=== PATIENT | female | born 1945 | race Caucasian/White ===

== ENCOUNTER 2020-07-10 18:56 | Inpatient (IN) | payer MEDICARE, SELFPAY ==
[2020-07-10 18:57] VITALS: BP 123/55; PULSE 81; RESP 16; TEMP 36.2; O2SAT 99; BMI 46.2
--- NOTE | 2020-07-10 19:38 | CT_ITS ---
STUDY: CT LUMBAR SPINE WITH CONTRAST REASON FOR EXAM: Female, 75 years old. back pain -- bladder problems, ? metastatic LN found 07/08 RADIATION DOSAGE (If Supplied By Facility): CTDIvol = ( 59.20 ) mGy, DLP = ( 2060.22 ) mGycm TECHNIQUE: The patient was scanned in a multi detector CT scanner. High resolution transaxial imaging was performed following the intravenous administration of IV 100mL Isovue-370. Images were obtained from thoracic to sacrum. Sagittal and coronal images were reconstructed. Individualized dose optimization techniques were used for this CT. COMPARISON: None FINDINGS: Normal lumbar lordosis. There is no substantial scoliosis. Normal vertebrae of the lumbar spine. Spondylosis and multilevel vacuum disc phenomenon. Schmorl''s node superior endplate L3. L1-2: Normal endplates. Normal disc height and morphology. Normal bilateral facet joints. Normal central canal and bilateral lateral recesses. Normal bilateral intervertebral neural foramina. L2-3: Moderate Central and lateral ventricle, spinal stenosis due to hypertrophic facet disease. L3-4: Moderate Central and lateral ventricle, spinal stenosis due to hypertrophic facet disease. L4-5: Large broad-based posterior disc marginal osteophyte and hypertrophic facet disease causing severe trefoil type narrowing of the central and lateral canal. Vacuum disc phenomena. L5-S1: Normal endplates. Normal disc height and morphology. Hypertrophic bilateral facet joints. Normal central canal and bilateral lateral recesses. Normal bilateral intervertebral neural foramina. Pathologic retroperitoneal lymphadenopathy. CT/Spine Lumbar WITH Contrast IMPRESSION: Pathologic retroperitoneal lymphadenopathy. Multilevel spinal stenosis as noted above. Electronically Signed: Michael Mcintosh MD at 21:19 EDT , Service support ,
[2020-07-10] MEDS: Ondansetron 4 MG/2 ML Vial IV (20:02)
[2020-07-10] MEDS: Morphine 4 MG/ML Syringe IV (20:02)
[2020-07-10 20:13] LABS: Absolute Lymphocyte Count 0.67 X10^3/uL (0.83-4.51); Absolute Neutrophil Count 6.2 X10^3/uL (2.0-7.7); Basophil# 0.04 X10^3/uL; Basophil% 0.5 % (0-1); Eosinophil# 0.19 X10^3/uL; Eosinophils% 2.3 % (0-5); Hematocrit 36.4 % (37-47); Hemoglobin 11.5 g/dL (12.0-15.0); Lymphocyte # 0.67 X10^3/ul (0.83-4.51); Lymphocyte % 8.3 % (19-41); Mean Corp Hgb Conc 31.6 g/dL (32-36); Mean Corpuscular Hgb 27.8 pg (27.0-32.0); Mean Corpuscular Volume 87.9 fL (81-99); Mean Platelet Vol. 9.6 fl (6.2-12.0); Monocyte# 0.97 X10^3/uL; NRBC Flagged by Analyzer 0 % (0-5); Neutrophil % 76.4 % (47-70); Platelet Count 458 K/mm3 (150-450); RBC Distribution Width CV 15.3 % (11.6-14.6); Red Blood Count 4.14 M/mm3 (4.2-5.4); White Blood Count 8.1 K/mm3 (4.4-11.0)
[2020-07-10 20:52] LABS: Anion Gap 8 (5-15); BUN 14 mg/dL (7-18); BUN/Creat Ratio 15.3 RATIO (10-20); Calcium,Total 10.3 mg/dL (8.5-10.1); Chloride 98 mmol/L (98-107); Creatinine, Serum 0.92 mg/dL (0.55-1.02); EST Glomerular Filtration Rate 63 mL/min (>60); Est Glom Filt Rate - Afr Amer 77 mL/min (>60); Estimated Creatinine Clearance 50.59 ml/min; Glucose 105 mg/dL (74-106); Potassium 3.7 mmol/L (3.5-5.1); Sodium Level 134 mmol/L (136-145)
[2020-07-10 20:52] LABS: Bacteria 0 SEEN /hpf (None Seen); Mucous, Urine 0 SEEN /hpf (<or=2+); Red Blood Cells-Urine 0 SEEN /hpf (0-5); White Blood Cells 0 SEEN /hpf (0-5)
[2020-07-10 20:59] LABS: Color, Urine Straw (Yellow); Glucose, Dipstick Normal (Normal); Ketone-Dipstick Negative (Negative); Leukocyte Esterase-Dipstick Negative /ul (Negative); Nitrite-Dipstick Negative (Negative); Occult Blood-Urine Negative /ul (Negative); Protein-Dipstick Negative (Negative); Urine Bilirubin Dipstick Negative (Negative); Urine Clarity Clear (Clear); Urine Urobilinogen Normal (Normal); Urine pH 6.5 (5.0 - 8.0)
[2020-07-10 21:10] LABS: Squamous Epithelial Cells - UA 0-5 SEEN /hpf (5-10)
[2020-07-10 21:12] LABS: Hyaline Cast 0-5 SEEN /lpf (0-5)
[2020-07-10] MEDS: oxyCODONE 5 MG Tablet PO (21:12)
[2020-07-10 21:15] VITALS: BP 110/63; PULSE 79; RESP 15; O2SAT 100
--- NOTE | 2020-07-10 21:20 | EX.ED.DYSGE1 ---
HPI History of Present Illness Chief Complaint: Back Informant: patient Onset/Context/Timing Onset: Days Context: Gradual Onset Current Severity: Moderate Maximum Severity: Moderate Narrative Narrative: Patient present secondary low back pain. She states she developed low back pain last july 05. She denies any injury. She was seen in the emergency room in [place] on July 08. She had extensive work-up done there including a CT scan. Blood work and urine were unremarkable. CT scan showed malignant appearing retrocrural, retroperitoneal, and iliac lymph nodes. Patient is scheduled to follow-up with a specialist through this coming week. Patient states she was sent home on CeQur but that is not controlling her pain so she came here for evaluation. [facility] Medical History (Updated 07/10/20 @ 22:[address] Laureen Nichols MD) Diabetes High cholesterol Hypertension Pulmonary embolism Home Medications allopurinol 100 mg PO BID 07/10/20 [History Last Taken Unknown] amitriptyline 75 mg PO QHS 07/10/20 [History Last Taken Unknown] furosemide 40 mg PO DAILY 07/10/20 [History Last Taken Unknown] hydrocodone-acetaminophen 1 tab PO Q6H PRN 07/10/20 [History Last Taken Unknown] levothyroxine 88 mcg PO DAILY 07/10/20 [History Last Taken Unknown] metformin 500 mg PO DAILY 07/10/20 [History Last Taken Unknown] metoprolol succinate 100 mg PO DAILY 07/10/20 [History Last Taken Unknown] potassium chloride 20 meq PO DAILY 07/10/20 [History Last Taken Unknown] pravastatin 10 mg PO DAILY 07/10/20 [History Last Taken Unknown] warfarin 6 mg PO DAILY 07/10/20 [History Last Taken Unknown] Allergy/AdvReac Type Severity Reaction Status Date / Time No Known Allergies Allergy Verified 07/10/20 19:00 Surgical History History of bilateral knee replacement History of cholecystectomy Social History Smoking Status: Never smoker ROS ROS ED Constitutional Constitutional ED: Denies chills or fever(s) Eyes Eyes: Denies change in vision ENT ENT ED: Denies sore throat Cardiovascular Cardiovascular: Denies chest pain Respiratory/Chest Respiratory/Chest: Denies cough or dyspnea Gastrointestinal Gastrointestinal: Denies abdominal pain, diarrhea, nausea or vomiting Genitourinary Genitourinary ED: Reports other Details: Intermittent difficulty urinating ; Denies dysuria Musculoskeletal Musculoskeletal: Reports back pain Integumentary Denies rash Neurologic Neurologic: Denies headache(s) or weakness Psychiatric Psychiatric: Denies anxiety or depression Endocrine Endocrinology: Denies polydipsia or polyuria Allergic/Immunologic Allergic/Immunologic ED: Denies urticaria EXAM Physical Exam Const Vital Signs: 07/10/20 18:57 07/10/20 21:15 Temperature 97.2 F L Temperature Source Temporal Pulse Rate 81 79 Respiratory Rate 16 15 Blood Pressure 123/55 H 110/63 Blood Pressure Mean 77 78 Pulse Ox 99 100 Oxygen Delivery Method Room Air Room Air Positive well nourished and well developed General Appearance ED: well developed Eyes PERRL and EOMs intact bilaterally Neck supple Chest Wall inspection of chest normal and palpation of chest normal Resp normal respiratory effort and clear to auscultation bilaterally Cardio regular rate and regular rhythm GI normal to inspection, nondistended, normoactive bowel sounds and non-tender Palpation: soft Back/Spine Back/Spine Narrative: Lumbar paraspinal tenderness, right greater than left. Lumbar Spine / Lower Back: lumbar spinal tenderness Extremity normal to inspection Neuro oriented x3 and no sensory deficits noted Sensorium / Orientation: alert Motor Exam: strength 5/5 throughout Psych mental status grossly normal Skin no rashes or lesions noted MDM MDM MDM Narrative Medical decision making narrative: Patient was given 4 mg of morphine, 4 mg of Zofran for pain and nausea. Blood work is obtained along with a CT scan of the lumbar spine. I did review the patient's test results from [place]. Lab Data Attestation: I reviewed the patient's lab results. Labs: Laboratory Results - last 24 hr 07/10/20 07/10/20 07/10/20 20:00 20:00 20:32 WBC 8.1 RBC 4.14 L Hgb 11.5 L Hct 36.4 L MCV 87.9 MCH 27.8 MCHC 31.6 L RDW Std Deviation 49.0 H RDW Coeff of Rani 15.3 H Plt Count 458 H MPV 9.6 Immature Gran % (Auto) 0.500 Neut % (Auto) 76.4 H Lymph % (Auto) 8.3 L Morris % (Auto) 12.0 H Eos % (Auto) 2.3 Baso % (Auto) 0.5 Absolute Neuts (auto) 6.2 Absolute Lymphs (auto) 0.67 L Nucleated RBC % 0 PT INR Sodium Cancelled 134 L Potassium Cancelled 3.7 Chloride Cancelled 98 Carbon Dioxide Cancelled 28.0 Anion Gap Cancelled 8 BUN Cancelled 14 Creatinine Cancelled 0.92 Estim Creat Clear Calc Cancelled 50.59 Est GFR (MDRD) Af Amer Cancelled 77 Est GFR (MDRD) Non-Af Cancelled 63 BUN/Creatinine Ratio Cancelled 15.3 Glucose Cancelled 105 Calcium Cancelled 10.3 H Urine Color Urine Clarity Urine pH Ur Specific [place] Urine Protein Urine Glucose (UA) Urine Ketones Urine Occult Blood Urine Nitrite Urine Bilirubin Urine Urobilinogen Ur Leukocyte Esterase Urine RBC Urine WBC Ur Squamous Epith Cells Urine Bacteria Hyaline Casts Urine Mucus 07/10/20 07/10/20 20:47 21:34 WBC RBC Hgb Hct MCV MCH MCHC RDW Std Deviation RDW Coeff of Rani Plt Count MPV Immature Gran % (Auto) Neut % (Auto) Lymph % (Auto) [place] % (Auto) Eos % (Auto) Baso % (Auto) Absolute Neuts (auto) Absolute Lymphs (auto) Nucleated RBC % PT 31.9 H INR 3.2 Sodium Potassium Chloride Carbon Dioxide Anion Gap BUN Creatinine Estim Creat Clear Calc Est GFR (MDRD) Af Amer Est GFR (MDRD) Non-Af BUN/Creatinine Ratio Glucose Calcium Urine Color Straw Urine Clarity Clear Urine pH 6.5 Ur Specific [place] 1.010 Urine Protein Negative Urine Glucose (UA) Normal Urine Ketones Negative Urine Occult Blood Negative Urine Nitrite Negative Urine Bilirubin Negative Urine Urobilinogen Normal Ur Leukocyte Esterase Negative Urine RBC 0 SEEN Urine WBC 0 SEEN Ur Squamous Epith Cells 0-5 SEEN Urine Bacteria 0 SEEN Hyaline Casts 0-5 SEEN Urine Mucus 0 SEEN Radiography Diagnostic Testing: Radiology Impression Lumbar Spine CT 07/10/20 19:38 IMPRESSION: Pathologic retroperitoneal lymphadenopathy. Multilevel spinal stenosis as noted above. Electronically Signed: Michael Mcintosh MD at 21:19 EDT , Service support , Treatment and Re-Evaluation Comments:: Patient was given morphine and Zofran for pain followed by a dose of oxycodone. Test results are discussed with her and daughter at bedside. At this time she does not feel her pain is controlled well enough to go home. She has been on Morris at home without improvement and in spite of morphine and oxycodone here she is still very uncomfortable. I advised her I would speak with hospitalist regarding admission for pain control. I cannot guarantee her that a biopsy of the abnormal lymph nodes would be able to be performed while in the hospital. She voices understanding and agreement. Discharge Plan Triage Chief Complaint: Back ED Provider: Laureen Nichols Dx/Rx/DC Orders Clinical Impression: Intractable back pain Prescriptions: No Action furosemide 40 mg tablet 40 mg PO DAILY RF: 0 amitriptyline 75 mg tablet 75 mg PO QHS RF: 0 hydrocodone-acetaminophen 5-325 mg tablet 1 tab PO Q6H PRN (Reason: Pain) RF: 0 metoprolol succinate 100 mg tablet extended release 24 hr 100 mg PO DAILY RF: 0 allopurinol 100 mg tablet 100 mg PO BID RF: 0 levothyroxine 88 mcg tablet 88 mcg PO DAILY RF: 0 warfarin 6 mg tablet 6 mg PO DAILY RF: 0 potassium chloride 20 mEq tablet,ER particles/crystals 20 meq PO DAILY RF: 0 pravastatin 10 mg tablet 10 mg PO DAILY RF: 0 metformin 500 mg tablet extended release 24 hr 500 mg PO DAILY RF: 0 Primary Care Provider: Jarrod Sharma NP Referrals: Jarrod Sharma NP, [facility] [Primary Care Provider] - Disposition Disposition: Acute Care Hospital [facility]
[2020-07-10 21:54] LABS: International Normalized Ratio 3.2; Prothrombin Time (Protime)PT. 31.9 SECONDS (11.7-14.9)
[2020-07-10 22:38] VITALS: BP 99/59; PULSE 82; RESP 15; TEMP 36.5; O2SAT 98
--- NOTE | 2020-07-10 22:53 | MRI_ITS ---
STUDY: MRI LUMBAR SPINE WITH AND WITHOUT CONTRAST REASON FOR EXAM: Female, 75 years old. radlcular pain, lymphadenopathy, spinal stenosis TECHNIQUE: Standardized fat and water weighted pulse sequences were obtained in the sagittal and axial planes. IV DOTAREM 27CC was administered for the contrast portion of the examination. COMPARISON: CT 07/10/2020 FINDINGS: T12-L1: Normal endplates. Normal disc height, hydration and morphology. Normal bilateral facet joints. Normal central canal and bilateral lateral recesses. Normal bilateral intervertebral neural foramina. Normal lumbar lordosis. There is no substantial scoliosis. Normal conus medullaris that terminates at the L1. Significant marrow replacement of the L2 and L3 vertebral bodies worrisome for infiltrative process particularly metastatic disease. No pathologic compression fracture. No extension into the epidural space. L1-2: Normal endplates. Normal disc height, hydration and morphology. Normal bilateral facet joints. Normal central canal and bilateral lateral recesses. Normal bilateral intervertebral neural foramina. L2-3: Mild bilateral facet hypertrophy and moderate ligament flavum hypertrophy. Mild bilobed disc protrusion produces mild spinal stenosis and mild bilateral neural foraminal stenosis. L3-4: Mild bilateral facet hypertrophy and moderate ligament flavum hypertrophy. 2 mm retrolisthesis of L3 on L4 with a mild broad disc protrusion produces moderate spinal stenosis with moderate bilateral lateral recess stenosis with abutment of the L4 nerve roots bilaterally and moderate bilateral neural foraminal stenosis. L4-5: Moderate bilateral facet hypertrophy and ligament flavum hypertrophy. Moderate broad disc protrusion asymmetric to left produces moderate spinal stenosis, mild right lateral recess stenosis, severe left lateral recess stenosis with effacement the left L5 nerve root, mild right neural foraminal stenosis and severe left neural foraminal stenosis with effacement the left L4 nerve root laterally. L5-S1: Mild bilateral facet hypertrophy. Mild broad disc protrusion produces mild spinal stenosis and mild bilateral neural foraminal stenosis. Normal visualized sacral ala. Large retroperitoneal lymph nodes worrisome for lymphadenopathy. The largest discrete lymph node is a left periaortic lymph node measuring 4 x 5 cm per MRI/Spine Lumbar W/WO Contrast IMPRESSION: 1. Retroperitoneal lymphadenopathy and marrow replacing lesions the L2 and L3 vertebral bodies worrisome for metastatic disease. No pathologic compression fracture. Correlation with bone scan and PET CT scan may be useful. 2. Degenerative disc disease as described above. Electronically Signed: Ted Dietrich MD at 11:14 EDT Tel , Service support ,
--- NOTE | 2020-07-10 22:54 | HP.PCM.HOS_ITS ---
HPI - General General Date of Admission: 07/10/20 Date of Service: 07/10/20 Chief Complaint: right buttocks pain HPI Narrative LEANDRO HELMS, is a 75 F who presents to the emergency room at [facility] with a chief complaint of right upper buttocks pain that she describes as dull in nature, it is continuous and she is unable to get comfortable. Patient denies any pain down her right or left leg, she denies any numbness in her right or left leg. Patient was seen and in the emergency room in [facility] on July 08, 2020 with similar complaints, a CT of the lumbar spine was done at that time which showed pathological retroperitoneal lymph node enlargement, she was given Etta for pain and follow-up was scheduled for her to see another physician regarding the CT findings in approximately 2 weeks. Patient is on Coumadin, she states her INR was elevated and she was told to stay off Coumadin for now. Work-up in the emergency room here included a CAT scan of the lumbar spine which shows significant spinal stenosis with nerve impingement particularly at L4-L5 from osteophytes. There is also noted to be retro peritoneal lymphadenopathy which was concerning for malignancy. Labs were remarkable for a hemoglobin of 11.5, sodium was 134, calcium was 10.3. INR was 3.2. I discussed placing the patient in the observation status with her, her daughter was present in the room, and I have elected to place her in observation status on MedSurg 3, put her on IV Decadron, start gabapentin, get an MRI of the lumbar spine with contrast, and have pain management see her tomorrow. Patient's INR is elevated today at 3.2, I briefly discussed with the patient the possibility of trying to reverse the INR with medication but she prefers not to do that at this time. [facility] Medical History (Updated 07/10/20 @ 22:[address] Laureen Nichols MD) Diabetes High cholesterol Hypertension Pulmonary embolism Home Medications allopurinol 100 mg PO BID 07/10/20 [History Last Taken Unknown] amitriptyline 75 mg PO QHS 07/10/20 [History Last Taken Unknown] furosemide 40 mg PO DAILY 07/10/20 [History Last Taken Unknown] hydrocodone-acetaminophen 1 tab PO Q6H PRN 07/10/20 [History Last Taken Unknown] levothyroxine 88 mcg PO DAILY 07/10/20 [History Last Taken Unknown] metformin 500 mg PO DAILY 07/10/20 [History Last Taken Unknown] metoprolol succinate 100 mg PO DAILY 07/10/20 [History Last Taken Unknown] potassium chloride 20 meq PO DAILY 07/10/20 [History Last Taken Unknown] pravastatin 10 mg PO DAILY 07/10/20 [History Last Taken Unknown] warfarin 6 mg PO DAILY 07/10/20 [History Last Taken Unknown] Allergy/AdvReac Type Severity Reaction Status Date / Time No Known Allergies Allergy Verified 07/10/20 19:00 Surgical History (Updated 07/10/20 @ 23:[address] Efren Gold, DO) History of bilateral knee replacement History of cataract removal with insertion of prosthetic lens History of cholecystectomy Social History Smoking Status: Never smoker ROS Constitutional Constitutional: Denies anorexia, change in weight, chills, fever(s), night sweats or weakness Eyes Eyes: Denies blurry vision, change in vision, discharge from eye(s) or eye pain Cardiovascular Cardiovascular: Denies chest pain, claudication, edema or palpitations Respiratory/Chest Respiratory/Chest: Denies cough, hemoptysis, shortness of breath at rest or shortness of breath with exertion Gastrointestinal Gastrointestinal: Denies abdominal pain, constipation, diarrhea, hematemesis, hematochezia, melena, nausea or vomiting Genitourinary Genitourinary: Denies dysuria, hematuria, urinary frequency, urinary hesitancy, urinary incontinence or urinary urgency Musculoskeletal Musculoskeletal: Reports other Details: Right buttocks pain x1 week, dull in nature ; Denies back pain, joint pain, joint stiffness, joint swelling, myalgias or neck pain Neurologic Neurologic: Reports seizure-like activity; Denies abnormal gait, abnormal speech, confusion, dizziness, focal weakness, headache(s), loss of vision, numbness, other visual disturbances, paresthesias, syncope or tingling Psychiatric Psychiatric: Denies anxiety, cognitive impairment, depression, irritability, mood swings or suicidal ideation Endocrine Endocrinology: Denies change in body appearance, cold intolerance, excessive sweating, heat intolerance, polydipsia or polyuria Hematologic/Lymphatic Hematologic/Lymphatic: Denies none, anemia, easy bleeding, easy bruising or lymphadenopathy Allergic/Immunologic Allergic/Immunologic: Denies rhinitis, urticaria, eczemia or asthma Vital Signs Vital Signs Vital Signs: 07/10/20 18:57 07/10/20 21:15 07/10/20 22:38 Temperature 97.2 F L 97.7 F L Temperature Source Temporal Temporal Pulse Rate 81 79 82 Respiratory Rate 16 15 15 Blood Pressure 123/55 H 110/63 99/59 L Blood Pressure Mean 77 78 72 Pulse Ox 99 100 98 Oxygen Delivery Method Room Air Room Air Room Air Weight Weight: 133.81 kg Body Mass Index (BMI) 46.2 Physical Exam Const alert, oriented x3, no apparent distress and healthy appearing General Appearance: cooperative, well kempt and well developed Orientation / Consciousness: awake, oriented to person, oriented to place and oriented to time HEENT normocephalic and moist oral mucous membranes Eyes PERRL, EOMs intact bilaterally and conjunctivae normal Neck nuchal rigidity, supple, no JVD, thyroid normal and no carotid bruits General: trachea midline Resp normal respiratory effort, no retractions, no use of accessory muscles and clear to auscultation bilaterally Auscultation: Negative for rales, rhonchi or wheezes Cardio regular rate, regular rhythm, S1 normal heart sound, S2 normal heart sound, no murmurs, no rub and no gallops GI normal to inspection, nondistended, normoactive bowel sounds, soft to palpation, non-tender and non-distended Extremity normal to inspection and no clubbing, cyanosis or edema Skin no rashes or lesions noted, no wounds and no jaundice General Skin Exam: no breakdown Neuro oriented x3, CN's II-XII intact bilaterally, no focal motor deficits and no sensory deficits noted Sensorium / Orientation: awake and alert Speech: speech normal Psych thought process normal and affect normal Lab / Micro Data Result Diagrams: 07/10/20 20:00 07/10/20 20:32 Labs: Laboratory Results - last 24 hr 07/10/20 07/10/20 07/10/20 20:00 20:00 20:32 WBC 8.1 RBC 4.14 L Hgb 11.5 L Hct 36.4 L MCV 87.9 MCH 27.8 MCHC 31.6 L RDW Std Deviation 49.0 H RDW Coeff of Rani 15.3 H Plt Count 458 H MPV 9.6 Immature Gran % (Auto) 0.500 Neut % (Auto) 76.4 H Lymph % (Auto) 8.[address] [place] % (Auto) 12.0 H Eos % (Auto) 2.3 Baso % (Auto) 0.5 Absolute Neuts (auto) 6.2 Absolute Lymphs (auto) 0.67 L Nucleated RBC % 0 PT INR Sodium Cancelled 134 L Potassium Cancelled 3.7 Chloride Cancelled 98 Carbon Dioxide Cancelled 28.0 Anion Gap Cancelled 8 BUN Cancelled 14 Creatinine Cancelled 0.92 Estim Creat Clear Calc Cancelled 50.59 Est GFR (MDRD) Af Amer Cancelled 77 Est GFR (MDRD) Non-Af Cancelled 63 BUN/Creatinine Ratio Cancelled 15.3 Glucose Cancelled 105 Calcium Cancelled 10.3 H Urine Color Urine Clarity Urine pH Ur Specific [place] Urine Protein Urine Glucose (UA) Urine Ketones Urine Occult Blood Urine Nitrite Urine Bilirubin Urine Urobilinogen Ur Leukocyte Esterase Urine RBC Urine WBC Ur Squamous Epith Cells Urine Bacteria Hyaline Casts Urine Mucus 07/10/20 07/10/20 20:47 21:34 WBC RBC Hgb Hct MCV MCH MCHC RDW Std Deviation RDW Coeff of Rani Plt Count MPV Immature Gran % (Auto) Neut % (Auto) Lymph % (Auto) [place] % (Auto) Eos % (Auto) Baso % (Auto) Absolute Neuts (auto) Absolute Lymphs (auto) Nucleated RBC % PT 31.9 H INR 3.2 Sodium Potassium Chloride Carbon Dioxide Anion Gap BUN Creatinine Estim Creat Clear Calc Est GFR (MDRD) Af Amer Est GFR (MDRD) Non-Af BUN/Creatinine Ratio Glucose Calcium Urine Color Straw Urine Clarity Clear Urine pH 6.5 Ur Specific [place] 1.010 Urine Protein Negative Urine Glucose (UA) Normal Urine Ketones Negative Urine Occult Blood Negative Urine Nitrite Negative Urine Bilirubin Negative Urine Urobilinogen Normal Ur Leukocyte Esterase Negative Urine RBC 0 SEEN Urine WBC 0 SEEN Ur Squamous Epith Cells 0-5 SEEN Urine Bacteria 0 SEEN Hyaline Casts 0-5 SEEN Urine Mucus 0 SEEN Radiology Impression Lumbar Spine CT 07/10/20 19:38 IMPRESSION: Pathologic retroperitoneal lymphadenopathy. Multilevel spinal stenosis as noted above. Electronically Signed: Michael Mcintosh MD at 21:19 EDT , Service support , Assessment & Plan Assessment/Plan (1) Intractable back pain: PLAN: 1. Right buttocks pain-radicular in nature-secondary to degenerative disc disease of lumbar spine with spinal stenosis, patient will be placed in observation status on MedSurg 3, I will begin IV Decadron, oral gabapentin, OxyContin, and have pain management see the patient. An MRI of the lumbar spine with and without contrast will be ordered. 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 Visit Charges OBSV E&M: 44334 Initial observation care L3
[2020-07-10 23:35] VITALS: BMI 44.4
[2020-07-10 23:41] VITALS: BP 113/64; PULSE 78; RESP 18; TEMP 36.7; O2SAT 96
[2020-07-11] VITALS (8 sets, daily range): BP systolic 101–120; BP diastolic 53–63; PULSE 72–91; RESP 16–18; TEMP 36.6–36.9; O2SAT 92–98
[2020-07-11] MEDS: Amitriptyline 25 MG Tablet 75 MG PO ×2 (00:21→21:18)
[2020-07-11] MEDS: oxyCODONE CR 15 MG Tablet PO ×3 (00:21→21:18)
[2020-07-11] MEDS: Gabapentin 300 MG Capsule PO ×4 (00:21→16:48)
[2020-07-11] MEDS: dexAMETHasone 4 MG/ML Vial IV ×5 (00:21→23:11)
[2020-07-11] MEDS: 0.9% Saline Lock 10 ML Syringe IV ×6 (00:22→23:11)
[2020-07-11] MEDS: Nystatin Powder 15gm Bottle 1 APPLIC TOPICAL ×3 (05:16→21:18)
[2020-07-11] MEDS: Levothyroxine 88 MCG Tablet PO (05:16)
[2020-07-11 06:12] LABS: International Normalized Ratio 3.3; Prothrombin Time (Protime)PT. 32.3 SECONDS (11.7-14.9)
[2020-07-11] MEDS: Metoprolol(XL)Succ 100 MG Tablet PO (08:27)
[2020-07-11] MEDS: Potassium Chloride Oral Tablet 20 MEQ PO (08:27)
[2020-07-11] MEDS: Furosemide 40 MG Tablet PO (08:27)
[2020-07-11] MEDS: Allopurinol 100 MG Tablet PO ×2 (08:28→21:18)
--- NOTE | 2020-07-11 10:33 | PN.HOSP_ITS ---
Objective Data Objective Data Vital Signs: Vital Signs Temp Pulse Resp BP Pulse Ox 98.3 F 76 18 115/56 L 95 07/11/20 08:20 07/11/20 08:27 07/11/20 08:20 07/11/20 08:20 07/11/20 08:20 Oxygen Flow Rate (L/min) 1 Oxygen Delivery Method Nasal Cannula Weight: 283 lb 8.231 oz Body Mass Index (BMI) 44.4 Intake & Output: Intake and Output for Last 24 Hours 07/09/20 07/10/20 07/11/20 23:59 23:59 23:59 Intake Total 320 / 320 Balance 320 / 320 Lab / Micro Data Result Diagrams: 07/10/20 20:00 07/10/20 20:32 Labs: Laboratory Results - last 24 hr 07/10/20 07/10/20 07/10/20 20:00 20:00 20:32 WBC 8.1 RBC 4.14 L Hgb 11.5 L Hct 36.4 L MCV 87.9 MCH 27.8 MCHC 31.6 L RDW Std Deviation 49.0 H RDW Coeff of Rani 15.3 H Plt Count 458 H MPV 9.6 Immature Gran % (Auto) 0.500 Neut % (Auto) 76.4 H Lymph % (Auto) 8.3 L [place] % (Auto) 12.0 H Eos % (Auto) 2.3 Baso % (Auto) 0.5 Absolute Neuts (auto) 6.2 Absolute Lymphs (auto) 0.67 L Nucleated RBC % 0 PT INR Sodium Cancelled 134 L Potassium Cancelled 3.7 Chloride Cancelled 98 Carbon Dioxide Cancelled 28.0 Anion Gap Cancelled 8 BUN Cancelled 14 Creatinine Cancelled 0.92 Estim Creat Clear Calc Cancelled 50.59 Est GFR (MDRD) Af Amer Cancelled 77 Est GFR (MDRD) Non-Af Cancelled 63 BUN/Creatinine Ratio Cancelled 15.3 Glucose Cancelled 105 Calcium Cancelled 10.3 H Urine Color Urine Clarity Urine pH Ur Specific [place] Urine Protein Urine Glucose (UA) Urine Ketones Urine Occult Blood Urine Nitrite Urine Bilirubin Urine Urobilinogen Ur Leukocyte Esterase Urine RBC Urine WBC Ur Squamous Epith Cells Urine Bacteria Hyaline Casts Urine Mucus 07/10/20 07/10/20 07/11/20 20:47 21:34 05:40 WBC RBC Hgb Hct MCV MCH MCHC RDW Std Deviation RDW Coeff of Rani Plt Count MPV Immature Gran % (Auto) Neut % (Auto) Lymph % (Auto) [place] % (Auto) Eos % (Auto) Baso % (Auto) Absolute Neuts (auto) Absolute Lymphs (auto) Nucleated RBC % PT 31.9 H 32.3 H INR 3.2 3.3 Sodium Potassium Chloride Carbon Dioxide Anion Gap BUN Creatinine Estim Creat Clear Calc Est GFR (MDRD) Af Amer Est GFR (MDRD) Non-Af BUN/Creatinine Ratio Glucose Calcium Urine Color Straw Urine Clarity Clear Urine pH 6.5 Ur Specific [place] 1.010 Urine Protein Negative Urine Glucose (UA) Normal Urine Ketones Negative Urine Occult Blood Negative Urine Nitrite Negative Urine Bilirubin Negative Urine Urobilinogen Normal Ur Leukocyte Esterase Negative Urine RBC 0 SEEN Urine WBC 0 SEEN Ur Squamous Epith Cells 0-5 SEEN Urine Bacteria 0 SEEN Hyaline Casts 0-5 SEEN Urine Mucus 0 SEEN Radiography Diagnostic Testing: Radiology Impression Lumbar Spine CT 07/10/20 19:38 IMPRESSION: Pathologic retroperitoneal lymphadenopathy. Multilevel spinal stenosis as noted above. Electronically Signed: Michael Mcintosh MD at 21:19 EDT , Service support ,
[2020-07-11] MEDS: Senna/Docusate Sodium 1 Tablet 2 TABLET PO ×2 (10:55→21:18)
--- NOTE | 2020-07-11 12:15 | CASEMGMT ---
DAVI STEARNS Face to Face with patient for initial transition planning/care coordination assessment. RN JINNY introduced self and role at [facility]. Patient sitting in chair, alert and oriented. Patient willing to participate in assessment and is able to answer all questions appropriately. Care providers, pharmacy, and demographics verified. Patient wishes to discharge home, denies need for home health or outpatient therapy at this time. RN JINNY instructed patient that should she reconsider she can follow-up with PCP, patient voiced understanding. Patient states she has no further needs or concerns at this time. CM to follow for discharge planning needs that may arise. PCP: Edith Specialists: none [facility]erred [facility]acy[facility] Insurance: [facility] Prescription Benefit: yes Living Will/HPOA: none LNOK: daughters Living Arrangements: Patient lives alone in a 2 story home with bed and bath on first floor. Patient is independent and watches grandchildren. Transportation: self, daughter DME/HHC: patient states she has shower chair, raised toilet, grab bars, and walker at home. Disposition Plan: Patient to discharge home with family support and follow-up plans in place. Marita BUI, RN, CM
--- NOTE | 2020-07-11 15:21 | PCM.DC.SUM ---
Providers Date of Admission: 07/10/20 Primary Care Physician: YISSEL Manzo Consultations 07/10/20 23:36 Consult: Pain Management Routine Consulting Provider: Sue Pang Reason for Consult: right radicular pain EMERGENT Consult: No MD Notified: Yes Date Notified:: 07/10/20 Time Notified: 22:47 Method of Notification: Verbal Reason For Visit: RADICULAR PAIN RIGHT LUMBAR Diagnosis Discharge Diagnosis (1) Intractable back pain: Status: Acute Code(s): M54.9 - Dorsalgia, unspecified Medications at Discharge Home Medications allopurinol 100 mg PO BID 07/10/20 amitriptyline 75 mg PO QHS 07/10/20 furosemide 40 mg PO DAILY 07/10/20 hydrocodone-acetaminophen 1 tab PO Q6H PRN 07/10/20 levothyroxine 88 mcg PO DAILY 07/10/20 metformin 500 mg PO DAILY 07/10/20 metoprolol succinate 100 mg PO DAILY 07/10/20 potassium chloride 20 meq PO DAILY 07/10/20 pravastatin 10 mg PO QHS 07/10/20 warfarin 6 mg PO QHS 07/10/20 Hospital Course Operations None Procedures None Summary of Care Provided Minutes Spent on Discharge: 40 Hospital Course: viridiana stenosis with nerve impingement at L4-5 due to osteophytes as well as retroperitoneal lymphadenopathy which was concerning for malignancy. She was started on gabapentin and Decadron and admitted to be managed for intractable low back pain. ABG / Lab / Microbiology Data Result Diagrams: 07/10/20 20:00 07/10/20 20:32 Laboratory: Laboratory Results - last 24 hr 07/10/20 07/10/20 07/10/20 20:00 20:00 20:32 WBC 8.1 RBC 4.14 L Hgb 11.5 L Hct 36.4 L MCV 87.9 MCH 27.8 MCHC 31.6 L RDW Std Deviation 49.0 H RDW Coeff of Rani 15.3 H Plt Count 458 H MPV 9.6 Immature Gran % (Auto) 0.500 Neut % (Auto) 76.4 H Lymph % (Auto) 8.3 L [place] % (Auto) 12.0 H Eos % (Auto) 2.3 Baso % (Auto) 0.5 Absolute Neuts (auto) 6.2 Absolute Lymphs (auto) 0.67 L Nucleated RBC % 0 PT INR Sodium Cancelled 134 L Potassium Cancelled 3.7 Chloride Cancelled 98 Carbon Dioxide Cancelled 28.0 Anion Gap Cancelled 8 BUN Cancelled 14 Creatinine Cancelled 0.92 Estim Creat Clear Calc Cancelled 50.59 Est GFR (MDRD) Af Amer Cancelled 77 Est GFR (MDRD) Non-Af Cancelled 63 BUN/Creatinine Ratio Cancelled 15.3 Glucose Cancelled 105 Calcium Cancelled 10.3 H Urine Color Urine Clarity Urine pH Ur Specific [place] Urine Protein Urine Glucose (UA) Urine Ketones Urine Occult Blood Urine Nitrite Urine Bilirubin Urine Urobilinogen Ur Leukocyte Esterase Urine RBC Urine WBC Ur Squamous Epith Cells Urine Bacteria Hyaline Casts Urine Mucus 07/10/20 07/10/20 07/11/20 20:47 21:34 05:40 WBC RBC Hgb Hct MCV MCH MCHC RDW Std Deviation RDW Coeff of Rani Plt Count MPV Immature Gran % (Auto) Neut % (Auto) Lymph % (Auto) [place] % (Auto) Eos % (Auto) Baso % (Auto) Absolute Neuts (auto) Absolute Lymphs (auto) Nucleated RBC % PT 31.9 H 32.3 H INR 3.2 3.3 Sodium Potassium Chloride Carbon Dioxide Anion Gap BUN Creatinine Estim Creat Clear Calc Est GFR (MDRD) Af Amer Est GFR (MDRD) Non-Af BUN/Creatinine Ratio Glucose Calcium Urine Color Straw Urine Clarity Clear Urine pH 6.5 Ur Specific [place] 1.010 Urine Protein Negative Urine Glucose (UA) Normal Urine Ketones Negative Urine Occult Blood Negative Urine Nitrite Negative Urine Bilirubin Negative Urine Urobilinogen Normal Ur Leukocyte Esterase Negative Urine RBC 0 SEEN Urine WBC 0 SEEN Ur Squamous Epith Cells 0-5 SEEN Urine Bacteria 0 SEEN Hyaline Casts 0-5 SEEN Urine Mucus 0 SEEN Radiography Diagnostic Testing: Radiology Impression Lumbar Spine CT 07/10/20 19:38 IMPRESSION: Pathologic retroperitoneal lymphadenopathy. Multilevel spinal stenosis as noted above. Electronically Signed: Michael Mcintosh MD at 21:19 EDT , Service support , Lumbar Spine MRI 07/10/20 22:53 IMPRESSION: 1. Retroperitoneal lymphadenopathy and marrow replacing lesions the L2 and L3 vertebral bodies worrisome for metastatic disease. No pathologic compression fracture. Correlation with bone scan and PET CT scan may be useful. 2. Degenerative disc disease as described above. Electronically Signed: Ted Dietrich MD at 11:14 EDT Tel , Service support , Discharge Plan Admission Admit Date/Time: 07/10/20 22:53 Primary Reason for Your Visit: back pain Attending Provider: Barbara Ny Primary Care Provider: Jarrod Sharma NP Consulting Providers: Sue Pang Discharge Orders/Prescriptions Prescriptions: No Action furosemide 40 mg tablet 40 mg PO DAILY RF: 0 amitriptyline 75 mg tablet 75 mg PO QHS RF: 0 hydrocodone-acetaminophen 5-325 mg tablet 1 tab PO Q6H PRN (Reason: Pain) RF: 0 metoprolol succinate 100 mg tablet extended release 24 hr 100 mg PO DAILY RF: 0 allopurinol 100 mg tablet 100 mg PO BID RF: 0 levothyroxine 88 mcg tablet 88 mcg PO DAILY RF: 0 warfarin 6 mg tablet 6 mg PO QHS RF: 0 potassium chloride 20 mEq tablet,ER particles/crystals 20 meq PO DAILY RF: 0 pravastatin 10 mg tablet 10 mg PO QHS RF: 0 metformin 500 mg tablet extended release 24 hr 500 mg PO DAILY RF: 0 Referrals / Follow Up: Jarrod Sharma NP, [employer] [Primary Care Provider] -
--- NOTE | 2020-07-11 15:26 | PN.HOSP_ITS ---
Subjective Subjective Patient seen and examined. She was admitted with a complaint of low back pain mainly in the upper part of the right buttock. She had been seen in [facility] for similar symptoms recently. CT of the lumbar spine done here showed lumbar spinal stenosis and pathologic retropreritoneal lymphadenopathy. She has been managed for intractable back pain. Patient seen and examined this morning. Pain had improved significantly and she had no complaints. Review of systems otherwise negative. Lumbar MRI showed retroperitoneal lymphadenopathy and marrow replacing lesions of L2 and L3 vertebral bodies worrisome for metastatic disease and no pathologic compression fracture. She has remained hemodynamically stable. Objective Data Objective Data Vital Signs: Vital Signs Temp Pulse Resp BP Pulse Ox 98.5 F 76 16 112/53 L 92 07/11/20 15:05 07/11/20 15:05 07/11/20 15:05 07/11/20 15:05 07/11/20 15:05 Oxygen Flow Rate (L/min) 1 Oxygen Delivery Method Room Air Weight: 283 lb 8.231 oz Body Mass Index (BMI) 44.4 Intake & Output: Intake and Output for Last 24 Hours 07/09/20 07/10/20 07/11/20 23:59 23:59 23:59 Intake Total 320 / 320 Balance 320 / 320 Lab / Micro Data Result Diagrams: 07/10/20 20:00 07/10/20 20:32 Labs: Laboratory Results - last 24 hr 07/10/20 07/10/20 07/10/20 20:00 20:00 20:32 WBC 8.1 RBC 4.14 L Hgb 11.5 L Hct 36.4 L MCV 87.9 MCH 27.8 MCHC 31.6 L RDW Std Deviation 49.0 H RDW Coeff of Rani 15.3 H Plt Count 458 H MPV 9.6 Immature Gran % (Auto) 0.500 Neut % (Auto) 76.4 H Lymph % (Auto) 8.3 L [place] % (Auto) 12.0 H Eos % (Auto) 2.3 Baso % (Auto) 0.5 Absolute Neuts (auto) 6.2 Absolute Lymphs (auto) 0.67 L Nucleated RBC % 0 PT INR Sodium Cancelled 134 L Potassium Cancelled 3.7 Chloride Cancelled 98 Carbon Dioxide Cancelled 28.0 Anion Gap Cancelled 8 BUN Cancelled 14 Creatinine Cancelled 0.92 Estim Creat Clear Calc Cancelled 50.59 Est GFR (MDRD) Af Amer Cancelled 77 Est GFR (MDRD) Non-Af Cancelled 63 BUN/Creatinine Ratio Cancelled 15.3 Glucose Cancelled 105 Calcium Cancelled 10.3 H Urine Color Urine Clarity Urine pH Ur Specific [place] Urine Protein Urine Glucose (UA) Urine Ketones Urine Occult Blood Urine Nitrite Urine Bilirubin Urine Urobilinogen Ur Leukocyte Esterase Urine RBC Urine WBC Ur Squamous Epith Cells Urine Bacteria Hyaline Casts Urine Mucus 07/10/20 07/10/20 07/11/20 20:47 21:34 05:40 WBC RBC Hgb Hct MCV MCH MCHC RDW Std Deviation RDW Coeff of Rani Plt Count MPV Immature Gran % (Auto) Neut % (Auto) Lymph % (Auto) [place] % (Auto) Eos % (Auto) Baso % (Auto) Absolute Neuts (auto) Absolute Lymphs (auto) Nucleated RBC % PT 31.9 H 32.3 H INR 3.2 3.3 Sodium Potassium Chloride Carbon Dioxide Anion Gap BUN Creatinine Estim Creat Clear Calc Est GFR (MDRD) Af Amer Est GFR (MDRD) Non-Af BUN/Creatinine Ratio Glucose Calcium Urine Color Straw Urine Clarity Clear Urine pH 6.5 Ur Specific [place] 1.010 Urine Protein Negative Urine Glucose (UA) Normal Urine Ketones Negative Urine Occult Blood Negative Urine Nitrite Negative Urine Bilirubin Negative Urine Urobilinogen Normal Ur Leukocyte Esterase Negative Urine RBC 0 SEEN Urine WBC 0 SEEN Ur Squamous Epith Cells 0-5 SEEN Urine Bacteria 0 SEEN Hyaline Casts 0-5 SEEN Urine Mucus 0 SEEN Radiography Diagnostic Testing: Radiology Impression Lumbar Spine CT 07/10/20 19:38 IMPRESSION: Pathologic retroperitoneal lymphadenopathy. Multilevel spinal stenosis as noted above. Electronically Signed: Michael Mcintosh MD at 21:19 EDT , Service support , Lumbar Spine MRI 07/10/20 22:53 IMPRESSION: 1. Retroperitoneal lymphadenopathy and marrow replacing lesions the L2 and L3 vertebral bodies worrisome for metastatic disease. No pathologic compression fracture. Correlation with bone scan and PET CT scan may be useful. 2. Degenerative disc disease as described above. Electronically Signed: Ted Dietrich MD at 11:14 EDT Tel , Service support , Physical Exam Const alert, oriented x3 and no apparent distress Exam Limitations: no limitations HEENT head/scalp atraumatic, moist oral mucous membranes and oropharynx normal Head and Scalp: normocephalic Eyes PERRL, EOMs intact bilaterally and conjunctivae normal Neck no lymphadenopathy, supple and no JVD Resp normal respiratory effort, no retractions, no use of accessory muscles and clear to auscultation bilaterally Cardio regular rate, regular rhythm, S1 normal heart sound, S2 normal heart sound and no gallops GI normal to inspection, nondistended, normoactive bowel sounds, soft to palpation, non-tender and non-distended Extremity normal to inspection, full ROM and no clubbing, cyanosis or edema Peripheral Pulses: Yes pulses 2+ throughout Skin no rashes or lesions noted Neuro oriented x3 Sensorium / Orientation: awake and alert Psych affect normal Assessment & Plan Assessment/Plan (1) Intractable back pain: PLAN: #Intractable back pain * pain has improved * CT of the lumbar spine showed retroperitoneal lymphadenopathy and lumbar spinal stenosis * MRI done of the lumbar spine showed retroperitoneal lymphadenopathy and marrow replacing lesions of L2 and L3 vertebral bodies worrisome for metastatic disease with no pathologic compression fracture. She also had moderate spinal stenosis of L4-5 and L3-4. * Continue current pain medication. * Consult oncology in light of MRI findings. Will check CMP to check for serum protein and albumin. * Will order serum electrophoresis. Consult oncology. * #Hypertension: On furosemide and metoprolol #Hyperlipidemia: On statin #Hypothyroidism: On Synthroid DVT prophylaxis: on coumadin. will hold coumadin for now as INR was 3.2 on admission. INR today is 3.3. Charges/Coding Visit Charges Inpatient E&M: 30861 Subs Hosp L3
[2020-07-11 16:09] LABS: BUN 16 mg/dL (7-18); Creatinine, Serum 1.12 mg/dL (0.55-1.02); Estimated Creatinine Clearance 41.56 ml/min; Glucose 140 mg/dL (74-106)
[2020-07-11 16:10] LABS: ALB/GLOB Ratio 0.4 RATIO (0.9-2.4); AST(SGOT) 14 U/L (15-37); Alanine Aminotransfer ALT/SGPT 12 U/L (13-56); Albumin, Serum 2.5 g/dL (3.2-5.0); Alkaline Phosphatase 226 U/L (45-117); Anion Gap 9 (5-15); BUN/Creat Ratio 14.3 RATIO (10-20); Calcium,Total 10.4 mg/dL (8.5-10.1); Chloride 97 mmol/L (98-107); EST Glomerular Filtration Rate 50 mL/min (>60); Est Glom Filt Rate - Afr Amer 61 mL/min (>60); Globulin 5.6 g/dL (2.2-4.2); Protein, Total 8.1 g/dL (6.4-8.2); Sodium Level 134 mmol/L (136-145)
[2020-07-11 16:12] LABS: LDH 298 U/L (84-246)
[2020-07-12 02:30] VITALS: BP 116/71; PULSE 67; RESP 16; TEMP 36.4; O2SAT 94
[2020-07-12] MEDS: 0.9% Saline Lock 10 ML Syringe IV ×4 (05:18→12:05)
[2020-07-12] MEDS: Levothyroxine 88 MCG Tablet PO (05:19)
[2020-07-12] MEDS: Nystatin Powder 15gm Bottle 1 APPLIC TOPICAL ×2 (05:19→13:37)
[2020-07-12] MEDS: dexAMETHasone 4 MG/ML Vial IV ×2 (05:19→12:05)
[2020-07-12 05:46] LABS: Absolute Lymphocyte Count 0.76 X10^3/uL (0.83-4.51); Absolute Neutrophil Count 8.6 X10^3/uL (2.0-7.7); Basophil# 0.01 X10^3/uL; Basophil% 0.1 % (0-1); Hematocrit 34.2 % (37-47); Hemoglobin 10.7 g/dL (12.0-15.0); Lymphocyte # 0.76 X10^3/ul (0.83-4.51); Lymphocyte % 7.7 % (19-41); Mean Corp Hgb Conc 31.3 g/dL (32-36); Mean Corpuscular Hgb 27.5 pg (27.0-32.0); Mean Corpuscular Volume 87.9 fL (81-99); Mean Platelet Vol. 9.5 fl (6.2-12.0); Monocyte# 0.41 X10^3/uL; Monocyte% 4.1 % (0-10); NRBC Flagged by Analyzer 0 % (0-5); Neutrophil % 87.1 % (47-70); Platelet Count 538 K/mm3 (150-450); RBC Distribution Width CV 15.5 % (11.6-14.6); Red Blood Count 3.89 M/mm3 (4.2-5.4); White Blood Count 9.9 K/mm3 (4.4-11.0)
--- NOTE | 2020-07-12 05:55 | CT_ITS ---
STUDY: CT CHEST, ABDOMEN T PELVIS WITH CONTRAST REASON FOR EXAM: Female, 75 years old. Retroperitoneal lymphadenopathy RADIATION DOSAGE (If Supplied By Facility): CTDIvol = ( 26.02 ) mGy, DLP = ( 2685.75 ) mGycm TECHNIQUE: Transaxial imaging was performed following intravenous administration of IV 100mL [id number]-300. Individualized dose optimization techniques were used for this CT. COMPARISON: No relevant priors. FINDINGS: CHEST Dominant left axillary lymph node measuring 1.6 cm x 1.3 cm. Benign appearing right axillary lymph nodes. Minimal increased markings at the lung bases slightly more prominent on the left side suggestive of bibasilar atelectasis. Small left pleural effusion. Minimal right pleural thickening. There are calcifications of the coronary arteries. Normal mediastinum. Normal hilar regions. Normal unenhanced pulmonary arteries. Atherosclerotic plaque formation of the aortic arch. There are multi-level degenerative changes of the thoracic spine. The patient is status post cholecystectomy. ABDOMEN Small left pleural effusion. Minimal right pleural thickening. Findings suggest some bibasilar atelectasis is more prominent on the left side. Coronary artery calcification. Normal liver. The gallbladder is contracted. Normal spleen. There is diffuse atrophy of the pancreas. Normal bilateral adrenal glands. Normal right kidney. Normal left kidney. Normal visualized stomach. Normal small intestine. Normal colon. The appendix is visualized and appears normal. There is diffuse atherosclerotic calcification of the abdominal aorta, without a demonstrated aneurysm. Normal inferior vena cava. There is retroperitoneal lymphadenopathy with enlarged nodes greater than 10-15mm in the short axis. Normal abdominal wall. There are diffuse degenerative changes of the visualized lumbar spine. PELVIS Normal urinary bladder. There appears to be thickening of the endometrium. Normal visualized small intestine. Normal visualized colon. There is no pelvic fluid. There is no pelvic lymphadenopathy or mass lesion. There is diffuse atherosclerotic calcification of the pelvic arteries. Normal abdominal wall. There are diffuse degenerative changes of the visualized lumbar spine. CT/CT Chest, Abd, Pel w/Contrast IMPRESSION: Diffuse retroperitoneal lymphadenopathy worse on the left side. Prominent left axillary lymph node. Electronically Signed: Marc Srinivasan MD at 8:18 EDT , Service support ,
[2020-07-12 06:04] LABS: ALB/GLOB Ratio 0.5 RATIO (0.9-2.4); AST(SGOT) 21 U/L (15-37); Alanine Aminotransfer ALT/SGPT 11 U/L (13-56); Albumin, Serum 2.5 g/dL (3.2-5.0); Alkaline Phosphatase 205 U/L (45-117); Anion Gap 9 (5-15); BUN 43 mg/dL (7-18); BUN/Creat Ratio 21.3 RATIO (10-20); Calcium,Total 9.8 mg/dL (8.5-10.1); Chloride 93 mmol/L (98-107); Creatinine, Serum 2.02 mg/dL (0.55-1.02); EST Glomerular Filtration Rate 26 mL/min (>60); Est Glom Filt Rate - Afr Amer 31 mL/min (>60); Estimated Creatinine Clearance 23.04 ml/min; Globulin 5.1 g/dL (2.2-4.2); Glucose 169 mg/dL (74-106); Potassium 4.5 mmol/L (3.5-5.1); Protein, Total 7.6 g/dL (6.4-8.2); Sodium Level 129 mmol/L (136-145)
[2020-07-12 07:08] VITALS: O2SAT 96
[2020-07-12 07:36] VITALS: PULSE 80
[2020-07-12 07:52] VITALS: BP 124/66; PULSE 67; RESP 18; TEMP 36.5; O2SAT 96
[2020-07-12 07:57] VITALS: PULSE 67
[2020-07-12] MEDS: Furosemide 40 MG Tablet PO (07:57)
[2020-07-12] MEDS: Potassium Chloride Oral Tablet 20 MEQ PO (07:57)
[2020-07-12] MEDS: Metoprolol(XL)Succ 100 MG Tablet PO (07:57)
[2020-07-12] MEDS: Senna/Docusate Sodium 1 Tablet 2 TABLET PO (07:57)
[2020-07-12] MEDS: Gabapentin 300 MG Capsule PO ×2 (07:57→12:06)
[2020-07-12] MEDS: oxyCODONE CR 15 MG Tablet PO (09:25)
[2020-07-12] MEDS: Allopurinol 100 MG Tablet PO (09:27)
--- NOTE | 2020-07-12 10:53 | DS.PCM_ITS ---
Providers Date of Admission: 07/11/20 Primary Care Physician: YISSEL Manzo Consultations 07/10/20 23:36 Consult: Pain Management Routine Consulting Provider: Sue Pang Reason for Consult: right radicular pain EMERGENT Consult: No MD Notified: Yes Date Notified:: 07/10/20 Time Notified: 22:47 Method of Notification: Verbal Reason For Visit: RADICULAR PAIN RIGHT LUMBAR Diagnosis Discharge Diagnosis (1) Intractable back pain: Status: Acute Code(s): M54.9 - Dorsalgia, unspecified Medications at Discharge Home Medications allopurinol 100 mg PO BID 07/10/20 amitriptyline 75 mg PO QHS 07/10/20 furosemide 40 mg PO DAILY 07/10/20 levothyroxine 88 mcg PO DAILY 07/10/20 metformin 500 mg PO DAILY 07/10/20 metoprolol succinate 100 mg PO DAILY 07/10/20 potassium chloride 20 meq PO DAILY 07/10/20 pravastatin 10 mg PO QHS 07/10/20 warfarin 6 mg PO QHS 07/10/20 hydrocodone-acetaminophen 1 tab PO Q6H PRN 3 Days #12 tab 07/12/20 Hospital Course Operations None Procedures None Summary of Care Provided Minutes Spent on Discharge: 45 Hospital Course: Patient is a 75 y/o female with a PMH as outlined who was admitted via the ED with a complaint low back pain, mainly in the right upper buttock. She had been seen in [facility] recently for similar symptoms. CT of the lumbar spine showed lumbar spinal stenosis and pathologic retroperitoneal lymphadenopathy. She was admitted to be managed for intractable back pain. She was evaluated by PT/OT and was started on pain medication. MRI of the lumbar spine showed retroperitoneal lymphadenopathy and marrow replacing lesions of L2 and L3 vertebral bodies worrisone for metastatic disease and no pathologic fracture. Patient's total protein wasn't elevated. I discussed this with oncology- Dr Barrow, who recommended patient getting a ct of the chest, abdomen and pelvis, which showed diffuse retroperitoneal lymphadenopathy worse on the left side, and prominent left axillary lymph node. Per oncology, patient's imaging symptoms were concerning for a possible lymphoma. She was therefore given an appointment to follow up with oncology next Friday July 17, 2020. She is to also follow up with her PCP in 1-2 weeks. Patient was seen and examined prior to discharge. She had no complaints. Pain was much better controlled. Review of systems was otherwise negative. Labs and vitals reviewed. Home medications reviewed and reconciled. Physical Exam Const alert, oriented x3, no apparent distress and healthy appearing General Appearance: cooperative, comfortable, well kempt and well developed Orientation / Consciousness: awake, oriented to person, oriented to place and oriented to time Exam Limitations: no limitations HEENT normocephalic, head/scalp atraumatic, moist oral mucous membranes and oropharynx normal Eyes PERRL, EOMs intact bilaterally and conjunctivae normal Neck nuchal rigidity, no lymphadenopathy, supple, no JVD, thyroid normal and no carotid bruits General: trachea midline Resp normal respiratory effort, no retractions, no use of accessory muscles and clear to auscultation bilaterally Auscultation: Negative for rales, rhonchi or wheezes Cardio regular rate, regular rhythm, S1 normal heart sound, S2 normal heart sound, no murmurs, no rub and no gallops GI normal to inspection, nondistended, normoactive bowel sounds, soft to palpation, non-tender and non-distended Extremity normal to inspection, full ROM and no clubbing, cyanosis or edema Skin no rashes or lesions noted, no wounds and no jaundice General Skin Exam: no breakdown Neuro oriented x3, CN's II-XII intact bilaterally, no focal motor deficits and no sensory deficits noted Sensorium / Orientation: awake and alert Speech: speech normal Psych thought process normal and affect normal ABG / Lab / Microbiology Data Result Diagrams: 07/12/20 05:35 07/12/20 05:35 Laboratory: Laboratory Results - last 24 hr 07/11/20 07/11/20 07/12/20 05:40 05:40 05:35 WBC 9.9 RBC 3.89 L Hgb 10.7 L Hct 34.2 L MCV 87.9 MCH 27.5 MCHC 31.3 L RDW Std Deviation 49.0 H RDW Coeff of Rani 15.5 H Plt Count 538 H MPV 9.5 Immature Gran % (Auto) 1.000 H Neut % (Auto) 87.1 H Lymph % (Auto) 7.7 L [place] % (Auto) 4.1 Eos % (Auto) 0.0 Baso % (Auto) 0.1 Absolute Neuts (auto) 8.6 H Absolute Lymphs (auto) 0.76 L Nucleated RBC % 0 Sodium 134 L Potassium 5.0 Chloride 97 L Carbon Dioxide 28.0 Anion Gap 9 BUN 16 Creatinine 1.12 H Estim Creat Clear Calc 41.56 Est GFR (MDRD) Af Amer 61 Est GFR (MDRD) Non-Af 50 L BUN/Creatinine Ratio 14.3 Glucose 140 H Calcium 10.4 H Total Bilirubin 0.40 AST 14 L ALT 12 L Alkaline Phosphatase 226 H Lactate Dehydrogenase 298 H Total Protein 8.1 Albumin 2.5 L Globulin 5.6 H Albumin/Globulin Ratio 0.4 L 07/12/20 05:35 WBC RBC Hgb Hct MCV MCH MCHC RDW Std Deviation RDW Coeff of Rani Plt Count MPV Immature Gran % (Auto) Neut % (Auto) Lymph % (Auto) [place] % (Auto) Eos % (Auto) Baso % (Auto) Absolute Neuts (auto) Absolute Lymphs (auto) Nucleated RBC % Sodium 129 L Potassium 4.5 Chloride 93 L Carbon Dioxide 27.0 Anion Gap 9 BUN 43 H Creatinine 2.02 H Estim Creat Clear Calc 23.04 Est GFR (MDRD) Af Amer 31 L Est GFR (MDRD) Non-Af 26 L BUN/Creatinine Ratio 21.3 H Glucose 169 H Calcium 9.8 Total Bilirubin 0.20 AST 21 ALT 11 L Alkaline Phosphatase 205 H Lactate Dehydrogenase Total Protein 7.6 Albumin 2.5 L Globulin 5.1 H Albumin/Globulin Ratio 0.5 L Radiography Diagnostic Testing: Radiology Impression Lumbar Spine MRI 07/10/20 22:53 IMPRESSION: 1. Retroperitoneal lymphadenopathy and marrow replacing lesions the L2 and L3 vertebral bodies worrisome for metastatic disease. No pathologic compression fracture. Correlation with bone scan and PET CT scan may be useful. 2. Degenerative disc disease as described above. Electronically Signed: Ted Dietrich MD at 11:14 EDT Tel , Service support , Chest/Abdomen/Pelvis CT 07/12/20 05:55 IMPRESSION: Diffuse retroperitoneal lymphadenopathy worse on the left side. Prominent left axillary lymph node. Electronically Signed: Marc Srinivasan MD at 8:18 EDT , Service support , D/C Instructions Discharge Diet: 2000 mg Sodium Diet Discharge Activity: Return to Normal Activity Weight Bearing Status: Weight bearing as tolerated Meaningful Use Info Meaningful Use Diagnoses (Choose all that apply): None applicable Discharge Plan Admission Admit Date/Time: 07/11/20 16:03 Primary Reason for Your Visit: back pain Attending Provider: Barbara Ny Primary Care Provider: Jarrod Sharma NP Consulting Providers: Sue Pang Instructions Patient Instructions: ED Back Pain (Acute or Chronic) Discharge Orders/Prescriptions Prescriptions: Continued furosemide 40 mg tablet 40 mg PO DAILY RF: 0 amitriptyline 75 mg tablet 75 mg PO QHS RF: 0 metoprolol succinate 100 mg tablet extended release 24 hr 100 mg PO DAILY RF: 0 allopurinol 100 mg tablet 100 mg PO BID RF: 0 levothyroxine 88 mcg tablet 88 mcg PO DAILY RF: 0 warfarin 6 mg tablet 6 mg PO QHS RF: 0 potassium chloride 20 mEq tablet,ER particles/crystals 20 meq PO DAILY RF: 0 pravastatin 10 mg tablet 10 mg PO QHS RF: 0 metformin 500 mg tablet extended release 24 hr 500 mg PO DAILY RF: 0 hydrocodone-acetaminophen 5-325 mg tablet 1 tab PO Q6H PRN (Reason: Pain) 3 Days Qty: 12 RF: 0 Referrals / Follow Up: Robinson Hargrove MD [STAFF PHYSICIAN] - In 1 Week (to follow up with Dr. Barrow next Wednesday ) Jarrod Sharma NP, INDEX CLERK-C [Primary Care Provider] - In 1 Week Disposition Disposition (needs filled in before D/C Order can be placed): Home, self care Charges/Coding Visit Charges Inpatient E&M: 18024 Disch Hosp
--- NOTE | 2020-07-12 11:51 | CASEMGMT ---
DAVI STEARNS NOTE: PT/OT recommend additional therapy. Pt made aware but declines any HHC or OP therapy. She was made aware, if in the future she would like either, to discuss options w/her PCP. She voices understanding. Marybel BUI RN CM
[2020-07-12 13:46] VITALS: BP 123/64; PULSE 71; RESP 18; TEMP 36.4; O2SAT 93
[2020-07-12 14:51] LABS: Prothrombin Time (Protime)PT. 22.3 SECONDS (11.7-14.9)
== END 2020-07-12 15:35 | disposition home or self-care (01) | DRG 552 ==
LOC: ED 22:02 → MS3 22:41
PROVIDERS: Admitting Provider Internal Medicine; Emergency Provider Emergency Medicine; PCP Nurse Practitioner Family; Visit Provider Student in an Organized Health Care Education/Training Program
DX: M48.061 Spinal stenosis, lumbar region without neurogenic claudication (principal); D68.2 Hereditary deficiency of other clotting factors; Z68.42 Body mass index [BMI] 45.0-49.9, adult; M51.36 Other intervertebral disc degeneration, lumbar region; R59.0 Localized enlarged lymph nodes; E11.9 Type 2 diabetes mellitus without complications; I10 Essential (primary) hypertension; E78.5 Hyperlipidemia, unspecified; E03.9 Hypothyroidism, unspecified; E66.01 Morbid (severe) obesity due to excess calories; Z79.01 Long term (current) use of anticoagulants; Z79.84 Long term (current) use of oral hypoglycemic drugs; Z79.890 Hormone replacement therapy; Z79.899 Other long term (current) drug therapy; Z86.711 Personal history of pulmonary embolism; Z96.653 Presence of artificial knee joint, bilateral
CPT/HCPCS: 36415; 71260; 72132; 72158; 74177; 80048; 80053; 81001; 83615; 85025; 85610; 97162; 97166; 99285; A9575; J7040; Q9967; A4216; J2405

== ENCOUNTER → 2020-07-26 07:40 | Outpatient (CLI) | payer MEDICARE, SELFPAY ==
[2020-07-17 16:03] VITALS: BMI 44.6
[2020-07-26] VITALS (10 sets, daily range): BP systolic 93–132; BP diastolic 51–64; PULSE 76–85; RESP 14–21; TEMP 36.8; O2SAT 94–100; BMI 44.6
--- NOTE | 2020-07-26 | IMM_PTH ---
PATIENT: LEANDRO HELMS LOC: CT U#:[id number] AGE/SX: 79/F ROOM: RE07/26/[address]: Dr. Robinson Hargrove MD : 1945 BED: DIS: SPEC #: [id number] RECD: 07/29/20 11:40 STATUS: JJ REQ #: [id number] OFELIA: 07/26/20 00:[address]: Robinson Hargrove DEPT: IMMUNOHISTOCHEMISTRY RECD BY: Sima Monae ENTERED: 07/29/20 11:41 SP TYPE: IMMUNO OTHR DR: Jarrod Sharma, SUPPLY CHAIN SPECIALIST-C Tissues: Retroperitoneum, NOS Procedures: BCL-2 (add) BCL-6 (add) CD10 (add) CD20 (add) CD23 (add) CD3 (add) CD30 (add) CD43 (add) CD45 (add) CD5 (add) CD79A (add) CK8 (add) CYCLIN (add) KI-67 (add) Vimentin (add) MUM1 (add) C-MYC (add) Pankeratin (initial) PHYSICIAN & [address] [address] SPECIMEN INFORMATION: Tissue Source: Retroperitoneal lymph node, CT-guided core biopsy Clinical Info: Retroperitoneal lymphadenopathy Specimen Number: [id number] CPT code: 22313, 27379 x17 METHODOLOGY: Deparaffinized sections of prefer/formalin-fixed tissue or PAP/DQ stained slides are incubated with monoclonal/polyclonal antibodies/oligonucleotide probes. Localization is made via biotin free immunoperoxidase method. Appropriate controls are performed and reacted as expected. Results on target cell population are indicated in the following table: RESULTS: ANTIBODY / CLONE RESULT AE1-3 (AE1/AE3/PCK26) negative CK8 (21czsjG76) negative CD45 (RP2/18) positive Vimentin (V9) positive CD3 (PS1) negative CD5 (SP10) negative CD10 (56C6) positive CD20 (L26) positive CD23 (1B12) negative CD30 (Toni-H2) negative CD43 (L60) negative CD79a (11E3) positive BCL-2 (bcl-2/100/D5) positive BCL-6 (XM746G/A8) positive Cyclin D1/BCL-1 (SP4) negative MUM1 (MRQ-43) negative Ki-67 (30-9) positive, high C-MYC (Y69) negative These tests were developed and their performance characteristics determined by [facility]. They may not have been cleared or approved by the U.S. Food and Drug Administration. The FDA has determined that such clearance or approval is not necessary. The above immunohistochemical/dualISH markers are ordered and reviewed by the Pathologist. INTERPRETATION: Retroperitoneal lymph node, CT-guided core biopsy: Consistent with involvement by non-Hodgkin lymphoma, favor diffuse large B-cell lymphoma, follicle (germinal) center cell origin. This case has been reviewed in consultation with Dr. Watson who concurs with the above diagnosis. SJ:sveta 07/31/2020
--- NOTE | 2020-07-26 07:50 | CT_ITS ---
PROCEDURE: CT GUIDED biopsy of left retroperitoneal lymph nodes. DATE: 07/26/2020. INDICATION: Female, 75 years old. Retroperitoneal lymphadenopathy. PHYSICIAN: Marc Srinivasan M.D. RADIATION DOSAGE (If Supplied By Facility): CTDIvol = ( 24 ) mGy, DLP = ( 728.09 ) mGycm. Individualized dose optimization techniques were utilized. PROCEDURE: The risks, benefits, and alternatives to the procedure were explained to the patient. The specific risk of hemorrhage requiring further treatment or intervention was detailed and accepted. Follow-up instructions were discussed with the patient as well. Written informed consent was obtained. The patient was brought into the CT suite and placed in the prone position. . An appropriate entry site was identified. The overlying skin was prepped and draped in the usual sterile fashion. 1% lidocaine was administered subcutaneously for local anesthesia. Conscious sedation was performed. The patient received 2 mg of VERSED and 50 mcg of FENTANYL intravenously. Conscious sedation was started at 9:15 AM and terminate at 9:39 AM. The patient was independently monitored by the department nurse. Under CT guidance, a total of 7 passes were performed utilizing an 18-gauge core biopsy needle system of the left retroperitoneal lymphadenopathy. The specimens were then placed in the appropriate fluid and transported to the laboratory for analysis. Hemostasis was obtained. The patient tolerated the procedure well without immediate complications. CT/Biopsy/Inj or Needle Placement IMPRESSION: Successful CT guided biopsy of the left retroperitoneal adenopathy, as described above. The conscious sedation protocol was followed. Electronically Signed: Marc Srinivasan MD at 10:13 EDT , Service support ,
[2020-07-26 07:55] LABS: Absolute Neutrophil Count 4.6 X10^3/uL (2.0-7.7); Basophil# 0.04 X10^3/uL; Basophil% 0.6 % (0-1); Eosinophil# 0.17 X10^3/uL; Eosinophils% 2.7 % (0-5); Hemoglobin 11.7 g/dL (12.0-15.0); Lymphocyte % 9.4 % (19-41); Mean Corp Hgb Conc 30.8 g/dL (32-36); Mean Corpuscular Hgb 27.9 pg (27.0-32.0); Mean Corpuscular Volume 90.7 fL (81-99); Mean Platelet Vol. 9.7 fl (6.2-12.0); Monocyte# 0.94 X10^3/uL; Monocyte% 14.8 % (0-10); NRBC Flagged by Analyzer 0 % (0-5); Neutrophil # 4.58 X10^3/uL (2.7-7.7); POSITIVE DIFFERENTIAL YES; Platelet Count 342 K/mm3 (150-450); RBC Distribution Width CV 17.1 % (11.6-14.6); RBC Distribution Width SD 56.7 fl (35.1-43.9); Red Blood Count 4.19 M/mm3 (4.2-5.4); White Blood Count 6.4 K/mm3 (4.4-11.0)
[2020-07-26 08:00] LABS: Differential Indicated SCAN CRITERIA MET
[2020-07-26 08:26] LABS: International Normalized Ratio 1.1; Prothrombin Time (Protime)PT. 13.9 SECONDS (11.7-14.9)
[2020-07-26 08:27] LABS: Partial Thromboplast Time 32.6 Seconds (24.1-36.2)
[2020-07-26 08:29] LABS: Differential Comment SCANNED
[2020-07-26] MEDS: fentaNYL 100 MCG/2 ML Ampul IV (09:15)
[2020-07-26] MEDS: Midazolam 2 MG/2 ML Syringe IV (09:15)
--- NOTE | 2020-07-26 09:35 | LYMN_PTH ---
PATIENT: LEANDRO HELMS LOC: CT U#:[id number] AGE/SX: 79/F ROOM: RE07/26/[address]: Dr. Robinson Hargrove MD : 1945 BED: DIS: SPEC #: [id number] RECD: 07/26/20 09:48 STATUS: JJ MEGAN #: [id number] FOELIA: 07/26/20 09:[address]: Robinson Hargrove DEPT: SURGICAL PATHOLOGY RECD BY: Tamy Gómez ENTERED: 07/26/20 09:50 SP TYPE: LYMPH NODE OTHR DR: Jarrod Sharma, MANAGER SALES TRAINING-C Tissues: LYMPH NODE BIOPSY Procedures: Special Stain Group II Surgery Specimen Level IV Imprint (control) HEADER OPERATION: Retroperitoneal lymph node, CT-guided biopsy PRE-OP DIAGNOSIS: Retroperitoneal lymphadenopathy TISSUE SUBMITTED: Retroperitoneal lymph node 18-gauge core x7 MICROSCOPIC DIAGNOSIS Retroperitoneal lymph node, CT-guided core biopsy: Consistent with involvement by non-Hodgkin lymphoma, favor diffuse large B-cell lymphoma, follicle (germinal) center cell origin. See comment. SJ:rg 07/31/2020 COMMENT The specimen is evaluated at the time of biopsy by Dr. Javed. Immediate Evaluation: Set 1 - Paucicellular specimen. A few lymphocytes are noted. Set 2 - Paucicellular specimen. A few lymphocytes are noted. Immunohistochemistry ([id number]) supports the above diagnosis. [facility] due to no viable cells present. Correlation with clinical, radiologic findings and appropriate follow up are necessary. Case has been reviewed in consultation with Dr. Watson who concurs with the above diagnosis. IDC:AM MICROSCOPIC DESCRIPTION Slides are reviewed. GROSS DESCRIPTION Received in fixative is one container labeled with the patient's name and designated retroperitoneal lymph node, CT-guided core biopsy. The specimen consists of multiple irregular fragments of sumner soft tissue that in aggregate measure 1 x 0.1 x <0.1 cm. The specimen is totally submitted in one cassette. Four touch imprints are prepared at the time of core biopsy. A core is submitted for flow cytometry study. / ALEXX:sveta 07/26/20 TC:0 CPT: 31758, 93535, 45447
== END | disposition home or self-care (01) ==
PROVIDERS: PCP Nurse Practitioner Family; Referring Provider Internal Medicine Hematology & Oncology; Visit Provider Internal Medicine Hematology & Oncology
DX: R59.0 Localized enlarged lymph nodes (principal); M54.9 Dorsalgia, unspecified; D68.51 Activated protein C resistance; E11.9 Type 2 diabetes mellitus without complications; I10 Essential (primary) hypertension; E03.9 Hypothyroidism, unspecified; E78.00 Pure hypercholesterolemia, unspecified; M10.9 Gout, unspecified; E66.01 Morbid (severe) obesity due to excess calories; Z79.01 Long term (current) use of anticoagulants; Z79.84 Long term (current) use of oral hypoglycemic drugs; Z79.890 Hormone replacement therapy; Z79.899 Other long term (current) drug therapy; Z86.711 Personal history of pulmonary embolism; Z96.653 Presence of artificial knee joint, bilateral
CPT/HCPCS: 49180; 36415; 77012; 85025; 85610; 85730; 88305; 88313; 88341; 88342; 99156; J7040; A4216

== ENCOUNTER → 2020-08-05 07:41 | Outpatient (CLI) | payer MEDICARE, SELFPAY ==
[2020-08-01 14:01] VITALS: BMI 43.6
[2020-08-02 10:06] VITALS: BMI 43.9
--- NOTE | 2020-08-05 07:43 | ECHODONC_ITS ---
Reason For Study: PRE CHEMO BASELINE Procedure This was a 2D Doppler, Color Flow transthoracic echocardiogram. Myocardial strain analysis was performed in this exam to aid in the assessment of cardiac function. The study was technically difficult. Due to body habitus. Exam performed in department. Left Ventricle Normal LV size. Left ventricular systolic function is normal. The estimated ejection fraction is 56 %. Stage 1 diastolic dysfunction. No regional wall motion abnormalities noted. Right Ventricle Normal RV size. Normal systolic function. Atria Normal left atrium. Normal right atrium. Mitral Valve Normal mitral valve. Tricuspid Valve Normal tricuspid valve. Aortic Valve Trisinus/trileaflet aortic valve. Pulmonic Valve Normal pulmonic valve. Great Vessels Normal aortic root. The pulmonary artery is normal size. Normal inferior vena cava. Pericardium/Pleural No pericardial effusion. MMode/2D Measurements & Calculations LVIDd: 5.3 cm IVSd: 1.1 cm Ao root diam: 3.2 cm LVIDs: 3.9 cm LVPWd: 1.1 cm RVDd: 3.1 cm FS: 26.3 % LAV(MOD-bp): 65.3 ml LA A4 area: 22.4 cm2 LA dimension(2D): 4.0 cm LAV(MOD-bp) Indexed: 28.0 ml/m2 LAV(MOD-sp2): 53.0 ml LAV(MOD-sp4): 75.2 ml RA A4 area: 15.6 cm2 Time Measurements MV dec time: 0.20 sec Doppler Measurements & Calculations MV E max hiram: 60.8 cm/sec Lat Peak E' Hiram: 8.4 cm/sec Med Peak E' Hiram: 7.9 cm/sec MV A max hiram: 66.5 cm/sec E/E' lat: 7.2 E/E' med: 7.7 MV E/A: 0.91 Ao V2 max: 111.0 cm/sec LV V1 max: 94.4 cm/sec PA V2 max: 101.9 cm/sec Ao max P.9 mmHg LV V1 max P.6 mmHg ECHO/ONC Echo Complete Interpretation Summary Normal LV size. Left ventricular systolic function is normal. The estimated ejection fraction is 56 %. Stage 1 diastolic dysfunction. The global longitudinal strain is normal. The global longitudinal strain = -21. 3 % (normal). Ordering Physician: Robinson Hargrove Referring Physician: Jarrod Sharma Performed By: Karen Huff RDCS, RVT
--- NOTE | 2020-08-05 12:48 | CT_ITS ---
We are attempting to reach an attending provider to discuss findings. An addendum with communication details will be sent when the communication is complete. STUDY: CTA CHEST REASON FOR EXAM: Female, 75 years old. Substernal chest pain, and shortness of breath RADIATION DOSAGE (If Supplied By Facility): CTDIvol = ( 43.24 ) mGy, DLP = ( 562.71 ) mGycm TECHNIQUE: The examination was performed with the intravenous administration of IV 100mL Isovue-370. Post-processing of the angiographic images was performed, with multiplanar reformation and 3D reconstruction. Individualized dose optimization techniques were used for this CT. COMPARISON: 07/12/2020 FINDINGS: Previously noted prominent left axillary lymph node has decreased in size since the previous study now measuring less than 1 cm in short axis dimension. There is limited enhancement of the main pulmonary artery and right and left pulmonary arteries. There is limited enhancement of the bilateral peripheral pulmonary arteries. There is a persistent low-density filling defect within branches leading to the right lower lobe on both the axial and coronal images suggesting right lower lobe PE, this is best seen on coronal recon images 167 through 178. However, the contrast bolus is not optimal. Normal thoracic aorta and visualized great vessels. There is no demonstrated aortic dissection. Normal heart and pericardium. There are calcifications of the coronary arteries. Normal mediastinum. Normal hilar regions. There is peribronchial thickening. The lungs are well expanded. No demonstrated infiltrate, previously noted left pleural effusion has increased in size since the previous study there is left basilar atelectasis as well. Normal chest wall structures. There are degenerative changes of thoracic spine. Normal visualized upper abdomen. CT/CTA Chest W/WO Contrast IMPRESSION: CT evidence of filling defects within branches leading to the right lower lobe consistent with PE. Best seen on images described above. The contrast bolus however is suboptimal. Previously noted left pleural effusion has increased in size since the previous study, there is persistent atelectasis Previous noted left axillary lymph node is decreased in size from 1.3 cm in short axis dimension to 0.92 cm. Calcified coronary vessels Electronically Signed: Josep Harris MD at 14:22 EDT , Service support ,
== END ==
PROVIDERS: PCP Nurse Practitioner Family; Referring Provider Internal Medicine Hematology & Oncology; Visit Provider Internal Medicine Hematology & Oncology
DX: Z01.818 Encounter for other preprocedural examination (principal); R06.02 Shortness of breath
CPT/HCPCS: 71275; 93306; 93356; Q9967

== ENCOUNTER 2020-08-14 11:19 | Day surgery (SDC) | payer MEDICARE, SELFPAY ==
[2020-08-02 10:06] VITALS: BMI 43.9
[2020-08-05 10:23] VITALS: BMI 43.9
[2020-08-14] VITALS (10 sets, daily range): BP systolic 94–132; BP diastolic 49–82; PULSE 88–92; RESP 16; TEMP 36.1–37; O2SAT 91–98; BMI 43.8; BMI 42.4
[2020-08-14] MEDS: Lactated Ringers 1,000 ML 100 ML IV (11:05)
[2020-08-14 11:50] LABS: INR Fingerstick 1.5; Prothrombin Time Fingerstick 17.4 SEC (11.9-14.4)
--- NOTE | 2020-08-14 11:52 | PCM.HP.BLA ---
History and Physical Date of Admission: 08/14/20 Date of Service: 08/02/20 MR#:[id number] Acct:[id number] Name: LEANDRO HELMS :1945 Age/Sex: 75/F Rep #:[id number] Provider:Dr. Kiersten Lindquist MD Location:[facility] Status:Signed with Addenda Intake Vital Signs 08/02/20 10:06 Height 5 ft 7 in Weight: 280 lb 8 oz BMI 43.9 BP 116/78 Blood Pressure Location Rt brachial Position Sitting Respiration 18 Pulse 104 H Pulse Source NIBP Temp 97.5 F L Temp Source Temporal Pulse Oximetry (%) 98 Oxygen Delivery Method room air Intake Visit Reasons: PORT CONSULT Chief Complaint: port for Lymphoma Checkman Required: No Is patient in pain?: No Allergies No Known Allergies Allergy (Verified 08/02/20 10:08) Medications allopurinol 100 mg PO BID 07/10/20 [History Confirmed 08/02/20] amitriptyline 75 mg PO QHS 07/10/20 [History Confirmed 08/02/20] furosemide 40 mg PO DAILY 07/10/20 [History Confirmed 08/02/20] levothyroxine 88 mcg PO DAILY 07/10/20 [History Confirmed 08/02/20] metformin 500 mg PO BID 07/10/20 [History Confirmed 08/02/20] metoprolol succinate 100 mg PO DAILY 07/10/20 [History Confirmed 08/02/20] potassium chloride 20 meq PO DAILY 07/10/20 [History Confirmed 08/02/20] pravastatin 10 mg PO QHS 07/10/20 [History Confirmed 08/02/20] warfarin 6 mg PO QHS 07/10/20 [History Confirmed 08/02/20] hydrocodone-acetaminophen 1 tab PO Q6H PRN 3 Days #12 tab 07/12/20 [Rx Confirmed 08/02/20] Is last menstrual period known: No Post menopausal: Yes Patient : No PFSH Medical History (Updated 08/02/20 @ 10:[address] Kiersten Lindquist MD) Diabetes DLBCL (diffuse large B cell lymphoma) Factor V Leiden, prothrombin gene mutation Gout High cholesterol History of pulmonary embolism Hypertension Hypothyroidism Non-smoker Obesity Pulmonary embolism Surgical History (Updated 08/02/20 @ 10:05 by Lois Pizarro) History of bilateral knee replacement History of cataract removal with insertion of prosthetic lens History of cholecystectomy History of tubal ligation Social History Smoking Status: Never smoker second hand exposure: No alcohol intake: never substance use type: does not use rahul/oriental orthodox: Christianity seatbelt use: always do you feel safe at home: Yes HPI HPI HPI: LEANDRO HELMS, is a 75 F who presents to the office today for Port-A-Cath due to diffuse large B-cell lymphoma. Patient currently on Coumadin due to previous history of PE as well as factor V Leiden. Patient states she is able to come off prior to procedure. ROS Const Const: Positive for fatigue Cardio Chest Pain: No Resp Respiratory: Positive for SOB with activity GI GI: Negative nausea, vomiting, heartburn, constipation, belching, bloating, cramping, vomiting blood/hematemesis, bright, red blood in stools, black,tarry stools, loose stools, Difficulty Swallowing or other Psych Psych: Positive for anxiety; Negative for depression Exam Const General: cooperative, healthy appearing, comfortable and no acute distress Neck Neck: normal visual inspection Chest Chest palpation & inspection: normal inspection of the chest (Upper chest) and normal palpation of entire chest wall (Upper anterior) Resp Effort & Inspection: normal respiratory effort Cardio Rate: regular rate GI Inspection: non-distended Palpation: soft and nontender Skin General: no rashes or lesions noted Neuro General: patient oriented x3 Psych Affect: normal affect COVID (Procedure Consent) Procedure Criteria Procedure Criteria: Yes Elective The surgeon/proceduralist and patient have discussed in detail the risk of exposure to and/or potential harm posed by the COVID-19 virus with having a surgery/procedure at this time versus the risk of delaying the surgery/procedure. It is not possible to know either the risk of delaying the surgery or procedure or chance of getting an infection with perfect accuracy, but a joint decision was made between the patient and the surgeon/proceduralist to proceed at this time with the scheduled surgery/procedure as indicated on the consent form. Assessment and Plan Assessment and Plan (1) Encounter for care related to Port-a-Cath: Status: Acute (2) DLBCL (diffuse large B cell lymphoma): Status: Acute Qualifiers: Lymphoma site: multiple regions Qualified Code(s): C83.38 - Diffuse large B-cell lymphoma, lymph nodes of multiple sites Plan - Dr. Kiersten Lindquist MD: I have discussed above with the patient- Port-a-Cath placement. Right possible left we will plan for next Wednesday. Patient has been counseled as to the risks/benefits of the procedure. I have explained the risks of the surgery, including but not limited to: infection, bleeding, injury to any blood vessels/nerves, injury to lungs (such as pneumothorax or hemothorax and need for chest tube), not having any access, nonfunctioning of port due to thrombosis, infection of port, etc. the patient understands and agrees to proceed. I have answered all the patient's questions to the patient?s satisfaction and the patient has no further questions. Kiersten Lindquist M.D. Pager: [phone] [facility] [address] [place] [address], [address] [place] [address] Office: [phone] Plan Details Follow Up: We will schedule surgery Coding Level of Care Code Off vis,new,level 3 Diagnoses Encounter for care related to Port-a-Cath Z45.2 DLBCL (diffuse large B cell lymphoma) C83.38 Lymphoma site: multiple regions 08/02/20 1023<Electronically signed by Kiersten Lindquist MD>Date Kiersten Lindquist MD
[2020-08-14 12:06] LABS: Bedside Glucose 141 mg/dL (70-110)
[2020-08-14 12:10] LABS: International Normalized Ratio 1.2; Prothrombin Time (Protime)PT. 14.1 SECONDS (11.7-14.9)
[2020-08-14] MEDS: Bupivacaine Mpf 0.5% 30 ML VIAL (14:13)
--- NOTE | 2020-08-14 14:21 | PCM.OPRPT ---
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 Insertion of right IJ Port-A-Cath 2. Use of fluoroscopy 3. Use of ultrasound Surgeon: Kiersten Lindquist Type of Anesthesia: General/Supplemental Anesthesiologist: Moris Newell Special Medications: Ancef 3 g IV x1 Specimen's removed: None Estimated Blood Loss (mL): <10 cc Fluids Replaced: Per anesthesia Description of Procedure: After informed consent was given, the patient was brought to the operating room and placed in the supine position. Appropriate time out protocol was followed. Patient was then given IV conscious sedation for anesthesia. The patient's right upper chest and neck were then prepped with a surgical skin preparation and sterile surgical drapes were placed. After proper landmarks were ascertained, the skin at the upper right chest area was then infiltrated with 1:1 mixture of 1% lidocaine with epinephrine and 0.5% marcaine. A needle trocar was then inserted into the right internal jugular vein with ultrasound guidance-multiple vessels were viewed with u/s and the right IJ was chosen-- and there was good aspiration of venous blood. A wire was then threaded into the needle trocar and this was visualized under fluoroscopy to ensure that the wire was in the superior vena cava. Once this was done, then the needle trocar was removed. A small skin dinah was made with an 11 blade knife at the wire entrance site. The dilator with the introducer sheath attached was then placed over the wire into the right internal jugular vein via the Seldinger technique and this was visualized under fluoroscopy. The dilator and sheath were in proper position as visualized by fluoroscopy. A subcutaneous pocket was then created caudad to the catheter insertion site. A transverse skin incision was made after the skin and subcutaneous tissues were infiltrated with local anesthetic. Blunt dissection was then used to create a space large enough for placement of the subcutaneous port. The catheter was then tunneled into the subcutaneous pocket. The wire and dilator were then removed. The catheter was then threaded into the introducer sheath and was positioned with its tip at the junction of the superior vena cava and the right atrium as visualized under fluoroscopy. The excess catheter was transected. The catheter was then attached to the subcutaneous port using manufacturers guidelines. The catheter was flushed with a heparin saline mixture prior to placement. Hemostasis was carefully controlled with electrocautery. The port was sutured to the subcutaneous fascia using 2-0 Vicryl suture at two sites. The port was then placed in the subcutaneous pocket. The incision were reapproximated with interrupted subdermal 3-0 vicryl sutures. The skin was reapproximated with 3-0 nylon suture in a interrupted fashion. Steristrips were used for reinforcement of the skin closure at IJ insertion site and a sterile opsite dressings were applied. The patient tolerated the procedure well. Implants Used: [employer]Port isp M.R.I. 6Fr Lot: [id number] REF: [id number] Grafts/Implants Used: [employer]Port isp M.R.[employer]. 6Fr Lot: [id number] REF: [id number] Complications None
--- NOTE | 2020-08-14 14:25 | DCINST_ITS ---
Discharge Instructions Procedure Port-A-Cath Diet Discharge Diet: Light diet - advance as tolerated Activity May shower in (days): 5 (Keep port site clean and dry x5 days. Neck incision okay to get wet after 1 day. Okay to lower shower and upper sponge bath. OR okay to taper off port site with a Ziploc bag to shower) Lifting Restrictions: No lifting > 15 pounds for 3 days with the arm on the side of the port Dressing / Incision Call your doctor if your incision/area has: Continuous Slow Oozing, Sudden Increased Bleeding, Increased Pain/ Swelling, Increased Redness, Foul Smelling Discharge and Swelling at the incision site Call your doctor if you observe: Fever of 101 or Higher Change Dressing in: 2 days Follow Up Care Please Follow Up With: Kiersten Lindquist MD When: In 10 days for permanent suture removal?call office for appointment Test Results: Test results from this visit will be discussed in further detail at your follow-up appointment, if applicable. Discharge Plan Admission Attending Provider: Kiersten Lindquist Primary Care Provider: Jarrod Sharma NP Discharge Orders/Prescriptions Prescriptions: New oxycodone-acetaminophen [Endocet] 5-325 mg tablet 1 tab PO Q6H PRN (Reason: pain) 2 Days Qty: 5 RF: 0 Continued lidocaine-prilocaine 2.5-2.5 % cream 1 applic topical ONCE PRN (Reason: Port access) 30 Days Qty: 30 RF: 2 ondansetron 8 mg tablet,disintegrating 8 mg PO Q8H PRN (Reason: nausea and vomiting) Qty: 30 RF: 2 prednisone 20 mg tablet 100 mg PO DAILY Qty: 25 RF: 5 furosemide 40 mg tablet 40 mg PO DAILY RF: 0 amitriptyline 75 mg tablet 75 mg PO QHS RF: 0 metoprolol succinate 100 mg tablet extended release 24 hr 100 mg PO DAILY RF: 0 allopurinol 100 mg tablet 100 mg PO BID RF: 0 levothyroxine 88 mcg tablet 88 mcg PO DAILY RF: 0 potassium chloride 20 mEq tablet,ER particles/crystals 20 meq PO DAILY RF: 0 pravastatin 10 mg tablet 10 mg PO QHS RF: 0 metformin 500 mg tablet extended release 24 hr 500 mg PO BID RF: 0 prochlorperazine maleate [Compazine] 10 mg tablet 10 mg PO Q6H PRN (Reason: nausea and vomiting) RF: 0 docosahexaenoic acid-epa Capsule 3 cap PO DAILY RF: 0 enoxaparin 120 mg/0.8 mL syringe 120 mg subcut Q12H Qty: 8 RF: 0 Held warfarin 6 mg tablet 6 mg PO QHS RF: 0 Hold Instructions: restart per oncology Referrals / Follow Up: Jarrod Sharma NP, [employer] [Primary Care Provider] - Disposition Disposition (needs filled in before D/C Order can be placed): Home, Self Care
--- NOTE | 2020-08-14 14:30 | RAD_ITS ---
STUDY: X-RAY CHEST REASON FOR EXAM: Female, 75 years old. Post port placement TECHNIQUE: Single AP portable view of the chest. COMPARISON: None. FINDINGS: A right-sided reyes catheter has been placed. The tip is in the junction of the superior vena cava and right atrium. The lungs are clear and expanded. There is no demonstrated pleural abnormality. Normal size heart. Normal mediastinum and mellisa. Normal visualized pulmonary arteries. There is atherosclerotic tortuosity of the aortic arch and descending thoracic aorta. There are diffuse degenerative changes of the visualized thoracic spine. Normal visualized ribs, clavicles, and shoulders. There is no demonstrated abnormality of the visualized soft tissue structures of the upper abdomen. RAD/CXR for Line Placement IMPRESSION: The tip of the right-sided reyes catheter is at the junction of the superior vena cava and right atrium. Electronically Signed: Marc Srinivasan MD at 14:55 EDT , Service support ,
[2020-08-14] MEDS: Acetaminophen 325 MG Tablet 650 MG PO (15:20)
== END 2020-08-14 16:17 | disposition home or self-care (01) ==
LOC: SDC 11:20 → AC 11:21
PROVIDERS: Anesthesiology; PCP Nurse Practitioner Family; Referring Provider Surgery; Visit Provider Surgery
DX: Z45.2 Encounter for adjustment and management of vascular access device (principal); C83.38 Diffuse large B-cell lymphoma, lymph nodes of multiple sites; Z20.822 Contact with and (suspected) exposure to COVID-19; D68.51 Activated protein C resistance; E11.9 Type 2 diabetes mellitus without complications; E07.9 Disorder of thyroid, unspecified; E03.9 Hypothyroidism, unspecified; E66.9 Obesity, unspecified; Z68.41 Body mass index [BMI] 40.0-44.9, adult; Z79.01 Long term (current) use of anticoagulants; Z79.84 Long term (current) use of oral hypoglycemic drugs; Z79.52 Long term (current) use of systemic steroids; Z79.890 Hormone replacement therapy; Z79.899 Other long term (current) drug therapy; Z86.711 Personal history of pulmonary embolism; Z96.653 Presence of artificial knee joint, bilateral
CPT/HCPCS: 36561; 36415; 36416; 71045; 77001; 80053; 82962; 83615; 85025; 85610; 87426; J7120; J2405

== ENCOUNTER 2020-12-02 09:55 | Emergency (ER) | payer MEDICARE, SELFPAY ==
[2020-12-02 09:56] VITALS: BP 52/40; PULSE 118; RESP 24; TEMP 36.1; O2SAT 100; BMI 38.3
[2020-12-02 10:08] VITALS: BP 107/89; PULSE 112; RESP 25; O2SAT 96
--- NOTE | 2020-12-02 10:25 | RAD_ITS ---
STUDY: X-RAY - RIGHT SHOULDER REASON FOR EXAM: Female, 75 years old. Pain TECHNIQUE: 2 view(s) of the shoulder. COMPARISON: None. FINDINGS: There is moderate degenerative arthrosis of the glenohumeral articulation. There is hypertrophic osteoarthrosis of the acromioclavicular joint with inferior osseous spur formation. Normal acromion. Decreased distance between the humeral head and the acromion suggesting rotator cuff disease. The soft tissue structures are unremarkable. A right-sided portacatheter is seen. Elevation of the right hemithorax. RAD/Shoulder min 2 Views IMPRESSION: Degenerative changes of the glenohumeral joint and the acromioclavicular joint with findings suggestive of rotator cuff disease. Electronically Signed: Marc Srinivasan MD at 11:23 EDT , Service support ,
--- NOTE | 2020-12-02 10:25 | RAD_ITS ---
STUDY: X-RAY - RIGHT HUMERUS REASON FOR EXAM: Female, 75 years old. Pain TECHNIQUE: 2 view(s) of the humerus. COMPARISON: None. FINDINGS: Normal visualized humerus. There is no demonstrated fracture or osseous destructive process. Degenerative changes of the shoulder joint. There is no demonstrated soft tissue abnormality. RAD/Humerus min 2 Views IMPRESSION: No acute abnormality is seen. Electronically Signed: Marc Srinivasan MD at 11:24 EDT , Service support ,
--- NOTE | 2020-12-02 10:26 | CT_ITS ---
STUDY: CT BRAIN WITHOUT CONTRAST REASON FOR EXAM: Female, 75 years old. Fall / head injury RADIATION DOSAGE (If Supplied By Facility): CTDIvol = ( 44.99 ) mGy, DLP = ( 779.24 ) mGycm TECHNIQUE: Transaxial CT imaging of the brain was performed without administration of intravenous contrast material. Individualized dose optimization techniques were used for this CT. COMPARISON: No relevant priors. FINDINGS: Normal soft tissue structures. There is hyperostosis frontalis internus. There is mild cerebral atrophy with widening of the extra-axial spaces and ventricular dilatation. There are areas of decreased attenuation within the white matter tracts of the supratentorial brain, consistent with microvascular disease changes. There are small punctate calcifications of the basal ganglia which are seen in the aging brain as a normal variant. Normal brainstem. Normal cerebellum. There is no intracranial hemorrhage. There are no findings of an acute ischemic infarction. Normal visualized paranasal sinuses. CT/Brain/Head without Contrast IMPRESSION: Chronic involutional changes of the brain. Electronically Signed: Marc Srinivasan MD at 11:00 EDT , Service support ,
[2020-12-02] MEDS: 0.9% Normal Saline 1,000 ML 999 ML IV (11:24)
[2020-12-02 11:28] VITALS: BP 80/60; PULSE 105
--- NOTE | 2020-12-02 11:57 | RAD_ITS ---
STUDY: X-RAY - PELVIS AND LEFT HIP REASON FOR EXAM: Female, 75 years old. Pain TECHNIQUE: 3 views of the pelvis and hip. COMPARISON: None. FINDINGS: There is a non-specific bowel gas pattern. There are multiple calcified phleboliths. Normal bilateral iliac wings, sacroiliac joints and visualized sacrum. Normal bilateral superior and inferior pubic rami. There is narrowing with sclerosis of the pubic symphysis. Normal bilateral ischial tuberosities. Normal visualized femoral head. Normal acetabulum. There is moderate articular joint space narrowing of the hip. RAD/HIP, UNI W/ Pelvis 2-3 Views IMPRESSION: Degenerative changes of both hip joints. Electronically Signed: Marc Srinivasan MD at 12:42 EDT , Service support ,
[2020-12-02 12:21] VITALS: BP 96/63
--- NOTE | 2020-12-02 13:01 | EX.ED.UPPERE ---
HPI History of Present Illness Chief Complaint: Upper Extremity Injury Narrative Narrative: Patient is a 75-year-old female who states that this morning she was going to walk with her walker when she lost her balance and fell backwards. She states she did strike her head but denies any loss of consciousness. She does report blood thinner use however. She states she has had pain to the right shoulder and upper arm and with the trauma is concern for fracture and therefore comes in for evaluation. [facility] Medical History Cancer Diabetes Diarrhea due to drug Diffuse large b-cell lymphoma, lymph nodes of multiple sites Diffuse large b-cell lymphoma, lymph nodes of multiple sites DLBCL (diffuse large B cell lymphoma) Elevated serum creatinine Encounter for chemotherapy management Factor V Leiden, prothrombin gene mutation Frequent falls Gout High cholesterol History of pulmonary embolism Hypertension Hypotension Hypothyroidism Non-smoker Obesity Oral candidiasis Pulmonary embolism Pulmonary embolism Stomatitis Thyroid disease Walker as ambulation aid Wears dentures Wears glasses Home Medications allopurinol 100 mg PO BID 07/10/20 [History Last Taken 07/10/20 07:00] amitriptyline 75 mg PO QHS 07/10/20 [History Last Taken 07/09/20 22:00] furosemide 40 mg PO DAILY 07/10/20 [History Last Taken 07/10/20 07:00] levothyroxine 88 mcg PO DAILY 07/10/20 [History Last Taken 07/10/20 07:00] metformin 500 mg PO BID 07/10/20 [History Last Taken 07/07/20 22:00] potassium chloride 20 meq PO DAILY 07/10/20 [History Last Taken 07/10/20 07:00] pravastatin 10 mg PO QHS 07/10/20 [History Last Taken 07/09/20 22:00] docosahexaenoic acid-epa 3 cap PO DAILY 08/05/20 [History Last Taken Unknown] lidocaine-prilocaine 2.5 %-2.5 % topical cream 1 applic TOPICAL ONCE PRN 30 Days #30 g 08/05/20 [Rx Last Taken Unknown] ondansetron 8 mg disintegrating tablet 8 mg PO Q8H PRN #30 tab 08/05/20 [Rx Last Taken Unknown] prednisone 20 mg tablet 100 mg PO DAILY #25 tab 08/05/20 [Rx Last Taken Unknown] prochlorperazine maleate [Compazine] 10 mg PO Q6H PRN 08/05/20 [History Last Taken Unknown] oxycodone-acetaminophen [Endocet] 1 tab PO Q6H PRN 2 Days #5 tab 08/14/20 [Rx Last Taken Unknown] metoprolol succinate 100 mg tablet,extended release 24 hr 50 mg PO DAILY tab 09/19/20 [History Last Taken Unknown] apixaban 5 mg tablet 5 mg PO BID 09/26/20 [History Last Taken Unknown] MAGIC MOUTH WASH (BMX) 180 mL suspension 10 ml PO Q6H PRN #180 ml 10/28/20 [Rx Last Taken Unknown] oxycodone-acetaminophen [Endocet] 1 tab PO Q6H PRN 3 Days #12 tab 12/02/20 [Rx Last Taken Unknown] Allergy/AdvReac Type Severity Reaction Status Date / Time No Known Allergies Allergy Verified 12/02/20 09:59 Family History Mother Diabetes Brother Cancer Surgical History History of bilateral knee replacement History of cataract removal with insertion of prosthetic lens History of cholecystectomy History of tubal ligation Social History Smoking Status: Never smoker second hand exposure: No alcohol intake: never substance use type: does not use rahul/jehovah's witness: Yazidism seatbelt use: always do you feel safe at home: Yes ROS ROS ED Constitutional Constitutional ED: Denies chills or fever(s) Eyes Eyes: Denies change in vision ENT ENT ED: Denies sore throat Cardiovascular Cardiovascular: Denies chest pain Respiratory/Chest Respiratory/Chest: Denies cough or dyspnea Gastrointestinal Gastrointestinal: Denies abdominal pain, diarrhea, nausea or vomiting Genitourinary Genitourinary ED: Denies dysuria Musculoskeletal Musculoskeletal: Reports other Details: Positive right shoulder/arm pain ; Denies myalgias Integumentary Denies Abrasions or rash Neurologic Neurologic: Denies headache(s) Hematologic/Lymphatic Hematologic/Lymphatic: Reports easy bleeding and easy bruising EXAM Physical Exam Const Vital Signs: 12/02/20 09:56 12/02/20 10:08 12/02/20 11:28 Temperature 97.0 F L Temperature Source Temporal Pulse Rate 118 H 112 H 105 H Respiratory Rate 24 H 25 H Blood Pressure 52/40 L 107/89 H 80/60 L Blood Pressure Mean 44 95 66 Pulse Ox 100 96 Oxygen Delivery Method Room Air Room Air 12/02/20 12:21 Temperature Temperature Source Pulse Rate Respiratory Rate Blood Pressure 96/63 Blood Pressure Mean 74 Pulse Ox Oxygen Delivery Method General Appearance ED: NAD HEENT HEENT Narrative: Mucous membranes are dry and tacky. No signs of depressed or basilar skull fracture normocephalic and atraumatic Eyes PERRL and EOMs intact bilaterally Neck full ROM and supple Neck Narrative: No bony deformity or step-off of the cervical spine no midline pain with palpation Chest Wall palpation of chest normal Resp normal respiratory effort and clear to auscultation bilaterally Cardio regular rate and regular rhythm GI non-tender, non-distended and no masses Auscultation: normoactive bowel sounds Palpation: soft Back/Spine Back/Spine Narrative: No bony deformity or step-off of the thoracic or lumbar spine no midline pain with palpation Extremity Extremity Narrative: Pelvis is stable there is no shortening or external rotation of either lower extremity. There is mild pain palpation of the left hip region. Right upper extremity is neurovascularly intact; AIN/PIN are intact and normal. There is no obvious bony deformity or joint effusion noted. Negative sulcus sign. There is pain on palpation along the coracoid process and midportion of the humerus. Neuro oriented x3 and CN's II-XII intact bilaterally Sensorium / Orientation: alert Psych mental status grossly normal Skin no rashes or lesions noted Skin Narrative: No abrasions or ecchymosis noted MDM MDM MDM Narrative Medical decision making narrative: Patient presented to the ER after mechanical fall so I felt no need for cardiac or syncope work-up. She did report taking blood thinners and therefore she had a CT of her head which revealed no acute trauma. X-rays were obtained of the areas that were painful and also revealed no acute fracture or dislocation. The patient was hypotensive in the ER and family and patient states this is been some that is chronic for her. Therefore she was given 1 L of fluid and this did improve her blood pressure. As the hypotension has been chronic I do not feel there is need for inpatient work-up. With no signs of acute trauma on exam/imaging I do not feel there is need to bring the patient into the hospital and she is safe for discharge Radiography Diagnostic Testing: Clinical Impression(s) from Imaging Studies Humerus X-Ray 12/02/20 10:25 IMPRESSION: No acute abnormality is seen. Electronically Signed: Marc Srinivasan MD at 11:24 EDT , Service support , Shoulder X-Ray 12/02/20 10:25 IMPRESSION: Degenerative changes of the glenohumeral joint and the acromioclavicular joint with findings suggestive of rotator cuff disease. Electronically Signed: Marc Srinivasan MD at 11:23 EDT , Service support , Brain CT 12/02/20 10:26 IMPRESSION: Chronic involutional changes of the brain. Electronically Signed: Marc Srinivasan MD at 11:00 EDT , Service support , Hip/Pelvis X-Ray 12/02/20 11:57 IMPRESSION: Degenerative changes of both hip joints. Electronically Signed: Marc Srinivasan MD at 12:42 EDT , Service support , Discharge Plan Triage Chief Complaint: Upper Extremity Injury ED Provider: Frantz lAas Dx/Rx/DC Orders Clinical Impression: Contusion of multiple sites of right shoulder and upper arm, Accidental fall, Closed head injury Instructions: Bone Contusion Prescriptions: New oxycodone-acetaminophen [Endocet] 5-325 mg tablet 1 tab PO Q6H PRN (Reason: pain) 3 Days Qty: 12 RF: 0 No Action lidocaine-prilocaine 2.5-2.5 % cream 1 applic topical ONCE PRN (Reason: Port access) 30 Days Qty: 30 RF: 2 ondansetron 8 mg tablet,disintegrating 8 mg PO Q8H PRN (Reason: nausea and vomiting) Qty: 30 RF: 2 prednisone 20 mg tablet 100 mg PO DAILY Qty: 25 RF: 5 Eliquis 5 mg tablet 5 mg PO BID RF: 0 furosemide 40 mg tablet 40 mg PO DAILY RF: 0 amitriptyline 75 mg tablet 75 mg PO QHS RF: 0 allopurinol 100 mg tablet 100 mg PO BID RF: 0 levothyroxine 88 mcg tablet 88 mcg PO DAILY RF: 0 potassium chloride 20 mEq tablet,ER particles/crystals 20 meq PO DAILY RF: 0 pravastatin 10 mg tablet 10 mg PO QHS RF: 0 metformin 500 mg tablet extended release 24 hr 500 mg PO BID RF: 0 metoprolol succinate 100 mg tablet extended release 24 hr 50 mg PO DAILY RF: 0 prochlorperazine maleate [Compazine] 10 mg tablet 10 mg PO Q6H PRN (Reason: nausea and vomiting) RF: 0 docosahexaenoic acid-epa Capsule 3 cap PO DAILY RF: 0 oxycodone-acetaminophen [Endocet] 5-325 mg tablet 1 tab PO Q6H PRN (Reason: pain) 2 Days Qty: 5 RF: 0 MAGIC MOUTH WASH (BMX) 180 mL suspension 10 ml PO Q6H PRN (Reason: mouth pain) Qty: 180 RF: 1 Primary Care Provider: Jarrod Sharma NP Referrals: Jarrod Sharma NP, [employer] [Primary Care Provider] - Disposition Disposition: Home, Self Care Discharge Date/Time: 12/02/20 13:39
[2020-12-02 13:22] VITALS: BP 102/64; PULSE 108; RESP 19; O2SAT 100
[2020-12-02] MEDS: oxyCODONE 5 MG Tablet PO (13:24)
== END 2020-12-02 13:39 | disposition home or self-care (01) ==
PROVIDERS: Emergency Provider Emergency Medicine; PCP Nurse Practitioner Family
DX: S40.011A Contusion of right shoulder, initial encounter (principal); S40.021A Contusion of right upper arm, initial encounter; S09.90XA Unspecified injury of head, initial encounter; W18.30XA Fall on same level, unspecified, initial encounter; Y93.01 Activity, walking, marching and hiking; Y92.9 Unspecified place or not applicable; Y99.9 Unspecified external cause status; C83.38 Diffuse large B-cell lymphoma, lymph nodes of multiple sites; E86.0 Dehydration; I95.9 Hypotension, unspecified; E11.9 Type 2 diabetes mellitus without complications; D68.51 Activated protein C resistance; R29.6 Repeated falls; I10 Essential (primary) hypertension; E78.00 Pure hypercholesterolemia, unspecified; E03.9 Hypothyroidism, unspecified; M10.9 Gout, unspecified; E66.9 Obesity, unspecified; Z79.01 Long term (current) use of anticoagulants; Z79.52 Long term (current) use of systemic steroids; Z79.84 Long term (current) use of oral hypoglycemic drugs; Z86.711 Personal history of pulmonary embolism; Z96.653 Presence of artificial knee joint, bilateral
CPT/HCPCS: 36591; 70450; 73030; 73060; 73502; 80053; 85025; 96360; 96361; 99283; J7030; A4216

== ENCOUNTER 2020-12-31 18:26 | Inpatient (IN) | payer MEDICARE, SELFPAY ==
[2020-12-31 18:27] VITALS: BP 122/70; PULSE 105; RESP 34; TEMP 35.5; O2SAT 55; BMI 37.3
--- NOTE | 2020-12-31 18:36 | EKG12_ITS ---
Test Reason : WEAKNESS Blood Pressure : / mmHG Vent. Rate : 106 BPM Atrial Rate : 111 BPM P-R Int : 000 ms QRS Dur : 090 ms QT Int : 442 ms P-R-T Axes : 000 -17 127 degrees QTc Int : 587 ms Accelerated Junctional rhythm with occasional Premature ventricular complexes Low voltage QRS T wave abnormality, consider lateral ischemia Abnormal ECG No previous ECGs available Confirmed by JYOTI KIM, SAMUEL ([id number]), editor book NANCY MENCHACA ([id number]) on 01/03/2021 6:39:09 AM Referred By: SHERI Confirmed By:SAMUEL MONTES MD
--- NOTE | 2020-12-31 18:36 | CT_ITS ---
STUDY: CT BRAIN WITHOUT CONTRAST REASON FOR EXAM: Female, 75 years old. Altered mental status. RADIATION DOSAGE (If Supplied By Facility): CTDIvol = ( 44.99 ) mGy, DLP = ( 829.85 ) mGycm TECHNIQUE: Transaxial CT imaging of the brain was performed without administration of intravenous contrast material. Individualized dose optimization techniques were used for this CT. COMPARISON: 12/02/2020. FINDINGS: Normal soft tissue structures. There is mild hyperostosis frontalis internus. Normal size ventricles and extra-axial spaces for the patient''s age. Normal white matter tracts of the cerebral hemispheres. Normal basal ganglia and thalami. Normal brainstem. Normal cerebellum. There is no intracranial hemorrhage. There are no findings of an acute ischemic infarction. Normal visualized paranasal sinuses. CT/Brain/Head without Contrast IMPRESSION: No acute intracranial or calvarial abnormality. There is no major interval change. Electronically Signed: Feliberto Hassan DO at 20:40 EST Tel [phone], Service support ,
--- NOTE | 2020-12-31 18:43 | EDS_ITS ---
HPI History of Present Illness Chief Complaint: Alt LOC Informant: family Narrative Narrative: Patient presents with family secondary to altered mental status. Patient recently completed chemotherapy for B-cell lymphoma. She is considered in remission. She was at the hospital today for a PET scan which she has had previously. Family states that when she left the hospital she was her baseline self. [place] home she became unresponsive. They turned around and came back to the hospital. Patient is tachypneic with mottling noted in her hands and lower extremities. She will open eyes and move extremities but not answer with her voice. Family present at bedside states she is been taking her medications as prescribed including Eliquis. They do state they have had trouble getting her blood pressure controlled recently. 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, lymph nodes of multiple sites DLBCL (diffuse large B cell lymphoma) Elevated serum creatinine Encounter for chemotherapy management Factor V Leiden, prothrombin gene mutation Frequent falls Gout High cholesterol History of pulmonary embolism Hypertension Hypotension Hypothyroidism Non-smoker Obesity Oral candidiasis Pulmonary embolism Pulmonary embolism Stomatitis Thyroid disease Walker as ambulation aid Wears dentures Wears glasses Home Medications allopurinol 100 mg PO BID 07/10/20 [History Last Taken 07/10/20 07:00] amitriptyline 75 mg PO QHS 07/10/20 [History Last Taken 07/09/20 22:00] levothyroxine 88 mcg PO DAILY 07/10/20 [History Last Taken 07/10/20 07:00] metformin 500 mg PO BID 07/10/20 [History Last Taken 07/07/20 22:00] potassium chloride 20 meq PO DAILY 07/10/20 [History Last Taken 07/10/20 07:00] pravastatin 10 mg PO QHS 07/10/20 [History Last Taken 07/09/20 22:00] docosahexaenoic acid-epa 3 cap PO DAILY 08/05/20 [History Last Taken Unknown] lidocaine-prilocaine 2.5 %-2.5 % topical cream 1 applic TOPICAL ONCE PRN 30 Days #30 g 08/05/20 [Rx Last Taken Unknown] ondansetron 8 mg disintegrating tablet 8 mg PO Q8H PRN #30 tab 08/05/20 [Rx Last Taken Unknown] prednisone 20 mg tablet 100 mg PO DAILY #25 tab 08/05/20 [Rx Last Taken Unknown] prochlorperazine maleate [Compazine] 10 mg PO Q6H PRN 08/05/20 [History Last Taken Unknown] oxycodone-acetaminophen [Endocet] 1 tab PO Q6H PRN 2 Days #5 tab 08/14/20 [Rx Last Taken Unknown] apixaban 5 mg tablet 5 mg PO BID 09/26/20 [History Last Taken Unknown] MAGIC MOUTH WASH (BMX) 180 mL suspension 10 ml PO Q6H PRN #180 ml 10/28/20 [Rx Last Taken Unknown] oxycodone-acetaminophen [Endocet] 1 tab PO Q6H PRN 3 Days #12 tab 12/02/20 [Rx Last Taken Unknown] furosemide 40 mg tablet 20 mg PO DAILY tab 12/05/20 [History Last Taken Unknown] metoprolol succinate 100 mg tablet,extended release 24 hr 25 mg PO DAILY tab 12/05/20 [History Last Taken Unknown] Allergy/AdvReac Type Severity Reaction Status Date / Time No Known Allergies Allergy Verified 12/05/20 09:05 Family History Mother Diabetes Brother Cancer Surgical History History of bilateral knee replacement History of cataract removal with insertion of prosthetic lens History of cholecystectomy History of tubal ligation Social History Smoking Status: Never smoker second hand exposure: No alcohol intake: never substance use type: does not use rahul/mosque: Voodoo seatbelt use: always do you feel safe at home: Yes ROS ROS ED Review of Systems ROS Unobtainable: due to mental condition EXAM Physical Exam Const Vital Signs: 12/31/20 18:27 12/31/20 19:39 12/31/20 19:44 Temperature 95.9 F L Temperature Source Temporal Pulse Rate 105 H 99 Respiratory Rate 34 H 30 H Respiratory Pattern Tachypnea Blood Pressure 122/70 H Blood Pressure Mean 87 Pulse Ox 55 93 Oxygen Delivery Method Room Air Non-Rebreather Oxygen Flow Rate (L/min) 10 12/31/20 20:24 Temperature Temperature Source Pulse Rate 106 H Respiratory Rate 30 H Respiratory Pattern Blood Pressure 106/68 Blood Pressure Mean 80 Pulse Ox 93 Oxygen Delivery Method Nasal Cannula Oxygen Flow Rate (L/min) 4 Positive obese Nutritional Appearance: obese HEENT Reports dry mucous membranes Mouth ED: Yes dry mucous membranes Mouth: dry mucous membranes Chest Wall inspection of chest normal and palpation of chest normal Resp clear to auscultation bilaterally Resp Narrative: Tachypnea GI non-tender Palpation: soft Skin Skin Narrative: Mottling noted in her hands and lower extremities. MDM MDM MDM Narrative Medical decision making narrative: Lab work and urinalysis ordered. Cultures obtained. Covid swab ordered. Patient sent for head CT along with chest x-ray. CTA of chest ultimately added. ABG ordered. Lab Data Attestation: I reviewed the patient's lab results. Labs: Laboratory Results - last 24 hr 12/31/20 12/31/20 12/31/20 19:25 19:25 20:40 WBC 4.3 L RBC 2.54 L Hgb 9.6 L Hct 29.7 L MCV 116.9 H MCH 37.8 H MCHC 32.3 RDW Std Deviation 72.6 H RDW Coeff of Rani 16.8 H Plt Count 194 MPV 9.9 Immature Gran % (Auto) 1.200 H Neut % (Auto) 38.8 L Lymph % (Auto) 41.[address] [place] % (Auto) 17.4 H Eos % (Auto) 0.5 Baso % (Auto) 0.9 Absolute Neuts (auto) 1.7 L Absolute Lymphs (auto) 1.78 Nucleated RBC % 0 Differential Comment SCANNED Anisocytosis 2+ Macrocytosis 2+ Sodium 136 Potassium 4.3 Chloride 105 Carbon Dioxide 18.0 L Anion Gap 13 BUN 23 H Creatinine 1.38 H Estim Creat Clear Calc 33.73 Est GFR (MDRD) Af Amer 48 L Est GFR (MDRD) Non-Af 40 L BUN/Creatinine Ratio 16.7 Glucose 117 H Calcium 9.8 Total Bilirubin 0.70 Direct Bilirubin 0.22 AST 30 ALT 19 Alkaline Phosphatase 195 H Troponin I High Sens 46 Total Protein 7.2 Albumin 2.9 L Globulin 4.3 H Urine Color Yellow Urine Clarity Clear Urine pH 5.0 Ur Specific [place] 1.010 Urine Protein Negative Urine Glucose (UA) Normal Urine Ketones Negative Urine Occult Blood Negative Urine Nitrite Negative Urine Bilirubin Negative Urine Urobilinogen Normal Ur Leukocyte Esterase Negative Urine RBC 0 SEEN Urine WBC 0 SEEN Ur Squamous Epith Cells 0 SEEN Urine Bacteria 0 SEEN Urine Mucus 0 SEEN ABG Data ABG results: ABG 12/31/20 18:56 Specimen Type ART Sample Site L Radial pH 7.66 H* Bicarbonate Actual 13.5 L Total CO2 14 Base Excess -7 L O2 Saturation 100 H O2 % 100 ABG pCO2 11.9 L* ABG pO2 192 H Radhames Test Positive O2 Delivery Device NRB Crit Call To/Read Back Yes Blood Gas Notified Whom DR Nichols Radiography Chest X-Ray - ED: 1 View, Read by ED Physician and Chronic Changes Diagnostic Testing: Clinical Impression(s) from Imaging Studies Brain CT 12/31/20 18:36 IMPRESSION: No acute intracranial or calvarial abnormality. There is no major interval change. Electronically Signed: Feliberto EastpointeDO soraya at 20:40 EST Tel [phone], Service support , Chest X-Ray 12/31/20 19:55 IMPRESSION: Degenerative changes, as described above. No demonstrated acute cardiopulmonary process. Electronically Signed: Feliberto EastpointeDO soraya at 20:41 EST Tel [phone], Service support , Chest CTA 12/31/20 19:56 IMPRESSION: Normal CTA chest examination, without a demonstrated pulmonary embolism or arterial dissection. Electronically Signed: Feliberto EastpointeDO soraya at 21:04 EST Tel [phone], Service support , EKG Initial EKG: Attestation: I personally reviewed and interpreted this EKG as follows: Interpretation: Sinus Rhythm (Sinus at 106 with baseline artifact. No significant ST change.) Treatment and Re-Evaluation Comments:: Lab work reviewed and largely unremarkable. Hemoglobin 9.6 and stable from prior. Chemistry studies significant for bicarb low at 18. Urinalysis clean. Chest x-ray reveals no focal infiltrate. CT scan of the head is normal. CTA of the chest unremarkable. ABG obtained due to difficulty obtaining good pulse ox reading in the room. pH is 7.662, PO2 191.9, PCO2 11.9, SPO2 99.9%. Patient was on a nonrebreather at this time and is transition down to nasal cannula. Patient has continued to have episodes of agitation with tachypnea. She continues to be confused and daughter does not feel that she recognizes her. Test results are discussed with her. I will speak with hospitalist regarding admission for further evaluation. Discharge Plan Triage Chief Complaint: Alt LOC ED Provider: Laureen Nichols Dx/Rx/DC Orders Clinical Impression: Acute alteration in mental status Prescriptions: No Action lidocaine-prilocaine 2.5-2.5 % cream 1 applic topical ONCE PRN (Reason: Port access) 30 Days Qty: 30 RF: 2 ondansetron 8 mg tablet,disintegrating 8 mg PO Q8H PRN (Reason: nausea and vomiting) Qty: 30 RF: 2 prednisone 20 mg tablet 100 mg PO DAILY Qty: 25 RF: 5 Eliquis 5 mg tablet 5 mg PO BID RF: 0 amitriptyline 75 mg tablet 75 mg PO QHS RF: 0 allopurinol 100 mg tablet 100 mg PO BID RF: 0 levothyroxine 88 mcg tablet 88 mcg PO DAILY RF: 0 potassium chloride 20 mEq tablet,ER particles/crystals 20 meq PO DAILY RF: 0 pravastatin 10 mg tablet 10 mg PO QHS RF: 0 metformin 500 mg tablet extended release 24 hr 500 mg PO BID RF: 0 metoprolol succinate 100 mg tablet extended release 24 hr 25 mg PO DAILY RF: 0 furosemide 40 mg tablet 20 mg PO DAILY RF: 0 prochlorperazine maleate [Compazine] 10 mg tablet 10 mg PO Q6H PRN (Reason: nausea and vomiting) RF: 0 docosahexaenoic acid-epa Capsule 3 cap PO DAILY RF: 0 oxycodone-acetaminophen [Endocet] 5-325 mg tablet 1 tab PO Q6H PRN (Reason: pain) 2 Days Qty: 5 RF: 0 oxycodone-acetaminophen [Endocet] 5-325 mg tablet 1 tab PO Q6H PRN (Reason: pain) 3 Days Qty: 12 RF: 0 MAGIC MOUTH WASH (BMX) 180 mL suspension 10 ml PO Q6H PRN (Reason: mouth pain) Qty: 180 RF: 1 Primary Care Provider: [place] Referrals: [place], [Primary Care Provider] - Disposition Disposition: Acute Care Hospital [facility]
[2020-12-31 19:06] LABS: Allen Test Positive; Base Excess -7 mmol/L (-2 to +2); Bicarbonate 13.5 mmol/L (22-26); Blood Gas Specimen Type ART; FI02 100; O2 Delivery Device NRB; PO2 192 mmHG (75-100); SITE L Radial; SO2 100 % (95-99); Total Carbon Dioxide 14 mmol/L; pCO2 11.9 mmHg (35-45); pH 7.66 (7.35-7.45)
[2020-12-31 19:36] LABS: Absolute Lymphocyte Count 1.78 X10^3/uL (0.83-4.51); Absolute Neutrophil Count 1.7 X10^3/uL (2.0-7.7); Basophil# 0.04 X10^3/uL; Basophil% 0.9 % (0-1); Eosinophil# 0.02 X10^3/uL; Eosinophils% 0.5 % (0-5); Hematocrit 29.7 % (37-47); Hemoglobin 9.6 g/dL (12.0-15.0); Lymphocyte # 1.78 X10^3/ul (0.83-4.51); Lymphocyte % 41.2 % (19-41); Mean Corp Hgb Conc 32.3 g/dL (32-36); Mean Corpuscular Hgb 37.8 pg (27.0-32.0); Mean Corpuscular Volume 116.9 fL (81-99); Mean Platelet Vol. 9.9 fl (6.2-12.0); Monocyte# 0.75 X10^3/uL; Monocyte% 17.4 % (0-10); NRBC Flagged by Analyzer 0 % (0-5); Neutrophil # 1.68 X10^3/uL (2.7-7.7); Neutrophil % 38.8 % (47-70); POSITIVE MORPHOLOGY YES; Platelet Count 194 K/mm3 (150-450); RBC Distribution Width CV 16.8 % (11.6-14.6); RBC Distribution Width SD 72.6 fl (35.1-43.9); Red Blood Count 2.54 M/mm3 (4.2-5.4); White Blood Count 4.3 K/mm3 (4.4-11.0)
[2020-12-31 19:37] LABS: Differential Indicated SCAN CRITERIA MET
[2020-12-31 19:39] VITALS: PULSE 99; RESP 30; O2SAT 93
[2020-12-31 19:52] LABS: AST(SGOT) 30 U/L (15-37); Alanine Aminotransfer ALT/SGPT 19 U/L (13-56); Albumin, Serum 2.9 g/dL (3.2-5.0); Alkaline Phosphatase 195 U/L (45-117); Anion Gap 13 (5-15); BUN 23 mg/dL (7-18); BUN/Creat Ratio 16.7 RATIO (10-20); Bilirubin, Direct 0.22 mg/dL (0.00-0.30); Calcium,Total 9.8 mg/dL (8.5-10.1); Chloride 105 mmol/L (98-107); Creatinine, Serum 1.38 mg/dL (0.55-1.02); EST Glomerular Filtration Rate 40 mL/min (>60); Est Glom Filt Rate - Afr Amer 48 mL/min (>60); Estimated Creatinine Clearance 33.73 ml/min; Globulin 4.3 g/dL (2.2-4.2); Glucose 117 mg/dL (74-106); Potassium 4.3 mmol/L (3.5-5.1); Protein, Total 7.2 g/dL (6.4-8.2); Sodium Level 136 mmol/L (136-145); Troponin-I HS 46 pg/mL (3.0-54.0)
--- NOTE | 2020-12-31 19:55 | RAD_ITS ---
STUDY: X-RAY CHEST REASON FOR EXAM: Female, 75 years old. Shortness of breath. TECHNIQUE: Single AP portable view of the chest. COMPARISON: PET/CT scan, 12/31/2020. FINDINGS: Right jugular Port-A-Cath. The lungs are clear and expanded. There is no demonstrated pleural abnormality. Normal size heart. Normal mediastinum and mellisa. Normal visualized pulmonary arteries. Normal visualized aortic arch and descending thoracic aorta. There are diffuse degenerative changes of the visualized thoracic spine. There is degenerative osteoarthritis of the bilateral shoulders. There is no demonstrated abnormality of the visualized soft tissue structures of the upper abdomen. RAD/Chest 1 View (Portable) IMPRESSION: Degenerative changes, as described above. No demonstrated acute cardiopulmonary process. Electronically Signed: Feliberto Hassan DO at 20:41 EST Tel [phone], Service support ,
--- NOTE | 2020-12-31 19:56 | CT_ITS ---
STUDY: CTA CHEST REASON FOR EXAM: Female, 75 years old. Dyspnea. B-cell lymphoma. Status post chemotherapy. Factor V deficiency. Hypertension diabetes and gout. RADIATION DOSAGE (If Supplied By Facility): CTDIvol = ( 11.21 ) mGy, DLP = ( 491.04 ) mGycm TECHNIQUE: The examination was performed with the intravenous administration of IV 75mL Isovue-370. Post-processing of the angiographic images was performed, with multiplanar reformation and 3D reconstruction. Individualized dose optimization techniques were used for this CT. COMPARISON: Chest, 12/31/2020. FINDINGS: Right jugular Port-A-Cath with its tip at the atriocaval junction. Normal enhancement of the main pulmonary artery and right and left pulmonary arteries. Normal enhancement of the bilateral peripheral pulmonary arteries. There is no demonstrated pulmonary embolism. Mild atherosclerotic changes aorta without aneurysm. There is no demonstrated aortic dissection. Normal heart and pericardium. Normal mediastinum. Normal hilar regions. Normal visualized trachea and bronchi. The lungs are well expanded. Normal pulmonary parenchyma. Normal pleura. Normal chest wall structures. There are degenerative changes of thoracic spine. Normal visualized upper abdomen. CT/CTA Chest W/WO Contrast IMPRESSION: Normal CTA chest examination, without a demonstrated pulmonary embolism or arterial dissection. Electronically Signed: Feliberto Hassan DO at 21:04 EST Tel [phone], Service support ,
[2020-12-31 20:15] LABS: Differential Comment SCANNED
[2020-12-31 20:16] LABS: Anisocytosis 2+; Macrocytosis 2+
[2020-12-31 20:24] VITALS: BP 106/68; PULSE 106; RESP 30; O2SAT 93
[2020-12-31 20:46] LABS: Bacteria 0 SEEN /hpf (None Seen); Mucous, Urine 0 SEEN /hpf (<or=2+); Red Blood Cells-Urine 0 SEEN /hpf (0-5); Squamous Epithelial Cells - UA 0 SEEN /hpf (5-10); White Blood Cells 0 SEEN /hpf (0-5)
[2020-12-31 20:47] LABS: Color, Urine Yellow (Yellow); Glucose, Dipstick Normal (Normal); Ketone-Dipstick Negative (Negative); Leukocyte Esterase-Dipstick Negative /ul (Negative); Nitrite-Dipstick Negative (Negative); Occult Blood-Urine Negative /ul (Negative); Protein-Dipstick Negative (Negative); Urine Bilirubin Dipstick Negative (Negative); Urine Clarity Clear (Clear); Urine Urobilinogen Normal (Normal)
[2020-12-31 21:16] VITALS: PULSE 111; RESP 33; O2SAT 91
--- NOTE | 2020-12-31 21:54 | HP.PCM.HOS_ITS ---
HPI - General General Date of Admission: 12/31/20 HPI Narrative LEANDRO HELMS, is a 75 F with a significant history of diffuse large B-cell lymphoma who presents to the emergency department with altered mental status. Patient last chemotherapy was about 2 weeks ago. On the day of presentation she went for a PET scan. [place] on the way home patient became confused and was not answering questions. Patient's confusion progressively worsened. Importantly it is not the first time patient has had a PET scan. Reportedly had diffuse large B-cell lymphoma is in remission. History was taken for emergent department doctor and patient's daughter as patient was extremely confused. While in the patient room patient was mentioning some names repeatedly that patient's daughter said are the names of patient's parents. 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, lymph nodes of multiple sites DLBCL (diffuse large B cell lymphoma) Elevated serum creatinine Encounter for chemotherapy management Factor V Leiden, prothrombin gene mutation Frequent falls Gout High cholesterol History of pulmonary embolism Hypertension Hypotension Hypothyroidism Non-smoker Obesity Oral candidiasis Pulmonary embolism Pulmonary embolism Stomatitis Thyroid disease Walker as ambulation aid Wears dentures Wears glasses Home Medications allopurinol 100 mg PO BID 07/10/20 [History Last Taken 07/10/20 07:00] amitriptyline 75 mg PO QHS 07/10/20 [History Last Taken 07/09/20 22:00] levothyroxine 88 mcg PO DAILY 07/10/20 [History Last Taken 07/10/20 07:00] metformin 500 mg PO BID 07/10/20 [History Last Taken 07/07/20 22:00] potassium chloride 20 meq PO DAILY 07/10/20 [History Last Taken 07/10/20 07:00] pravastatin 10 mg PO QHS 07/10/20 [History Last Taken 07/09/20 22:00] docosahexaenoic acid-epa 3 cap PO DAILY 08/05/20 [History Last Taken Unknown] lidocaine-prilocaine 2.5 %-2.5 % topical cream 1 applic TOPICAL ONCE PRN 30 Days #30 g 08/05/20 [Rx Last Taken Unknown] ondansetron 8 mg disintegrating tablet 8 mg PO Q8H PRN #30 tab 08/05/20 [Rx Last Taken Unknown] prochlorperazine maleate [Compazine] 10 mg PO Q6H PRN 08/05/20 [History Last Taken Unknown] oxycodone-acetaminophen [Endocet] 1 tab PO Q6H PRN 2 Days #5 tab 08/14/20 [Rx L ast Taken Unknown] apixaban 5 mg tablet 5 mg PO BID 09/26/20 [History Last Taken Unknown] MAGIC MOUTH WASH (BMX) 180 mL suspension 10 ml PO Q6H PRN #180 ml 10/28/20 [Rx Last Taken Unknown] oxycodone-acetaminophen [Endocet] 1 tab PO Q6H PRN 3 Days #12 tab 12/02/20 [Rx Last Taken Unknown] furosemide 40 mg tablet 20 mg PO DAILY tab 12/05/20 [History Last Taken Unknown] metoprolol succinate 100 mg tablet,extended release 24 hr 25 mg PO DAILY tab 12/05/20 [History Last Taken Unknown] prednisone 100 mg PO DAILY 12/31/20 [History Last Taken Unknown] Allergy/AdvReac Type Severity Reaction Status Date / Time No Known Allergies Allergy Verified 12/05/20 09:05 Family History Mother Diabetes Brother Cancer Surgical History History of bilateral knee replacement History of cataract removal with insertion of prosthetic lens History of cholecystectomy History of tubal ligation Social History Smoking Status: Never smoker second hand exposure: No alcohol intake: never substance use type: does not use rahul/denominational: [employer] seatbelt use: always do you feel safe at home: Yes ROS Review of Systems ROS Unobtainable: due to encephalopathy Vital Signs Vital Signs Vital Signs: 12/31/20 18:27 12/31/20 19:39 12/31/20 19:44 Temperature 95.9 F L Temperature Source Temporal Pulse Rate 105 H 99 Respiratory Rate 34 H 30 H Respiratory Pattern Tachypnea Blood Pressure 122/70 H Blood Pressure Mean 87 Pulse Ox 55 93 Oxygen Delivery Method Room Air Non-Rebreather Oxygen Flow Rate (L/min) 10 12/31/20 20:24 12/31/20 21:16 Temperature Temperature Source Pulse Rate 106 H 111 H Respiratory Rate 30 H 33 H Respiratory Pattern Blood Pressure 106/68 Blood Pressure Mean 80 Pulse Ox 93 91 Oxygen Delivery Method Nasal Cannula Nasal Cannula Oxygen Flow Rate (L/min) 4 4 Weight Weight: 108.3 kg Body Mass Index (BMI) 37.3 Physical Exam Narrative Physical exam: General: Well-nourished, well-developed. Head: Normocephalic, atraumatic, no tenderness Eyes: PERRLA, EOMI ENT, no trauma, moist mucous membranes, no rhinorrhea Neck: Nontender, full range of motion, no spinal tenderness, deformities, step- off CVS: Regular rate and rhythm. S1-S2 present. No murmur, gallop or rub. Respiratory : clear to auscultation bilaterally, chest wall nontender, no wheezing Abdomen: Soft, nontender, nondistended, normal bowel sounds, no masses : Deferred Back: Nontender, no CVA tenderness, no midline spinal tenderness, deformities, step-offs Extremities: Nontender full range of motion, no trauma Skin: Normal color, no trauma, abrasions Neuro: Alert and confused Psychiatry: Patient with rapid speech; restless Results Lab / Micro Data Result Diagrams: 12/31/20 19:25 12/31/20 19:25 Labs: Laboratory Results - last 24 hr 12/31/20 19:25: WBC 4.3 L, RBC 2.54 L, Hgb 9.6 L, Hct 29.7 L, MCV 116.9 H, MCH 37.8 H, MCHC 32.3, RDW Std Deviation 72.6 H, RDW Coeff of Rani 16.8 H, Plt Count 194, MPV 9.9, Immature Gran % (Auto) 1.200 H, Neut % (Auto) 38.8 L, Lymph % (Auto) 41.2 H, [place] % (Auto) 17.4 H, Eos % (Auto) 0.5, Baso % (Auto) 0.9, Absolute Neuts (auto) 1.7 L, Absolute Lymphs (auto) 1.78, Nucleated RBC % 0, Differential Comment SCANNED, Anisocytosis 2+, Macrocytosis 2+ 12/31/20 19:25: Sodium 136, Potassium 4.3, Chloride 105, Carbon Dioxide 18.0 L, Anion Gap 13, BUN 23 H, Creatinine 1.38 H, Estim Creat Clear Calc 33.73, Est GFR (MDRD) Af Amer 48 L, Est GFR (MDRD) Non-Af 40 L, BUN/Creatinine Ratio 16.7, Glucose 117 H, Calcium 9.8, Total Bilirubin 0.70, Direct Bilirubin 0.22, AST 30, ALT 19, Alkaline Phosphatase 195 H, Troponin I High Sens 46, Total Protein 7.2, Albumin 2.9 L, Globulin 4.3 H 12/31/20 20:40: Urine Color Yellow, Urine Clarity Clear, Urine pH 5.0, Ur Specific [place] 1.010, Urine Protein Negative, Urine Glucose (UA) Normal, Urine Ketones Negative, Urine Occult Blood Negative, Urine Nitrite Negative, Urine Bilirubin Negative, Urine Urobilinogen Normal, Ur Leukocyte Esterase Negative, Urine RBC 0 SEEN, Urine WBC 0 SEEN, Ur Squamous Epith Cells 0 SEEN, Urine Bacteria 0 SEEN, Urine Mucus 0 SEEN Micro: Microbiology 12/31/20 18:52 Nasal Secretion SARS-CoV-2 Antigen (Rapid) - Final ABG Data ABG results: ABG 12/31/20 18:56 Specimen Type ART Sample Site L Radial pH 7.66 H* Bicarbonate Actual 13.5 L Total CO2 14 Base Excess -7 L O2 Saturation 100 H O2 % 100 ABG pCO2 11.9 L* ABG pO2 192 H Radhames Test Positive O2 Delivery Device NRB Crit Call To/Read Back Yes Blood Gas Notified Whom DR Nichols Radiology Impression Brain CT 12/31/20 18:36 IMPRESSION: No acute intracranial or calvarial abnormality. There is no major interval change. Electronically Signed: Feliberto Hassan DO at 20:40 EST Tel [phone], Service support , Chest X-Ray 12/31/20 19:55 IMPRESSION: Degenerative changes, as described above. No demonstrated acute cardiopulmonary process. Electronically Signed: Feliberto Hassan DO at 20:41 EST Tel [phone], Service support , Chest CTA 12/31/20 19:56 IMPRESSION: Normal CTA chest examination, without a demonstrated pulmonary embolism or arterial dissection. Electronically Signed: Feliberto Hassan DO at 21:04 EST Tel [phone], Service support , Assessment & Plan Assessment/Plan (1) Encephalopathy acute: PLAN: Acute encephalopathy Unspecified type. Brain CT; CTA chest with and without contrast; chest x-ray was independently interpreted and I agree with radiologist interpretation above. CBC showed mildly low white count of 4.3; bandemia with bands of 1.2% and anemia with hemoglobin 9.6; of which explains patient's current symptomatology. pH showed respiratory alkalemia. Emergency plan doctor discussed the case with oncology since patient has a history of diffuse large B-cell lymphoma and had last chemotherapy about 2 weeks ago and PET scan on the day of presentation. Per discussion between ED doctor and oncology acute encephalopathy likely is not due from chemotherapy since last one therapies about 2 weeks ago. [facility] neurology was consulted from the ED. [facility] neurology recommended CTA head and neck; MRI brain with and without contrast; EEG. And if above work-up is unremarkable [facility] neurology recommended a lumbar puncture. Patient is on home Eliquis. Hold home Eliquis for possible lumbar puncture. In any case patient is to encephalopathic to have anything by mouth. Per [facility] neurology cannot rule out lymphoma cells in the spinal fluid. Blood culture obtained emergency department; follow. Rapid Covid antigen obtained at the emergency department returned negative. Get alcohol and drug screen. Trend CBC and BMP. Check ammonia level; TSH and vitamin B12. Admit to intensive care unit and consult unemployment claims adjudicator. History of factor V Leiden, prothrombin gene mutation/pulmonary embolism Hold Eliquis. Heparin drip ordered. DVT prophylaxis: Not indicated since heparin drip has been ordered. Charges/Coding Visit Charges Inpatient E&M: 97344 Init Hosp L3
--- NOTE | 2020-12-31 22:02 | TELEMED_ITS ---
[facility] Tele[facility] has confirmed receipt of a request for visit. This document confirms receipt of the order initiating the consult. To find the results of the consultation, please view the patient's reports for the scanned Telemed Consult.
[2020-12-31 22:25] VITALS: BP 102/62; PULSE 111; RESP 22; O2SAT 92
[2021-01-01] VITALS (38 sets, daily range): BP systolic 61–126; BP diastolic 43–92; PULSE 88–134; RESP 16–28; TEMP 36.8–38; O2SAT 92–100; BMI 35.4
--- NOTE | 2021-01-01 00:40 | CT_ITS ---
We are attempting to reach an attending provider to discuss findings. An addendum with communication details will be sent when the communication is complete. HISTORY: Stroke, confusion. History of lymphoma, hypertension, diabetes. TECHNIQUE: Routine carotid CT angiogram protocol was performed with IV contrast. In addition, images were obtained of the [place]. Nascet criteria using the distal ICAs for comparison were used for evaluation of stenoses. MIP and MPR reconstructions were reviewed. A radiation dose optimization technique was used for this scan. IV Contrast dosage and agent: Dosage information not provided. COMPARISON: Head CT from several hours prior. FINDINGS: --NECK: AORTIC ARCH AND BRANCHES: No dissection, aneurysm, occlusion or significant stenosis. RIGHT CCA: No occlusion, significant stenosis or dissection. RIGHT ICA: No occlusion, significant stenosis or dissection. LEFT CCA: No occlusion, significant stenosis or dissection. LEFT ICA: No occlusion, significant stenosis or dissection. RIGHT VERTEBRAL ARTERY: No occlusion, significant stenosis or dissection. LEFT VERTEBRAL ARTERY: No occlusion, significant stenosis or dissection. NECK SOFT TISSUES: Right jugular Mediport catheter in place. Nonenlarged thyroid gland with a few subcentimeter cysts. LUNG APICES: Clear. BONES: No acute fracture or suspicious osseous lesion. Degenerative disc space narrowing, endplate osteophytes and facet arthropathy along spine with no high-grade spinal canal stenosis. --HEAD: --Anterior circulation: ICAs: No significant stenosis at the intracranial/visualized segments. ACAs: No significant stenosis at the visualized segments. ACOM: Present. MCAs: No significant stenosis at the visualized segments. --Posterior circulation: PCOMs: Patent on the left and nonvisualized on the right. energy assistant: No significant stenosis at the visualized segments. BASILAR ARTERY: No significant stenosis. VERTEBRAL ARTERIES: No significant stenosis at the intradural/visualized segments. No evidence of intracranial aneurysm or vascular malformation. CT/CTA Head AND Neck W/ Contrast IMPRESSION: CTA head and neck with no acute arterial occlusive disease or other acute abnormality. Individualized dose optimization techniques were used for this CT. at 0228 Reported and signed by: Efren Willams MD Electronically Signed: Efren Willams MD at 2:27 EST Tel , Service support ,
[2021-01-01] MEDS: LORazepam 2 MG/ML Syringe 1 MG IV (01:06)
--- NOTE | 2021-01-01 03:15 | MRI_ITS ---
HISTORY: Acute encephalopathy, hx lymphoma, last chemo 2 wks ago. TECHNIQUE: Multiplanar and multisequence MR images of the brain were obtained without and with IV gadolinium. IV Contrast dosage and agent: 20 mL Dotarem. # of images incl. paperwork: 338. COMPARISON: CTA same day, CT 12/31/2020. FINDINGS: Motion artifact lowers the sensitivity of examination. BRAIN PARENCHYMA: Minimal chronic white matter changes. No enhancing lesion in the brain parenchyma. No abnormal focus of restricted diffusion. No acute intracranial hemorrhage. CSF SPACES: Cerebral ventricles, cortical sulci, and other extra axial CSF spaces within normal limits in size for patient's age. No midline shift or other significant mass effect. No extra-axial fluid collection. VASCULAR SYSTEM: Major intracranial flow-voids maintained. ORBITS: Bilateral lens resections. PARANASAL SINUSES/MASTOID AIR CELLS: Mild fluid in the bilateral mastoid air cells. MRI/Brain W/WO Contrast IMPRESSION: Motion artifact. No evidence for enhancing intracranial mass, acute infarct, or other significant signal abnormality. at 1640 Reported and signed by: Sindi Ceballos MD Electronically Signed: Sindi Ceballos MD at 16:39 EST Tel , Service support ,
--- NOTE | 2021-01-01 04:37 | PCS.PANDOC ---
PANDEMIC DOCUMENTATION INITIATED: Date: 09/23/2020 Time: 190
--- NOTE | 2021-01-01 04:52 | NURSING ---
Pt's daughter at bedside who came from ED to assist in the admission process since pt is confused. Daughter informed that patient was being transferred to ICU bed 3 for more close monitoring at this time. Daughter was informed of visiting hours also.
--- NOTE | 2021-01-01 04:55 | NUR.TO.PHY ---
report called to DAVI Pittman in ICU.
[2021-01-01 05:08] LABS: International Normalized Ratio 1.3; Partial Thromboplast Time 32.6 Seconds (24.1-36.2); Prothrombin Time (Protime)PT. 15.6 SECONDS (11.7-14.9)
[2021-01-01 05:17] LABS: Anion Gap 13 (5-15); BUN 22 mg/dL (7-18); Calcium,Total 9.4 mg/dL (8.5-10.1); Chloride 104 mmol/L (98-107); Creatinine, Serum 1.22 mg/dL (0.55-1.02); EST Glomerular Filtration Rate 46 mL/min (>60); Est Glom Filt Rate - Afr Amer 55 mL/min (>60); Estimated Creatinine Clearance 38.15 ml/min; Glucose 97 mg/dL (74-106); Potassium 3.9 mmol/L (3.5-5.1); Sodium Level 136 mmol/L (136-145)
[2021-01-01 05:18] LABS: Ammonia < 10.0 umol/L (11-32)
[2021-01-01 05:21] LABS: Lactic Acid 3.1 mmol/L (0.4-1.9)
[2021-01-01] MEDS: HEPARIN/D5w 25,000 UNITS 25,000 UNITS/250 ML IV.SOLN. 14 UNITS IV (05:58)
[2021-01-01] MEDS: Heparin Injection (Vial) 5,000 UNIT/ML VIAL 7500 UNIT IV (05:59)
[2021-01-01 06:02] LABS: Absolute Neutrophil Count 1.7 X10^3/uL (2.0-7.7); Basophil# 0.03 X10^3/uL; Basophil% 0.6 % (0-1); Hematocrit 26.3 % (37-47); Hemoglobin 8.8 g/dL (12.0-15.0); Lymphocyte % 45.7 % (19-41); Mean Corp Hgb Conc 33.5 g/dL (32-36); Mean Corpuscular Hgb 37.4 pg (27.0-32.0); Mean Corpuscular Volume 111.9 fL (81-99); Mean Platelet Vol. 10.2 fl (6.2-12.0); Monocyte# 1.01 X10^3/uL; Monocyte% 20.1 % (0-10); NRBC Flagged by Analyzer 0 % (0-5); Neutrophil # 1.67 X10^3/uL (2.7-7.7); Neutrophil % 33.2 % (47-70); POSITIVE MORPHOLOGY YES; Platelet Count 180 K/mm3 (150-450); RBC Distribution Width CV 16.8 % (11.6-14.6); Red Blood Count 2.35 M/mm3 (4.2-5.4)
[2021-01-01] MEDS: 0.9% Saline Lock 10 ML Syringe IV (06:12)
[2021-01-01] MEDS: Ringers, Lactated 1,000 ML IV.SOLN. 1000 ML IV (06:30)
[2021-01-01 06:32] LABS: Differential Indicated SCAN CRITERIA MET
[2021-01-01] MEDS: Acetaminophen 325 MG Suppository RC (06:50)
[2021-01-01 07:05] LABS: Differential Comment SCANNED
[2021-01-01 07:06] LABS: Anisocytosis 2+; Macrocytosis 2+
--- NOTE | 2021-01-01 07:41 | CON.PCM.CC_ITS ---
Assessment & Plan Assessment/Plan (1) Encephalopathy acute: (2) Elevated serum creatinine: (3) Diffuse large b-cell lymphoma, lymph nodes of multiple sites: (4) Septic shock: PLAN: RECOMMENDATIONS: 1. No further fluid boluses. Initiate pressors if necessary 2. Wean oxygen as tolerated 3. Initiate empiric antibiotics pending cultures 4. MRI/EEG when available 5. No further blood gases at this time IMPRESSIONS: 1. Acute encephalopathy secondary to septic shock Unclear etiology at this time. Patient does have some mild redness around her port, but no fluctuance. Patient was given a fluid challenge with no improvement, so pressors will be initiated. Pancultures have been ordered. UA was not suggestive of acute infection. Patient does not appear to be overly dehydrated, but occult pneumonia would be a consideration. Patient does have a new oxygen requirement. We will continue with redirection. Neurology is suggesting EEG and MRI for evaluation. Low clinical suspicion for status epilepticus as patient is interacting and following commands. Patient is not showing any signs of nuchal rigidity, but has been switched to heparin drip to facilitate possible LP in the future. 2. Acute hypoxic respiratory insufficiency Unclear etiology. ABG on presentation is suggestive of psychomotor agitation with voluntary tachypnea and alkalosis. We will continue to wean oxygen as tolerated. Unclear if patient has an occult pneumonia at this time. May repeat chest x-ray in 24 to 48 hours if not able to discontinue supplemental oxygen. 3. Factor V Leiden/diffuse large B-cell lymphoma/recent chemotherapy Patient is at high risk for thrombotic complications. Patient will be placed on a heparin drip for now. Eliquis will be discontinued as invasive procedures may be necessary including an LP. Unclear temporal correlation with PET scan and findings, this may just be coincidental. 4. Obesity/advanced age/recent chemotherapy/hypothyroidism/gout/SVT/diabetes Complicates care, management, recovery and prognosis. We will have to clarify as patient has 100 mg of prednisone on her med list. This may be part of her chemotherapy, but adrenal insufficiency would be a consideration. Patient is on Lasix at baseline so may have an element of volume depletion, but did not respond to fluid boluses. Antihypertensives have been held secondary to problem #1. TIME: 33 minutes of critical care time was spent addressing septic shock, acute encephalopathy, respiratory insufficiency, review of all data and collaboration with care team (7 AM to 8 AM) HPI Consult Data Date of Consult: 01/01/21 HPI Narrative HPI Narrative: LEANDRO HELMS is a 75 F, with past medical history listed below, who presents to [facility] 12/31/2020 secondary to acute change in mental status. Patient completed chemotherapy for B-cell lymphoma 2 weeks ago and was at the hospital on the day of presentation for a PET scan. Patient reportedly had left her house with normal mentation, but after the PET scan patient became unresponsive. Family turned around and came back to the hospital. Patient was tachypneic with mottling noted of her hands and lower extremities. Patient was not answering to voice. Patient is on Eliquis at baseline, but no bleeding has been reported. Patient reportedly had had issues with controlling her blood pressure. In the ER, patient was afebrile, but noted to be 55% on room air. The patient was placed on a nonrebreather, but subsequently was able to be controlled on 4 L nasal cannula. Patient was very tachypneic at 34 breaths/min, but normotensive at 122/70. Laboratory work-up showed a white blood cell count of 4.3, hemoglobin of 9.6 and a platelet count of 194. Patient's bicarbonate was low at 18 and creatinine was elevated at 1.38. Glucose was 117 and liver function studies were relatively unremarkable. UA was unremarkable. Patient did have an ABG showing 7.6 6/12/192/100% on nonrebreather. CT of the head did not show any acute bleed and chest x-ray was unremarkable. This was followed by CTA of the chest showing no PE or dissection. Patient was admitted to the floor for further evaluation. Since being in the intensive care unit, patient has remained confused. Patient is oriented to self only, but actively looking around the room and interacting. Patient does appear to have some difficulty with word finding, but no focal weakness, facial droop or sensory deficits are noted. Patient is saturating well on room air. Patient was challenged with a 1 L bolus of LR with no change in heart rate or blood pressure. Patient is not reporting any pain, nausea or vomiting, but is a very poor historian. Unable to obtain a full review of systems at this time. Patient was transitioned to a heparin drip as the SOC consult had recommended a possible LP and patient is at high risk for thrombotic complications given factor V Leiden and diffuse B-cell lymphoma. 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, lymph nodes of multiple sites DLBCL (diffuse large B cell lymphoma) Elevated serum creatinine Encounter for chemotherapy management Factor V Leiden, prothrombin gene mutation Frequent falls Gout High cholesterol History of pulmonary embolism Hypertension Hypotension Hypothyroidism Non-smoker Obesity Oral candidiasis Pulmonary embolism Pulmonary embolism Stomatitis Thyroid disease Walker as ambulation aid Wears dentures Wears glasses Home Medications allopurinol 100 mg PO BID 07/10/20 [History Last Taken 07/10/20 07:00] amitriptyline 75 mg PO QHS 07/10/20 [History Last Taken 07/09/20 22:00] levothyroxine 88 mcg PO DAILY 07/10/20 [History Last Taken 07/10/20 07:00] metformin 500 mg PO BID 07/10/20 [History Last Taken 07/07/20 22:00] potassium chloride 20 meq PO DAILY 07/10/20 [History Last Taken 07/10/20 07:00] pravastatin 10 mg PO QHS 07/10/20 [History Last Taken 07/09/20 22:00] docosahexaenoic acid-epa 3 cap PO DAILY 08/05/20 [History Last Taken Unknown] lidocaine-prilocaine 2.5 %-2.5 % topical cream 1 applic TOPICAL ONCE PRN 30 Days #30 g 08/05/20 [Rx Last Taken Unknown] ondansetron 8 mg disintegrating tablet 8 mg PO Q8H PRN #30 tab 08/05/20 [Rx Last Taken Unknown] prochlorperazine maleate [Compazine] 10 mg PO Q6H PRN 08/05/20 [History Last Taken Unknown] oxycodone-acetaminophen [Endocet] 1 tab PO Q6H PRN 2 Days #5 tab 08/14/20 [Rx Last Taken Unknown] apixaban 5 mg tablet 5 mg PO BID 09/26/20 [History Last Taken Unknown] MAGIC MOUTH WASH (BMX) 180 mL suspension 10 ml PO Q6H PRN #180 ml 10/28/20 [Rx Last Taken Unknown] oxycodone-acetaminophen [Endocet] 1 tab PO Q6H PRN 3 Days #12 tab 12/02/20 [Rx Last Taken Unknown] furosemide 40 mg tablet 20 mg PO DAILY tab 12/05/20 [History Last Taken Unknown] metoprolol succinate 100 mg tablet,extended release 24 hr 25 mg PO DAILY tab 12/05/20 [History Last Taken Unknown] prednisone 100 mg PO DAILY 12/31/20 [History Last Taken Unknown] Allergy/AdvReac Type Severity Reaction Status Date / Time No Known Allergies Allergy Verified 12/05/20 09:05 Family History Mother Diabetes Brother Cancer Surgical History History of bilateral knee replacement History of cataract removal with insertion of prosthetic lens History of cholecystectomy History of tubal ligation Social History Smoking Status: Never smoker second hand exposure: No alcohol intake: never substance use type: does not use rahul/protestant: Orthodox seatbelt use: always do you feel safe at home: Yes ROS Review of Systems ROS Unobtainable: due to encephalopathy Physical Exam Const alert General Appearance: cooperative and anxious; Negative for odor of alcohol detected Orientation / Consciousness: oriented to person; Negative for oriented to place or oriented to time Nutritional Appearance: obese HEENT Head and Scalp: normal to inspection Face and Sinus: normal facial exam and other Clean, healing wound above the right eyebrow from an accidental fall Mouth: oral and palatal mucosa normal Eyes conjunctivae normal and no scleral icterus General Eye: normal appearance of both eyes Neck No nuchal rigidity, no lymphadenopathy, supple, No no meningeal signs and no JVD Lymph Lymphatic: no lymphadenopathy noted Chest inspection of chest normal Chest: symmetrical chest wall rise; Negative for crepitus Resp clear to auscultation bilaterally Cardio S1 normal heart sound, S2 normal heart sound, no murmurs, no rub and no gallops Rate: tachycardic Rhythm: abnormal rhythm irregularly irregular GI soft to palpation, non-tender and non-distended; Negative for hepatosplenomegaly Back/Spine no CVA tenderness and no thoracic nor lumbar tenderness Extremity no clubbing, cyanosis or edema Skin Skin Narrative: Slight erythema noted around port Neuro moves all extremities and no focal motor deficits Speech: expressive aphasia Psych mental status grossly normal, thought process normal, cooperative and affect normal Lab / Micro Data Result Diagrams: 01/01/21 05:50 01/01/21 04:48 Labs: Laboratory Results - last 24 hr 12/31/20 19:25: WBC 4.3 L, RBC 2.54 L, Hgb 9.6 L, Hct 29.7 L, MCV 116.9 H, MCH 37.8 H, MCHC 32.3, RDW Std Deviation 72.6 H, RDW Coeff of Rani 16.8 H, Plt Count 194, MPV 9.9, Immature Gran % (Auto) 1.200 H, Neut % (Auto) 38.8 L, Lymph % (Auto) 41.2 H, Polk % (Auto) 17.4 H, Eos % (Auto) 0.5, Baso % (Auto) 0.9, Absolute Neuts (auto) 1.7 L, Absolute Lymphs (auto) 1.78, Nucleated RBC % 0, Differential Comment SCANNED, Anisocytosis 2+, Macrocytosis 2+ 12/31/20 19:25: Sodium 136, Potassium 4.3, Chloride 105, Carbon Dioxide 18.0 L, Anion Gap 13, BUN 23 H, Creatinine 1.38 H, Estim Creat Clear Calc 33.73, Est GFR (MDRD) Af Amer 48 L, Est GFR (MDRD) Non-Af 40 L, BUN/Creatinine Ratio 16.7, Glucose 117 H, Calcium 9.8, Total Bilirubin 0.70, Direct Bilirubin 0.22, AST 30, ALT 19, Alkaline Phosphatase 195 H, Troponin I High Sens 46, Total Protein 7.2, Albumin 2.9 L, Globulin 4.3 H 12/31/20 20:40: Urine Color Yellow, Urine Clarity Clear, Urine pH 5.0, Ur Specific [place] 1.010, Urine Protein Negative, Urine Glucose (UA) Normal, Urine Ketones Negative, Urine Occult Blood Negative, Urine Nitrite Negative, Urine Bilirubin Negative, Urine Urobilinogen Normal, Ur Leukocyte Esterase Negative, Urine RBC 0 SEEN, Urine WBC 0 SEEN, Ur Squamous Epith Cells 0 SEEN, Urine Bacteria 0 SEEN, Urine Mucus 0 SEEN 01/01/21 04:48: PT 15.6 H, INR 1.3, APTT 32.6 01/01/21 04:48: Lactic Acid 3.1 H* 01/01/21 04:48: Ammonia < 10.0 L 01/01/21 04:48: TSH 0.50 01/01/21 04:48: Sodium 136, Potassium 3.9, Chloride 104, Carbon Dioxide 19.0 L, Anion Gap 13, BUN 22 H, Creatinine 1.22 H, Estim Creat Clear Calc 38.15, Est GFR (MDRD) Af Amer 55 L, Est GFR (MDRD) Non-Af 46 L, BUN/Creatinine Ratio 18.0, Glucose 97, Calcium 9.4 01/01/21 05:50: WBC 5.0, RBC 2.35 L, Hgb 8.8 L, Hct 26.3 L, MCV 111.9 H, MCH 37.4 H, MCHC 33.5, RDW Std Deviation 69.0 H, RDW Coeff of Rani 16.8 H, Plt Count 180, MPV 10.2, Immature Gran % (Auto) 0.400, Neut % (Auto) 33.2 L, Lymph % (Auto) 45.7 H, Polk % (Auto) 20.1 H, Eos % (Auto) 0.0, Baso % (Auto) 0.6, Absol shane Neuts (auto) 1.7 L, Absolute Lymphs (auto) 2.30, Nucleated RBC % 0, Differential Comment SCANNED, Anisocytosis 2+, Macrocytosis 2+ Micro: Microbiology 12/31/20 18:52 Nasal Secretion SARS-CoV-2 Antigen (Rapid) - Final ABG Data ABG results: ABG 12/31/20 18:56 Specimen Type ART Sample Site L Radial pH 7.66 H* Bicarbonate Actual 13.5 L Total CO2 14 Base Excess -7 L O2 Saturation 100 H O2 % 100 ABG pCO2 11.9 L* ABG pO2 192 H Radhames Test Positive O2 Delivery Device NRB Crit Call To/Read Back Yes Blood Gas Notified Whom DR Nichols Radiology Impression Brain CT 12/31/20 18:36 IMPRESSION: No acute intracranial or calvarial abnormality. There is no major interval change. Electronically Signed: Feliberto Hassan DO at 20:40 EST Tel [phone], Service support , Chest X-Ray 12/31/20 19:55 IMPRESSION: Degenerative changes, as described above. No demonstrated acute cardiopulmonary process. Electronically Signed: Feliberto Hassan DO at 20:41 EST Tel [phone], Service support , Chest CTA 12/31/20 19:56 IMPRESSION: Normal CTA chest examination, without a demonstrated pulmonary embolism or arterial dissection. Electronically Signed: Feliberto Hassan DO at 21:04 EST Tel [phone], Service support , Head/Neck CTA 01/01/21 00:40 IMPRESSION: CTA head and neck with no acute arterial occlusive disease or other acute abnormality. Individualized dose optimization techniques were used for this CT. at 0228 Reported and signed by: Efren Willams MD Electronically Signed: Efren Willams MD at 2:27 EST Tel , Service support , ADDENDUM: 01/01/21 0237 IMPRESSION: CTA head and neck with no acute arterial occlusive disease or other acute abnormality. Individualized dose optimization techniques were used for this CT. at 0228 Reported and signed by: Efren Willams MD N.B. : The above Results were Read Back by fEren Willams MD to Dr. Kiersten MD, and understanding confirmed on 01/01/2021 02:30:04 (ET). Electronically Signed: Efren Willams MD at 2:27 EST Tel , Service support , Charges/Coding Procedures Hospitalists Procedures: [id number] Critial Care 1st Hr
[2021-01-01 08:33] LABS: Vitamin B12 1055 pg/mL (211-911)
[2021-01-01 08:50] LABS: Reflex Lactate? Y
[2021-01-01 09:59] LABS: Lactic Acid 0.9 mmol/L (0.4-1.9)
--- NOTE | 2021-01-01 11:40 | CASEMGMT ---
RN CM Face to Face with patient for initial transition planning/care coordination assessment. RN CM introduced self and role at [facility]. Patient lying in bed, slightly confused, daughter Rissa at bedside. Daughter willing to participate in assessment and is able to answer all questions appropriately. Care providers, pharmacy, and demographics verified. Daughter wishes for patient to discharge home if able but willing to have patient go to SNF if needed. Will monitor progress with therapy. Daughter states she has no further needs or concerns at this time. CM to follow for discharge planning needs that may arise. PCP: Caity Specialists: Delvin oncologist [facility]acy[facility] Insurance: [facility] Prescription Benefit: yes Living Will/HPOA: none LNOK: daughters x3 Living Arrangements: patient lives alone but has been staying at barron Ruiz's house. 3 steps and railing to enter the 2 story home with bed and bath on first floor. Daughter has been assisting with ADLs Transportation: daughters DME/HHC: patient has shower chair, raised toilet, walker, rollator, hospital bed, and lift chair at home. No previous HHC or SNF. DaughterRissa, provided list of SNF in [facility] and HHC Disposition Plan: TBD HHC vs SNF pending progress with therapy. Marita MCCAULEYN, RN, CM
[2021-01-01 11:41] LABS: Bedside Glucose 82 mg/dL (70-110)
[2021-01-01] MEDS: Nystatin/Triamcin Oint 1 APPLIC TOPICAL ×2 (12:26→21:58)
--- NOTE | 2021-01-01 12:54 | PCM.RX.CS ---
Consult Pharmacy has been consulted to manage selected antiobiotic: Vancomycin Type of Consult: New start Suspected Infection: Sepsis Labs: Sodium 136 mmol/L (136-145) 01/01/21 04:48 Potassium 3.9 mmol/L (3.5-5.1) 01/01/21 04:48 Chloride 104 mmol/L (98-107) 01/01/21 04:48 Carbon Dioxide 19.0 mmol/L (21.0-32.0) L 01/01/21 04:48 Anion Gap 13 (5-15) 01/01/21 04:48 BUN 22 mg/dL (7-18) H 01/01/21 04:48 Creatinine 1.22 mg/dL (0.55-1.02) H 01/01/21 04:48 Est GFR (MDRD) Af Amer 55 mL/min (>60) L 01/01/21 04:48 Est GFR (MDRD) Non-Af 46 mL/min (>60) L 01/01/21 04:48 BUN/Creatinine Ratio 18.0 RATIO (10-20) 01/01/21 04:48 Glucose 97 mg/dL (74-106) 01/01/21 04:48 Microbiology: Microbiology 12/31/20 18:52 Nasal Secretion SARS-CoV-2 Antigen (Rapid) - Final Goal Trough: 15-20 mcg/mL Pharmacy Plan for Drug Dosing: NEW START IV VANCOMYCIN Consulting Physician: Dr. Pham Indication: Septic Shock Goal Trough: 15-20 SrCr: 1.22 CrCl: 48 mL/min (based on AdjBW = 78kg) Comments: Loading dose 2g IV x1 ordered and administered 01/01/21 @1225 Vancomcyin Dose: 750MG iv q12H TO START 01/02/21 @0000 Pending Level: 01/02/21 @2330, Prior to 4th total dose per protocol Pharmacy Service will continue to monitor and adjust dosing as required.
[2021-01-01 13:27] LABS: Amphetamine Urine VISTA NEGATIVE (<1000 ng/mL); Barbiturate Urine VISTA NEGATIVE (< 200 ng/mL); Benzodiazepine Urine VISTA NEGATIVE (< 200 ng/mL); Cocaine Urine VISTA NEGATIVE (< 300 ng/mL); Ecstacy Urine VISTA NEGATIVE (< 500 ng/mL); Methadone Urine VISTA NEGATIVE (< 300 ng/mL); PCP Urine VISTA NEGATIVE (< 25 ng/mL); THC Urine VISTA NEGATIVE (< 50 ng/mL); Vista UDS pH Range 5
[2021-01-01 13:35] LABS: Partial Thromboplast Time > 250.0 Seconds (24.1-36.2)
--- NOTE | 2021-01-01 14:08 | CHAPLAIN ---
Type of Pastoral Visit _x__ Initial Visit ___ Follow-up Visit ___ On-call Visit ___ General Patient Visit ___ Spiritual Assessment ___ Family Conference ___ Bereavement ___ Rapid Response ___ Code Blue ___ Other (describe below) Pastoral Care Referral From _x__ Patient ___ Family ___ Nurse ___ Physician ___ Vessel Slag Worker ___ Talent Analyst ___ Other (describe below) Sacrament/Intervention _x__ Active listening ___ Anointing ___ Mu-Ism ___ Bereavement ___ Communion ___ Coco exploration ___ ___ Life review _x__ Prayer ___ Reconciliation ___ Sacrament of Sick ___ Wedding ___ Other (describe below) Pastoral Comments daughter of patient is with her and gives most of the information on situation; both welcome presence and prayer for patient;
--- NOTE | 2021-01-01 15:39 | NURSING ---
PT TOLERATED MRI WELL. UNABLE TO OBTAIN CONSISTENT SPO2 READING DUE TO PATIENT'S FINGERS BEING COLD AND FINGER SENSOR. PT CONSOLED THROUGHOUT SCAN AND DENIED NEEDS. RETURNED TO MRI BY THIS RN AND JARRED YOUNGRK.
--- NOTE | 2021-01-01 16:24 | PCM.PN.HOSP ---
Subjective Subjective Patient was admitted late last night but has developed a septic picture since admission. She has been hypotensive. She remains confused. We have had to give fluid boluses and start pressors. At this time she is on Levophed at 20. She is awake and alert at times but is nonsensical in her communication. Objective Data Objective Data Vital Signs: Vital Signs Temp Pulse Resp BP Pulse Ox 100.1 F H 116 H 22 H 74/43 L 95 01/01/21 12:00 01/01/21 14:42 01/01/21 15:31 01/01/21 15:31 01/01/21 15:31 Oxygen Flow Rate (L/min) 2 Oxygen Delivery Method Room Air Weight: 102.6 kg Body Mass Index (BMI) 35.4 Intake & Output: Intake and Output for Last 24 Hours 12/30/20 12/31/20 01/01/21 23:59 23:59 23:59 Intake Total 1244.72 / 1244.72 Output Total 250 / 250 Balance 994.72 / 994.72 Lab / Micro Data Result Diagrams: 01/01/21 05:50 01/01/21 04:48 Labs: Laboratory Results - last 24 hr 12/31/20 18:14: POC Glucose 82 12/31/20 19:25: WBC 4.3 L, RBC 2.54 L, Hgb 9.6 L, Hct 29.7 L, MCV 116.9 H, MCH 37.8 H, MCHC 32.3, RDW Std Deviation 72.6 H, RDW Coeff of Rani 16.8 H, Plt Count 194, MPV 9.9, Immature Gran % (Auto) 1.200 H, Neut % (Auto) 38.8 L, Lymph % (Auto) 41.2 H, [place] % (Auto) 17.4 H, Eos % (Auto) 0.5, Baso % (Auto) 0.9, Absolute Neuts (auto) 1.7 L, Absolute Lymphs (auto) 1.78, Nucleated RBC % 0, Differential Comment SCANNED, Anisocytosis 2+, Macrocytosis 2+ 12/31/20 19:25: Sodium 136, Potassium 4.3, Chloride 105, Carbon Dioxide 18.0 L, Anion Gap 13, BUN 23 H, Creatinine 1.38 H, Estim Creat Clear Calc 33.73, Est GFR (MDRD) Af Amer 48 L, Est GFR (MDRD) Non-Af 40 L, BUN/Creatinine Ratio 16.7, Glucose 117 H, Calcium 9.8, Total Bilirubin 0.70, Direct Bilirubin 0.22, AST 30, ALT 19, Alkaline Phosphatase 195 H, Troponin I High Sens 46, Total Protein 7.2, Albumin 2.9 L, Globulin 4.3 H 12/31/20 20:40: Urine Color Yellow, Urine Clarity Clear, Urine pH 5.0, Ur Specific [place] 1.010, Urine Protein Negative, Urine Glucose (UA) Normal, Urine Ketones Negative, Urine Occult Blood Negative, Urine Nitrite Negative, Urine Bilirubin Negative, Urine Urobilinogen Normal, Ur Leukocyte Esterase Negative, Urine RBC 0 SEEN, Urine WBC 0 SEEN, Ur Squamous Epith Cells 0 SEEN, Urine Bacteria 0 SEEN, Urine Mucus 0 SEEN 12/31/20 20:40: Urine Opiates Screen NEGATIVE, Urine Methadone Screen NEGATIVE, Ur Barbiturates Screen NEGATIVE, Ur Phencyclidine Scrn NEGATIVE, Ur Amphetamines Screen NEGATIVE, U Methamphetamin-MDMA NEGATIVE, U Benzodiazepines Scrn NEGATIVE, Urine Cocaine Screen NEGATIVE, U Cannabinoids Screen NEGATIVE, Ur Drug Screen Comment 01/01/21 04:48: PT 15.6 H, INR 1.3, APTT 32.6 01/01/21 04:48: Lactic Acid 3.1 H* 01/01/21 04:48: Ammonia < 10.0 L 01/01/21 04:48: TSH 0.50 01/01/21 04:48: Sodium 136, Potassium 3.9, Chloride 104, Carbon Dioxide 19.0 L, Anion Gap 13, BUN 22 H, Creatinine 1.22 H, Estim Creat Clear Calc 38.15, Est GFR (MDRD) Af Amer 55 L, Est GFR (MDRD) Non-Af 46 L, BUN/Creatinine Ratio 18.0, Glucose 97, Calcium 9.4 01/01/21 05:50: Urine Amphetamine Cancelled 01/01/21 05:50: Vitamin B12 1055 H 01/01/21 05:50: WBC 5.0, RBC 2.35 L, Hgb 8.8 L, Hct 26.3 L, MCV 111.9 H, MCH 37.4 H, MCHC 33.5, RDW Std Deviation 69.0 H, RDW Coeff of Rani 16.8 H, Plt Count 180, MPV 10.2, Immature Gran % (Auto) 0.400, Neut % (Auto) 33.2 L, Lymph % (Auto) 45.7 H, [place] % (Auto) 20.1 H, Eos % (Auto) 0.0, Baso % (Auto) 0.6, Absolute Neuts (auto) 1.7 L, Absolute Lymphs (auto) 2.30, Nucleated RBC % 0, Differential Comment SCANNED, Anisocytosis 2+, Macrocytosis 2+ 01/01/21 09:30: Lactic Acid 0.9 01/01/21 12:15: APTT > 250.0 H* Micro: Microbiology 12/31/20 18:52 Nasal Secretion SARS-CoV-2 Antigen (Rapid) - Final ABG Data ABG results: ABG 12/31/20 18:56 Specimen Type ART Sample Site L Radial pH 7.66 H* Bicarbonate Actual 13.5 L Total CO2 14 Base Excess -7 L O2 Saturation 100 H O2 % 100 ABG pCO2 11.9 L* ABG pO2 192 H Radhames Test Positive O2 Delivery Device NRB Crit Call To/Read Back Yes Blood Gas Notified Whom DR Nichols Radiography Diagnostic Testing: Radiology Impression Brain CT 12/31/20 18:36 IMPRESSION: No acute intracranial or calvarial abnormality. There is no major interval change. Electronically Signed: Feliberto Hassan DO at 20:40 EST Tel [phone], Service support , Chest X-Ray 12/31/20 19:55 IMPRESSION: Degenerative changes, as described above. No demonstrated acute cardiopulmonary process. Electronically Signed: Feliberto Hassan DO at 20:41 EST Tel [phone], Service support , Chest CTA 12/31/20 19:56 IMPRESSION: Normal CTA chest examination, without a demonstrated pulmonary embolism or arterial dissection. Electronically Signed: Feliberto Hassan DO at 21:04 EST Tel [phone], Service support , Head/Neck CTA 01/01/21 00:40 IMPRESSION: CTA head and neck with no acute arterial occlusive disease or other acute abnormality. Individualized dose optimization techniques were used for this CT. at 0228 Reported and signed by: Efren Willams MD Electronically Signed: Efren Willams MD at 2:27 EST Tel , Service support , ADDENDUM: 01/01/21 0237 IMPRESSION: CTA head and neck with no acute arterial occlusive disease or other acute abnormality. Individualized dose optimization techniques were used for this CT. at 0228 Reported and signed by: Efren Willams MD N.B. : The above Results were Read Back by Efren Willams MD to Dr. Kiersten MD, and understanding confirmed on 01/01/2021 02:30:04 (ET). Electronically Signed: Efren Willams MD at 2:27 EST Tel , Service support , Physical Exam Const alert Constitutional Narrative: Obese older white female lying in bed, is alert and awake but markedly confused and encephalopathic, appears toxic, intermittent agitation Orientation / Consciousness: confused and disoriented Exam Limitations: altered mental status Nutritional Appearance: obese HEENT head/scalp atraumatic HEENT Narrative: Mucous membranes are dry, no thrush, Mallampati 2, she has hair loss related to chemo Head and Scalp: normocephalic Resp normal respiratory effort, no retractions, no use of accessory muscles and clear to auscultation bilaterally Resp Narrative: Tachypnea that increases with examination due to agitation, no adventitious sounds noted Auscultation: Negative for crackles, rales, rhonchi or wheezes Cardio S1 normal heart sound, S2 normal heart sound, no murmurs, no rub, no gallops, no clicks and no JVD Cardio Narrative: Tachycardic without irregularity or ectopy GI normal to inspection, nondistended, normoactive bowel sounds, soft to palpation, non-tender and non-distended Extremity normal to inspection and no clubbing, cyanosis or edema Extremity Narrative: Pedal pulses are somewhat thready but present, med port right chest without signs of infection Skin no wounds, skin turgor normal, no jaundice, no petechiae and no mottling Skin Narrative: Skin is pale, bilateral feet with tinea and toenail abnormalities on left foot Neuro Neuro Narrative: Agitation, moves all extremities symmetrically but not to command Sensorium / Orientation: awake and alert Assessment & Plan Assessment/Plan (1) Septic shock: (2) Encephalopathy acute: (3) Lactic acidosis: PLAN: Septic shock -source unknown -Patient was refractory to fluid boluses and has been replaced with 30cc/kg -Pressors initiated currently on Levo at 5 -Cultures are pending -CXR neg -Continue broad-spectrum antibiotics with vancomycin and Zosyn -Start Solu-Cortef tomorrow if still hypotension -appreciate CCM input Metabolic Encephalopathy -suspect related to COVID -CT head is negative -CTA unimpressive -MRI pending -ammonia WNL -Unable to do EEG as machine is broken -If does not improve with improved sepsis may do the LP -No seizure activity identified and patient does not appear to be in status as she currently does not interact Acute hypoxic respiratory insufficiency -Etiology is unclear -On CT or chest x-ray -CTA negative for PE -Elated to sepsis -Continue supplemental oxygen as needed and wean History of factor V Leiden -Patient is at baseline anticoagulated with Eliquis -On hold at this time as patient is needing to be n.p.o. 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 Gout -Hold hold allopurinol Hypertension -Hold home Lasix, metoprolol Hyperlipidemia -Hold pravastatin DM-2 -Patient is on Metformin at baseline -Fasting blood sugar this morning was 97 -Continue to follow fasting blood sugars and if elevated will initiate SSI and Accu-Cheks -Goal blood sugar 140-180 DVT prophylaxis -Heparin drip -SCDs CODE STATUS -Full code Charges/Coding Visit Charges Inpatient E&M: 20273 Subs Hosp L2
[2021-01-01 22:37] LABS: Partial Thromboplast Time > 250.0 Seconds (24.1-36.2)
[2021-01-02] VITALS (68 sets, daily range): BP systolic 72–129; BP diastolic 43–101; PULSE 91–133; RESP 12–21; TEMP 36.6–37; O2SAT 92–100
[2021-01-02] MEDS: HEPARIN/D5w 25,000 UNITS 25,000 UNITS/250 ML IV.SOLN. 8 UNITS IV (01:52)
[2021-01-02 04:13] LABS: Absolute Lymphocyte Count 1.18 X10^3/uL (0.83-4.51); Absolute Neutrophil Count 0.7 X10^3/uL (2.0-7.7); Basophil# 0.04 X10^3/uL; Basophil% 1.3 % (0-1); Eosinophil# 0.03 X10^3/uL; Hematocrit 24.9 % (37-47); Hemoglobin 8.1 g/dL (12.0-15.0); Lymphocyte # 1.18 X10^3/ul (0.83-4.51); Lymphocyte % 38.3 % (19-41); Mean Corp Hgb Conc 32.5 g/dL (32-36); Mean Corpuscular Hgb 37.3 pg (27.0-32.0); Mean Corpuscular Volume 114.7 fL (81-99); Mean Platelet Vol. 9.8 fl (6.2-12.0); Monocyte# 1.15 X10^3/uL; Monocyte% 37.3 % (0-10); NRBC Flagged by Analyzer 0 % (0-5); Neutrophil # 0.67 X10^3/uL (2.7-7.7); Neutrophil % 21.8 % (47-70); POSITIVE DIFFERENTIAL YES; POSITIVE MORPHOLOGY YES; Platelet Count 168 K/mm3 (150-450); RBC Distribution Width CV 17.1 % (11.6-14.6); RBC Distribution Width SD 71.7 fl (35.1-43.9); Red Blood Count 2.17 M/mm3 (4.2-5.4); White Blood Count 3.1 K/mm3 (4.4-11.0)
[2021-01-02 04:15] LABS: Differential Indicated SCAN CRITERIA MET
[2021-01-02 04:44] LABS: Anion Gap 10 (5-15); BUN 13 mg/dL (7-18); BUN/Creat Ratio 13.9 RATIO (10-20); Calcium,Total 8.5 mg/dL (8.5-10.1); Chloride 107 mmol/L (98-107); Creatinine, Serum 0.93 mg/dL (0.55-1.02); EST Glomerular Filtration Rate 62 mL/min (>60); Est Glom Filt Rate - Afr Amer 75 mL/min (>60); Estimated Creatinine Clearance 50.05 ml/min; Glucose 130 mg/dL (74-106); Potassium 4.1 mmol/L (3.5-5.1); Sodium Level 139 mmol/L (136-145)
[2021-01-02 04:48] LABS: Anisocytosis 1+; Differential Comment SCANNED
[2021-01-02 04:49] LABS: Macrocytosis 1+; Polychromasia 1+
--- NOTE | 2021-01-02 05:46 | PN.CC_ITS ---
Assessment & Plan Assessment/Plan (1) Encephalopathy acute: (2) Elevated serum creatinine: (3) Diffuse large b-cell lymphoma, lymph nodes of multiple sites: (4) Septic shock: PLAN: RECOMMENDATIONS: 1. Continue antimicrobials while awaiting finalized culture results. 2. Continue Levophed to maintain a mean arterial pressure at or above 65 mmHg. 3. Wean supplemental oxygen to maintain saturations at or above 90%. 4. Encourage incentive spirometer use and mobilize patient as tolerated. 5. Continue heparin infusion for now. IMPRESSIONS: 1. Acute encephalopathy secondary to septic shock Appears to be secondary to gram-positive septic shock originating from the patient's chest wall port. She is currently on broad-spectrum antimicrobials while awaiting finalized culture results. Plan to continue vasopressor support to maintain a mean arterial pressure at or above 65 mmHg. The patient appears to be mentating appropriately this morning. Chest wall port may inevitably need to be removed. I do not see an indication at the current time to pursue any additional neurologic work-up. 2. Gram-positive septic shock The patient has gram-positive bacteremia originating from her chest wall port. Continue broad-spectrum antimicrobials for now while awaiting finalized culture results. Continue Levophed to maintain mean arterial pressure at or above 65 mmHg. 3. Factor V Leiden/diffuse large B-cell lymphoma/recent chemotherapy The patient is at high risk for thrombotic complications. Eliquis was discontinued and the patient was transitioned to a heparin infusion, which will be continued for now. 4. Obesity/advanced age/recent chemotherapy/hypothyroidism/gout/SVT/diabetes Complicates care, management, recovery and prognosis. Continue home medications as indicated, with the exception of diuretics and antihypertensives. TIME: 34 minutes of critical care time, independent of procedures, was spent addressing the patient's acute encephalopathy, gram-positive septic shock, review of all data and collaboration with care team. Subjective Subjective The patient was seen and examined at the bedside this morning. Events from the last 24 hours have been reviewed. The patient is currently afebrile and maintaining appropriate oxygen saturations on 2 L/min via nasal cannula. She remains on Levophed at 10 mcg/min to maintain hemodynamic stability. The patient is currently documented to be overall net +700 mL for the hospitalizatio n. Creatinine has improved to 0.93 this morning. The patient remains on a continuous heparin infusion. The patient is currently alert and appropriate. She denies any specific complaints. The patient did confirm that she does not take prednisone on a daily basis at her baseline. Objective Data Objective Data The patient's most recent lab work, culture data and imaging studies have all been personally reviewed. Surface echocardiogram dated July 2020 demonstrated stage I diastolic dysfunction with an ejection fraction of 55%. Head CT completed on December 31 showed no acute intracranial abnormality. CTA chest da kajal December 31 showed no evidence for pulmonary embolism. There is no pulmonary parenchymal abnormalities. CTA head and neck showed no evidence of intracranial aneurysm or vascular malformation. There was no acute arterial occlusive disease or other abnormality identified. MRI brain showed no e nhancing intracranial mass, acute infarct or other significant abnormality. Rapid coronavirus antigen testing was negative. Blood culture dated January 01 was positive for gram-positive cocci. Vital Signs: Vital Signs Temp Pulse Resp BP Pulse Ox 97.9 F 96 20 H 99/60 95 01/02/21 04:00 01/02/21 04:00 01/02/21 04:00 01/02/21 04:00 01/02/21 04:00 Oxygen Flow Rate (L/min) 2 Oxygen Delivery Method Nasal Cannula Weight: 105.2 kg Body Mass Index (BMI) 35.4 Intake & Output: Intake and Output for Last 24 Hours 12/31/20 01/01/21 01/02/21 23:59 23:59 23:59 Intake Total 1476.92 / 1481.62 394.9 / 394.9 Output Total 450 / 800 650 / 650 Balance 1026.92 / 681.62 -255.1 / -255.1 Lab / Micro Data Attestation: I reviewed the patient's lab results. Result Diagrams: 01/02/21 04:00 01/02/21 04:00 Labs: Laboratory Results - last 24 hr 12/31/20 18:14: POC Glucose 82 12/31/20 20:40: Urine Opiates Screen NEGATIVE, Urine Methadone Screen NEGATIVE, Ur Barbiturates Screen NEGATIVE, Ur Phencyclidine Scrn NEGATIVE, Ur Amphetamines Screen NEGATIVE, U Methamphetamin-MDMA NEGATIVE, U Benzodiazepines Scrn NEGATIVE, Urine Cocaine Screen NEGATIVE, U Cannabinoids Screen NEGATIVE, Ur Drug Screen Comment 01/01/21 04:48: TSH 0.50 01/01/21 05:50: Urine Amphetamine Cancelled 01/01/21 05:50: Vitamin B12 1055 H 01/01/21 05:50: WBC 5.0, RBC 2.35 L, Hgb 8.8 L, Hct 26.3 L, MCV 111.9 H, MCH 37.4 H, MCHC 33.5, RDW Std Deviation 69.0 H, RDW Coeff of Rani 16.8 H, Plt Count 180, MPV 10.2, Immature Gran % (Auto) 0.400, Neut % (Auto) 33.2 L, Lymph % (Auto) 45.7 H, [place] % (Auto) 20.1 H, Eos % (Auto) 0.0, Baso % (Auto) 0.6, Absolute Neuts (auto) 1.7 L, Absolute Lymphs (auto) 2.30, Nucleated RBC % 0, Differential Comment SCANNED, Anisocytosis 2+, Macrocytosis 2+ 01/01/21 09:30: Lactic Acid 0.9 01/01/21 12:15: APTT > 250.0 H* 01/01/21 22:00: APTT > 250.0 H* 01/02/21 04:00: WBC 3.1 L, RBC 2.17 L, Hgb 8.1 L, Hct 24.9 L, MCV 114.7 H, MCH 37.3 H, MCHC 32.5, RDW Std Deviation 71.7 H, RDW Coeff of Rani 17.1 H, Plt Count 168, MPV 9.8, Immature Gran % (Auto) 0.300, Neut % (Auto) 21.8 L, Lymph % (Auto) 38.3, [place] % (Auto) 37.3 H, Eos % (Auto) 1.0, Baso % (Auto) 1.3 H, Absolute Neuts (auto) 0.7 L, Absolute Lymphs (auto) 1.18, Nucleated RBC % 0, Differential Comment SCANNED, Polychromasia 1+, Anisocytosis 1+, Macrocytosis 1+ 01/02/21 04:00: Sodium 139, Potassium 4.1, Chloride 107, Carbon Dioxide 22.0, Anion Gap 10, BUN 13, Creatinine 0.93, Estim Creat Clear Calc 50.05, Est GFR (MDRD) Af Amer 75, Est GFR (MDRD) Non-Af 62, BUN/Creatinine Ratio 13.9, Glucose 130 H, Calcium 8.5 Micro: Microbiology 01/01/21 05:50 Blood Culture (Wb) - Port Blood Culture - Preliminary 12/31/20 18:52 Nasal Secretion SARS-CoV-2 Antigen (Rapid) - Final Radiography Diagnostic Testing: Radiology Impression Brain MRI 01/01/21 03:15 IMPRESSION: Motion artifact. No evidence for enhancing intracranial mass, acute infarct, or other significant signal abnormality. at 1640 Reported and signed by: Sindi Ceballos MD Electronically Signed: Sindi Ceballos MD at 16:39 EST Tel , Service support , Physical Exam Const alert and no apparent distress General Appearance: cooperative Nutritional Appearance: obese HEENT normocephalic and head/scalp atraumatic Eyes PERRL, EOMs intact bilaterally and conjunctivae normal Neck supple General: trachea midline Chest Chest Narrative: Chest port in place. Resp normal respiratory effort Auscultation: Negative for rales, rhonchi or wheezes Cardio S1 normal heart sound and S2 normal heart sound Rate: tachycardic Rhythm: abnormal rhythm GI normal to inspection, nondistended, normoactive bowel sounds Extremity no clubbing, cyanosis or edema Skin no rashes or lesions noted Neuro CN's II-XII intact bilaterally and no focal motor deficits Psych cooperative and affect normal Charges/Coding Procedures Hospitalists Procedures: 85851 Critial Care 1st Hr
--- NOTE | 2021-01-02 08:07 | ECHOCS_ITS ---
Reason For Study: GP Bacteremia Procedure This was a 2D Doppler, Color Flow transthoracic echocardiogram. The study was technically difficult. Contrast injection was performed. Exam performed portable in ICU/CCU. Left Ventricle Normal left ventricle. The estimated ejection fraction is 55-60 %. Right Ventricle Normal right ventricle. Normal systolic function. Atria Normal left atrium. Normal right atrium. Mitral Valve The mitral valve is structurally normal. No prolapse or stenosis seen. No mitral valve insufficiency. Aortic Valve The aortic valve is not well visualized. No aortic valve insufficiency. Pulmonic Valve The pulmonic valve is not well visualized. Great Vessels Normal aortic root. Pericardium/Pleural No pericardial effusion. Medication Diluted definity 2ml given slow IV push to enhance endocardial definition. MMode/2D Measurements & Calculations LVIDd: 4.0 cm IVSd: 1.0 cm Ao root diam: 3.5 cm LVIDs: 2.9 cm LVPWd: 0.89 cm FS: 27.3 % LAV(MOD-bp): 57.4 ml LA A4 area: 22.3 cm2 RA A4 area: 15.0 cm2 LAV(MOD-bp) Indexed: 26.7 ml/m2 LAV(MOD-sp2): 46.6 ml LAV(MOD-sp4): 58.3 ml Time Measurements MV dec time: 0.27 sec Doppler Measurements & Calculations MV E max hiram: 59.1 cm/sec Lat Peak E' Hiram: 7.7 cm/sec Med Peak E' Hiram: 9.6 cm/sec MV A max hiram: 74.1 cm/sec E/E' lat: 7.7 E/E' med: 6.1 MV E/A: 0.80 MV V2 max: 84.7 cm/sec MV P1/2t max hiram: 62.6 cm/sec Ao V2 max: 143.8 cm/sec MV max P.9 mmHg MV P1/2t: 73.1 msec Ao max P.3 mmHg MV V2 mean: 49.2 cm/sec MV dec slope: 250.7 cm/sec2 MV mean P.2 mmHg MVA(P1/2t): 3.0 cm2 MV V2 VTI: 16.4 cm LV V1 max: 102.0 cm/sec PA V2 max: 97.3 cm/sec LV V1 max P.2 mmHg ECHO/Echo Complete W/ Contrast Interpretation Summary The estimated ejection fraction is 55-60 %. Grade # I Diastolic Dysfunction Ordering Physician: Marge Forrester Referring Physician: [place] Performed By: Micheal Ramires RCS
[2021-01-02 09:16] LABS: Partial Thromboplast Time 203.7 Seconds (24.1-36.2)
[2021-01-02] MEDS: Nystatin/Triamcin Oint 1 APPLIC TOPICAL ×2 (09:18→22:04)
--- NOTE | 2021-01-02 10:17 | PCM.PN.HOSP ---
Subjective Subjective Patient is mentating much better and is now alert and oriented x3. She has no specific complaints at this time. She is able to tolerate p.o. without difficulty. She remains on Levophed currently at 10 mics per minute but wean is in progress. Objective Data Objective Data Vital Signs: Vital Signs Temp Pulse Resp BP Pulse Ox 97.9 F 115 H 20 H 82/63 L 100 01/02/21 04:00 01/02/21 10:01 01/02/21 10:01 01/02/21 10:15 01/02/21 10:01 Oxygen Flow Rate (L/min) 1 Oxygen Delivery Method Room Air Weight: 105.2 kg Body Mass Index (BMI) 35.4 Intake & Output: Intake and Output for Last 24 Hours 12/31/20 01/01/21 01/02/21 23:59 23:59 23:59 Intake Total 1476.92 / 1481.62 582.66 / 582.66 Output Total 450 / 800 650 / 650 Balance 1026.92 / 681.62 -67.34 / -67.34 Lab / Micro Data Result Diagrams: 01/02/21 04:00 01/02/21 04:00 Labs: Laboratory Results - last 24 hr 12/31/20 18:14: POC Glucose 82 12/31/20 20:40: Urine Opiates Screen NEGATIVE, Urine Methadone Screen NEGATIVE, Ur Barbiturates Screen NEGATIVE, Ur Phencyclidine Scrn NEGATIVE, Ur Amphetamines Screen NEGATIVE, U Methamphetamin-MDMA NEGATIVE, U Benzodiazepines Scrn NEGATIVE, Urine Cocaine Screen NEGATIVE, U Cannabinoids Screen NEGATIVE, Ur Drug Screen Comment 01/01/21 05:50: Urine Amphetamine Cancelled 01/01/21 12:15: APTT > 250.0 H* 01/01/21 22:00: APTT > 250.0 H* 01/02/21 04:00: WBC 3.1 L, RBC 2.17 L, Hgb 8.1 L, Hct 24.9 L, MCV 114.7 H, MCH 37.3 H, MCHC 32.5, RDW Std Deviation 71.7 H, RDW Coeff of Rain 17.1 H, Plt Count 168, MPV 9.8, Immature Gran % (Auto) 0.300, Neut % (Auto) 21.8 L, Lymph % (Auto) 38.3, [place] % (Auto) 37.3 H, Eos % (Auto) 1.0, Baso % (Auto) 1.3 H, Absolute Neuts (auto) 0.7 L, Absolute Lymphs (auto) 1.18, Nucleated RBC % 0, Differential Comment SCANNED, Polychromasia 1+, Anisocytosis 1+, Macrocytosis 1+ 01/02/21 04:00: Sodium 139, Potassium 4.1, Chloride 107, Carbon Dioxide 22.0, Anion Gap 10, BUN 13, Creatinine 0.93, Estim Creat Clear Calc 50.05, Est GFR (MDRD) Af Amer 75, Est GFR (MDRD) Non-Af 62, BUN/Creatinine Ratio 13.9, Glucose 130 H, Calcium 8.5 01/02/21 08:00: APTT Cancelled 01/02/21 08:45: APTT 203.7 H* Micro: Microbiology 01/01/21 05:50 Blood Culture (Wb) - Port Bacteria Detection (PCR) - Final Staphylococcus epidermidis 01/01/21 05:50 Blood Culture (Wb) - Port Blood Culture - Preliminary 12/31/20 18:52 Nasal Secretion SARS-CoV-2 Antigen (Rapid) - Final Radiography Diagnostic Testing: Radiology Impression Brain MRI 01/01/21 03:15 IMPRESSION: Motion artifact. No evidence for enhancing intracranial mass, acute infarct, or other significant signal abnormality. at 1640 Reported and signed by: Sindi Ceballos MD Electronically Signed: Sindi Ceballos MD at 16:39 EST Tel , Service support , Physical Exam Const alert, oriented x3 and no apparent distress Constitutional Narrative: Obese older white female sitting up in bed, is alert and awake and now oriented x3, nursing is at the bedside, nontoxic, no distress Exam Limitations: no limitations Nutritional Appearance: obese HEENT head/scalp atraumatic and moist oral mucous membranes HEENT Narrative: Edentulous, Mallampati 2-3, no thrush Head and Scalp: normocephalic Resp normal respiratory effort, no retractions, no use of accessory muscles and clear to auscultation bilaterally Auscultation: Negative for crackles, rales, rhonchi or wheezes Cardio regular rate, regular rhythm, S1 normal heart sound, S2 normal heart sound, no murmurs, no rub, no gallops, no clicks and no JVD GI normal to inspection, nondistended, normoactive bowel sounds, soft to palpation, non-tender and non-distended Extremity normal to inspection and no clubbing, cyanosis or edema Peripheral Pulses: Yes pulses 2+ throughout Skin no wounds, skin turgor normal, no jaundice, no petechiae and no mottling Skin Narrative: Skin is pale, bilateral feet with tinea and toenail abnormalities on left foot, med port right chest without any drainage or irritation-currently accessed Neuro oriented x3, CN's II-XII intact bilaterally, moves all extremities and no focal motor deficits Neuro Narrative: Decreased bilateral shoulder strength right greater than left secondary to osteoarthritis Sensorium / Orientation: awake and alert Psych affect normal Psych Narrative: Very pleasant Assessment & Plan Assessment/Plan (1) Septic shock: (2) Encephalopathy acute: (3) Lactic acidosis: PLAN: Septic shock -source unknown -Patient was refractory to fluid boluses and has been replaced with 30cc/kg -Pressors initiated currently on Levo at 10 -Blood culture off her port was positive for staph epi -Given this was off of her port and her clinical picture I suspect this real infection and not contaminant -Will check echocardiogram and consult ID -CXR neg -Continue broad-spectrum antibiotics with vancomycin and Zosyn -Start Solu-Cortef today 100 mg q 8 hrs since patient is still on pressors and had been on steroids with her chemotherapy routine -appreciate CCM input Metabolic Encephalopathy -Resolved -All imaging studies of her brain were negative -No need for EEG -No need for further neurology consultation -Suspect this was all related to acute sepsis Acute hypoxic respiratory insufficiency -Resolved -Suspect related to acute sepsis picture on presentation -Now is on room air with an oxygen saturation of 100% History of factor V Leiden -Patient is at baseline anticoagulated with Eliquis -On hold at this time as patient is needing to be n.p.o. 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 Gout -Hold hold allopurinol Hypertension -Hold home Lasix, metoprolol Hyperlipidemia -Hold pravastatin DM-2 -Patient is on Metformin at baseline -Fasting blood sugar this morning was 97 -Continue to follow fasting blood sugars and if elevated will initiate SSI and Accu-Cheks -Goal blood sugar 140-180 -We will watch closely with the addition of Solu-Cortef as patient will likely have blood sugar elevations DVT prophylaxis -Heparin drip -SCDs CODE STATUS -Full code
[2021-01-02] MEDS: TITRATION PARAMETER CHANGE 1 EACH IV (10:47)
[2021-01-02] MEDS: Menthol/Lanolin/Calamine/Znox 113 GM Tube 1 APPLIC TOPICAL ×2 (13:37→22:05)
[2021-01-02] MEDS: Hydrocortisone Sod Succinate 100 MG/2 ML Vial IV ×2 (13:37→22:04)
[2021-01-02] MEDS: 0.9% Saline Lock 10 ML Syringe IV (13:37)
[2021-01-02] MEDS: HEPARIN/D5w 25,000 UNITS 25,000 UNITS/250 ML IV.SOLN. 5 UNITS IV (15:28)
[2021-01-02] MEDS: 0.9% Normal Saline 1,000 ML 100 ML IV (15:29)
[2021-01-02 18:21] LABS: Partial Thromboplast Time 89.9 Seconds (24.1-36.2)
[2021-01-03] VITALS (49 sets, daily range): BP systolic 78–118; BP diastolic 45–82; PULSE 80–106; RESP 13–23; TEMP 36.1–37.3; O2SAT 91–100
[2021-01-03] MEDS: 0.9% Normal Saline 1,000 ML 100 ML IV ×2 (01:02→02:57)
[2021-01-03 01:05] LABS: Partial Thromboplast Time 121.9 Seconds (24.1-36.2)
[2021-01-03 02:14] LABS: Vancomycin, Trough Level 14.4 ug/mL (5.0-15.0)
--- NOTE | 2021-01-03 02:31 | PCM.RX.CS ---
Consult Pharmacy has been consulted to manage selected antiobiotic: Vancomycin Type of Consult: Follow-up Suspected Infection: Sepsis Prior Doses of Antibiotics Received/Current Regimen: Medications Vancomycin HCl 750 mg/ Sodium (Chloride) 265 mls @ 250 mls/hr IV Q12H TERESA Last Admin: 01/03/21 01:44 Dose: 250 mls/hr Labs: Sodium 139 mmol/L (136-145) 01/02/21 04:00 Potassium 4.1 mmol/L (3.5-5.1) 01/02/21 04:00 Chloride 107 mmol/L (98-107) 01/02/21 04:00 Carbon Dioxide 22.0 mmol/L (21.0-32.0) 01/02/21 04:00 Anion Gap 10 (5-15) 01/02/21 04:00 BUN 13 mg/dL (7-18) 01/02/21 04:00 Creatinine 0.93 mg/dL (0.55-1.02) 01/02/21 04:00 Est GFR (MDRD) Af Amer 75 mL/min (>60) 01/02/21 04:00 Est GFR (MDRD) Non-Af 62 mL/min (>60) 01/02/21 04:00 BUN/Creatinine Ratio 13.9 RATIO (10-20) 01/02/21 04:00 Glucose 130 mg/dL (74-106) H 01/02/21 04:00 Vancomycin Trough 14.4 ug/mL (5.0-15.0) 01/03/21 01:15 Microbiology: Microbiology 01/01/21 05:50 Blood Culture (Wb) - Port Bacteria Detection (PCR) - Final Staphylococcus epidermidis 01/01/21 05:50 Blood Culture (Wb) - Port Blood Culture - Preliminary 12/31/20 18:52 Nasal Secretion SARS-CoV-2 Antigen (Rapid) - Final Weight used for dosin kg Estimated Creatinine Clearance: 50 Goal Trough: 15-20 mcg/mL Pharmacy Plan for Drug Dosing: Vancomycin trough level of 14.4 was slightly below target range of 15-20, but was drawn 13.5hrs after previous dose. Will continue same dosing and re-draw a trough before fourth continuing dose. Pharmacy Service will continue to monitor and adjust dosing as required. Follow-Up Labs: Trough Vancomycin Labs to be done on [date and time ordered]: 01/04/21 @1130
[2021-01-03 04:34] LABS: Absolute Lymphocyte Count 0.69 X10^3/uL (0.83-4.51); Absolute Neutrophil Count 0.5 X10^3/uL (2.0-7.7); Basophil# 0.01 X10^3/uL; Basophil% 0.7 % (0-1); Hematocrit 19.7 % (37-47); Hemoglobin 6.5 g/dL (12.0-15.0); Lymphocyte # 0.69 X10^3/ul (0.83-4.51); Lymphocyte % 46.9 % (19-41); Mean Corpuscular Hgb 37.6 pg (27.0-32.0); Mean Corpuscular Volume 113.9 fL (81-99); Mean Platelet Vol. 9.3 fl (6.2-12.0); Monocyte# 0.22 X10^3/uL; NRBC Flagged by Analyzer 0 % (0-5); Neutrophil # 0.54 X10^3/uL (2.7-7.7); Neutrophil % 36.7 % (47-70); POSITIVE COUNT YES; POSITIVE DIFFERENTIAL YES; POSITIVE MORPHOLOGY YES; Platelet Count 120 K/mm3 (150-450); Red Blood Count 1.73 M/mm3 (4.2-5.4)
[2021-01-03 04:36] LABS: Differential Indicated SCAN CRITERIA MET
[2021-01-03 04:50] LABS: Anion Gap 7 (5-15); BUN 13 mg/dL (7-18); BUN/Creat Ratio 13.6 RATIO (10-20); Calcium,Total 7.9 mg/dL (8.5-10.1); Chloride 112 mmol/L (98-107); Creatinine, Serum 0.96 mg/dL (0.55-1.02); EST Glomerular Filtration Rate 60 mL/min (>60); Est Glom Filt Rate - Afr Amer 73 mL/min (>60); Estimated Creatinine Clearance 48.48 ml/min; Glucose 175 mg/dL (74-106); Potassium 3.5 mmol/L (3.5-5.1); Sodium Level 142 mmol/L (136-145)
[2021-01-03 05:04] LABS: Differential Comment SCANNED; White Blood Count 1.5 K/mm3 (4.4-11.0)
[2021-01-03 05:08] LABS: Anisocytosis 1+; Macrocytosis 1+; Microcytosis RARE
[2021-01-03] MEDS: Hydrocortisone Sod Succinate 100 MG/2 ML Vial IV (05:24)
--- NOTE | 2021-01-03 06:12 | PN.CC_ITS ---
Assessment & Plan Assessment/Plan (1) Encephalopathy acute: (2) Elevated serum creatinine: (3) Diffuse large b-cell lymphoma, lymph nodes of multiple sites: (4) Septic shock: PLAN: RECOMMENDATIONS: 1. Continue antimicrobials while awaiting finalized culture results. 2. Continue Levophed to maintain a mean arterial pressure at or above 65 mmHg. 3. Wean supplemental oxygen to maintain saturations at or above 90%. 4. Encourage incentive spirometer use and mobilize patient as tolerated. 5. Continue heparin infusion for now. 6. Send type and cross with plans to transfuse 1 unit of packed red blood cells. 7. Continue PPI therapy. 8. Stop continuous IV fluids. 9. Wean stress dose steroids. IMPRESSIONS: 1. Acute encephalopathy secondary to septic shock Initial concern was for gram-positive septic shock with bacteremia and concern for chest wall port infection. Cultures are currently pending. The patient appears to be responding to antimicrobials and vasopressor support. Plan to continue to wean Levophed to maintain the mean arterial pressure at or above 65 mmHg. No additional neurologic work-up is indicated, as encephalopathy has resolved. 2. Gram-positive septic shock The patient has gram-positive bacteremia concerning for chest wall port infection. Continue broad-spectrum antimicrobials for now while awaiting finalized culture results. Continue Levophed to maintain mean arterial pressure at or above 65 mmHg. 3. Pancytopenia Continue current supportive measures. There are no overt signs of blood loss. Transfuse packed red blood cell today to maintain a hemoglobin greater than 7 g/dL. Continue to monitor platelet count, especially in the setting of heparin utilization. 4. Factor V Leiden/diffuse large B-cell lymphoma/recent chemotherapy The patient is at high risk for thrombotic complications. Eliquis was disc ontinued and the patient was transitioned to a heparin infusion, which will be continued for now. 5. Obesity/advanced age/recent chemotherapy/hypothyroidism/gout/SVT/diabetes Complicates care, management, recovery and prognosis. Continue home medications as indicated, with the exception of diuretics and antihypertensives. TIME: 35 minutes of critical care time, independent of procedures, was spent addressing the patient's acute encephalopathy, gram-positive septic shock, pancytopenia, review of all data and collaboration with care team. Subjective Subjective The patient was seen and examined at the bedside this morning. Events from the last 24 hours have been reviewed. The patient is currently afebrile and maintaining appropriate oxygen saturations on 2 L/min via nasal cannula. She remains on Levophed at 1 mcg/min to maintain hemodynamic stability. The patient is currently documented to be overall net +2.5L for the hospitalization. The patient is pancytopenic. Hemoglobin is down to 6.5 g/dL this morning. Platelet count has dropped to 120,000. Creatinine has normalized. No overnight issues were identified by the nursing staff. Objective Data Objective Data The patient's most recent lab work, culture data and imaging studies have all been personally reviewed. Surface echocardiogram dated July 2020 demonstrated stage I diastolic dysfunction with an ejection fraction of 55%. Head CT completed on December 31 showed no acute intracranial abnormality. CTA chest da kajal December 31 showed no evidence for pulmonary embolism. There is no pulmonary parenchymal abnormalities. CTA head and neck showed no evidence of intracranial aneurysm or vascular malformation. There was no acute arterial occlusive disease or other abnormality identified. MRI brain showed no e nhancing intracranial mass, acute infarct or other significant abnormality. Rapid coronavirus antigen testing was negative. Blood culture dated January 01 was positive for Staph epidermidis. Vital Signs: Vital Signs Temp Pulse Resp BP Pulse Ox 99.1 F 94 16 94/59 L 100 01/03/21 04:00 01/03/21 06:00 01/03/21 06:00 01/03/21 06:00 01/03/21 06:00 Oxygen Flow Rate (L/min) 2 Oxygen Delivery Method Nasal Cannula Weight: 105.2 kg Body Mass Index (BMI) 35.4 Intake & Output: Intake and Output for Last 24 Hours 01/01/21 01/02/21 01/03/21 23:59 23:59 23:59 Intake Total 1476.92 / 1481.62 1849.85 / 1850.80 1499.66 / 1499.66 Output Total 450 / 800 1825 / 1825 Balance 1026.92 / 681.62 24.85 / 25.80 1499.66 / 1499.66 Lab / Micro Data Result Diagrams: 01/03/21 04:30 01/03/21 04:30 Labs: Laboratory Results - last 24 hr 01/02/21 08:00: APTT Cancelled 01/02/21 08:45: APTT 203.7 H* 01/02/21 17:50: APTT 89.9 H 01/03/21 00:15: Vancomycin Trough Cancelled 01/03/21 00:15: APTT 121.9 H* 01/03/21 01:15: Vancomycin Trough 14.4 01/03/21 04:30: WBC 1.5 L, RBC 1.73 L, Hgb 6.5 L, Hct 19.7 L, MCV 113.9 H, MCH 37.6 H, MCHC 33.0, RDW Std Deviation 67.0 H, RDW Coeff of Rani 16.0 H, Plt Count 120 L, MPV 9.3, Immature Gran % (Auto) 0.700, Neut % (Auto) 36.7 L, Lymph % (Auto) 46.9 H, [place] % (Auto) 15.0 H, Eos % (Auto) 0.0, Baso % (Auto) 0.7, Absol [place] Neuts (auto) 0.5 L, Absolute Lymphs (auto) 0.69 L, Nucleated RBC % 0, Differential Comment SCANNED, Diff Path Review May foll, Anisocytosis 1+, Microcytosis RARE, Macrocytosis 1+ 01/03/21 04:30: Sodium 142, Potassium 3.5, Chloride 112 H, Carbon Dioxide 23.0, Anion Gap 7, BUN 13, Creatinine 0.96, Estim Creat Clear Calc 48.48, Est GFR (MDRD) Af Amer 73, Est GFR (MDRD) Non-Af 60, BUN/Creatinine Ratio 13.6, Glucose 175 H, Calcium 7.9 L Micro: Microbiology 01/01/21 05:50 Blood Culture (Wb) - Port Bacteria Detection (PCR) - Final Staphylococcus epidermidis 01/01/21 05:50 Blood Culture (Wb) - Port Blood Culture - Preliminary 12/31/20 18:52 Nasal Secretion SARS-CoV-2 Antigen (Rapid) - Final Physical Exam Const alert and no apparent distress General Appearance: cooperative Nutritional Appearance: obese HEENT normocephalic and head/scalp atraumatic Eyes PERRL, EOMs intact bilaterally and conjunctivae normal Neck supple General: trachea midline Chest Chest Narrative: Chest port in place. Resp normal respiratory effort Auscultation: Negative for rales, rhonchi or wheezes Cardio S1 normal heart sound and S2 normal heart sound Rhythm: abnormal rhythm GI normal to inspection, nondistended, normoactive bowel sounds Extremity no clubbing, cyanosis or edema Skin no rashes or lesions noted Neuro CN's II-XII intact bilaterally and no focal motor deficits Psych cooperative and affect normal Charges/Coding Procedures Hospitalists Procedures: [id number] Critial Care 1st Hr
[2021-01-03 09:15] LABS: Partial Thromboplast Time 215.3 Seconds (24.1-36.2)
[2021-01-03] MEDS: Nystatin/Triamcin Oint 1 APPLIC TOPICAL ×2 (09:53→21:42)
[2021-01-03] MEDS: Hydrocortisone Sod Succinate 100 MG/2 ML Vial 50 MG IV ×2 (09:53→21:42)
--- NOTE | 2021-01-03 10:53 | CON.PCM.ID_ITS ---
Assessment & Plan Assessment/Plan (1) Encephalopathy acute: (2) Diffuse large b-cell lymphoma, lymph nodes of multiple sites: (3) Septic shock: PLAN: Single bcx from port with CoNS. Not clear if true infection. On v anc/zosyn. Covid vaccinated. Daughter with URI, will check resp pcr panel here. Will follow, thank you HPI Consult Data Date of Consult: 01/03/21 HPI Narrative HPI Narrative: LEANDRO HELMS, is a 75 F who presented 12/31 with sudden unresponsiveness and hypotension. Has DLBCL, completed chemo about 2 weeks ago, no issues with R chest port. Daughter now with URI-like symptoms. Pt is vaccinated for covid. [place] fine prior to episode, feeling fine now. On vanc/zosyn. Full ROS performed and neg except as noted above. 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, lymph nodes of multiple sites DLBCL (diffuse large B cell lymphoma) Elevated serum creatinine Encounter for chemotherapy management Factor V Leiden, prothrombin gene mutation Frequent falls Gout High cholesterol History of pulmonary embolism Hypertension Hypotension Hypothyroidism Macrocytic anemia Non-smoker Obesity Oral candidiasis Pulmonary embolism Pulmonary embolism Stomatitis Thyroid disease Walker as ambulation aid Wears dentures Wears glasses Home Medications allopurinol 100 mg PO BID 07/10/20 [History Last Taken 07/10/20 07:00] amitriptyline 75 mg PO QHS 07/10/20 [History Last Taken 07/09/20 22:00] levothyroxine 88 mcg PO DAILY 07/10/20 [History Last Taken 07/10/20 07:00] metformin 500 mg PO BID 07/10/20 [History Last Taken 07/07/20 22:00] potassium chloride 20 meq PO DAILY 07/10/20 [History Last Taken 07/10/20 07:00] pravastatin 10 mg PO QHS 07/10/20 [History Last Taken 07/09/20 22:00] docosahexaenoic acid-epa 3 cap PO DAILY 08/05/20 [History Last Taken Unknown] lidocaine-prilocaine 2.5 %-2.5 % topical cream 1 applic TOPICAL ONCE PRN 30 Days #30 g 08/05/20 [Rx Last Taken Unknown] ondansetron 8 mg disintegrating tablet 8 mg PO Q8H PRN #30 tab 08/05/20 [Rx Last Taken Unknown] prochlorperazine maleate [Compazine] 10 mg PO Q6H PRN 08/05/20 [History Last Taken Unknown] oxycodone-acetaminophen [Endocet] 1 tab PO Q6H PRN 2 Days #5 tab 08/14/20 [Rx Last Taken Unknown] apixaban 5 mg tablet 5 mg PO BID 09/26/20 [History Last Taken Unknown] MAGIC MOUTH WASH (BMX) 180 mL suspension 10 ml PO Q6H PRN #180 ml 10/28/20 [Rx Last Taken Unknown] oxycodone-acetaminophen [Endocet] 1 tab PO Q6H PRN 3 Days #12 tab 12/02/20 [Rx Last Taken Unknown] furosemide 40 mg tablet 20 mg PO DAILY tab 12/05/20 [History Last Taken Unknown] metoprolol succinate 100 mg tablet,extended release 24 hr 25 mg PO DAILY tab 12/05/20 [History Last Taken Unknown] prednisone 100 mg PO DAILY 12/31/20 [History Last Taken Unknown] Allergy/AdvReac Type Severity Reaction Status Date / Time No Known Allergies Allergy Verified 12/05/20 09:05 Family History Mother Diabetes Brother Cancer Surgical History History of bilateral knee replacement History of cataract removal with insertion of prosthetic lens History of cholecystectomy History of tubal ligation Social History Smoking Status: Never smoker second hand exposure: No alcohol intake: never substance use type: does not use rahul/roman catholic: Scientology seatbelt use: always do you feel safe at home: Yes Physical Exam Const alert, oriented x3 and no apparent distress General Appearance: cooperative Exam Limitations: no limitations HEENT normocephalic and head/scalp atraumatic Eyes PERRL and EOMs intact bilaterally Neck supple and No nodes Resp normal air movement and clear to auscultation bilaterally Cardio regular rate and regular rhythm GI normal to inspection, nondistended, normoactive bowel sounds Extremity no clubbing, cyanosis or edema Skin no rashes or lesions noted Skin Narrative: R chest port non tender Neuro CN's II-XII intact bilaterally Lab / Micro Data Result Diagrams: 01/03/21 04:30 01/03/21 04:30 Labs: Laboratory Results - last 24 hr 01/02/21 17:50: APTT 89.9 H 01/03/21 00:15: Vancomycin Trough Cancelled 01/03/21 00:15: APTT 121.9 H* 01/03/21 01:15: Vancomycin Trough 14.4 01/03/21 04:30: WBC 1.5 L, RBC 1.73 L, Hgb 6.5 L, Hct 19.7 L, MCV 113.9 H, MCH 37.6 H, MCHC 33.0, RDW Std Deviation 67.0 H, RDW Coeff of Rani 16.0 H, Plt Count 120 L, MPV 9.3, Immature Gran % (Auto) 0.700, Neut % (Auto) 36.7 L, Lymph % (Auto) 46.9 H, [place] % (Auto) 15.0 H, Eos % (Auto) 0.0, Baso % (Auto) 0.7, Absolute Neuts (auto) 0.5 L, Absolute Lymphs (auto) 0.69 L, Nucleated RBC % 0, Differential Comment SCANNED, Diff Path Review May foll, Anisocytosis 1+, Microcytosis RARE, Macrocytosis 1+ 01/03/21 04:30: Sodium 142, Potassium 3.5, Chloride 112 H, Carbon Dioxide 23.0, Anion Gap 7, BUN 13, Creatinine 0.96, Estim Creat Clear Calc 48.48, Est GFR (MDRD) Af Amer 73, Est GFR (MDRD) Non-Af 60, BUN/Creatinine Ratio 13.6, Glucose 175 H, Calcium 7.9 L 01/03/21 06:40: Blood Type A POSITIVE, Antibody Screen NEGATIVE 01/03/21 06:40: Crossmatch See Detail 01/03/21 08:45: APTT 215.3 H* Micro: Microbiology 12/31/20 19:25 Blood Culture (Wb) - Right Forearm Blood Culture - Preliminary No growth in 48 hours. 01/01/21 05:50 Blood Culture (Wb) - Port Bacteria Detection (PCR) - Final Staphylococcus epidermidis 01/01/21 05:50 Blood Culture (Wb) - Port Blood Culture - Preliminary Staphylococcus epidermidis
[2021-01-03 11:53] LABS: Partial Thromboplast Time 38.1 Seconds (24.1-36.2)
[2021-01-03] MEDS: Heparin Injection (Vial) 5,000 UNIT/ML VIAL IV (12:37)
--- NOTE | 2021-01-03 13:21 | CASEMGMT ---
ALEE spoke with patient and her daughter. SW asked about a discharge plan. Patient said she would prefer to go home, but if the doctor is recommending residential she will do that. They already have a list of nursing homes for [facility]. They have not decided what they are going to do yet. Luna Solis HISTORICAL ARCHEOLOGIST MARITZA
--- NOTE | 2021-01-03 13:50 | CASEMGMT ---
Addendum entered by Luna Solis 01/03/21 15:14: DAVI STEARNS updated ALEE and said patient and her daughter would be okay with patient going to [facility]. ALEE spoke with Camryn and she will put patient's name on the list. However, patient cannot go over the weekend as her medications need to be reviewed by one of 2 Pharmacy managers who are not back in until Wednesday. Plan: [facility] as long as medications check out okay. Earliest patient could go to TCU would be Wednesday. Luna [employer]CH[employer]IC Addendum entered by Luna Solis 01/03/21 14:11: ALEE spoke with patient and her daughter and they said patient will go home with home health. They have the list of home healthcare agencies and will look at it. SW let them know if patient is still here Wednesday SW can check with [facility] and [facility] to see if anything has changed. ALEE updated DAVI Chavira. Plan: home with home health Luna SALAS Original Note: Per DAVI STEARNS patient and her daughter are agreeable to referrals being made to [facility] and [facility]. ALEE called [facility] and spoke with Beckie. [facility] is full and will not have any open beds until late next week. ALEE called [facility] and they are also full with a waiting list. ALEE will check with patient and her daughter to see if they have other choices. Luna SALAS
--- NOTE | 2021-01-03 14:00 | CM.UR ---
RN CM NOTE: Pt/dtr made aware pt may possibly be ready for discharge from the hospital this weekend. They stated have looked over the SNF list and state [facility] is 1st choice for SNF and [facility] is 2nd choice. Luna VICKERS, made aware. Bre BSN RN CM
[2021-01-03] MEDS: Menthol/Lanolin/Calamine/Znox 113 GM Tube 1 APPLIC TOPICAL ×2 (14:50→21:44)
--- NOTE | 2021-01-03 15:11 | CASEMGMT ---
DAVI STEARNS NOTE: To room to talk w/pt and dtr about HHC. Questions answered. They stated would look over list to determine preference. DAVI STEARNS later went back to room to talk w/them again. Further questions answered. Upon further discussion, pt/dtr state would like pt to go to TCU. ALEE Carrasco, made aware. Pt/dtr made aware determination if TCU able to accept her would be made on Wednesday, at the earliest. They voice understanding. Marybel MCCAULEYN DAVI CM
[2021-01-03 15:37] LABS: Pathologist Review Reviewed
--- NOTE | 2021-01-03 15:43 | PN.HOSP_ITS ---
Subjective Subjective Patient reports she is feeling much better overall. No issues overnight. Remains on 1 mcg/h of Levophed. P.o. intake is decent. Patient has no complaints at this time. Hemoglobin did drop to 6.5 although I expect this is dilutional. Patient denies any pain or signs of blood loss. Objective Data Objective Data Vital Signs: Vital Signs Temp Pulse Resp BP Pulse Ox 97.2 F L 90 20 H 103/66 94 01/03/21 10:00 01/03/21 12:00 01/03/21 10:00 01/03/21 10:00 01/03/21 12:25 Oxygen Flow Rate (L/min) 2 Oxygen Delivery Method Room Air Weight: 107.9 kg Body Mass Index (BMI) 35.4 Intake & Output: Intake and Output for Last 24 Hours 01/01/21 01/02/21 01/03/21 23:59 23:59 23:59 Intake Total 1476.92 / 1481.62 1849.85 / 1850.80 2911.64 / 2911.64 Output Total 450 / 800 1825 / 1825 475 / 475 Balance 1026.92 / 681.62 24.85 / 25.80 2436.64 / 2436.64 Lab / Micro Data Result Diagrams: 01/03/21 04:30 01/03/21 04:30 Labs: Laboratory Results - last 24 hr 01/02/21 17:50: APTT 89.9 H 01/03/21 00:15: Vancomycin Trough Cancelled 01/03/21 00:15: APTT 121.9 H* 01/03/21 01:15: Vancomycin Trough 14.4 01/03/21 04:30: WBC 1.5 L, RBC 1.73 L, Hgb 6.5 L, Hct 19.7 L, MCV 113.9 H, MCH 37.6 H, MCHC 33.0, RDW Std Deviation 67.0 H, RDW Coeff of Rani 16.0 H, Plt Count 120 L, MPV 9.3, Immature Gran % (Auto) 0.700, Neut % (Auto) 36.7 L, Lymph % (Auto) 46.9 H, [place] % (Auto) 15.0 H, Eos % (Auto) 0.0, Baso % (Auto) 0.7, Absolute Neuts (auto) 0.5 L, Absolute Lymphs (auto) 0.69 L, Nucleated RBC % 0, Differential Comment SCANNED, Diff Path Review Reviewed, Anisocytosis 1+, Microcytosis RARE, Macrocytosis 1+ 01/03/21 04:30: Sodium 142, Potassium 3.5, Chloride 112 H, Carbon Dioxide 23.0, Anion Gap 7, BUN 13, Creatinine 0.96, Estim Creat Clear Calc 48.48, Est GFR (MDRD) Af Amer 73, Est GFR (MDRD) Non-Af 60, BUN/Creatinine Ratio 13.6, Glucose 175 H, Calcium 7.9 L 01/03/21 06:40: Blood Type A POSITIVE, Antibody Screen NEGATIVE 01/03/21 06:40: Crossmatch See Detail 01/03/21 08:45: APTT 215.3 H* 01/03/21 11:30: APTT 38.1 H Micro: Microbiology 01/03/21 11:50 Interface Orders Respiratory Panel (PCR) - Final 12/31/20 19:25 Blood Culture (Wb) - Right Forearm Blood Culture - Preliminary No growth in 48 hours. 01/01/21 05:50 Blood Culture (Wb) - Port Bacteria Detection (PCR) - Final Staphylococcus epidermidis 01/01/21 05:50 Blood Culture (Wb) - Port Blood Culture - Preliminary Staphylococcus epidermidis 12/31/20 18:52 Nasal Secretion SARS-CoV-2 Antigen (Rapid) - Final Radiography Diagnostic Testing: Radiology Impression Echocardiogram 01/02/21 08:07 Interpretation Summary The estimated ejection fraction is 55-60 %. Grade # I Diastolic Dysfunction Ordering Physician: Marge Forrester Referring Physician: Delta Carolina Performed By: Micheal Ramires RCS Physical Exam Narrative Const alert, oriented x3 and no apparent distress Constitutional Narrative: Obese older white female sitting up in bed, patient appears comfortable and nontoxic, nursing at bedside Orientation / Consciousness: confused and disoriented Exam Limitations: no limitations Nutritional Appearance: obese HEENT head/scalp atraumatic and moist oral mucous membranes HEENT Narrative: Dentures in place, no thrush, Mallampati 2 Head and Scalp: normocephalic Resp normal respiratory effort, no retractions, no use of accessory muscles and clear to auscultation bilaterally Auscultation: Negative for crackles, rales, rhonchi or wheezes Cardio regular rate, regular rhythm, S1 normal heart sound, S2 normal heart sound, no murmurs, no rub, no gallops, no clicks and no JVD GI normal to inspection, nondistended, normoactive bowel sounds, soft to palpation, non-tender and non-distended Extremity normal to inspection and no clubbing, cyanosis or edema Extremity Narrative: Pedal pulses are somewhat thready but present, med port right chest without signs of infection or drainage at this time Peripheral Pulses: Yes pulses 2+ throughout Skin no wounds, skin turgor normal, no jaundice, no petechiae and no mottling Skin Narrative: Skin is pale, bilateral feet with tinea and toenail abnormalities on left foot, med port right chest without any drainage or irritation-currently accessed Neuro oriented x3, CN's II-XII intact bilaterally, moves all extremities and no focal motor deficits Neuro Narrative: Decreased bilateral shoulder strength right greater than left secondary to osteoarthritis Sensorium / Orientation: awake and alert Psych affect normal Psych Narrative: Very pleasant Assessment & Plan Assessment/Plan (1) Septic shock: (2) Encephalopathy acute: (3) Lactic acidosis: PLAN: Septic shock -source unknown although 1 of 2 blood cultures are positive for coag negative staph -Patient was refractory to fluid boluses and has been replaced with 30cc/kg -Pressors initiated currently on Levo at 1 mcg/min and weaning -Blood culture off her port was positive for staph epi -Given this was off of her port and her clinical picture I suspect this real infection and not contaminant -Echocardiogram shows no valvular vegetations and an EF of 55 to 60% with stage I diastolic dysfunction -CXR neg -Continue broad-spectrum antibiotics with vancomycin and Zosyn -With decrease in pressor requirement hydrocortisone has been weaned to 50 mg twice daily--> will wean further tomorrow if patient remains off pressors without any issues and stable blood pressures -Repeat blood cultures are pending -appreciate CCM input Metabolic Encephalopathy -Resolved -All imaging studies of her brain were negative -No need for EEG -No need for further neurology consultation -Suspect this was all related to acute sepsis Acute on chronic macrocytic anemia -Baseline hemoglobin appears to be in the 8-9 range -6.5 this morning -Patient is on heparin drip but has no pain or signs of acute blood loss -Suspect the drop is dilutional -Transfuse 1 unit packed red blood cells -Anticipate that this may help get her off pressors as well -Stan CBC in a.m. Thrombocytopenia -Suspect related to sepsis and dilution with IV fluids -Continue to monitor Acute hypoxic respiratory insufficiency -Resolved -Suspect related to acute sepsis picture on presentation -Now is on room air with an oxygen saturation of 100% -Viral PCR is pending History of factor V Leiden -Patient is at baseline anticoagulated with Eliquis -On hold at this time as patient is needing to be n.p.o. 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 Gout -Hold hold allopurinol Hypertension -Hold home Lasix, metoprolol Hyperlipidemia -Hold pravastatin DM-2 -Patient is on Metformin at baseline -Fasting blood sugar this morning was 175 -Continue to follow fasting blood sugars and if elevated will initiate SSI and Accu-Cheks -Goal blood sugar 140-180 -We will watch closely with the addition of Solu-Cortef as patient will likely have blood sugar elevations -No additional insulin as we are weaning steroids and I do anticipate her blood sugars should improve DVT prophylaxis -Heparin drip -SCDs CODE STATUS -Full code Charges/Coding Visit Charges Inpatient E&M: 43961 Subs Hosp L2
[2021-01-03 18:34] LABS: Partial Thromboplast Time 67.1 Seconds (24.1-36.2)
[2021-01-04] VITALS (26 sets, daily range): BP systolic 83–145; BP diastolic 55–88; PULSE 75–102; RESP 13–22; TEMP 36.2–36.9; O2SAT 94–100
[2021-01-04 01:07] LABS: Partial Thromboplast Time 42.3 Seconds (24.1-36.2)
[2021-01-04] MEDS: Heparin 10,000 UNITS/10 ML Vial 1000 UNITS IV (01:34)
[2021-01-04 05:41] LABS: Absolute Lymphocyte Count 0.58 X10^3/uL (0.83-4.51); Absolute Neutrophil Count 0.7 X10^3/uL (2.0-7.7); Basophil# 0.01 X10^3/uL; Basophil% 0.6 % (0-1); Hematocrit 19.8 % (37-47); Hemoglobin 6.4 g/dL (12.0-15.0); Lymphocyte # 0.58 X10^3/ul (0.83-4.51); Lymphocyte % 37.2 % (19-41); Mean Corp Hgb Conc 32.3 g/dL (32-36); Mean Corpuscular Volume 111.2 fL (81-99); Mean Platelet Vol. 9.4 fl (6.2-12.0); Monocyte% 19.2 % (0-10); NRBC Flagged by Analyzer 0 % (0-5); Neutrophil # 0.66 X10^3/uL (2.7-7.7); Neutrophil % 42.4 % (47-70); POSITIVE DIFFERENTIAL YES; POSITIVE MORPHOLOGY YES; Platelet Count 102 K/mm3 (150-450); RBC Distribution Width SD 77.9 fl (35.1-43.9); Red Blood Count 1.78 M/mm3 (4.2-5.4); White Blood Count 1.6 K/mm3 (4.4-11.0)
[2021-01-04 05:44] LABS: Differential Indicated SCAN CRITERIA MET
[2021-01-04 05:57] LABS: Anion Gap 7 (5-15); BUN 17 mg/dL (7-18); BUN/Creat Ratio 20.8 RATIO (10-20); Calcium,Total 7.8 mg/dL (8.5-10.1); Chloride 114 mmol/L (98-107); Creatinine, Serum 0.82 mg/dL (0.55-1.02); EST Glomerular Filtration Rate 72 mL/min (>60); Est Glom Filt Rate - Afr Amer 87 mL/min (>60); Estimated Creatinine Clearance 56.76 ml/min; Glucose 132 mg/dL (74-106); Potassium 3.2 mmol/L (3.5-5.1); Sodium Level 142 mmol/L (136-145)
[2021-01-04 06:02] LABS: Anisocytosis 1+; Differential Comment SCANNED; Hypochromasia 1+; Macrocytosis 1+; Platelet Estimate SLT DEC (ADEQ)
--- NOTE | 2021-01-04 07:01 | CT_ITS ---
STUDY: CT ABDOMEN AND PELVIS WITHOUT CONTRAST REASON FOR EXAM: Female, 75 years old. Retroperitoneal bleeding RADIATION DOSAGE (If Supplied By Facility): CTDIvol = ( 23.48 ) mGy, DLP = ( 1220.20 ) mGycm TECHNIQUE: Transaxial images were obtained from the dome of the diaphragm to the symphysis pubis without oral contrast, and without intravenous contrast. Sagittal and coronal images were reconstructed. Individualized dose optimization techniques were used for this CT. COMPARISON: None. FINDINGS: The visualized portions of the lung bases demonstrate small bilateral pleural effusions The visualized portions of the heart are within normal limits. No focal lesion is identified in the liver on this noncontrast examination. There are surgical clips in the gallbladder fossa consistent with a prior cholecystectomy. Normal spleen. Normal pancreas. Normal bilateral adrenal glands. Normal right kidney. Normal left kidney. Normal visualized stomach. Normal in caliber small bowel loops. Fecal retention. No evidence of acute diverticulitis. The appendix is visualized and appears normal. There is mild atherosclerotic calcification of the abdominal aorta, without a demonstrated aneurysm. Normal inferior vena cava. Nonspecific mild mesenteric stranding in the mid and lower abdomen. No evidence of free fluid or retroperitoneal bleed. The urinary bladder is not well-distended. There is a left-sided inguinal hernia containing adipose tissue. Mild levoscoliosis of the lumbar spine and multilevel degenerative changes. Depression of the superior endplate of L3. Heterogeneous bone density of the vertebrae. CT/Abdomen/Pelvis without Cont IMPRESSION: 1. Nonspecific mild mesenteric stranding could reflect early inflammatory process. 2. No evidence of retroperitoneal bleed or free fluid. 3. Otherwise no focal acute inflammatory process. 4. Heterogeneous L3 vertebra better evaluated by MRI. Electronically Signed: Logan Kidd, at 8:56 EST Tel , Service support ,
--- NOTE | 2021-01-04 07:18 | PCM.PN.INT ---
Assessment & Plan Assessment/Plan (1) Encephalopathy acute: (2) Elevated serum creatinine: (3) Diffuse large b-cell lymphoma, lymph nodes of multiple sites: (4) Septic shock: PLAN: RECOMMENDATIONS: 1. Continue antimicrobials while awaiting finalized culture results. 2. Consider CT abdomen and pelvis to evaluate for retroperitoneal bleed 3. Wean supplemental oxygen to maintain saturations at or above 90%. 4. Encourage incentive spirometer use and mobilize patient as tolerated. 5. Continue heparin infusion for now. 6. Send type and cross with plans to transfuse 2 units of packed red blood cells. 7. Continue PPI therapy. 8. Stop continuous IV fluids. 9. Discontinue stress dose steroids. 10. Okay to leave the intensive care unit from my perspective. Will sign off from a critical care perspective IMPRESSIONS: 1. Acute encephalopathy secondary to septic shock Initial concern was for gram-positive septic shock with bacteremia and concern for chest wall port infection. Cultures are currently mostly negative except for a staph epidermidis from the port site. The patient appears to be responding to antimicrobials. Patient off of vasopressor support. No additional neurologic work-up is indicated, as encephalopathy has resolved. Okay to discontinue EEG from my perspective 2. Staph epidermidis septic shock The patient has gram-positive bacteremia concerning for chest wall port infection. Continue broad-spectrum antimicrobials for now while awaiting finalized culture results. Continue Levophed to maintain mean arterial pressure at or above 65 mmHg. 3. Pancytopenia Continue current supportive measures. There are no overt signs of blood loss. Transfuse packed red blood cell today to maintain a hemoglobin greater than 7 g/dL. Continue to monitor platelet count, especially in the setting of heparin utilization. Patient has received chemotherapy in the past. No clinical signs of bleeding appreciated 4. Factor V Leiden/diffuse large B-cell lymphoma/recent chemotherapy The patient is at high risk for thrombotic complications. Eliquis was discontinued and the patient was transitioned to a heparin infusion, which will be continued for now. Could consider a CT of the abdomen and pelvis to evaluate for occult bleed such as retroperitoneal. 5. Obesity/advanced age/recent chemotherapy/hypothyroidism/gout/SVT/diabetes Complicates care, management, recovery and prognosis. Continue home medications as indicated, with the exception of diuretics and antihypertensives. Subjective Subjective Patient did okay overnight. No acute issues were reported. Patient has been off of pressors for over 12 hours and tolerating well. Patient is not reporting any retroperitoneal pain, hematuria, melena or hematochezia. Objective Data Objective Data Vital Signs: Vital Signs Temp Pulse Resp BP Pulse Ox 36.7 C 88 18 101/67 96 01/04/21 05:00 01/04/21 06:00 01/04/21 06:00 01/04/21 06:00 01/04/21 06:00 Oxygen Flow Rate (L/min) 2 Oxygen Delivery Method Room Air Weight: 109.5 kg Body Mass Index (BMI) 35.4 Intake & Output: Intake and Output for Last 24 Hours 01/02/21 01/03/21 01/04/21 23:59 23:59 23:59 Intake Total 1849.85 / 1850.80 3466.64 / 3706.64 593.9 / 593.9 Output Total 1825 / 1825 975 / 1175 200 / 200 Balance 24.85 / 25.80 2491.64 / 2531.64 393.9 / 393.9 Lab / Micro Data Result Diagrams: 01/04/21 05:30 01/04/21 05:30 Labs: Laboratory Results - last 24 hr 01/03/21 04:30: Diff Path Review Reviewed 01/03/21 06:40: Blood Type A POSITIVE, Antibody Screen NEGATIVE 01/03/21 06:40: Crossmatch See Detail 01/03/21 06:40: Crossmatch See Detail 01/03/21 08:45: APTT 215.3 H* 01/03/21 11:30: APTT 38.1 H 01/03/21 18:15: APTT 67.1 H 01/04/21 00:30: APTT 42.3 H 01/04/21 05:30: WBC 1.6 L, RBC 1.78 L, Hgb 6.4 L, Hct 19.8 L, MCV 111.2 H, MCH 36.0 H, MCHC 32.3, RDW Std Deviation 77.9 H, RDW Coeff of Rani 19.0 H, Plt Count 102 L, MPV 9.4, Immature Gran % (Auto) 0.600, Neut % (Auto) 42.4 L, Lymph % (Auto) 37.2, [place] % (Auto) 19.2 H, Eos % (Auto) 0.0, Baso % (Auto) 0.6, Absolute Neuts (auto) 0.7 L, Absolute Lymphs (auto) 0.58 L, Nucleated RBC % 0, Differential Comment SCANNED, Diff Path Review May , Platelet Estimate SLT DEC, Hypochromasia 1+, Anisocytosis 1+, Macrocytosis 1+ 01/04/21 05:30: Sodium 142, Potassium 3.2 L, Chloride 114 H, Carbon Dioxide 21.0, Anion Gap 7, BUN 17, Creatinine 0.82, Estim Creat Clear Calc 56.76, Est GFR (MDRD) Af Amer 87, Est GFR (MDRD) Non-Af 72, BUN/Creatinine Ratio 20.8 H, Glucose 132 H, Calcium 7.8 L Micro: Microbiology 01/01/21 05:50 Blood Culture (Wb) - Port Bacteria Detection (PCR) - Final Staphylococcus epidermidis 01/01/21 05:50 Blood Culture (Wb) - Port Blood Culture - Final Staphylococcus epidermidis 01/02/21 14:00 Blood Culture (Wb) - Left Hand Blood Culture - Preliminary No growth in 48 hours. 01/02/21 08:45 Blood Culture (Wb) - Port Blood Culture - Preliminary No growth in 48 hours. 01/03/21 11:50 Interface Orders Respiratory Panel (PCR) - Final 12/31/20 19:25 Blood Culture (Wb) - Right Forearm Blood Culture - Preliminary No growth in 48 hours. 12/31/20 18:52 Nasal Secretion SARS-CoV-2 Antigen (Rapid) - Final Radiography Diagnostic Testing: Radiology Impression Echocardiogram 01/02/21 08:07 Interpretation Summary The estimated ejection fraction is 55-60 %. Grade # I Diastolic Dysfunction Ordering Physician: Marge Forrester Referring Physician: Delta [place] Performed By: Micheal Ramires RCS Physical Exam Const alert and no apparent distress General Appearance: cooperative Nutritional Appearance: obese HEENT normocephalic and head/scalp atraumatic Eyes PERRL, EOMs intact bilaterally and conjunctivae normal Neck supple General: trachea midline Chest Chest Narrative: Chest port in place. Resp normal respiratory effort Auscultation: Negative for rales, rhonchi or wheezes Cardio S1 normal heart sound and S2 normal heart sound Rhythm: abnormal rhythm GI normal to inspection, nondistended, normoactive bowel sounds Extremity no clubbing, cyanosis or edema Skin no rashes or lesions noted Neuro CN's II-XII intact bilaterally and no focal motor deficits Psych cooperative and affect normal Charges/Coding Visit Charges Inpatient E&M: 35533 Subs Hosp L3
[2021-01-04] MEDS: Potassium Chloride Oral Tablet 20 MEQ 40 MEQ PO (08:34)
[2021-01-04] MEDS: Nystatin/Triamcin Oint 1 APPLIC TOPICAL ×2 (08:35→21:47)
[2021-01-04 10:17] LABS: Partial Thromboplast Time 41.2 Seconds (24.1-36.2)
[2021-01-04] MEDS: Heparin Injection (Vial) 5,000 UNIT/ML VIAL IV (10:25)
[2021-01-04] MEDS: 0.9% Saline Lock 10 ML Syringe IV (10:26)
[2021-01-04 12:13] LABS: Vancomycin, Trough Level 16.9 ug/mL (5.0-15.0)
--- NOTE | 2021-01-04 12:22 | PCM.PN.HOSP ---
Subjective Subjective Patient states she is feeling much better. She is anxious to go to TCU at discharge and states she has talked to case management about this and is hoping to be able to go early next week. She denies any pain. Objective Data Objective Data Vital Signs: Vital Signs Temp Pulse Resp BP Pulse Ox 98.2 F 93 22 H 111/60 100 01/04/21 08:00 01/04/21 11:54 01/04/21 10:00 01/04/21 10:00 01/04/21 10:00 Oxygen Flow Rate (L/min) 2 Oxygen Delivery Method Room Air Weight: 109.5 kg Body Mass Index (BMI) 35.4 Intake & Output: Intake and Output for Last 24 Hours 01/02/21 01/03/21 01/04/21 23:59 23:59 23:59 Intake Total 1849.85 / 1850.80 3466.64 / 3706.64 2089.03 / 2089.03 Output Total 1825 / 1825 975 / 1175 400 / 400 Balance 24.85 / 25.80 2491.64 / 2531.64 1689.03 / 1689.03 Lab / Micro Data Result Diagrams: 01/04/21 05:30 01/04/21 05:30 Labs: Laboratory Results - last 24 hr 01/03/21 04:30: Diff Path Review Reviewed 01/03/21 06:40: Crossmatch See Detail 01/03/21 06:40: Crossmatch See Detail 01/03/21 18:15: APTT 67.1 H 01/04/21 00:30: APTT 42.3 H 01/04/21 05:30: WBC 1.6 L, RBC 1.78 L, Hgb 6.4 L, Hct 19.8 L, MCV 111.2 H, MCH 36.0 H, MCHC 32.3, RDW Std Deviation 77.9 H, RDW Coeff of Rani 19.0 H, Plt Count 102 L, MPV 9.4, Immature Gran % (Auto) 0.600, Neut % (Auto) 42.4 L, Lymph % (Auto) 37.2, [place] % (Auto) 19.2 H, Eos % (Auto) 0.0, Baso % (Auto) 0.6, Absolute Neuts (auto) 0.7 L, Absolute Lymphs (auto) 0.58 L, Nucleated RBC % 0, Differential Comment SCANNED, Diff Path Review May , Platelet Estimate SLT DEC, Hypochromasia 1+, Anisocytosis 1+, Macrocytosis 1+ 01/04/21 05:30: Sodium 142, Potassium 3.2 L, Chloride 114 H, Carbon Dioxide 21.0, Anion Gap 7, BUN 17, Creatinine 0.82, Estim Creat Clear Calc 56.76, Est GFR (MDRD) Af Amer 87, Est GFR (MDRD) Non-Af 72, BUN/Creatinine Ratio 20.8 H, Glucose 132 H, Calcium 7.8 L 01/04/21 10:00: APTT 41.2 H 01/04/21 11:25: Vancomycin Trough 16.9 H Micro: Microbiology 01/01/21 05:50 Blood Culture (Wb) - Port Bacteria Detection (PCR) - Final Staphylococcus epidermidis 01/01/21 05:50 Blood Culture (Wb) - Port Blood Culture - Final Staphylococcus epidermidis 01/02/21 14:00 Blood Culture (Wb) - Left Hand Blood Culture - Preliminary No growth in 48 hours. 01/02/21 08:45 Blood Culture (Wb) - Port Blood Culture - Preliminary No growth in 48 hours. 01/03/21 11:50 Interface Orders Respiratory Panel (PCR) - Final 12/31/20 19:25 Blood Culture (Wb) - Right Forearm Blood Culture - Preliminary No growth in 48 hours. 12/31/20 18:52 Nasal Secretion SARS-CoV-2 Antigen (Rapid) - Final Radiography Diagnostic Testing: Radiology Impression Echocardiogram 01/02/21 08:07 Interpretation Summary The estimated ejection fraction is 55-60 %. Grade # I Diastolic Dysfunction Ordering Physician: Marge Forrester Referring Physician: Delta [place] Performed By: Micheal Ramires RCS Abdomen/Pelvis CT 01/04/21 07:01 IMPRESSION: 1. Nonspecific mild mesenteric stranding could reflect early inflammatory process. 2. No evidence of retroperitoneal bleed or free fluid. 3. Otherwise no focal acute inflammatory process. 4. Heterogeneous L3 vertebra better evaluated by MRI. Electronically Signed: Logan Kidd, at 8:56 EST Tel , Service support , Physical Exam Narrative Const alert, oriented x3 and no apparent distress Constitutional Narrative: Obese older white female sitting up in a chair at the bedside, eating breakfast, appears comfortable and nontoxic Orientation / Consciousness: confused and disoriented Exam Limitations: no limitations Nutritional Appearance: obese HEENT head/scalp atraumatic and moist oral mucous membranes Head and Scalp: normocephalic Resp normal respiratory effort, no retractions, no use of accessory muscles and clear to auscultation bilaterally Auscultation: Negative for crackles, rales, rhonchi or wheezes Cardio regular rate, regular rhythm, S1 normal heart sound, S2 normal heart sound, no murmurs, no rub, no gallops, no clicks and no JVD GI normal to inspection, nondistended, normoactive bowel sounds, soft to palpation, non-tender and non-distended Extremity normal to inspection and no clubbing, cyanosis or edema Peripheral Pulses: Yes pulses 2+ throughout Skin no rashes or lesions noted, no wounds, skin turgor normal, no jaundice, no petechiae and no mottling Neuro oriented x3, moves all extremities and no focal motor deficits Neuro Narrative: Decreased bilateral shoulder strength right greater than left secondary to osteoarthritis Sensorium / Orientation: awake and alert Speech: speech normal Psych affect normal Psych Narrative: Very pleasant Assessment & Plan Assessment/Plan (1) Septic shock: (2) Encephalopathy acute: (3) Lactic acidosis: (4) Acute anemia: (5) Thrombocytopenia: PLAN: Septic shock -source unknown although 1 of 2 blood cultures are positive for coag negative staph -Patient was refractory to fluid boluses and has been replaced with 30cc/kg -Pressors initiated currently on Levo at 1 mcg/min and weaning -Blood culture off her port was positive for staph epi -Given this was off of her port and her clinical picture I suspect this real infection and not contaminant -Await IDs decision on how to complete treatment -Echocardiogram shows no valvular vegetations and an EF of 55 to 60% with stage I diastolic dysfunction -CXR neg -We will discontinue broad-spectrum antibiotics and narrow antibiotics to Ancef 1 g every 6 hours -Discontinue stress dose steroids -Repeat blood cultures with no growth to date -appreciate CCM/ID input Metabolic Encephalopathy -Resolved -All imaging studies of her brain were negative -No need for EEG -No need for further neurology consultation -Suspect this was all related to acute sepsis Acute on chronic macrocytic anemia -Baseline hemoglobin appears to be in the 8-9 range -6.5 on morning of 01/03/2021 and 1 unit packed red blood cells given -Hemoglobin 6.4 this morning -Transfused 2 units packed red blood cells -No signs of acute blood loss -Patient is on heparin drip but has no pain or signs of acute blood loss -Unclear if the acute drop is still dilutional or related to her septic process and recent chemotherapy/antibiotics -Repeat CBC in a.m. 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 Gout -Restart allopurinol Hypertension -Hold home Lasix, metoprolol Hyperlipidemia -Start pravastatin DM-2 -Patient is on Metformin at baseline -Fasting blood sugar this morning was 132 -Continue to follow fasting blood sugars and if elevated will initiate SSI and Accu-Cheks -Goal blood sugar 140-180 DVT prophylaxis -Heparin drip -SCDs CODE STATUS -Full code Charges/Coding Visit Charges Inpatient E&M: 88523 Subs Hosp L2
[2021-01-04] MEDS: APIXABAN 5 MG TABLET PO ×2 (12:58→21:45)
[2021-01-04] MEDS: Cefazolin 1 GM/50 ML BAG IV ×2 (18:41→23:00)
[2021-01-04] MEDS: Amitriptyline 25 MG Tablet 75 MG PO (21:45)
[2021-01-04] MEDS: Allopurinol 100 MG Tablet PO (21:45)
[2021-01-04] MEDS: Pravastatin 20 MG Tablet 10 MG PO (21:45)
[2021-01-05 03:00] VITALS: BP 117/75; PULSE 100; RESP 16; TEMP 36.6; O2SAT 98
[2021-01-05] MEDS: Cefazolin 1 GM/50 ML BAG IV ×4 (05:32→23:35)
[2021-01-05] MEDS: Levothyroxine 88 MCG Tablet PO (05:32)
[2021-01-05 06:32] LABS: Absolute Lymphocyte Count 0.43 X10^3/uL (0.83-4.51); Basophil# 0.01 X10^3/uL; Basophil% 0.5 % (0-1); Eosinophil# 0.01 X10^3/uL; Eosinophils% 0.5 % (0-5); Hematocrit 29.1 % (37-47); Hemoglobin 9.5 g/dL (12.0-15.0); Lymphocyte # 0.43 X10^3/ul (0.83-4.51); Lymphocyte % 22.9 % (19-41); Mean Corp Hgb Conc 32.6 g/dL (32-36); Mean Corpuscular Hgb 33.7 pg (27.0-32.0); Mean Corpuscular Volume 103.2 fL (81-99); Mean Platelet Vol. 9.7 fl (6.2-12.0); Monocyte# 0.38 X10^3/uL; Monocyte% 20.2 % (0-10); NRBC Flagged by Analyzer 0 % (0-5); Neutrophil # 1.04 X10^3/uL (2.7-7.7); Neutrophil % 55.4 % (47-70); POSITIVE DIFFERENTIAL YES; POSITIVE MORPHOLOGY YES; Platelet Count 113 K/mm3 (150-450); RBC Distribution Width CV 21.5 % (11.6-14.6); RBC Distribution Width SD 81.5 fl (35.1-43.9); Red Blood Count 2.82 M/mm3 (4.2-5.4); White Blood Count 1.9 K/mm3 (4.4-11.0)
[2021-01-05 06:35] LABS: Differential Indicated SCAN CRITERIA MET
[2021-01-05 06:55] LABS: Anion Gap 8 (5-15); BUN 17 mg/dL (7-18); BUN/Creat Ratio 24.1 RATIO (10-20); Calcium,Total 8.2 mg/dL (8.5-10.1); Chloride 111 mmol/L (98-107); Creatinine, Serum 0.71 mg/dL (0.55-1.02); EST Glomerular Filtration Rate 86 mL/min (>60); Est Glom Filt Rate - Afr Amer 104 mL/min (>60); Estimated Creatinine Clearance 46.54 ml/min; Glucose 105 mg/dL (74-106); Potassium 3.2 mmol/L (3.5-5.1); Sodium Level 141 mmol/L (136-145)
[2021-01-05 07:20] LABS: Anisocytosis 2+; Differential Comment SCANNED; Macrocytosis 1+; Microcytosis 1+
[2021-01-05] MEDS: Potassium Chloride Oral Tablet 20 MEQ 40 MEQ PO (08:46)
[2021-01-05] MEDS: Potassium Chloride Oral Tablet 20 MEQ PO (08:47)
[2021-01-05] MEDS: APIXABAN 5 MG TABLET PO ×2 (08:48→21:38)
[2021-01-05] MEDS: Nystatin/Triamcin Oint 1 APPLIC TOPICAL ×2 (08:48→21:38)
[2021-01-05] MEDS: Allopurinol 100 MG Tablet PO ×2 (08:49→21:38)
[2021-01-05 09:26] VITALS: BP 122/75; PULSE 98; RESP 18; TEMP 36.7; O2SAT 98
[2021-01-05] MEDS: Pantoprazole Sodium 40 MG Tablet PO (12:19)
--- NOTE | 2021-01-05 13:55 | PN.HOSP_ITS ---
Subjective Subjective Patient reports she is feeling great today. Is anxious to go to TCU. I explained that we need the final plan from Dr. Rodriguez as well as approval from insurance for discharge and she voices understanding. No acute needs at this time. Objective Data Objective Data Vital Signs: Vital Signs Temp Pulse Resp BP Pulse Ox 98.0 F 98 18 122/75 H 98 01/05/21 09:26 01/05/21 09:26 01/05/21 09:26 01/05/21 09:26 01/05/21 09:26 Oxygen Flow Rate (L/min) 2 Oxygen Delivery Method Room Air Weight: 108.6 kg Body Mass Index (BMI) 35.4 Intake & Output: Intake and Output for Last 24 Hours 01/03/21 01/04/21 01/05/21 23:59 23:59 23:59 Intake Total 3466.64 / 3706.64 4264.53 / 4264.53 1050 / 1050 Output Total 975 / 1175 400 / 400 Balance 2491.64 / 2531.64 3864.53 / 3864.53 1050 / 1050 Lab / Micro Data Result Diagrams: 01/05/21 05:30 01/05/21 05:30 Labs: Laboratory Results - last 24 hr 01/03/21 06:40: Crossmatch See Detail 01/05/21 05:30: WBC 1.9 L, RBC 2.82 L, Hgb 9.5 L, Hct 29.1 L, MCV 103.2 H D, MCH 33.7 H, MCHC 32.6, RDW Std Deviation 81.5 H, RDW Coeff of Rani 21.5 H, Plt Count 113 L, MPV 9.7, Immature Gran % (Auto) 0.500, Neut % (Auto) 55.4, Lymph % (Auto) 22.9, [place] % (Auto) 20.2 H, Eos % (Auto) 0.5, Baso % (Auto) 0.5, Absolute Neuts (auto) 1.0 L, Absolute Lymphs (auto) 0.43 L, Nucleated RBC % 0, Differential Comment SCANNED, Diff Path Review May foll, Anisocytosis 2+, Microcytosis 1+, Macrocytosis 1+ 01/05/21 05:30: Sodium 141, Potassium 3.2 L, Chloride 111 H, Carbon Dioxide 22.0, Anion Gap 8, BUN 17, Creatinine 0.71, Estim Creat Clear Calc 46.54, Est GFR (MDRD) Af Amer 104, Est GFR (MDRD) Non-Af 86, BUN/Creatinine Ratio 24.1 H, Glucose 105, Calcium 8.2 L Micro: Microbiology 01/01/21 05:50 Blood Culture (Wb) - Port Bacteria Detection (PCR) - Final Staphylococcus epidermidis 01/01/21 05:50 Blood Culture (Wb) - Port Blood Culture - Final Staphylococcus epidermidis 01/02/21 14:00 Blood Culture (Wb) - Left Hand Blood Culture - Preliminary No growth in 48 hours. 01/02/21 08:45 Blood Culture (Wb) - Port Blood Culture - Preliminary No growth in 48 hours. 01/03/21 11:50 Interface Orders Respiratory Panel (PCR) - Final 12/31/20 19:25 Blood Culture (Wb) - Right Forearm Blood Culture - Preliminary No growth in 48 hours. 12/31/20 18:52 Nasal Secretion SARS-CoV-2 Antigen (Rapid) - Final Physical Exam Narrative Const alert, oriented x3 and no apparent distress Constitutional Narrative: Obese older white female sitting up in the bed, nursing is at the bedside, appears comfortable and nontoxic Orientation / Consciousness: confused and disoriented Exam Limitations: no limitations Nutritional Appearance: obese HEENT head/scalp atraumatic and moist oral mucous membranes HEENT Narrative: Edentulous, no thrush, Mallampati 2 Head and Scalp: normocephalic Resp normal respiratory effort, no retractions, no use of accessory muscles and clear to auscultation bilaterally Auscultation: Negative for crackles, rales, rhonchi or wheezes Cardio regular rate, regular rhythm, S1 normal heart sound, S2 normal heart sound, no murmurs, no rub, no gallops, no clicks and no JVD GI normal to inspection, nondistended, normoactive bowel sounds, soft to palpation, non-tender and non-distended Extremity normal to inspection and no clubbing, cyanosis or edema Peripheral Pulses: Yes pulses 2+ throughout Skin no rashes or lesions noted, no wounds, skin turgor normal, no jaundice, no pet echiae and no mottling Skin Narrative: [facility] right chest appears clean and dry at this time Neuro oriented x3, moves all extremities and no focal motor deficits Neuro Narrative: Decreased bilateral shoulder strength right greater than left secondary to osteoarthritis Sensorium / Orientation: awake and alert Speech: speech normal Psych affect normal Psych Narrative: Very pleasant Assessment & Plan Assessment/Plan (1) Septic shock: (2) Encephalopathy acute: (3) Lactic acidosis: (4) Acute anemia: (5) Thrombocytopenia: PLAN: Septic shock -source unknown although 1 of 2 blood cultures are positive for coag negative staph -Patient was refractory to fluid boluses and has been replaced with 30cc/kg -Pressors initiated currently on Levo at 1 mcg/min and weaning -Blood culture off her port was positive for staph epi -Given this was off of her port and her clinical picture I suspect this real infection and not contaminant -Await IDs decision on how to complete treatment--> will need to address tomorrow as she is close to discharge -Echocardiogram shows no valvular vegetations and an EF of 55 to 60% with stage I diastolic dysfunction -CXR neg -Continue Ancef 1 g every 6 hours -Repeat blood cultures with no growth to date -appreciate CCM/ID input Metabolic Encephalopathy -Resolved -All imaging studies of her brain were negative -No need for EEG -No need for further neurology consultation -Suspect this was all related to acute sepsis Acute on chronic macrocytic anemia -Baseline hemoglobin appears to be in the 8-9 range -6.5 on morning of 01/03/2021 and 1 unit packed red blood cells given/hemoglobin 6.4 on the morning of 01/04/2021 and patient was transfused 2 more units -Hemoglobin stable at 9.5 today -CT of the abdomen pelvis was negative for retroperitoneal bleed -No signs of acute blood loss -Patient is fully anticoagulated with Eliquis -Unclear if the acute drop is still dilutional or related to her septic process and recent chemotherapy/antibiotics -Repeat CBC in a.m. 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 -If remains hypokalemic would recommend checking magnesium level CKD stage IIIb -I suspect that some of this may be related to her chemotherapy -Continue to monitor -Serum creatinine appears to be at baseline at this time -BMP in a.m. Gout -Continue allopurinol Hypertension -Restart metoprolol but continue to hold Lasix Hyperlipidemia -Continue pravastatin DM-2 -Patient is on Metformin at baseline -Fasting blood sugar this morning was 105 -Continue to follow fasting blood sugars and if elevated will initiate SSI and Accu-Cheks -Goal blood sugar 140-180 DVT prophylaxis -Eliquis -SCDs CODE STATUS -Full code Charges/Coding Visit Charges Inpatient E&M: 45083 Subs Hosp L2
[2021-01-05 15:45] VITALS: BP 127/76; PULSE 101; RESP 18; TEMP 37.2; O2SAT 99
[2021-01-05 15:46] VITALS: PULSE 101
[2021-01-05 20:42] VITALS: BP 107/72; PULSE 100; RESP 18; TEMP 37; O2SAT 98
[2021-01-05] MEDS: Amitriptyline 25 MG Tablet 75 MG PO (21:38)
[2021-01-05] MEDS: Pravastatin 20 MG Tablet 10 MG PO (21:38)
[2021-01-06 02:40] VITALS: BP 111/68; PULSE 96; RESP 16; TEMP 37.3; O2SAT 100
[2021-01-06] MEDS: Levothyroxine 88 MCG Tablet PO (05:09)
[2021-01-06] MEDS: Cefazolin 1 GM/50 ML BAG IV (05:09)
[2021-01-06 07:25] LABS: Absolute Lymphocyte Count 0.56 X10^3/uL (0.83-4.51); Absolute Neutrophil Count 0.6 X10^3/uL (2.0-7.7); Eosinophil# 0.01 X10^3/uL; Eosinophils% 0.7 % (0-5); Hematocrit 28.2 % (37-47); Hemoglobin 9.5 g/dL (12.0-15.0); Lymphocyte # 0.56 X10^3/ul (0.83-4.51); Lymphocyte % 36.8 % (19-41); Mean Corp Hgb Conc 33.7 g/dL (32-36); Mean Corpuscular Hgb 34.7 pg (27.0-32.0); Mean Corpuscular Volume 102.9 fL (81-99); Monocyte# 0.38 X10^3/uL; NRBC Flagged by Analyzer 0 % (0-5); Neutrophil # 0.56 X10^3/uL (2.7-7.7); Neutrophil % 36.8 % (47-70); POSITIVE DIFFERENTIAL YES; POSITIVE MORPHOLOGY YES; Platelet Count 105 K/mm3 (150-450); RBC Distribution Width CV 20.9 % (11.6-14.6); RBC Distribution Width SD 78.3 fl (35.1-43.9); Red Blood Count 2.74 M/mm3 (4.2-5.4); White Blood Count 1.5 K/mm3 (4.4-11.0)
[2021-01-06 07:37] LABS: Differential Indicated SCAN CRITERIA MET
[2021-01-06 07:50] LABS: Anion Gap 7 (5-15); BUN 12 mg/dL (7-18); BUN/Creat Ratio 21.2 RATIO (10-20); Calcium,Total 8.5 mg/dL (8.5-10.1); Chloride 112 mmol/L (98-107); Creatinine, Serum 0.57 mg/dL (0.55-1.02); EST Glomerular Filtration Rate 110 mL/min (>60); Est Glom Filt Rate - Afr Amer 133 mL/min (>60); Estimated Creatinine Clearance 46.54 ml/min; Glucose 120 mg/dL (74-106); Potassium 3.4 mmol/L (3.5-5.1); Sodium Level 140 mmol/L (136-145)
[2021-01-06] MEDS: Potassium Chloride Oral Tablet 20 MEQ PO (08:27)
[2021-01-06 08:28] VITALS: BP 111/79; PULSE 88; RESP 16; TEMP 36.9; O2SAT 100
[2021-01-06 09:18] LABS: Anisocytosis 1+
[2021-01-06 09:39] VITALS: O2SAT 97
[2021-01-06] MEDS: APIXABAN 5 MG TABLET PO ×2 (10:37→20:41)
[2021-01-06] MEDS: Allopurinol 100 MG Tablet PO ×2 (10:37→20:40)
[2021-01-06] MEDS: Nystatin/Triamcin Oint 1 APPLIC TOPICAL ×2 (10:37→20:40)
[2021-01-06 10:39] VITALS: PULSE 88
[2021-01-06] MEDS: Pantoprazole Sodium 40 MG Tablet PO (10:39)
[2021-01-06] MEDS: Metoprolol(XL)Succ 25 MG Tablet PO (10:39)
--- NOTE | 2021-01-06 11:25 | CASEMGMT ---
Social Work Note ALEE placed a call to Camryn with TCU to inquire about referral. Camryn states TCU is able to accept pt, pt will not be able to take fish oil while on TCU. SW in to speak with pt. SW updated pt that TCU can accept pt but pt will not be able to take fish oil while on TCU. Pt states understanding. ALEE asked pt if this worker could call one of her daughters to update. Pt states her daughters will call in and she will update. Plan: TCU today Marita Moise CONSTRUCTION ADMINISTRATOR, COMPUTER OPERATIONS MANAGER
--- NOTE | 2021-01-06 12:55 | PCM.PN.ID ---
Physical Exam Narrative Feeling ok no fever, no n/v/d, no issues with port. Daughter visited yesterday, did not wear mask, now tested (+) covid this AM Const alert General Appearance: cooperative Resp normal air movement and clear to auscultation bilaterally Cardio regular rate and regular rhythm GI normal to inspection, nondistended, normoactive bowel sounds Skin no rashes or lesions noted ID ID: Route of nutrition/ use of supplements: [] Nutritional Intake: [] IV Site: [] [place] Catheter: [] Assessment & Plan Assessment/Plan (1) Encephalopathy acute: (2) Diffuse large b-cell lymphoma, lymph nodes of multiple sites: (3) Septic shock: PLAN: Single bcx from port with MSSE. Not clear if true infection. On cefazolin. Covid vaccinated. Daughter has been having URI, visited yesterday and did not wear mask while in the room, now covid (+). Will check pt for covid, keep in neutropenic precautions, plan on retest in 4-5 days as an asymptomatic vaccinated exposure. Will change cefazolin to keflex for one more week. Will follow
--- NOTE | 2021-01-06 13:00 | CASEMGMT ---
Social Work Note SW updated that pt's daughter visited pt yesterday and now has tested positive for COVID. Pt has been exposed. ALEE placed a call to Camryn with TCU and left message updating her on this, asking if TCU is still able to accept pt. SW waiting for call back from TCU. Marita Moise ARMORED CABLE MACHINE OPERATOR, TRAINMASTER
--- NOTE | 2021-01-06 13:55 | CASEMGMT ---
Social Work Note Camryn with TCU updated this worker that pt is not able to go to TCU now since she has been exposed. SW to follow up with pt. Marita Moise SET UP MECHANIC COIL WINDING MACHINES, TELEVISION AGENT
--- NOTE | 2021-01-06 14:03 | CASEMGMT ---
Addendum entered by Angelita Spencer 01/06/21 14:36: SW spoke w/pt again, she states she will go home with family support. Pt states she has all needed DME at home. SW spoke w/pt about skilled home health care. Pt is not certain if she wants home health, wants to go home and see if she will need it. SW explained if she gets home and wants home health, to reach out to her primary care physician and he can order it. Pt states understanding. SW let physician know, he will be back later today to discharge pt, SW let pt know. No further social service needs, pt home w/family support later today. SAMMI Hu Original Note: SW informed by TCU that pt cannot come to TCU as her daughter has COVID and had been in to visit, had exposed pt. TCU does not have the staffing to care for a COVID pt, were pt to go there and be positive. SW spoke w/pt, explained the above, asked what she would like to do, if she would like a referral sent to another fdc, or go home w/home health care. She is going to call her daughter and will let SW know. SAMMI Hu
[2021-01-06 14:41] LABS: Pathologist Review Reviewed
[2021-01-06 14:42] LABS: Pathologist Review Reviewed
[2021-01-06 14:43] LABS: Pathologist Review Reviewed
[2021-01-06] MEDS: Cephalexin 500 MG Capsule PO ×2 (14:46→20:38)
[2021-01-06] MEDS: Menthol/Lanolin/Calamine/Znox 113 GM Tube 1 APPLIC TOPICAL (14:46)
[2021-01-06 14:51] VITALS: BP 113/73; PULSE 98; RESP 16; TEMP 37.2; O2SAT 100
--- NOTE | 2021-01-06 14:51 | CHAPLAIN ---
Type of Pastoral Visit _x__ Initial Visit ___ Follow-up Visit ___ On-call Visit ___ General Patient Visit ___ Spiritual Assessment ___ Family Conference ___ Bereavement ___ Rapid Response ___ Code Blue ___ Other (describe below) Pastoral Care Referral From _x__ Patient ___ Family ___ Nurse ___ Physician ___ Dry Cleaning Manager ___ Cardiopulmonary Technician And Eeg Tech ___ Other (describe below) Sacrament/Intervention _x__ Active listening ___ Anointing ___ Confucianism ___ Bereavement ___ Communion _x__ Coco exploration ___ ___ Life review _x__ Prayer ___ Reconciliation ___ Sacrament of Sick _x__ Supportive presence ___ Wedding ___ Other (describe below) Pastoral Comments
--- NOTE | 2021-01-06 19:48 | PN.HOSP_ITS ---
Subjective Subjective Patient was seen and examined today, patient is alert and answers questions appropriately. Patient's daughter found out that she has Covid, due to this TCU would not agree to take the patient for rehab services. At this time patient has decided that she will go home. Objective Data Objective Data Vital Signs: Vital Signs Temp Pulse Resp BP Pulse Ox 98.9 F 98 16 113/73 100 01/06/21 14:51 01/06/21 14:51 01/06/21 14:51 01/06/21 14:51 01/06/21 14:51 Oxygen Flow Rate (L/min) 2 Oxygen Delivery Method Room Air Weight: 112 kg Body Mass Index (BMI) 35.4 Intake & Output: Intake and Output for Last 24 Hours 01/04/21 01/05/21 01/06/21 23:59 23:59 23:59 Intake Total 4264.53 / 4264.53 1150 / 1150 1550 / 1550 Output Total 400 / 400 Balance 3864.53 / 3864.53 1150 / 1150 1550 / 1550 Lab / Micro Data Result Diagrams: 01/06/21 05:57 01/06/21 05:57 Labs: Laboratory Results - last 24 hr 01/04/21 05:30: Diff Path Review Reviewed 01/05/21 05:30: Diff Path Review Reviewed 01/06/21 05:57: WBC 1.5 L, RBC 2.74 L, Hgb 9.5 L, Hct 28.2 L, MCV 102.9 H, MCH 34.7 H, MCHC 33.7, RDW Std Deviation 78.3 H, RDW Coeff of Rani 20.9 H, Plt Count 105 L, MPV 10.0, Immature Gran % (Auto) 0.700, Neut % (Auto) 36.8 L, Lymph % (Auto) 36.8, [place] % (Auto) 25.0 H, Eos % (Auto) 0.7, Baso % (Auto) 0.0, Absolute Neuts (auto) 0.6 L, Absolute Lymphs (auto) 0.56 L, Nucleated RBC % 0, Differential Comment COMMENT, Diff Path Review Reviewed, Anisocytosis 1+ 01/06/21 05:57: Sodium 140, Potassium 3.4 L, Chloride 112 H, Carbon Dioxide 21.0, Anion Gap 7, BUN 12, Creatinine 0.57, Estim Creat Clear Calc 46.54, Est GFR (MDRD) Af Amer 133, Est GFR (MDRD) Non-Af 110, BUN/Creatinine Ratio 21.2 H, Glucose 120 H, Calcium 8.5 Micro: Microbiology 12/31/20 19:25 Blood Culture (Wb) - Right Forearm Blood Culture - Final No growth in 5 days. 01/01/21 05:50 Blood Culture (Wb) - Port Bacteria Detection (PCR) - Final Staphylococcus epidermidis 01/01/21 05:50 Blood Culture (Wb) - Port Blood Culture - Final Staphylococcus epidermidis 01/02/21 14:00 Blood Culture (Wb) - Left Hand Blood Culture - Preliminary No growth in 48 hours. 01/02/21 08:45 Blood Culture (Wb) - Port Blood Culture - Preliminary No growth in 48 hours. 01/03/21 11:50 Interface Orders Respiratory Panel (PCR) - Final 12/31/20 18:52 Nasal Secretion SARS-CoV-2 Antigen (Rapid) - Final Physical Exam Const alert, oriented x3, no apparent distress and healthy appearing General Appearance: cooperative, well kempt and well developed Orientation / Consciousness: awake, oriented to person, oriented to place and oriented to time Nutritional Appearance: obese HEENT normocephalic and moist oral mucous membranes Head and Scalp: normocephalic Eyes PERRL, EOMs intact bilaterally and conjunctivae normal Neck nuchal rigidity, supple, no JVD and thyroid normal General: trachea midline Resp normal respiratory effort, no retractions, no use of accessory muscles and clear to auscultation bilaterally Auscultation: Negative for rales, rhonchi or wheezes Cardio regular rate, regular rhythm, S1 normal heart sound, S2 normal heart sound, no murmurs, no rub and no gallops GI normal to inspection, nondistended, normoactive bowel sounds, soft to palpation, non-tender and non-distended Extremity normal to inspection and no clubbing, cyanosis or edema Skin no rashes or lesions noted General Skin Exam: no breakdown Neuro oriented x3, CN's II-XII intact bilaterally, no focal motor deficits and no sensory deficits noted Sensorium / Orientation: awake and alert Speech: speech normal Psych thought process normal and affect normal Assessment & Plan Assessment/Plan (1) Septic shock: PLAN: 1. Septic shock-secondary to Staphylococcus epidermidis, patient is currently on antibiotics at the direction of infectious diseases. She will be d ischarged home on Keflex. #2 Metabolic encephalopathy-secondary to septic shock-resolved at this time #3 pancytopenia-possibly secondary to B-cell lymphoma #4 diffuse B-cell lymphoma #5 hypokalemia-patient is receiving potassium supplementation, BMP will be repeated tomorrow #6 pancytopenia-possibly secondary to B-cell lymphoma #7 chronic anticoagulation with Eliquis secondary to factor V Leiden Charges/Coding Visit Charges Inpatient E&M: 92617 Subs Hosp L2
[2021-01-06 20:34] VITALS: BP 111/69; PULSE 90; RESP 18; TEMP 37.2; O2SAT 97
[2021-01-06] MEDS: Pravastatin 20 MG Tablet 10 MG PO (20:39)
[2021-01-06] MEDS: Amitriptyline 25 MG Tablet 75 MG PO (20:40)
[2021-01-07 04:00] VITALS: BP 117/68; PULSE 86; RESP 18; TEMP 36.6; O2SAT 97
[2021-01-07] MEDS: Levothyroxine 88 MCG Tablet PO (05:02)
[2021-01-07] MEDS: Cephalexin 500 MG Capsule PO (05:02)
[2021-01-07 07:15] LABS: Absolute Lymphocyte Count 0.65 X10^3/uL (0.83-4.51); Absolute Neutrophil Count 0.4 X10^3/uL (2.0-7.7); Basophil# 0.02 X10^3/uL; Basophil% 1.4 % (0-1); Eosinophil# 0.02 X10^3/uL; Eosinophils% 1.4 % (0-5); Hematocrit 29.6 % (37-47); Hemoglobin 9.7 g/dL (12.0-15.0); Lymphocyte # 0.65 X10^3/ul (0.83-4.51); Lymphocyte % 44.8 % (19-41); Mean Corp Hgb Conc 32.8 g/dL (32-36); Mean Corpuscular Hgb 33.8 pg (27.0-32.0); Mean Corpuscular Volume 103.1 fL (81-99); Mean Platelet Vol. 10.2 fl (6.2-12.0); Monocyte# 0.39 X10^3/uL; Monocyte% 26.9 % (0-10); NRBC Flagged by Analyzer 0 % (0-5); Neutrophil # 0.36 X10^3/uL (2.7-7.7); Neutrophil % 24.8 % (47-70); POSITIVE COUNT YES; POSITIVE DIFFERENTIAL YES; POSITIVE MORPHOLOGY YES; Platelet Count 95 K/mm3 (150-450); RBC Distribution Width CV 20.1 % (11.6-14.6); RBC Distribution Width SD 77.1 fl (35.1-43.9); Red Blood Count 2.87 M/mm3 (4.2-5.4); White Blood Count 1.5 K/mm3 (4.4-11.0)
[2021-01-07 07:19] LABS: Differential Indicated SCAN CRITERIA MET
[2021-01-07 07:50] LABS: Anion Gap 8 (5-15); Anisocytosis 1+; BUN 11 mg/dL (7-18); BUN/Creat Ratio 24.9 RATIO (10-20); Calcium,Total 8.6 mg/dL (8.5-10.1); Chloride 110 mmol/L (98-107); Creatinine, Serum 0.44 mg/dL (0.55-1.02); EST Glomerular Filtration Rate 147 mL/min (>60); Est Glom Filt Rate - Afr Amer 178 mL/min (>60); Estimated Creatinine Clearance 46.54 ml/min; Glucose 93 mg/dL (74-106); Potassium 3.8 mmol/L (3.5-5.1); Sodium Level 140 mmol/L (136-145)
[2021-01-07 10:30] VITALS: BP 117/54; PULSE 95; RESP 16; TEMP 36.8; O2SAT 97
[2021-01-07 10:32] VITALS: PULSE 95
[2021-01-07] MEDS: Pantoprazole Sodium 40 MG Tablet PO (10:32)
[2021-01-07] MEDS: Potassium Chloride Oral Tablet 20 MEQ PO (10:32)
[2021-01-07] MEDS: Metoprolol(XL)Succ 25 MG Tablet PO (10:32)
[2021-01-07] MEDS: Allopurinol 100 MG Tablet PO (10:32)
[2021-01-07] MEDS: APIXABAN 5 MG TABLET PO (10:32)
[2021-01-07] MEDS: Nystatin/Triamcin Oint 1 APPLIC TOPICAL (10:33)
--- NOTE | 2021-01-07 11:57 | PCM.DC ---
Discharge Instructions Diet Discharge Diet: No restrictions Activity Discharge Activity: Return to Normal Activity Weight Bearing Status: Full weight bearing Follow Up Care Test Results: Test results from this visit will be discussed in further detail at your follow-up appointment, if applicable. Discharge Plan Admission Admit Date/Time: 12/31/20 21:49 Primary Reason for Your Visit: septic shock Attending Provider: Efren Gold Primary Care Provider: Delta [place] Consulting Providers: Sanjiv Rodriguez ; Farrukh Pham Instructions Additional Instructions / Restrictions: watch for any signs or symptoms of COVID-19, get tested immediately if you have any symptoms or signs Discharge Orders/Prescriptions Prescriptions: New cephalexin 500 mg Capsule 500 mg PO TID Qty: 21 RF: 0 Continued lidocaine-prilocaine 2.5-2.5 % cream 1 applic topical ONCE PRN (Reason: Port access) 30 Days Qty: 30 RF: 2 ondansetron 8 mg tablet,disintegrating 8 mg PO Q8H PRN (Reason: nausea and vomiting) Qty: 30 RF: 2 Eliquis 5 mg tablet 5 mg PO BID RF: 0 amitriptyline 75 mg tablet 75 mg PO QHS RF: 0 allopurinol 100 mg tablet 100 mg PO BID RF: 0 levothyroxine 88 mcg tablet 88 mcg PO DAILY RF: 0 potassium chloride 20 mEq tablet,ER particles/crystals 20 meq PO DAILY RF: 0 pravastatin 10 mg tablet 10 mg PO QHS RF: 0 metformin 500 mg tablet extended release 24 hr 500 mg PO BID RF: 0 metoprolol succinate 100 mg tablet extended release 24 hr 25 mg PO DAILY RF: 0 furosemide 40 mg tablet 20 mg PO DAILY RF: 0 prochlorperazine maleate [Compazine] 10 mg tablet 10 mg PO Q6H PRN (Reason: nausea and vomiting) RF: 0 docosahexaenoic acid-epa Capsule 3 cap PO DAILY RF: 0 oxycodone-acetaminophen [Endocet] 5-325 mg tablet 1 tab PO Q6H PRN (Reason: pain) 2 Days Qty: 5 RF: 0 oxycodone-acetaminophen [Endocet] 5-325 mg tablet 1 tab PO Q6H PRN (Reason: pain) 3 Days Qty: 12 RF: 0 prednisone 20 mg tablet 100 mg PO DAILY RF: 0 MAGIC MOUTH WASH (BMX) 180 mL suspension 10 ml PO Q6H PRN (Reason: mouth pain) Qty: 180 RF: 1 Referrals / Follow Up: Delta Carolina DO [Primary Care Provider] - See Referral Note (call to see if you need to follow up) Robinson Hargrove MD [STAFF PHYSICIAN] - See Referral Note (call for appointment) Disposition Disposition (needs filled in before D/C Order can be placed): Home, Self Care
[2021-01-07 13:15] VITALS: BP 120/64; PULSE 98; RESP 16; TEMP 37.2; O2SAT 95
[2021-01-07] MEDS: 0.9% Saline Lock 10 ML Syringe IV (13:29)
--- NOTE | 2021-01-07 16:52 | PCM.DC.SUM ---
Providers Date of Admission: 12/31/20 Date of Discharge: 01/07/21 Primary Care Physician: Dr. Delta Carolina, Consultations 01/01/21 03:15 Consult: Central Supply Technician / Pulmonary Medicine Routine Consulting Provider: Farrukh Pham Reason for Consult: acute encephalopathy EMERGENT Consult: Yes MD Notified: Yes Date Notified: 12/31/20 Time Notified: 22:04 Method of Notification: Verbal Method of Consult:: In-Person 01/02/21 08:07 Consult: Infectious Disease Routine Consulting Provider: Sanjiv Rodriguez Reason for Consult: GP bacteremia with port EMERGENT Consult: No MD Notified: Yes Date Notified: 01/02/21 Time Notified: 08:50 Method of Notification: Text Reason For Visit: ACUTE ENCEPHALOPATHY Diagnosis Discharge Diagnosis (1) Septic shock: Status: Acute Code(s): A41.9 - Sepsis, unspecified organism; R65.21 - Severe sepsis with septic shock Plan: 1. Septic shock-secondary to Staphylococcus epidermidis #2 Metabolic encephalopathy-secondary to septic shock #3 pancytopenia-possibly secondary to B-cell lymphoma #4 diffuse B-cell lymphoma #5 hypokalemia #6 chronic anticoagulation with Eliquis secondary to factor V Leiden #7 Staph epidermidis bacteremia-etiology unclear #8 acute hypoxic respiratory failure-etiology unknown Medications at Discharge Home Medications allopurinol 100 mg PO BID 07/10/20 amitriptyline 75 mg PO QHS 07/10/20 levothyroxine 88 mcg PO DAILY 07/10/20 metformin 500 mg PO BID 07/10/20 potassium chloride 20 meq PO DAILY 07/10/20 pravastatin 10 mg PO QHS 07/10/20 docosahexaenoic acid-epa 3 cap PO DAILY 08/05/20 lidocaine-prilocaine 2.5 %-2.5 % topical cream 1 applic TOPICAL ONCE PRN 30 Days #30 g 08/05/20 ondansetron 8 mg disintegrating tablet 8 mg PO Q8H PRN #30 tab 08/05/20 prochlorperazine maleate [Compazine] 10 mg PO Q6H PRN 08/05/20 oxycodone-acetaminophen [Endocet] 1 tab PO Q6H PRN 2 Days #5 tab 08/14/20 apixaban 5 mg tablet 5 mg PO BID 09/26/20 MAGIC MOUTH WASH (BMX) 180 mL suspension 10 ml PO Q6H PRN #180 ml 10/28/20 oxycodone-acetaminophen [Endocet] 1 tab PO Q6H PRN 3 Days #12 tab 12/02/20 furosemide 40 mg tablet 20 mg PO DAILY tab 12/05/20 metoprolol succinate 100 mg tablet,extended release 24 hr 25 mg PO DAILY tab 12/05/20 prednisone 100 mg PO DAILY 12/31/20 cephalexin 500 mg PO TID #21 cap 01/07/21 Hospital Course Operations None Procedures 2-D Echocardiogram Summary of Care Provided Minutes Spent on Discharge: 32 Hospital Course: This 75-year-old white female was seen in the emergency room at [facility] after being brought in by her family secondary to altered mental status. Patient recently completed chemotherapy for B-cell lymphoma, she is considered in remission at this time. Labs obtained showed the patient's white blood cell count to be 4.3, hemoglobin was 9.6, CT of the chest was normal, CT of the brain showed no acute abnormality. Patient was admitted to ICU for acute encephalopathy, she was seen in consultation by critical care and infectious diseases, her blood culture resulted positive for staph epidermidis, patient's mental status improved and she was transferred to [place] [id number]. She was seen by PT and OT, she appeared debilitated and arrangements were made for the patient to go to a intermediate home for short-term rehab services, unfortunately, patient's daughter visited the patient and had COVID-19 so the intermediate facility would not accept the patient. Arrangements were made for the patient to go home. On 01/07/2021, patient was seen and examined: On examination she appeared in good health and spirits, she does not appear to be in any distress. Vital signs as documented. Skin warm and dry and without overt rashes. Neck without JVD, thyroid appears normal, trachea is midline, neck is supple. Lungs clear, normal air movement was noted. Heart exam notable for regular rhythm, normal sounds and absence of murmurs, rubs or gallops. Abdomen unremarkable and without evidence of organomegaly, masses, or abdominal aortic enlargement, bowel sounds are present in all 4 quadrants, no abdominal tenderness was noted. Extremities nonedematous, no cyanosis was noted, no clubbing was noted. Neuro: Cranial nerves II through XII are grossly intact, no focal motor deficits were noted, sensation to light touch and pinprick is intact, motor exam 5/5 throughout. Psych: Patient is alert and oriented x3, she does not appear anxious or depressed, she does not appear agitated. Patient was discharged home in stable condition on 01/07/2021. Weight / BMI Weight Weight: 112.3 kg Body Mass Index (BMI) 35.4 ABG / Lab / Microbiology Data Result Diagrams: 01/07/21 06:25 01/07/21 06:25 Laboratory: Laboratory Results - last 24 hr 01/07/21 06:25: WBC 1.5 L, RBC 2.87 L, Hgb 9.7 L, Hct 29.6 L, MCV 103.1 H, MCH 33.8 H, MCHC 32.8, RDW Std Deviation 77.1 H, RDW Coeff of Rani 20.1 H, Plt Count 95 L, MPV 10.2, Immature Gran % (Auto) 0.700, Neut % (Auto) 24.8 L, Lymph % (Auto) 44.8 H, [place] % (Auto) 26.9 H, Eos % (Auto) 1.4, Baso % (Auto) 1.4 H, Absolute Neuts (auto) 0.4 L, Absolute Lymphs (auto) 0.65 L, Nucleated RBC % 0, Differential Comment , Diff Path Review May foll, Anisocytosis 1+ 01/07/21 06:25: Sodium 140, Potassium 3.8, Chloride 110 H, Carbon Dioxide 22.0, Anion Gap 8, BUN 11, Creatinine 0.44 L, Estim Creat Clear Calc 46.54, Est GFR (MDRD) Af Amer 178, Est GFR (MDRD) Non-Af 147, BUN/Creatinine Ratio 24.9 H, Glucose 93, Calcium 8.6 Microbiology: Microbiology 01/02/21 14:00 Blood Culture (Wb) - Left Hand Blood Culture - Final No growth in 5 days. 01/02/21 08:45 Blood Culture (Wb) - Port Blood Culture - Final No growth in 5 days. 12/31/20 19:25 Blood Culture (Wb) - Right Forearm Blood Culture - Final No growth in 5 days. 01/01/21 05:50 Blood Culture (Wb) - Port Bacteria Detection (PCR) - Final Staphylococcus epidermidis 01/01/21 05:50 Blood Culture (Wb) - Port Blood Culture - Final Staphylococcus epidermidis 01/03/21 11:50 Interface Orders Respiratory Panel (PCR) - Final 12/31/20 18:52 Nasal Secretion SARS-CoV-2 Antigen (Rapid) - Final D/C Instructions Discharge Diet: No restrictions Weight Bearing Status: Full weight bearing Meaningful Use Info Meaningful Use Diagnoses (Choose all that apply): None applicable Discharge Plan Admission Admit Date/Time: 12/31/20 21:49 Primary Reason for Your Visit: septic shock Attending Provider: Efren Gold Primary Care Provider: Delta Carolina Consulting Providers: Sanjiv Rodriguez ; Farrukh Pham Instructions Additional Instructions / Restrictions: watch for any signs or symptoms of COVID-19, get tested immediately if you have any symptoms or signs Discharge Orders/Prescriptions Prescriptions: New cephalexin 500 mg Capsule 500 mg PO TID Qty: 21 RF: 0 Continued lidocaine-prilocaine 2.5-2.5 % cream 1 applic topical ONCE PRN (Reason: Port access) 30 Days Qty: 30 RF: 2 ondansetron 8 mg tablet,disintegrating 8 mg PO Q8H PRN (Reason: nausea and vomiting) Qty: 30 RF: 2 Eliquis 5 mg tablet 5 mg PO BID RF: 0 amitriptyline 75 mg tablet 75 mg PO QHS RF: 0 allopurinol 100 mg tablet 100 mg PO BID RF: 0 levothyroxine 88 mcg tablet 88 mcg PO DAILY RF: 0 potassium chloride 20 mEq tablet,ER particles/crystals 20 meq PO DAILY RF: 0 pravastatin 10 mg tablet 10 mg PO QHS RF: 0 metformin 500 mg tablet extended release 24 hr 500 mg PO BID RF: 0 metoprolol succinate 100 mg tablet extended release 24 hr 25 mg PO DAILY RF: 0 furosemide 40 mg tablet 20 mg PO DAILY RF: 0 prochlorperazine maleate [Compazine] 10 mg tablet 10 mg PO Q6H PRN (Reason: nausea and vomiting) RF: 0 docosahexaenoic acid-epa Capsule 3 cap PO DAILY RF: 0 oxycodone-acetaminophen [Endocet] 5-325 mg tablet 1 tab PO Q6H PRN (Reason: pain) 2 Days Qty: 5 RF: 0 oxycodone-acetaminophen [Endocet] 5-325 mg tablet 1 tab PO Q6H PRN (Reason: pain) 3 Days Qty: 12 RF: 0 prednisone 20 mg tablet 100 mg PO DAILY RF: 0 MAGIC MOUTH WASH (BMX) 180 mL suspension 10 ml PO Q6H PRN (Reason: mouth pain) Qty: 180 RF: 1 Referrals / Follow Up: Delta Carolina DO [Primary Care Provider] - See Referral Note (call to see if you need to follow up) Robinson Hargrove MD [STAFF PHYSICIAN] - See Referral Note (call for appointment) Disposition Disposition (needs filled in before D/C Order can be placed): Home, Self Care Charges/Coding Visit Charges Inpatient E&M: 30362 Disch Hosp
[2021-01-08 11:05] LABS: Pathologist Review Reviewed
== END 2021-01-07 13:36 | disposition home or self-care (01) | DRG 314 ==
LOC: ED 21:16 → PCU 22:27 → ICU 01-01 05:16 → MS3 01-04 15:33
PROVIDERS: Internal Medicine; Internal Medicine Critical Care Medicine; Admitting Provider Hospitalist; Emergency Provider Emergency Medicine; PCP Physician Assistant; Visit Provider Internal Medicine
DX: T80.211A Bloodstream infection due to central venous catheter, initial encounter (principal); A41.89 Other specified sepsis; R65.21 Severe sepsis with septic shock; G93.41 Metabolic encephalopathy; J96.01 Acute respiratory failure with hypoxia; C83.38 Diffuse large B-cell lymphoma, lymph nodes of multiple sites; D68.51 Activated protein C resistance; D68.52 Prothrombin gene mutation; D61.818 Other pancytopenia; E66.9 Obesity, unspecified; I12.9 Hypertensive chronic kidney disease with stage 1 through stage 4 chronic kidney disease, or unspecified chronic kidney disease; E11.22 Type 2 diabetes mellitus with diabetic chronic kidney disease; N18.32 Chronic kidney disease, stage 3b; M10.9 Gout, unspecified; E78.5 Hyperlipidemia, unspecified; B95.7 Other staphylococcus as the cause of diseases classified elsewhere; D53.9 Nutritional anemia, unspecified; E87.6 Hypokalemia; Z20.822 Contact with and (suspected) exposure to COVID-19; E86.0 Dehydration; Z68.37 Body mass index [BMI] 37.0-37.9, adult; Z86.711 Personal history of pulmonary embolism; Z79.02 Long term (current) use of antithrombotics/antiplatelets
CPT/HCPCS: 36415; 36600; 51702; 70450; 70496; 70498; 70553; 71045; 71275; 74176; 78815; 80048; 80076; 80202; 80307; 81001; 82140; 82607; 82803; 82962; 83605; 84443; 84484; 85025; 85610; 85730; 86850; 86900; 86901; 86920; 86922; 87040; 87149; 87186; 87426; 87633; 92526; 92610; 93005; 93306; 97110; 97162; 97166; 97530; 97535; 97802; 99285; A9552; A9575; J7030; J7040; J7050; J7120; P9016; Q9957; Q9967; A4216; C8929; J3490

== ENCOUNTER 2021-01-19 11:34 | Inpatient (IN) | payer MEDICARE, SELFPAY ==
[2021-01-19] VITALS (19 sets, daily range): BP systolic 62–146; BP diastolic 40–73; PULSE 88–120; RESP 16–27; TEMP 36.1–38.2; O2SAT 87–100; BMI 37.5; BMI 34.7
--- NOTE | 2021-01-19 12:25 | EKG12_ITS ---
Test Reason : Blood Pressure : / mmHG Vent. Rate : 108 BPM Atrial Rate : 108 BPM P-R Int : 214 ms QRS Dur : 088 ms QT Int : 322 ms P-R-T Axes : 095 -32 050 degrees QTc Int : 431 ms Sinus tachycardia with 1st degree A-V block Left axis deviation Low voltage QRS Poor R wave progression Inferior VT, age undetermined, cannot be excluded Abnormal ECG Confirmed by ELMIRA KIM, ELEANOR ([id number]), non linear editor NANCY MENCHACA ([id number]) on 01/22/2021 10:43:36 AM Referred By: RAQUEL Confirmed By:ELEANOR KU MD
--- NOTE | 2021-01-19 12:25 | RAD_ITS ---
STUDY: X-RAY CHEST REASON FOR EXAM: Female, 75 years old. Cough TECHNIQUE: Single AP portable view of the chest. COMPARISON: December 31, 2020 chest x-ray FINDINGS: There is a right-sided Port-A-Cath the tip is in the superior vena cava. There are patchy interstitial infiltrates in the left greater than right lung. There is no demonstrated pleural abnormality. Normal size heart. Normal mediastinum and mellisa. Normal visualized pulmonary arteries. Normal visualized aortic arch and descending thoracic aorta. There are diffuse degenerative changes of the visualized thoracic spine. Normal visualized ribs, clavicles, and shoulders. There is no demonstrated abnormality of the visualized soft tissue structures of the upper abdomen. RAD/Chest 1 View (Portable) IMPRESSION: Patchy interstitial infiltrates. Consider possible viral pneumonia potentially asymmetric edema could have this appearance. Electronically Signed: Isis Yu MD at 13:49 EST Tel , Service support ,
[2021-01-19 13:16] LABS: Absolute Lymphocyte Count 0.51 X10^3/uL (0.83-4.51); Absolute Neutrophil Count 2.2 X10^3/uL (2.0-7.7); Basophil# 0.02 X10^3/uL; Basophil% 0.6 % (0-1); Eosinophil# 0.01 X10^3/uL; Eosinophils% 0.3 % (0-5); Hematocrit 36.9 % (37-47); Hemoglobin 12.1 g/dL (12.0-15.0); Lymphocyte # 0.51 X10^3/ul (0.83-4.51); Lymphocyte % 15.2 % (19-41); Mean Corp Hgb Conc 32.8 g/dL (32-36); Mean Corpuscular Hgb 33.7 pg (27.0-32.0); Mean Corpuscular Volume 102.8 fL (81-99); Mean Platelet Vol. 11.1 fl (6.2-12.0); Monocyte# 0.59 X10^3/uL; Monocyte% 17.6 % (0-10); NRBC Flagged by Analyzer 0 % (0-5); Neutrophil # 2.19 X10^3/uL (2.7-7.7); Neutrophil % 65.4 % (47-70); POSITIVE DIFFERENTIAL YES; POSITIVE MORPHOLOGY YES; Platelet Count 143 K/mm3 (150-450); RBC Distribution Width SD 69.3 fl (35.1-43.9); Red Blood Count 3.59 M/mm3 (4.2-5.4); White Blood Count 3.4 K/mm3 (4.4-11.0)
[2021-01-19 13:21] LABS: Differential Indicated SCAN CRITERIA MET
--- NOTE | 2021-01-19 13:27 | EDS_ITS ---
HPI History of Present Illness Chief Complaint: Cough Narrative Narrative: 75-year-old female with history of B-cell lymphoma and recent admission to the hospital for septic shock. She had been improving. She was tested for rapid Covid in the hospital because her daughter developed Covid while she was in the hospital and reportedly was not wearing a mask. Her rapid Covid was negative x2 reportedly. Patient's daughter reports that she feels improved is not been around her since that time. Patient does not have any chest pain. She does have some mild shortness of breath but is ambulatory to the bathroom and back without too much difficulty. She does report that she is kicked her walker a couple of times and and she tore one of her toenails off on the right foot but she is still ambulatory. Bleeding is under control. She has not seen any sign of infection. Patient has not had low pulse ox readings. Patient has developed a wet cough. She has not had a fever. She denies chest pain. 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, lymph nodes of multiple sites DLBCL (diffuse large B cell lymphoma) Elevated serum creatinine Encounter for chemotherapy management Factor V Leiden, prothrombin gene mutation Frequent falls Gout High cholesterol History of pulmonary embolism Hypertension Hypotension Hypothyroidism Macrocytic anemia Non-smoker Obesity Oral candidiasis Pulmonary embolism Pulmonary embolism Stomatitis Thyroid disease Walker as ambulation aid Wears dentures Wears glasses Home Medications allopurinol 100 mg PO BID 07/10/20 [History Last Taken 07/10/20 07:00] amitriptyline 75 mg PO QHS 07/10/20 [History Last Taken 07/09/20 22:00] levothyroxine 88 mcg PO DAILY 07/10/20 [History Last Taken 07/10/20 07:00] metformin 500 mg PO BID 07/10/20 [History Last Taken 07/07/20 22:00] potassium chloride 20 meq PO DAILY 07/10/20 [History Last Taken 07/10/20 07:00] pravastatin 10 mg PO QHS 07/10/20 [History Last Taken 07/09/20 22:00] docosahexaenoic acid-epa 3 cap PO DAILY 08/05/20 [History Last Taken Unknown] lidocaine-prilocaine 2.5 %-2.5 % topical cream 1 applic TOPICAL ONCE PRN 30 Days #30 g 08/05/20 [Rx Last Taken Unknown] ondansetron 8 mg disintegrating tablet 8 mg PO Q8H PRN #30 tab 08/05/20 [Rx Last Taken Unknown] prochlorperazine maleate [Compazine] 10 mg PO Q6H PRN 08/05/20 [History Last Taken Unknown] oxycodone-acetaminophen [Endocet] 1 tab PO Q6H PRN 2 Days #5 tab 08/14/20 [Rx Last Taken Unknown] apixaban 5 mg tablet 5 mg PO BID 09/26/20 [History Last Taken Unknown] MAGIC MOUTH WASH (BMX) 180 mL suspension 10 ml PO Q6H PRN #180 ml 10/28/20 [Rx Last Taken Unknown] oxycodone-acetaminophen [Endocet] 1 tab PO Q6H PRN 3 Days #12 tab 12/02/20 [Rx Last Taken Unknown] furosemide 40 mg tablet 20 mg PO DAILY tab 12/05/20 [History Last Taken Unknown] metoprolol succinate 100 mg tablet,extended release 24 hr 25 mg PO DAILY tab 12/05/20 [History Last Taken Unknown] prednisone 100 mg PO DAILY 12/31/20 [History Last Taken Unknown] cephalexin 500 mg PO TID #21 cap 01/07/21 [Rx Last Taken Unknown] Allergy/AdvReac Type Severity Reaction Status Date / Time No Known Allergies Allergy Verified 12/05/20 09:05 Family History Mother Diabetes Brother Cancer Surgical History History of bilateral knee replacement History of cataract removal with insertion of prosthetic lens History of cholecystectomy History of tubal ligation Social History Smoking Status: Never smoker second hand exposure: No alcohol intake: never substance use type: does not use rahul/jehovah's witness: Denominational seatbelt use: always do you feel safe at home: Yes ROS ROS ED ROS Narrative Generalized weakness Constitutional Constitutional ED: Denies chills or fever(s) Eyes Eyes: Denies blurry vision or change in vision ENT ENT ED: Denies ear pain or rhinorrhea Cardiovascular Cardiovascular: Denies chest pain or palpitations Respiratory/Chest Respiratory/Chest: Reports cough and dyspnea Gastrointestinal Gastrointestinal: Denies abdominal pain, nausea or vomiting Genitourinary Genitourinary ED: Denies dysuria or hematuria Musculoskeletal Musculoskeletal: Denies arthralgias, myalgias or neck pain Integumentary Denies abscess or rash Neurologic Neurologic: Denies headache(s) or paresthesias Psychiatric Psychiatric: Denies anxiety or depression EXAM Physical Exam Const Vital Signs: 01/19/21 11:35 01/19/21 12:17 01/19/21 12:25 Temperature 98.0 F 97.8 F Temperature Source Temporal Temporal Pulse Rate 120 H 106 H Respiratory Rate 16 21 H Respiratory Effort Short of Breath Labored Accessory Muscle Use Respiratory Depth Shallow Respiratory Pattern Tachypnea Blood Pressure 146/73 H 102/72 Blood Pressure Mean 97 82 Pulse Ox 98 Oxygen Delivery Method Room Air Room Air 01/19/21 16:46 Temperature 97 F L Temperature Source Temporal Pulse Rate 102 H Respiratory Rate 19 H Respiratory Effort Respiratory Depth Respiratory Pattern Blood Pressure 92/56 L Blood Pressure Mean 68 Pulse Ox 97 Oxygen Delivery Method Room Air Positive obese General Appearance ED: NAD Nutritional Appearance: obese HEENT Reports moist mucous membranes atraumatic Eyes PERRL and EOMs intact bilaterally Resp Auscultation: rales bilateral and rhonchi upper bilaterally Cardio regular rate and regular rhythm Neuro oriented x3 and CN's II-XII intact bilaterally Sensorium / Orientation: alert Psych mental status grossly normal Thought Process: normal thought process Skin Skin Narrative: Toenail is distal placed on the right great toe. No bony tenderness. No sign of infection. He has bruising on the left foot as well without any vomiting tenderness or deformity. MDM MDM MDM Narrative Medical decision making narrative: Patient presenting with cough and mild shortness of breath but she is not requiring any oxygen. She is not complaining of any fever or chills. Recently exposed to COVID-19 in the hospital had 2 - Covid swabs. I will send for a Covid PCR. Patient currently has lab work and she is leukopenic and lymphopenic but this is a chronic issue due to cancer and chemotherapy pancytopenic.. Her hemoglobin is actually improved. Renal function is normal. LFTs shows a slight bump in AST at 46, alkaline phosphatase 208. High-sensitivity troponin is 124. BNP is 38.7. Lactic acid is normal. EKG on my interpretation is a sinus rhythm with a ventricular rate of 108 bpm with a first-degree AV block. Patient does have patchy infiltrates on chest x-r ay on my interpretation of the radiologist does agree. Since the BNP is normal and she has had a normal echo recently I do not believe this is CHF. Patient also does not have any lower extremity edema. Patient is anticoagulated on Eliquis and does not need a CTA to rule out PE. Her hemoglobin is improving so this is not due to anemia. Patient was discussed with Dr. Yates who recommends checking a second troponin if the second troponin is over 300. Then stop her Eliquis and put her on a heparin drip out of concern for ACS. If it stays in the same range then the patient can stay on her Eliquis and this would likely be in type II NSTEMI. Patient will need to be admitted to the hospital and discussed with the hospitalist for admission. Impression: 1. NSTEMI 2. COVID-19 pneumonitis Lab Data Attestation: I reviewed the patient's lab results. Labs: Laboratory Results - last 24 hr 01/19/21 01/19/21 01/19/21 13:05 13:05 13:05 WBC 3.4 L RBC 3.59 L Hgb 12.1 Hct 36.9 L MCV 102.8 H MCH 33.7 H MCHC 32.8 RDW Std Deviation 69.3 H RDW Coeff of Rani 18.0 H Plt Count 143 L MPV 11.1 Immature Gran % (Auto) 0.900 Neut % (Auto) 65.4 Lymph % (Auto) 15.2 L [place] % (Auto) 17.6 H Eos % (Auto) 0.3 Baso % (Auto) 0.6 Absolute Neuts (auto) 2.2 Absolute Lymphs (auto) 0.51 L Nucleated RBC % 0 Differential Comment SCANNED Diff Path Review May foll Anisocytosis 2+ Microcytosis 1+ Macrocytosis 1+ PT INR APTT Sodium 135 L Potassium 5.0 Chloride 101 Carbon Dioxide 24.0 Anion Gap 10 BUN 13 Creatinine 0.73 Estim Creat Clear Calc 46.54 Est GFR (MDRD) Af Amer 100 Est GFR (MDRD) Non-Af 82 BUN/Creatinine Ratio 17.8 Glucose 121 H Lactic Acid Calcium 9.1 Total Bilirubin 0.80 AST 46 H ALT 23 Alkaline Phosphatase 208 H Troponin I High Sens 124 H* B-Natriuretic Peptide 38.7 Total Protein 7.0 Albumin 2.4 L Globulin 4.6 H Albumin/Globulin Ratio 0.5 L COVID-19 (BONNY) 01/19/21 01/19/21 01/19/21 13:22 13:22 14:06 WBC RBC Hgb Hct MCV MCH MCHC RDW Std Deviation RDW Coeff of Rani Plt Count MPV Immature Gran % (Auto) Neut % (Auto) Lymph % (Auto) [place] % (Auto) Eos % (Auto) Baso % (Auto) Absolute Neuts (auto) Absolute Lymphs (auto) Nucleated RBC % Differential Comment Diff Path Review Anisocytosis Microcytosis Macrocytosis PT 18.5 H INR 1.6 APTT 45.6 H Sodium Potassium Chloride Carbon Dioxide Anion Gap BUN Creatinine Estim Creat Clear Calc Est GFR (MDRD) Af Amer Est GFR (MDRD) Non-Af BUN/Creatinine Ratio Glucose Lactic Acid 1.5 Calcium Total Bilirubin AST ALT Alkaline Phosphatase Troponin I High Sens B-Natriuretic Peptide Total Protein Albumin Globulin Albumin/Globulin Ratio COVID-19 ([facility]ONNY) Detected Radiography Diagnostic Testing: Clinical Impression(s) from Imaging Studies Chest X-Ray 01/19/21 12:25 IMPRESSION: Patchy interstitial infiltrates. Consider possible viral pneumonia potentially asymmetric edema could have this appearance. Electronically Signed: Isis Yu MD at 13:49 EST Tel , Service support , Discharge Plan Triage Chief Complaint: Cough ED Provider: Diomedes Merrill Dx/Rx/DC Orders Prescriptions: No Action lidocaine-prilocaine 2.5-2.5 % cream 1 applic topical ONCE PRN (Reason: Port access) 30 Days Qty: 30 RF: 2 ondansetron 8 mg tablet,disintegrating 8 mg PO Q8H PRN (Reason: nausea and vomiting) Qty: 30 RF: 2 Eliquis 5 mg tablet 5 mg PO BID RF: 0 amitriptyline 75 mg tablet 75 mg PO QHS RF: 0 allopurinol 100 mg tablet 100 mg PO BID RF: 0 levothyroxine 88 mcg tablet 88 mcg PO DAILY RF: 0 potassium chloride 20 mEq tablet,ER particles/crystals 20 meq PO DAILY RF: 0 pravastatin 10 mg tablet 10 mg PO QHS RF: 0 metformin 500 mg tablet extended release 24 hr 500 mg PO BID RF: 0 metoprolol succinate 100 mg tablet extended release 24 hr 25 mg PO DAILY RF: 0 furosemide 40 mg tablet 20 mg PO DAILY RF: 0 prochlorperazine maleate [Compazine] 10 mg tablet 10 mg PO Q6H PRN (Reason: nausea and vomiting) RF: 0 docosahexaenoic acid-epa Capsule 3 cap PO DAILY RF: 0 oxycodone-acetaminophen [Endocet] 5-325 mg tablet 1 tab PO Q6H PRN (Reason: pain) 2 Days Qty: 5 RF: 0 oxycodone-acetaminophen [Endocet] 5-325 mg tablet 1 tab PO Q6H PRN (Reason: pain) 3 Days Qty: 12 RF: 0 prednisone 20 mg tablet 100 mg PO DAILY RF: 0 cephalexin 500 mg Capsule 500 mg PO TID Qty: 21 RF: 0 MAGIC MOUTH WASH (BMX) 180 mL suspension 10 ml PO Q6H PRN (Reason: mouth pain) Qty: 180 RF: 1 Primary Care Provider: Delta Carolina
[2021-01-19 13:47] LABS: ALB/GLOB Ratio 0.5 RATIO (0.9-2.4); AST(SGOT) 46 U/L (15-37); Alanine Aminotransfer ALT/SGPT 23 U/L (13-56); Albumin, Serum 2.4 g/dL (3.2-5.0); Alkaline Phosphatase 208 U/L (45-117); Anion Gap 10 (5-15); BUN 13 mg/dL (7-18); BUN/Creat Ratio 17.8 RATIO (10-20); Calcium,Total 9.1 mg/dL (8.5-10.1); Chloride 101 mmol/L (98-107); Creatinine, Serum 0.73 mg/dL (0.55-1.02); EST Glomerular Filtration Rate 82 mL/min (>60); Est Glom Filt Rate - Afr Amer 100 mL/min (>60); Estimated Creatinine Clearance 46.54 ml/min; Globulin 4.6 g/dL (2.2-4.2); Glucose 121 mg/dL (74-106); Sodium Level 135 mmol/L (136-145); Troponin-I HS 124 pg/mL (3.0-54.0)
[2021-01-19 13:55] LABS: International Normalized Ratio 1.6; Prothrombin Time (Protime)PT. 18.5 SECONDS (11.7-14.9)
[2021-01-19 13:57] LABS: Partial Thromboplast Time 45.6 Seconds (24.1-36.2)
--- NOTE | 2021-01-19 14:01 | NURSING ---
troponin 124, dr gomez aware
[2021-01-19 14:11] LABS: Anisocytosis 2+; Differential Comment SCANNED; Macrocytosis 1+; Microcytosis 1+
[2021-01-19 14:16] LABS: Lactic Acid 1.5 mmol/L (0.4-1.9)
[2021-01-19 15:03] LABS: BNP,B-Type NATRIURETIC PEPTIDE 38.7 pg/mL (0-100)
--- NOTE | 2021-01-19 16:54 | NURSING ---
DR GAN FOR DR MALCOLM
[2021-01-19 17:12] LABS: Troponin-I HS 108 pg/mL (3.0-54.0)
--- NOTE | 2021-01-19 17:33 | NURSING ---
HOSPITALIST FOR DR MALCOLM
--- NOTE | 2021-01-19 17:46 | NURSING ---
PCU [facility] NSTEMI, COVID 19 PNEUMONITIS
[2021-01-19] MEDS: dexAMETHasone 10 MG/ML Vial 6 MG IV (17:52)
--- NOTE | 2021-01-19 17:53 | HP.PCM.HOS_ITS ---
Documented by User: Leif VIRAMONTES 01/19/21 18:31 HPI - General General Date of Admission: 01/19/21 Date of Service: 01/19/21 Chief Complaint: Shortness of breath HPI Narrative LEANDRO HELMS is a 75-year-old female who presents to the ED at [facility] on 01/19/2021 with a chief complaint of progressively worsening nonproductive cough. Patient reports that for the past 3 weeks she has developed a cough that has gotten progressively worse. Of note, patient was admitted on 12/31/2020 for acute metabolic encephalopathy secondary to bacteremia. Blood cultures during last admission revealed staph epidermidis. Patient was managed on cefazolin while admitted and discharged to home on Keflex for 1 week on 01/07/2021. During last admission, patient was visited by her daughter who was unknowingly Covid positive and did not wear a mask while in the room. Rapid Covid is obtained twice during last admission and was negative both times. ID advised patient to obtain updated Covid exam after discharge. Patient did not obtain updated Covid test, but today presents to the ED with Cov id positive PCR. Patient denies any other infectious symptoms besides cough. Denies chest pain, shortness of breath, palpitations, hemoptysis, sputum production, fever, chills, N/V/D. Past medical history is significant for B- cell lymphoma which she is managing with Dr. Bowers. Vital signs in the ED are temperature of 98 ?F, HR of 120, BP of 146/73, RR of 16 and patient is currently satting 95% on room air. EKG in the in the ED revealed sinus tachycardia. Chest x-ray revealed patchy interstitial infiltrates which is suggestive of possible viral pneumonia. CBC shows WBCs at 3.4, hemoglobin of 12.1 and platelets at 143. BMP shows sodium 135, potassium 5 and creatinine at 0.73. High-sensitivity troponin was elevated at 124 and 108 respectively. Patient was given Decadron and placed on supplemental oxygen in the ED. 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, lymph nodes of multiple sites DLBCL (diffuse large B cell lymphoma) Elevated serum creatinine Encounter for chemotherapy management Factor V Leiden, prothrombin gene mutation Frequent falls Gout High cholesterol History of pulmonary embolism Hypertension Hypotension Hypothyroidism Macrocytic anemia Non-smoker Obesity Oral candidiasis Pulmonary embolism Pulmonary embolism Stomatitis Thyroid disease Walker as ambulation aid Wears dentures Wears glasses Home Medications allopurinol 100 mg PO BID 07/10/20 [History Last Taken 07/10/20 07:00] amitriptyline 75 mg PO QHS 07/10/20 [History Last Taken 07/09/20 22:00] levothyroxine 88 mcg PO DAILY 07/10/20 [History Last Taken 07/10/20 07:00] metformin 500 mg PO BID 07/10/20 [History Last Taken 07/07/20 22:00] potassium chloride 20 meq PO DAILY 07/10/20 [History Last Taken 07/10/20 07:00] pravastatin 10 mg PO QHS 07/10/20 [History Last Taken 07/09/20 22:00] docosahexaenoic acid-epa 3 cap PO DAILY 08/05/20 [History Last Taken Unknown] lidocaine-prilocaine 2.5 %-2.5 % topical cream 1 applic TOPICAL ONCE PRN 30 Days #30 g 08/05/20 [Rx Last Taken Unknown] ondansetron 8 mg disintegrating tablet 8 mg PO Q8H PRN #30 tab 08/05/20 [Rx Last Taken Unknown] prochlorperazine maleate [Compazine] 10 mg PO Q6H PRN 08/05/20 [History Last Taken Unknown] oxycodone-acetaminophen [Endocet] 1 tab PO Q6H PRN 2 Days #5 tab 08/14/20 [Rx Last Taken Unknown] apixaban 5 mg tablet 5 mg PO BID 09/26/20 [History Last Taken Unknown] MAGIC MOUTH WASH (BMX) 180 mL suspension 10 ml PO Q6H PRN #180 ml 10/28/20 [Rx Last Taken Unknown] oxycodone-acetaminophen [Endocet] 1 tab PO Q6H PRN 3 Days #12 tab 12/02/20 [Rx Last Taken Unknown] furosemide 40 mg tablet 20 mg PO DAILY tab 12/05/20 [History Last Taken Unknown] metoprolol succinate 100 mg tablet,extended release 24 hr 25 mg PO DAILY tab 12/05/20 [History Last Taken Unknown] prednisone 100 mg PO DAILY 12/31/20 [History Last Taken Unknown] cephalexin 500 mg PO TID #21 cap 01/07/21 [Rx Last Taken Unknown] Allergy/AdvReac Type Severity Reaction Status Date / Time No Known Allergies Allergy Verified 12/05/20 09:05 Family History Mother Diabetes Heart disease Brother Cancer Father Diabetes Heart disease Surgical History History of bilateral knee replacement History of cataract removal with insertion of prosthetic lens History of cholecystectomy History of tubal ligation Social History Smoking Status: Never smoker second hand exposure: No alcohol intake: never substance use type: does not use rahul/zoroastrian: Hoahaoism seatbelt use: always do you feel safe at home: Yes ROS Constitutional Constitutional: Denies anorexia, change in weight, chills, fatigue, fever(s), malaise, night sweats, weakness or other Eyes Eyes: Denies blurry vision, change in eye color, change in vision, discharge from eye(s), double vision, erythema, eye pain, loss of vision or other ENT HEENT: Denies abnormal hearing, dysphagia, ear pain, epistaxis, headache(s), hearing loss, nasal congestion, nasal discharge, post nasal drip, sinus pressure, sore throat or other Cardiovascular Cardiovascular: Reports dyspnea on exertion and lightheadedness; Denies chest pain, claudication, edema, orthopnea, palpitations, paroxysmal nocturnal dyspnea, rapid heart rate, syncope or other Respiratory/Chest Respiratory/Chest: Reports dyspnea, excessive phlegm production, shortness of breath at rest and shortness of breath with exertion Gastrointestinal Gastrointestinal: Denies abdominal pain, coffee ground emesis, constipation, diarrhea, dyspepsia, hematemesis, hematochezia, loose stools, melena, nausea, vomiting or other Genitourinary Genitourinary: Denies burning urination, difficulty urinating, dysuria, hematuria, nocturia, urinary frequency, urinary hesitancy, urinary incontinence, urinary urgency or other Musculoskeletal Musculoskeletal: Denies arthralgias, back pain, joint pain, joint stiffness, joint swelling, myalgias, neck pain or other Neurologic Neurologic: Denies abnormal gait, abnormal speech, confusion, disequilibrium, dizziness, focal weakness, headache(s), numbness, paresthesias, seizure-like activity, seizures, syncope, tingling, tremor(s) or other Psychiatric Psychiatric: Denies anxiety, depression, homicidal ideation, suicidal ideation or other Endocrine Endocrinology: Denies change in body appearance, cold intolerance, excessive sweating, heat intolerance, polydipsia, polyuria or other Hematologic/Lymphatic Hematologic/Lymphatic: Denies anemia, easy bleeding, easy bruising, lymphadenopathy or other Allergic/Immunologic Allergic/Immunologic: Denies rhinitis, hives, eczemia, asthma or other Vital Signs Vital Signs Vital Signs: 01/19/21 11:35 01/19/21 12:17 01/19/21 12:25 Temperature 98.0 F 97.8 F Temperature Source Temporal Temporal Pulse Rate 120 H 106 H Respiratory Rate 16 21 H Respiratory Effort Short of Breath Labored Accessory Muscle Use Respiratory Depth Shallow Respiratory Pattern Tachypnea Blood Pressure 146/73 H 102/72 Blood Pressure Mean 97 82 Pulse Ox 98 Oxygen Delivery Method Room Air Room Air 01/19/21 16:46 Temperature 97 F L Temperature Source Temporal Pulse Rate 102 H Respiratory Rate 19 H Respiratory Effort Respiratory Depth Respiratory Pattern Blood Pressure 92/56 L Blood Pressure Mean 68 Pulse Ox 97 Oxygen Delivery Method Room Air Weight Weight: 240 lb Body Mass Index (BMI) 37.5 Physical Exam Const alert and oriented x3 General Appearance: cooperative HEENT normocephalic, head/scalp atraumatic and hearing grossly normal bilaterally Eyes PERRL, EOMs intact bilaterally and conjunctivae normal Neck no lymphadenopathy, supple and no JVD Resp normal respiratory effort, normal air movement and no retractions Resp Narrative: Patient with wet sounding cough, that is not productive. Auscultation: clear to auscultation bilaterally Cardio regular rate, regular rhythm, no murmurs and no JVD GI normal to inspection, nondistended, normoactive bowel sounds, soft to palpation and non-tender Extremity normal to inspection, full ROM and no clubbing, cyanosis or edema Peripheral Pulses: Yes pulses 2+ throughout Skin no rashes or lesions noted, no wounds and skin turgor normal Neuro CN's II-XII intact bilaterally Psych affect normal Results Lab / Micro Data Result Diagrams: 01/19/21 13:05 01/19/21 13:05 Labs: Laboratory Results - last 24 hr 01/19/21 13:05: WBC 3.4 L, RBC 3.59 L, Hgb 12.1, Hct 36.9 L, MCV 102.8 H, MCH 33.7 H, MCHC 32.8, RDW Std Deviation 69.3 H, RDW Coeff of Rani 18.0 H, Plt Count 143 L, MPV 11.1, Immature Gran % (Auto) 0.900, Neut % (Auto) 65.4, Lymph % (A uto) 15.2 L, [place] % (Auto) 17.6 H, Eos % (Auto) 0.3, Baso % (Auto) 0.6, Absolute Neuts (auto) 2.2, Absolute Lymphs (auto) 0.51 L, Nucleated RBC % 0, Differential Comment SCANNED, Diff Path Review June, Anisocytosis 2+, Microcytosis 1+, Macrocytosis 1+ 01/19/21 13:05: Sodium 135 L, Potassium 5.0, Chloride 101, Carbon Dioxide 24.0, Anion Gap 10, BUN 13, Creatinine 0.73, Estim Creat Clear Calc 46.54, Est GFR (MDRD) Af Amer 100, Est GFR (MDRD) Non-Af 82, BUN/Creatinine Ratio 17.8, Glucose 121 H, Calcium 9.1, Total Bilirubin 0.80, AST 46 H, ALT 23, Alkaline Phosphatase 208 H, Troponin I High Sens 124 H*, Total Protein 7.0, Albumin 2.4 L, Globulin 4.6 H, Albumin/Globulin Ratio 0.5 L 01/19/21 13:05: B-Natriuretic Peptide 38.7 01/19/21 13:22: PT 18.5 H, INR 1.6, APTT 45.6 H 01/19/21 13:22: Lactic Acid 1.5 01/19/21 14:06: COVID-19 (BONNY) Detected 01/19/21 16:45: Troponin I High Sens 108 H Radiology Impression Chest X-Ray 01/19/21 12:25 IMPRESSION: Patchy interstitial infiltrates. Consider possible viral pneumonia potentially asymmetric edema could have this appearance. Electronically Signed: Isis Yu MD at 13:49 EST Tel , Service support , Assessment & Plan Assessment/Plan (1) COVID-19: (2) Elevated troponin: PLAN: Patient is a 75-year-old female who presents to the ED at [facility] on 01/19/2021 with a chief complaint of progressively worsening nonproductive cough. Patient will be admitted for management of symptomatic COVID-19 and management/evaluation of elevated troponins. 1) symptomatic COVID-19 infection Patient presents with a complicated 3-week history of progressively worsening n onproductive cough. Patient began to develop cough during last admission, patient was unknowingly exposed to COVID-19 through family during last admission, however she had 2 negative rapid Covid exams. Patient now presents today with positive Covid PCR. Patient reports that she has been fully vac cinated for COVID-19. Plan; admit to PCU, obtain CBC and CMP in a.m., enhance Covid droplet precautions ordered, neutropenic precautions ordered, initiate Decadron, do not initiate remdesivir due to length of symptoms, O2 per protocol, Legionella and strep pneumo urinary antigens ordered, viral respiratory panel ordered, PT/OT eval ordered, obtain D-dimer. 2) elevated troponins Patient is without any chest pain, palpitations or shortness of breath. EKG obtained in the ED revealed sinus tachycardia. Troponins elevated at 124 and 108 respectively. Plan; continue to cycle cardiac enzymes, heart healthy diet ordered, D-dimer ordered to rule out PE, continue Eliquis, cardiology consult ordered. 3) chronic pancytopenia WBCs at 3.4 and platelets are at 143, although hemoglobin is 12.1. Chronic in nature due to B-cell lymphoma. Neutropenic precautions ordered, continue to monitor. 4) diffuse B-cell lymphoma Complicates overall course. Diagnosed in July 2020, followed and managed by Dr. Bowers. Continue with outpatient management. 5) hypertension Stable, continue metoprolol and Lasix. Blood pressure parameters in place. 5) DM2 Hold home Metformin, Accu-Cheks with sliding scale insulin ordered. 6) hypothyroidism Continue Synthroid. 7) history of PE with factor V Leiden Continue Eliquis. 8) gout Continue allopurinol. 9) hyperlipidemia Continue statin. DVT prophylaxis - Eliquis CODE STATUS: Full code Advance care planning: Patient does not have a living will or healthcare power of garage hand, but would like to defer to her daughter Rissa for medical decision making in the event that she could not make decisions for self. Patient seen by Leif Farah PA-C, under the supervision of Dr. Cameron. Documented by User: Dr. 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, lymph nodes of multiple sites DLBCL (diffuse large B cell lymphoma) Elevated serum creatinine Encounter for chemotherapy management Factor V Leiden, prothrombin gene mutation Frequent falls Gout High cholesterol History of pulmonary embolism Hypertension Hypotension Hypothyroidism Macrocytic anemia Non-smoker Obesity Oral candidiasis Pulmonary embolism Pulmonary embolism Stomatitis Thyroid disease Walker as ambulation aid Wears dentures Wears glasses Home Medications allopurinol 100 mg PO BID 07/10/20 [History Last Taken 07/10/20 07:00] amitriptyline 75 mg PO QHS 07/10/20 [History Last Taken 07/09/20 22:00] levothyroxine 88 mcg PO DAILY 07/10/20 [History Last Taken 07/10/20 07:00] metformin 500 mg PO BID 07/10/20 [History Last Taken 07/07/20 22:00] potassium chloride 20 meq PO DAILY 07/10/20 [History Last Taken 07/10/20 07:00] pravastatin 10 mg PO QHS 07/10/20 [History Last Taken 07/09/20 22:00] docosahexaenoic acid-epa 3 cap PO DAILY 08/05/20 [History Last Taken Unknown] lidocaine-prilocaine 2.5 %-2.5 % topical cream 1 applic TOPICAL ONCE PRN 30 Days #30 g 08/05/20 [Rx Last Taken Unknown] ondansetron 8 mg disintegrating tablet 8 mg PO Q8H PRN #30 tab 08/05/20 [Rx Last Taken Unknown] prochlorperazine maleate [Compazine] 10 mg PO Q6H PRN 08/05/20 [History Last Taken Unknown] oxycodone-acetaminophen [Endocet] 1 tab PO Q6H PRN 2 Days #5 tab 08/14/20 [Rx Last Taken Unknown] apixaban 5 mg tablet 5 mg PO BID 09/26/20 [History Last Taken Unknown] MAGIC MOUTH WASH (BMX) 180 mL suspension 10 ml PO Q6H PRN #180 ml 10/28/20 [Rx Last Taken Unknown] oxycodone-acetaminophen [Endocet] 1 tab PO Q6H PRN 3 Days #12 tab 12/02/20 [Rx Last Taken Unknown] furosemide 40 mg tablet 20 mg PO DAILY tab 12/05/20 [History Last Taken Unknown] metoprolol succinate 100 mg tablet,extended release 24 hr 25 mg PO DAILY tab 12/05/20 [History Last Taken Unknown] prednisone 100 mg PO DAILY 12/31/20 [History Last Taken Unknown] cephalexin 500 mg PO TID #21 cap 01/07/21 [Rx Last Taken Unknown] Allergy/AdvReac Type Severity Reaction Status Date / Time No Known Allergies Allergy Verified 12/05/20 09:05 Family History Mother Diabetes Heart disease Brother Cancer Father Diabetes Heart disease Surgical History History of bilateral knee replacement History of cataract removal with insertion of prosthetic lens History of cholecystectomy History of tubal ligation Social History Smoking Status: Never smoker second hand exposure: No alcohol intake: never substance use type: does not use rahul/zoroastrian: Hoahaoism seatbelt use: always do you feel safe at home: Yes Results Lab / Micro Data Result Diagrams: 01/19/21 13:05 01/19/21 13:05 Charges/Coding Addendum Addendum: This patient was seen in conjunction with WANDER Brock. I have independently interviewed and examined the patient and reviewed pertinent historical, laboratory, and other data. Please refer to WANDER Brock's note for his patient's presentation, findings, and recommendations. I have reviewed and his note and concur with his documentation 75-year-old female with past medical history of diffuse B-cell lymphoma diagnosed in July 2020, who was recently discharged from the hospital for septic staph epidermidis staph epidermidis. Patient had exposure to Covid by her daughter but tested negative rapid Covid test. Patient was supposed to go to TCU but was denied. After discharge she went to her granddaughter's place. She noticed bruising of both toes, and her nail came off. She also has progressive shortness of breath with cough. She was brought in by her daughter because of persistent cough. Her vitals were relatively stable. PCR was positive. Admitting chest x-ray shows patchy interstitial infiltrate Physical Exam: Gen: Looks in some discomfort, not pale, not jaundiced, not on oxygen CVS:HS I +II, regular, no murmurs RESP: Diminished at lung bases GI: BS present and normal, soft, nontender, no palpable organs EXT:No edema ASSESSMENT: 1. Acute COVID-19 pneumonia without hypoxia in an immunocompromised patient 2. Recent septic shock secondary staph epidermidis, completed 1 week of Keflex 3. Elevated troponin likely secondary to demand ischemia 4. Bruising of bilateral toes 5. Hypertension 6. Diffuse large B cell lymphoma Plan: Podiatry consult Cardiology consult Trend enzymes Dexamethasone 6 mg daily Incentive spirometer Continue Eliquis Encourage use of incentive spirometer I discussed and explained in details the various types of CODE STATUS-full code, DNR CCA, DNR CC. Patient chose to be full code. She wants everything done to keep her alive. Time spent discussing CODE STATUS 16 minutes Visit Charges Inpatient E&M: 75359 Init Hosp L3 Procedures Hospitalists Procedures: 16821 Advncd Care Plan 30 Min
[2021-01-19 19:46] LABS: Mucous, Urine 0 SEEN /hpf (<or=2+)
[2021-01-19 20:05] LABS: Color, Urine Yellow (Yellow); Glucose, Dipstick Normal (Normal); Ketone-Dipstick 5 mg/dl (Negative); Leukocyte Esterase-Dipstick 100 /ul (Negative); Nitrite-Dipstick Negative (Negative); Occult Blood-Urine Negative /ul (Negative); Protein-Dipstick 15 mg/dl (Negative); Urine Bilirubin Dipstick Negative (Negative); Urine Clarity Clear (Clear); Urine Urobilinogen 1 mg/dl (Normal); Urine pH 6.5 (5.0 - 8.0)
[2021-01-19] MEDS: Acetaminophen 500 MG Tablet PO (20:09)
[2021-01-19 20:12] LABS: Bacteria 2+ /hpf (None Seen); Red Blood Cells-Urine 0-5 SEEN /hpf (0-5); Squamous Epithelial Cells - UA 0-5 SEEN /hpf (5-10); White Blood Cells 10-25 SEEN /hpf (0-5)
--- NOTE | 2021-01-19 23:32 | PCS.PANDOC ---
PANDEMIC DOCUMENTATION INITIATED: Date: 09/23/2020 Time: 190
--- NOTE | 2021-01-19 23:41 | PCM.PN.BLA ---
Progress Note Notified that patient has hypotensive systolic blood pressure in the 70s. Of note patient has Covid. Will give normal saline 1000 mm bolus x1. Will start patient on midodrine.
[2021-01-19] MEDS: 0.9% Normal Saline 1,000 ML 999 ML IV (23:45)
[2021-01-20] VITALS (62 sets, daily range): BP systolic 64–151; BP diastolic 47–89; PULSE 78–140; RESP 9–27; TEMP 37.2; O2SAT 93–100
[2021-01-20] MEDS: 0.9% Saline Lock 10 ML Syringe IV (00:08)
--- NOTE | 2021-01-20 00:32 | PCM.PN.BLA ---
Progress Note Nurse reported patient is too drowsy to take p.o. Stop midodrine. Blood pressure improved momentarily with 1 L normal saline bolus. Thereafter blood pressure dropped with systolic in the 70s. Patient is 75 and she has a Covid will not be giving further IV fluid boluses. Will start patient on Levophed and will transfer to the intensive care unit.
[2021-01-20 00:58] LABS: Troponin-I HS 107 pg/mL (3.0-54.0)
[2021-01-20 01:00] LABS: Bedside Glucose 140 mg/dL (70-110)
[2021-01-20 01:29] LABS: D-Dimer Quantitative (DVT/PE) 1.45 FEU/ug/m (0.27-0.49)
[2021-01-20 02:13] LABS: Absolute Lymphocyte Count 0.51 X10^3/uL (0.83-4.51); Absolute Neutrophil Count 1.1 X10^3/uL (2.0-7.7); Hematocrit 30.1 % (37-47); Hemoglobin 10.2 g/dL (12.0-15.0); Lymphocyte # 0.51 X10^3/ul (0.83-4.51); Lymphocyte % 28.3 % (19-41); Mean Corp Hgb Conc 33.9 g/dL (32-36); Mean Corpuscular Hgb 34.5 pg (27.0-32.0); Mean Corpuscular Volume 101.7 fL (81-99); Mean Platelet Vol. 11.1 fl (6.2-12.0); Monocyte# 0.17 X10^3/uL; Monocyte% 9.4 % (0-10); NRBC Flagged by Analyzer 0 % (0-5); Neutrophil # 1.11 X10^3/uL (2.7-7.7); Neutrophil % 61.7 % (47-70); POSITIVE DIFFERENTIAL YES; POSITIVE MORPHOLOGY YES; Platelet Count 123 K/mm3 (150-450); RBC Distribution Width SD 67.7 fl (35.1-43.9); Red Blood Count 2.96 M/mm3 (4.2-5.4); White Blood Count 1.8 K/mm3 (4.4-11.0)
--- NOTE | 2021-01-20 02:15 | NURSING ---
Pt transfered to ICU around 0130, gave report to DAVI Lyons. Called and updated daughter Rissa on pt's tx to ICU.
[2021-01-20 02:17] LABS: Differential Indicated SCAN CRITERIA MET
[2021-01-20 02:25] LABS: Troponin-I HS 102 pg/mL (3.0-54.0)
[2021-01-20 03:11] LABS: Anisocytosis 2+
[2021-01-20 05:46] LABS: ALB/GLOB Ratio 0.6 RATIO (0.9-2.4); AST(SGOT) 29 U/L (15-37); Alanine Aminotransfer ALT/SGPT 18 U/L (13-56); Albumin, Serum 2.2 g/dL (3.2-5.0); Alkaline Phosphatase 184 U/L (45-117); Anion Gap 10 (5-15); BUN 16 mg/dL (7-18); BUN/Creat Ratio 25.7 RATIO (10-20); Calcium,Total 8.5 mg/dL (8.5-10.1); Chloride 106 mmol/L (98-107); Creatinine, Serum 0.62 mg/dL (0.55-1.02); EST Glomerular Filtration Rate 99 mL/min (>60); Est Glom Filt Rate - Afr Amer 120 mL/min (>60); Estimated Creatinine Clearance 46.54 ml/min; Glucose 174 mg/dL (74-106); Potassium 3.8 mmol/L (3.5-5.1); Protein, Total 6.2 g/dL (6.4-8.2); Sodium Level 137 mmol/L (136-145); Troponin-I HS 103 pg/mL (3.0-54.0)
--- NOTE | 2021-01-20 07:32 | PCM.PN.HOSP ---
Subjective Subjective Patient is a 75-year-old lady with history of diffuse brief cell lymphoma recent hospitalization for staph epi septic shock source from skin, who presented with progressive shortness of breath. An assessment of COVID-19 pneumonia made admitted to regular nursing floor later transferred to the ICU due to low blood pressure requiring pressors Objective Data Objective Data Vital Signs: Vital Signs Temp Pulse Resp BP Pulse Ox 99.0 F 86 12 99/67 99 01/19/21 22:07 01/20/21 07:00 01/20/21 07:00 01/20/21 07:00 01/20/21 07:00 Oxygen Flow Rate (L/min) 3 Oxygen Delivery Method Nasal Cannula Weight: 101.2 kg Body Mass Index (BMI) 34.7 Intake & Output: Intake and Output for Last 24 Hours 01/18/21 01/19/21 01/20/21 23:59 23:59 23:59 Intake Total 1040.26 / 1040.26 Balance 1040.26 / 1040.26 Lab / Micro Data Result Diagrams: 01/20/21 01:45 01/20/21 04:30 Labs: Laboratory Results - last 24 hr 01/19/21 13:05: WBC 3.4 L, RBC 3.59 L, Hgb 12.1, Hct 36.9 L, MCV 102.8 H, MCH 33.7 H, MCHC 32.8, RDW Std Deviation 69.3 H, RDW Coeff of Rnai 18.0 H, Plt Count 143 L, MPV 11.1, Immature Gran % (Auto) 0.900, Neut % (Auto) 65.4, Lymph % (Auto) 15.2 L, [place] % (Auto) 17.6 H, Eos % (Auto) 0.3, Baso % (Auto) 0.6, Absolute Neuts (auto) 2.2, Absolute Lymphs (auto) 0.51 L, Nucleated RBC % 0, Differential Comment SCANNED, Diff Path Review May foll, Anisocytosis 2+, Microcytosis 1+, Macrocytosis 1+ 01/19/21 13:05: Sodium 135 L, Potassium 5.0, Chloride 101, Carbon Dioxide 24.0, Anion Gap 10, BUN 13, Creatinine 0.73, Estim Creat Clear Calc 46.54, Est GFR (MDRD) Af Amer 100, Est GFR (MDRD) Non-Af 82, BUN/Creatinine Ratio 17.8, Glucose 121 H, Calcium 9.1, Total Bilirubin 0.80, AST 46 H, ALT 23, Alkaline Phosphatase 208 H, Troponin I High Sens 124 H*, Total Protein 7.0, Albumin 2.4 L, Globulin 4.6 H, Albumin/Globulin Ratio 0.5 L 01/19/21 13:05: B-Natriuretic Peptide 38.7 01/19/21 13:22: PT 18.5 H, INR 1.6, APTT 45.6 H 01/19/21 13:22: Lactic Acid 1.5 01/19/21 14:06: COVID-19 (BONNY) Detected 01/19/21 16:45: Troponin I High Sens 108 H 01/19/21 19:35: Urine Color Yellow, Urine Clarity Clear, Urine pH 6.5, Ur Specific [place] 1.010, Urine Protein 15 H, Urine Glucose (UA) Normal, Urine Ketones 5 H, Urine Occult Blood Negative, Urine Nitrite Negative, Urine Bilirubin Negative, Urine Urobilinogen 1 H, Ur Leukocyte Esterase 100 H, Urine RBC 0-5 SEEN, Urine WBC 10-25 SEEN, Ur Squamous Epith Cells 0-5 SEEN, Urine Bacteria 2+, Urine Mucus 0 SEEN 01/19/21 23:55: D-Dimer Quant (PE/DVT) 1.45 H* 01/19/21 23:55: Troponin I High Sens 107 H 01/20/21 00:40: POC Glucose 140 H 01/20/21 01:45: Troponin I High Sens 102 H 01/20/21 01:45: WBC 1.8 L, RBC 2.96 L, Hgb 10.2 L, Hct 30.1 L, MCV 101.7 H, MCH 34.5 H, MCHC 33.9, RDW Std Deviation 67.7 H, RDW Coeff of Rani 18.0 H, Plt Count 123 L, MPV 11.1, Immature Gran % (Auto) 0.600, Neut % (Auto) 61.7, Lymph % (Auto) 28.3, [place] % (Auto) 9.4, Eos % (Auto) 0.0, Baso % (Auto) 0.0, Absolute Neuts (auto) 1.1 L, Absolute Lymphs (auto) 0.51 L, Nucleated RBC % 0, Diff Path Review May foll, Anisocytosis 2+ 01/20/21 04:30: Sodium 137, Potassium 3.8, Chloride 106, Carbon Dioxide 21.0, Anion Gap 10, BUN 16, Creatinine 0.62, Estim Creat Clear Calc 46.54, Est GFR (MDRD) Af Amer 120, Est GFR (MDRD) Non-Af 99, BUN/Creatinine Ratio 25.7 H, Glucose 174 H, Calcium 8.5, Total Bilirubin 0.50, AST 29, ALT 18, Alkaline Phosphatase 184 H, Troponin I High Sens 103 H, Total Protein 6.2 L, Albumin 2.2 L, Globulin 4.0, Albumin/Globulin Ratio 0.6 L Micro: Microbiology 01/19/21 19:35 Urine, Random Streptococcus pneumoniae Antigen (M - Final 01/19/21 19:35 Urine, Random Legionella Antigen - Final Radiography Diagnostic Testing: Radiology Impression Chest X-Ray 01/19/21 12:25 IMPRESSION: Patchy interstitial infiltrates. Consider possible viral pneumonia potentially asymmetric edema could have this appearance. Electronically Signed: Isis Yu MD at 13:49 EST Tel , Service support , Physical Exam Narrative GENERAL: cooperative HEENT: Atraumatic; EYES; Anicteric, Normal Conjunctiva NECK; supple, normal thyroid, RESPIRATORY: Diminished to auscultation CARDIOVASCULAR: Regular S1 S2, GI: soft, normoactive bowel sounds, : No Renal angle tenderness; EXTREMITIES: No edema, no clubbing, MUSCULOSKELETAL: no muscle waisting NEURO: Awake; no lateralizing signs. SKIN: No Rash PSYCH; Flat affect Assessment & Plan Assessment/Plan (1) COVID-19: (2) Elevated troponin: PLAN: Patient is a 75-year-old lady with history of diffuse brief cell lymphoma recent hospitalization for staph epi septic shock source from skin, who presented with progressive shortness of breath. An assessment of COVID-19 pneumonia made admitted to regular nursing floor later transferred to the ICU due to low blood pressure requiring pressors 1. Acute hypoxic respiratory failure ?Secondary to COVID-19 pneumonia. Patient started on Decadron in addition to supplemental oxygen 2. Hypotension ?Patient had to be transferred from [facility] floor to ICU and subsequently started on norepinephrine with plans to wean it off this a.m. 3. Diffuse large B-cell lymphoma ?Patient is managed by heme-onc as outpatient patient to continue with care following her discharge 4. Diabetes mellitus type 2 ?Patient oral hypoglycemic agent held please on Accu-Cheks before meals and at bedtime with sliding scale coverage 5. Hypothyroidism - Patient is on levothyroxine home dose continued 6. Elevated cardiac enzymes ?Wanda to be secondary to demand ischemia Case discussed with cardiology, plan is for medical management at this point 7. Dyslipidemia -Patient is on statin therapy, continued at home dose 8. Hypercoagulable state ?With history of factor V Leyden mutation as well as prothrombin gene mutation with previous pulmonary embolism. Patient is on systemic anticoagulation with apixaban did continue 9. DVT prophylaxis ?On Eliquis er Charges/Coding Visit Charges Inpatient E&M: 83002 Subs Hosp L3
--- NOTE | 2021-01-20 07:41 | EX.PCM.CONCC ---
Assessment & Plan Assessment/Plan (1) COVID-19: PLAN: RECOMMENDATIONS: 1. Utilize supplemental oxygen to maintain saturations at or above 90%. 2. Continue Levophed to maintain the mean arterial pressure at or above 65 mmHg. 3. Start scheduled midodrine 3 times daily. 4. Antimicrobials as ordered. 5. Continue Decadron to complete 10 days of therapy. 6. Continue Eliquis per home regimen. 7. Encourage incentive spirometer use and mobilize patient as tolerated. IMPRESSIONS: 1. COVID-19 pneumonia with associated hypoxemia The patient presented to the hospital on January 17 with worsening dyspnea and cough after having been exposed to a family member who was Covid positive. She is currently doing well from a respiratory perspective with minimal oxygen requirement. The patient is on baseline Eliquis, so PE is unlikely. The patient has been initiated on Decadron accordingly, which will be continued to complete a 10-day treatment course. 2. Shock Likely septic in etiology with gram-negative rods identified on preliminary urine culture. Plan to continue vasopressor support to maintain a mean arterial pressure at or above 65 mmHg. The patient will also be initiated on scheduled midodrine today. Antibiotics will be initiated. 3. Troponin elevation/new onset atrial fibrillation Likely secondary to demand ischemia in the setting of #1 and 2. Will obtain echocardiogram. 4. Pancytopenia Counts are stable at this time. Continue to monitor daily. 5. Factor V Leiden/diffuse large B-cell lymphoma Continue Eliquis per home regimen. 6. Obesity/advanced age/recent chemotherapy/hypothyroidism/gout/diabetes mellitus Complicates care, management, recovery and prognosis. Hold home antihypertensives and diuretics. Continue sliding scale insulin coverage. TIME: 37 minutes of critical care time, independent of procedures, was spent addressing the patient's COVID-19 pneumonia with associated hypoxemia, septic shock, troponin elevation, pancytopenia, review of all data and collaboration with the care team. HPI Consult Data Date of Consult: 01/20/21 HPI Narrative Reason for Consultation: COVID-19 pneumonia HPI Narrative: The patient is a 75-year-old female, with a history as outlined below, who presented to the emergency department on January 19 with shortness of breath and cough. The patient was just discharged from the hospital on January 07 after having been admitted with encephalopathy and staph epidermidis septic shock. The patient was visited by her daughter during her last hospitalization who was unknowingly positive for Covid. On presentation to the emergency department, the patient was noted to be afebrile and hemodynamically stable. Initial laboratory evaluation revealed evidence of chronic pancytopenia. D-dimer was noted to be 1.45. Chemistry profile was unremarkable. Troponin was elevated at 124. Covid PCR was positive. Chest x-ray demonstrated patchy bilateral airspace opacities. The patient was initially started on Decadron. The patient was initially admitted to the medical floor, but had to be transferred to the ICU on January 20 after she developed hypotension requiring vasopressor support. The patient is currently hemodynamically stable on Levophed at 5 mcg/min. She is maintaining appropriate oxygen saturations on 3 L/min via nasal cannula. 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, lymph nodes of multiple sites DLBCL (diffuse large B cell lymphoma) Elevated serum creatinine Encounter for chemotherapy management Factor V Leiden, prothrombin gene mutation Frequent falls Gout High cholesterol History of pulmonary embolism Hypertension Hypotension Hypothyroidism Macrocytic anemia Non-smoker Obesity Oral candidiasis Pulmonary embolism Pulmonary embolism Stomatitis Thyroid disease Walker as ambulation aid Wears dentures Wears glasses Home Medications allopurinol 100 mg PO BID 07/10/20 [History Last Taken 07/10/20 07:00] amitriptyline 75 mg PO QHS 07/10/20 [History Last Taken 07/09/20 22:00] levothyroxine 88 mcg PO DAILY 07/10/20 [History Last Taken 07/10/20 07:00] metformin 500 mg PO BID 07/10/20 [History Last Taken 07/07/20 22:00] potassium chloride 20 meq PO DAILY 07/10/20 [History Last Taken 07/10/20 07:00] pravastatin 10 mg PO QHS 07/10/20 [History Last Taken 07/09/20 22:00] docosahexaenoic acid-epa 3 cap PO DAILY 08/05/20 [History Last Taken Unknown] lidocaine-prilocaine 2.5 %-2.5 % topical cream 1 applic TOPICAL ONCE PRN 30 Days #30 g 08/05/20 [Rx Last Taken Unknown] ondansetron 8 mg disintegrating tablet 8 mg PO Q8H PRN #30 tab 08/05/20 [Rx Last Taken Unknown] prochlorperazine maleate [Compazine] 10 mg PO Q6H PRN 08/05/20 [History Last Taken Unknown] oxycodone-acetaminophen [Endocet] 1 tab PO Q6H PRN 2 Days #5 tab 08/14/20 [Rx Last Taken Unknown] apixaban 5 mg tablet 5 mg PO BID 09/26/20 [History Last Taken Unknown] MAGIC MOUTH WASH (BMX) 180 mL suspension 10 ml PO Q6H PRN #180 ml 10/28/20 [Rx Last Taken Unknown] oxycodone-acetaminophen [Endocet] 1 tab PO Q6H PRN 3 Days #12 tab 12/02/20 [Rx Last Taken Unknown] furosemide 40 mg tablet 20 mg PO DAILY tab 12/05/20 [History Last Taken Unknown] metoprolol succinate 100 mg tablet,extended release 24 hr 25 mg PO DAILY tab 12/05/20 [History Last Taken Unknown] prednisone 100 mg PO DAILY 12/31/20 [History Last Taken Unknown] cephalexin 500 mg PO TID #21 cap 01/07/21 [Rx Last Taken Unknown] Allergy/AdvReac Type Severity Reaction Status Date / Time No Known Allergies Allergy Verified 12/05/20 09:05 Family History Mother Diabetes Heart disease Brother Cancer Father Diabetes Heart disease Surgical History History of bilateral knee replacement History of cataract removal with insertion of prosthetic lens History of cholecystectomy History of tubal ligation Social History Smoking Status: Never smoker second hand exposure: No alcohol intake: never substance use type: does not use rahul/scientology: Yarsanism seatbelt use: always do you feel safe at home: Yes ROS Constitutional Constitutional: Reports fatigue; Denies chills or fever(s) Eyes Eyes: Denies blurry vision or change in vision ENT HEENT: Denies headache(s) or loss taste/smell Cardiovascular Cardiovascular: Reports dyspnea Respiratory/Chest Respiratory/Chest: Reports cough and dyspnea Gastrointestinal Gastrointestinal: Denies abdominal pain, diarrhea, nausea or vomiting Genitourinary Genitourinary: Denies difficulty urinating Musculoskeletal Musculoskeletal: Denies arthralgias Integumentary Integumentary: Denies lesions or rash Neurologic Neurologic: Denies abnormal gait Psychiatric Psychiatric: Denies anxiety or depression Endocrine Endocrinology: Reports fatigue Hematologic/Lymphatic Hematologic/Lymphatic: Denies easy bleeding or easy bruising Physical Exam Const alert and no apparent distress General Appearance: cooperative Nutritional Appearance: obese HEENT normocephalic and head/scalp atraumatic Eyes PERRL, EOMs intact bilaterally and conjunctivae normal Neck supple General: trachea midline Chest Chest Narrative: Chest port in place Resp Effort and Inspection: tachypneic; Negative for labored Auscultation: diminished lung sounds Cardio Rate: tachycardic Rhythm: abnormal rhythm GI normal to inspection, nondistended, normoactive bowel sounds Extremity no clubbing, cyanosis or edema Skin no rashes or lesions noted Neuro no focal motor deficits Psych cooperative and affect normal Lab / Micro Data Result Diagrams: 01/20/21 01:45 01/20/21 04:30 Labs: Laboratory Results - last 24 hr 01/19/21 13:05: WBC 3.4 L, RBC 3.59 L, Hgb 12.1, Hct 36.9 L, MCV 102.8 H, MCH 33.7 H, MCHC 32.8, RDW Std Deviation 69.3 H, RDW Coeff of Rani 18.0 H, Plt Count 143 L, MPV 11.1, Immature Gran % (Auto) 0.900, Neut % (Auto) 65.4, Lymph % (Auto) 15.2 L, [place] % (Auto) 17.6 H, Eos % (Auto) 0.3, Baso % (Auto) 0.6, Absolute Neuts (auto) 2.2, Absolute Lymphs (auto) 0.51 L, Nucleated RBC % 0, Differential Comment SCANNED, Diff Path Review May foll, Anisocytosis 2+, Microcytosis 1+, Macrocytosis 1+ 01/19/21 13:05: Sodium 135 L, Potassium 5.0, Chloride 101, Carbon Dioxide 24.0, Anion Gap 10, BUN 13, Creatinine 0.73, Estim Creat Clear Calc 46.54, Est GFR (MDRD) Af Amer 100, Est GFR (MDRD) Non-Af 82, BUN/Creatinine Ratio 17.8, Glucose 121 H, Calcium 9.1, Total Bilirubin 0.80, AST 46 H, ALT 23, Alkaline Phosphatase 208 H, Troponin I High Sens 124 H*, Total Protein 7.0, Albumin 2.4 L, Globulin 4.6 H, Albumin/Globulin Ratio 0.5 L 01/19/21 13:05: B-Natriuretic Peptide 38.7 01/19/21 13:22: PT 18.5 H, INR 1.6, APTT 45.6 H 01/19/21 13:22: Lactic Acid 1.5 01/19/21 14:06: COVID-19 (BONNY) Detected 01/19/21 16:45: Troponin I High Sens 108 H 01/19/21 19:35: Urine Color Yellow, Urine Clarity Clear, Urine pH 6.5, Ur Specific [place] 1.010, Urine Protein 15 H, Urine Glucose (UA) Normal, Urine Ketones 5 H, Urine Occult Blood Negative, Urine Nitrite Negative, Urine Bilirubin Negative, Urine Urobilinogen 1 H, Ur Leukocyte Esterase 100 H, Urine RBC 0-5 SEEN, Urine WBC 10-25 SEEN, Ur Squamous Epith Cells 0-5 SEEN, Urine Bacteria 2+, Urine Mucus 0 SEEN 01/19/21 23:55: D-Dimer Quant (PE/DVT) 1.45 H* 01/19/21 23:55: Troponin I High Sens 107 H 01/20/21 00:40: POC Glucose 140 H 01/20/21 01:45: Troponin I High Sens 102 H 01/20/21 01:45: WBC 1.8 L, RBC 2.96 L, Hgb 10.2 L, Hct 30.1 L, MCV 101.7 H, MCH 34.5 H, MCHC 33.9, RDW Std Deviation 67.7 H, RDW Coeff of Rani 18.0 H, Plt Count 123 L, MPV 11.1, Immature Gran % (Auto) 0.600, Neut % (Auto) 61.7, Lymph % (Auto) 28.3, [place] % (Auto) 9.4, Eos % (Auto) 0.0, Baso % (Auto) 0.0, Absolute Neuts (auto) 1.1 L, Absolute Lymphs (auto) 0.51 L, Nucleated RBC % 0, Diff Path Review May foll, Anisocytosis 2+ 01/20/21 04:30: Sodium 137, Potassium 3.8, Chloride 106, Carbon Dioxide 21.0, Anion Gap 10, BUN 16, Creatinine 0.62, Estim Creat Clear Calc 46.54, Est GFR (MDRD) Af Amer 120, Est GFR (MDRD) Non-Af 99, BUN/Creatinine Ratio 25.7 H, Glucose 174 H, Calcium 8.5, Total Bilirubin 0.50, AST 29, ALT 18, Alkaline Phosphatase 184 H, Troponin I High Sens 103 H, Total Protein 6.2 L, Albumin 2.2 L, Globulin 4.0, Albumin/Globulin Ratio 0.6 L Micro: Microbiology 01/19/21 19:35 Urine, Random Streptococcus pneumoniae Antigen (M - Final 01/19/21 19:35 Urine, Random Legionella Antigen - Final Radiology Impression Chest X-Ray 01/19/21 12:25 IMPRESSION: Patchy interstitial infiltrates. Consider possible viral pneumonia potentially asymmetric edema could have this appearance. Electronically Signed: Isis Yu MD at 13:49 EST Tel , Service support , Charges/Coding Procedures Hospitalists Procedures: [id number] Critial Care 1st Hr
--- NOTE | 2021-01-20 07:56 | ECHOLC_ITS ---
Reason For Study: CAD/ASHD Procedure This was a limited 2D transthoracic echocardiogram. The study was technically difficult. Contrast injection was performed. Exam performed portable in ICU/CCU. The exam was abbreviated due to the COVID 19 protocol. Left Ventricle Normal LV size. Left ventricular systolic function is normal. The estimated ejection fraction is 55 %. No regional wall motion abnormalities noted. Right Ventricle Normal RV size. Normal systolic function. Atria Normal left atrium. Normal right atrium. Mitral Valve Normal mitral valve. Tricuspid Valve Normal tricuspid valve. Aortic Valve The aortic valve is not well visualized. Pulmonic Valve The pulmonic valve is not well visualized. Great Vessels Normal aortic root. Pericardium/Pleural No pericardial effusion. Medication Diluted definity 2ml given slow IV push to enhance endocardial definition. MMode/2D Measurements & Calculations LVIDd: 3.7 cm IVSd: 0.96 cm LVIDs: 2.8 cm LVPWd: 1.0 cm FS: 23.3 % ECHO/Echo Limited w/Contrast Interpretation Summary Normal LV size. Left ventricular systolic function is normal. The estimated ejection fraction is 55 %. Contrast injection was performed. Ordering Physician: Marito Perez Referring Physician: Delta Carolina Performed By: Micheal Ramires RCS
[2021-01-20 08:35] LABS: Bedside Glucose 147 mg/dL (70-110)
[2021-01-20] MEDS: Levothyroxine 88 MCG Tablet PO (08:44)
[2021-01-20] MEDS: Potassium Chloride Oral Tablet 20 MEQ PO (08:44)
[2021-01-20] MEDS: APIXABAN 5 MG TABLET PO ×2 (08:44→20:44)
[2021-01-20] MEDS: Omega-3 Acid Ethyl Esters 1 GM Capsule 3 GM PO (08:44)
[2021-01-20] MEDS: Allopurinol 100 MG Tablet PO ×2 (08:44→20:45)
[2021-01-20] MEDS: dexAMETHasone 2 MG TABLET 6 MG PO (08:44)
--- NOTE | 2021-01-20 11:26 | CASEMGMT ---
Addendum entered by Angelita Spencer 01/20/21 12:21: SW spoke w/[facility], they do have the staff to see pt for therapy once she is discharged from the hospital. Pt's daughter Sara then called back, she confirmed plan is for pt to come home to her house at discharge. She states she has a clean bill of health and I'm good to go, as she also had COVID. SW also checked w/daughter, pt is not on home oxygen. In regard to getting pt to her PCP, they just hadn't gotten to it yet. SW remains available for any additional social service needs. SAMMI Hu Original Note: Social Work SW participated in ICU rounds, spoke w/pt in room about how she has been managing at home, and anticipated discharge plan. Pt had been staying w/granddaughter Vanesa since discharge on 01/07/21. Pt was to start home health care, however pt is here in the hospital now so has not started. She is not sure of which company. Pt did get her prescriptions filled and has been taking her medication since discharge, pt has not gotten in to see her physician since leaving the hospital however. Pt states she was managing well at home, however when her cough got worse and she started getting weaker, she came to the hospital. Pt anticipates being able to return home at discharge. She plans to go home w/her daughter Sara however rather than her granddaughter. SW explained that we will continue to follow along for any additional homegoing needs, and to refer back to the home health agency to make sure that they can take her back. ALEE called daughter Sara and left a message, requesting a call back. ALEE called Dr. Carolina's office to ask where the home health referral was made, the company is [facility], the number is [phone]. ALEE called, geographically they can still service pt if she goes to her daughter's, the granddaughter is also in [place]. However, since pt does have COVID, they do not have any COVID nurses who could see pt, their nurse could see pt after she's out of quarantine. She will check w/her vendor for PT/OT to see if they can see pt. If they can, and pt doesn't need nursing right away, they can still take pt. She is to let SW know. SAMMI Hu
[2021-01-20] MEDS: Insulin Lispro 100 UNIT/ML INSULN.PEN SC ×3 (11:27→20:45)
[2021-01-20] MEDS: Midodrine HCl 5 MG Tablet 10 MG PO ×2 (11:50→16:30)
[2021-01-20 11:55] LABS: Bedside Glucose 217 mg/dL (70-110)
--- NOTE | 2021-01-20 16:06 | CHAPLAIN ---
Type of Pastoral Visit _x__ Initial Visit ___ Follow-up Visit ___ On-call Visit ___ General Patient Visit ___ Spiritual Assessment ___ Family Conference ___ Bereavement ___ Rapid Response ___ Code Blue _x__ Other (describe below) Pastoral Care Referral From _x__ Patient ___ Family ___ Nurse ___ Physician ___ Negative Checker ___ Adult And Pediatric Neurologist ___ Other (describe below) Sacrament/Intervention _x__ Active listening ___ Anointing ___ Spiritism ___ Bereavement ___ Communion ___ Coco exploration ___ ___ Life review _x__ Prayer ___ Reconciliation ___ Sacrament of Sick ___ Supportive presence ___ Wedding ___ Other (describe below) Pastoral Comments phone call made into isolation room and patient was able to talk briefly; pt welcomed the call for support and a prayer; only concern was for getting better
--- NOTE | 2021-01-20 16:50 | CON.PCM.CA_ITS ---
Assessment & Plan Assessment/Plan (1) Elevated troponin: PLAN: Patient has evidence of elevated troponin which is likely secondary to demand ischemia. An echocardiogram performed today demonstrates preserved left ventricular systolic function. In addition to troponin pattern appears to be flat after initial elevation. My recommendation at this time would be to continue supportive therapy. No cardiac medication changes will be recommended. We will follow peripherally. Please reconsult as necessary. Thank you for allowing me to participate in the care of your patient. Please don't hesitate to call if any issues arise. HPI Consult Data Date of Consult: 01/20/21 HPI Narrative HPI Narrative: LEANDRO HELMS, is a 75 F who presents to the ED at [facility] on 01/19/2021 with a chief complaint of progressively worsening nonproductive cough. Patient reports that for the past 3 weeks she has developed a cough that has gotten progressively worse. Of note, patient was admitted on 12/31/2020 for acute metabolic encephalopathy secondary to lacey teremia. Blood cultures during last admission revealed staph epidermidis. During last admission, patient was visited by her daughter who was unknowingly Covid positive and did not wear a mask while in the room. Rapid Covid is obtained twice during last admission and was negative both times. ID advised patient to obtain updated Covid exam after discharge. Patient did not obtain updated Covid test, but today presents to the ED with Covid positive PCR. Patient denies any other infectious symptoms besides cough. Denies chest pain, shortness of breath, palpitations, hemoptysis, sputum production, fever, chills, N/V/D. Past medical history is significant for B-cell lymphoma which she is man aging with Dr. Bowers. Vital signs in the ED are temperature of 98 ?F, HR of 120, BP of 146/73, RR of 16 and patient is currently satting 95% on room air. EKG in the in the ED revealed sinus tachycardia. Chest x-ray revealed patchy interstitial infiltrates which is suggestive of possible viral pneumonia. CBC shows WBCs at 3.4, hemoglobin of 12.1 and platelets at 143. BMP shows sodium 135, potassium 5 and creatinine at 0.73. High-sensitivity troponin was elevated at 124 and 108 respectively. Cardiology was therefore consulted. Patient was given Decadron and placed on supplemental oxygen in the ED. 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, lymph nodes of multiple sites DLBCL (diffuse large B cell lymphoma) Elevated serum creatinine Encounter for chemotherapy management Factor V Leiden, prothrombin gene mutation Frequent falls Gout High cholesterol History of pulmonary embolism Hypertension Hypotension Hypothyroidism Macrocytic anemia Non-smoker Obesity Oral candidiasis Pulmonary embolism Pulmonary embolism Stomatitis Thyroid disease Walker as ambulation aid Wears dentures Wears glasses Home Medications allopurinol 100 mg PO BID 07/10/20 [History Last Taken 07/10/20 07:00] amitriptyline 75 mg PO QHS 07/10/20 [History Last Taken 07/09/20 22:00] levothyroxine 88 mcg PO DAILY 07/10/20 [History Last Taken 07/10/20 07:00] metformin 500 mg PO BID 07/10/20 [History Last Taken 07/07/20 22:00] potassium chloride 20 meq PO DAILY 07/10/20 [History Last Taken 07/10/20 07:00] pravastatin 10 mg PO QHS 07/10/20 [History Last Taken 07/09/20 22:00] docosahexaenoic acid-epa 3 cap PO DAILY 08/05/20 [History Last Taken Unknown] lidocaine-prilocaine 2.5 %-2.5 % topical cream 1 applic TOPICAL ONCE PRN 30 Days #30 g 08/05/20 [Rx Last Taken Unknown] ondansetron 8 mg disintegrating tablet 8 mg PO Q8H PRN #30 tab 08/05/20 [Rx Last Taken Unknown] prochlorperazine maleate [Compazine] 10 mg PO Q6H PRN 08/05/20 [History Last Taken Unknown] oxycodone-acetaminophen [Endocet] 1 tab PO Q6H PRN 2 Days #5 tab 08/14/20 [Rx Last Taken Unknown] apixaban 5 mg tablet 5 mg PO BID 09/26/20 [History Last Taken Unknown] MAGIC MOUTH WASH (BMX) 180 mL suspension 10 ml PO Q6H PRN #180 ml 10/28/20 [Rx Last Taken Unknown] oxycodone-acetaminophen [Endocet] 1 tab PO Q6H PRN 3 Days #12 tab 12/02/20 [Rx Last Taken Unknown] furosemide 40 mg tablet 20 mg PO DAILY tab 12/05/20 [History Last Taken Unknown] metoprolol succinate 100 mg tablet,extended release 24 hr 25 mg PO DAILY tab 12/05/20 [History Last Taken Unknown] prednisone 100 mg PO DAILY 12/31/20 [History Last Taken Unknown] cephalexin 500 mg PO TID #21 cap 01/07/21 [Rx Last Taken Unknown] Allergy/AdvReac Type Severity Reaction Status Date / Time No Known Allergies Allergy Verified 12/05/20 09:05 Family History Mother Diabetes Heart disease Brother Cancer Father Diabetes Heart disease Surgical History History of bilateral knee replacement History of cataract removal with insertion of prosthetic lens History of cholecystectomy History of tubal ligation Social History Smoking Status: Never smoker second hand exposure: No alcohol intake: never substance use type: does not use rahul/religious: Anabaptism seatbelt use: always do you feel safe at home: Yes ROS Constitutional Constitutional: Denies fever(s) or weight loss Eyes Eyes: Reports systems reviewed and no addt'l complaints, except as documented ENT HEENT: Reports systems reviewed and no addt'l complaints, except as documented Cardiovascular Cardiovascular: Denies chest pain at rest, chest pain with activity, dyspnea at rest, dyspnea on exertion, edema, palpitations or paroxysmal nocturnal dyspnea Respiratory/Chest Respiratory/Chest: Denies dyspnea on exertion, productive cough, shortness of breath at rest or shortness of breath with exertion Gastrointestinal Gastrointestinal: Denies change in bowel habits, nausea, vomiting or weight changes Genitourinary Genitourinary: Denies difficulty urinating Musculoskeletal Musculoskeletal: Denies joint stiffness or muscle weakness Integumentary Integumentary: Denies lesions Neurologic Neurologic: Denies dizziness or syncope Psychiatric Psychiatric: Denies anxiety Endocrine Endocrinology: Denies excessive sweating or fatigue Hematologic/Lymphatic Hematologic/Lymphatic: Denies anemia Allergic/Immunologic Allergic/Immunologic: Denies seasonal rhinorrhea Physical Exam Const alert, oriented x3 and no apparent distress General Appearance: cooperative HEENT hearing grossly normal bilaterally Head and Scalp: atraumatic Eyes EOMs intact bilaterally Neck General: normal visual inspection Chest inspection of chest normal and palpation of chest normal Resp normal respiratory effort Auscultation: clear to auscultation bilaterally Cardio regular rate, regular rhythm, S1 normal heart sound and S2 normal heart sound Jugular Venous Distention: JVD GI normal to inspection, nondistended, normoactive bowel sounds Extremity normal capillary refill and no pedal edema Peripheral Pulses: Yes pulses 2+ throughout and femoral pulses present Skin no rashes or lesions noted Neuro oriented x3 and CN's II-XII intact bilaterally Psych Appearance: grossly normal and appropriate Risk Stratification Risk Stratification Applicable: No Objective Data Vital Signs: Vital Signs Temp Pulse Resp BP Pulse Ox 98.9 F 104 H 18 119/63 94 01/20/21 12:00 01/20/21 15:00 01/20/21 13:01 01/20/21 15:00 01/20/21 16:36 Oxygen Flow Rate (L/min) 2 Oxygen Delivery Method Nasal Cannula Weight: 223 lb 1.725 oz Body Mass Index (BMI) 34.7 Intake & Output: Intake and Output for Last 24 Hours 01/18/21 01/19/21 01/20/21 23:59 23:59 23:59 Intake Total 1537.44 / 1537.44 Output Total 550 / 550 Balance 987.44 / 987.44 Lab / Micro Data Result Diagrams: 01/20/21 01:45 01/20/21 04:30 Labs: Laboratory Results - last 24 hr 01/19/21 14:06: COVID-19 (BONNY) Detected 01/19/21 16:45: Troponin I High Sens 108 H 01/19/21 19:35: Urine Color Yellow, Urine Clarity Clear, Urine pH 6.5, Ur Sp ecific [place] 1.010, Urine Protein 15 H, Urine Glucose (UA) Normal, Urine Ketones 5 H, Urine Occult Blood Negative, Urine Nitrite Negative, Urine Bilirub in Negative, Urine Urobilinogen 1 H, Ur Leukocyte Esterase 100 H, Urine RBC 0-5 SEEN, Urine WBC 10-25 SEEN, Ur Squamous Epith Cells 0-5 SEEN, Urine Bacteria 2+, Urine Mucus 0 SEEN 01/19/21 23:55: D-Dimer Quant (PE/DVT) 1.45 H* 01/19/21 23:55: Troponin I High Sens 107 H 01/20/21 00:40: POC Glucose 140 H 01/20/21 01:45: Troponin I High Sens 102 H 01/20/21 01:45: WBC 1.8 L, RBC 2.96 L, Hgb 10.2 L, Hct 30.1 L, MCV 101.7 H, MCH 34.5 H, MCHC 33.9, RDW Std Deviation 67.7 H, RDW Coeff of Rani 18.0 H, Plt Count 123 L, MPV 11.1, Immature Gran % (Auto) 0.600, Neut % (Auto) 61.7, Lymph % (Auto) 28.3, [place] % (Auto) 9.4, Eos % (Auto) 0.0, Baso % (Auto) 0.0, Absolute Neuts (auto) 1.1 L, Absolute Lymphs (auto) 0.51 L, Nucleated RBC % 0, Diff Path Review May foll, Anisocytosis 2+ 01/20/21 04:30: Sodium 137, Potassium 3.8, Chloride 106, Carbon Dioxide 21.0, Anion Gap 10, BUN 16, Creatinine 0.62, Estim Creat Clear Calc 46.54, Est GFR (MDRD) Af Amer 120, Est GFR (MDRD) Non-Af 99, BUN/Creatinine Ratio 25.7 H, Glucose 174 H, Calcium 8.5, Total Bilirubin 0.50, AST 29, ALT 18, Alkaline Phosphatase 184 H, Troponin I High Sens 103 H, Total Protein 6.2 L, Albumin 2.2 L, Globulin 4.0, Albumin/Globulin Ratio 0.6 L 01/20/21 08:27: POC Glucose 147 H 01/20/21 11:24: POC Glucose 217 H Micro: Microbiology 01/19/21 19:35 Urine, Random Urine Culture - Preliminary GNR 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 01/20/21 06:32 Mucosa - Nose Respiratory Panel (PCR) - Final 01/19/21 19:35 Urine, Random Streptococcus pneumoniae Antigen (M - Final 01/19/21 19:35 Urine, Random Legionella Antigen - Final Cardiology Labs/Tests 01/19/21 19:35: Urine Color Yellow, Urine Clarity Clear, Urine pH 6.5, Ur Specific [place] 1.010, Urine Protein 15 H, Urine Glucose (UA) Normal, Urine Ketones 5 H, Urine Occult Blood Negative, Urine Nitrite Negative, Urine Bilirubin Negative, Urine Urobilinogen 1 H, Ur Leukocyte Esterase 100 H, Urine RBC 0-5 SEEN, Urine WBC 10-25 SEEN 01/19/21 23:55: D-Dimer Quant (PE/DVT) 1.45 H* 01/20/21 01:45: WBC 1.8 L, RBC 2.96 L, Hgb 10.2 L, Hct 30.1 L, MCV 101.7 H, MCH 34.5 H, MCHC 33.9, Plt Count 123 L, MPV 11.1, Immature Gran % (Auto) 0.600, Neut % (Auto) 61.7, Lymph % (Auto) 28.3, [place] % (Auto) 9.4, Eos % (Auto) 0.0, Baso % (Auto) 0.0, Absolute Neuts (auto) 1.1 L, Nucleated RBC % 0 01/20/21 04:30: Sodium 137, Potassium 3.8, Chloride 106, Carbon Dioxide 21.0, Anion Gap 10, BUN 16, Creatinine 0.62, Est GFR (MDRD) Af Amer 120, Est GFR (MDRD) Non-Af 99, BUN/Creatinine Ratio 25.7 H, Glucose 174 H, Calcium 8.5, Total Bilirubin 0.50 Rhythm: EKG: ECHO: Stress Test: Cardiac Cath: PCI: CT Surgery: Holter monitor: EPS: PPM: CXR: Chest CT Scan: Radiography Diagnostic Testing: Radiology Impression Echocardiogram 01/20/21 07:56 Interpretation Summary Normal LV size. Left ventricular systolic function is normal. The estimated ejection fraction is 55 %. Contrast injection was performed. Ordering Physician: Marito Perez Referring Physician: Delta Carolina Performed By: Micheal Ramires RCS
[2021-01-20 17:40] LABS: Bedside Glucose 191 mg/dL (70-110)
--- NOTE | 2021-01-20 17:50 | PCM.CONS.GEN ---
Assessment & Plan Assessment/Plan (1) Gangrene of toe: PLAN: I reviewed and discussed her case today. She appears to have some tissue loss of the distal fifth toe which is stable without signs of infection. I recommend allowing the site to demarcate. She understands this may simply slough off or she may have progressive tissue loss. I would like to follow her every 1 to 2 weeks to check on the status. The following work up and care recommendations were made: Dressing: I recommend application of Betadine which was applied today and I placed a gauze interdigitally to avoid moisture buildup Wash: Okay to wash with soap and water. To avoid soaking Offload: She is mainly in bed at this time and was advised to wear sandals or slippers and place most of her weight on her heels. Vascular: She has palpable pulses. There is no distinct tissue loss to the other toes. Infection: There are no local signs of lower extremity infection Pain: This is controlled I answered all the patient's questions. Thank you for the consultation. Please do not hesitate to call if you have any questions. Angela Lagos DPM, [facility] [phone] HPI Consult Data Date of Consult: 01/20/21 HPI Narrative Reason for Consultation: Gangrene toe HPI Narrative: LEANDRO HELMS, is a 75 F with lymphoma was admitted for Covid related pneumonia. I saw her bedside early this evening for gangrenous changes to the left fifth toe with an onset of within the past week. She relates she may have stubbed it on something however denies any pain or known deeper injury. She also has some discoloration to the other toenails in which she reports is chronic in nature and has previously resulted in loss of toenails that are soft. She denies redness or odor. She has had long-term paresthesias to the toes. She denies routine claudication. 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, lymph nodes of multiple sites DLBCL (diffuse large B cell lymphoma) Elevated serum creatinine Encounter for chemotherapy management Factor V Leiden, prothrombin gene mutation Frequent falls Gout High cholesterol History of pulmonary embolism Hypertension Hypotension Hypothyroidism Macrocytic anemia Non-smoker Obesity Oral candidiasis Pulmonary embolism Pulmonary embolism Stomatitis Thyroid disease Walker as ambulation aid Wears dentures Wears glasses Home Medications allopurinol 100 mg PO BID 07/10/20 [History Last Taken 07/10/20 07:00] amitriptyline 75 mg PO QHS 07/10/20 [History Last Taken 07/09/20 22:00] levothyroxine 88 mcg PO DAILY 07/10/20 [History Last Taken 07/10/20 07:00] metformin 500 mg PO BID 07/10/20 [History Last Taken 07/07/20 22:00] potassium chloride 20 meq PO DAILY 07/10/20 [History Last Taken 07/10/20 07:00] pravastatin 10 mg PO QHS 07/10/20 [History Last Taken 07/09/20 22:00] docosahexaenoic acid-epa 3 cap PO DAILY 08/05/20 [History Last Taken Unknown] lidocaine-prilocaine 2.5 %-2.5 % topical cream 1 applic TOPICAL ONCE PRN 30 Days #30 g 08/05/20 [Rx Last Taken Unknown] ondansetron 8 mg disintegrating tablet 8 mg PO Q8H PRN #30 tab 08/05/20 [Rx Last Taken Unknown] prochlorperazine maleate [Compazine] 10 mg PO Q6H PRN 08/05/20 [History Last Taken Unknown] oxycodone-acetaminophen [Endocet] 1 tab PO Q6H PRN 2 Days #5 tab 08/14/20 [Rx Last Taken Unknown] apixaban 5 mg tablet 5 mg PO BID 09/26/20 [History Last Taken Unknown] MAGIC MOUTH WASH (BMX) 180 mL suspension 10 ml PO Q6H PRN #180 ml 10/28/20 [Rx Last Taken Unknown] oxycodone-acetaminophen [Endocet] 1 tab PO Q6H PRN 3 Days #12 tab 12/02/20 [Rx Last Taken Unknown] furosemide 40 mg tablet 20 mg PO DAILY tab 12/05/20 [History Last Taken Unknown] metoprolol succinate 100 mg tablet,extended release 24 hr 25 mg PO DAILY tab 12/05/20 [History Last Taken Unknown] prednisone 100 mg PO DAILY 12/31/20 [History Last Taken Unknown] cephalexin 500 mg PO TID #21 cap 01/07/21 [Rx Last Taken Unknown] Allergy/AdvReac Type Severity Reaction Status Date / Time No Known Allergies Allergy Verified 12/05/20 09:05 Family History Mother Diabetes Heart disease Brother Cancer Father Diabetes Heart disease Surgical History History of bilateral knee replacement History of cataract removal with insertion of prosthetic lens History of cholecystectomy History of tubal ligation Social History Smoking Status: Never smoker second hand exposure: No alcohol intake: never substance use type: does not use rahul/gnosticism: Congregational seatbelt use: always do you feel safe at home: Yes ROS Constitutional Constitutional: Denies fever(s) or weight loss Cardiovascular Cardiovascular: Denies dyspnea at rest, dyspnea on exertion, edema or palpitations Respiratory/Chest Respiratory/Chest: Denies productive cough or shortness of breath at rest Gastrointestinal Gastrointestinal: Denies nausea or vomiting Genitourinary Genitourinary: Denies difficulty urinating Musculoskeletal Musculoskeletal: Denies joint stiffness or muscle weakness Integumentary Integumentary: Denies lesions Neurologic Neurologic: Denies dizziness or syncope Psychiatric Psychiatric: Denies anxiety Endocrine Endocrinology: Denies fatigue Hematologic/Lymphatic Hematologic/Lymphatic: Denies anemia Physical Exam Const alert and oriented x3 General Appearance: cooperative HEENT normocephalic Extremity Extremity Narrative: No calf tenderness Palpable PT and DP pulses bilateral lower extremity Muscle wasting noted Active range of motion all digits bilateral General Extremity: edema and no tenderness to palpation of joints or extremities; Negative for cyanosis Skin Skin Narrative: no purulence, no streaking, no odor, no infection. There is a dry well adhered eschar to the distal fifth toe that measures 1.7 x 1.7 cm in diameter. There is no deep tissue exposed or nailbed involvement. There is no bogginess or fluctuance on palpation. There is also absence of bilateral hallux nails with dried hematogenous drainage to the nailbed without deep structures or infection. There is no inner digital maceration or necrosis. Her skin is hairless and atrophic. General Skin Exam: Negative for erythema Neuro Neuro Narrative: Epicritic sensation is intact to light touch bilateral lower extremities. Psych cooperative and affect normal Lab / Micro Data Result Diagrams: 01/20/21 01:45 01/20/21 04:30 Labs: Laboratory Results - last 24 hr 01/19/21 19:35: Urine Color Yellow, Urine Clarity Clear, Urine pH 6.5, Ur Specific [place] 1.010, Urine Protein 15 H, Urine Glucose (UA) Normal, Urine Ketones 5 H, Urine Occult Blood Negative, Urine Nitrite Negative, Urine Bilirubin Negative, Urine Urobilinogen 1 H, Ur Leukocyte Esterase 100 H, Urine RBC 0-5 SEEN, Urine WBC 10-25 SEEN, Ur Squamous Epith Cells 0-5 SEEN, Urine Bacteria 2+, Urine Mucus 0 SEEN 01/19/21 23:55: D-Dimer Quant (PE/DVT) 1.45 H* 01/19/21 23:55: Troponin I High Sens 107 H 01/20/21 00:40: POC Glucose 140 H 01/20/21 01:45: Troponin I High Sens 102 H 01/20/21 01:45: WBC 1.8 L, RBC 2.96 L, Hgb 10.2 L, Hct 30.1 L, MCV 101.7 H, MCH 34.5 H, MCHC 33.9, RDW Std Deviation 67.7 H, RDW Coeff of Rani 18.0 H, Plt Count 123 L, MPV 11.1, Immature Gran % (Auto) 0.600, Neut % (Auto) 61.7, Lymph % (Auto) 28.3, [place] % (Auto) 9.4, Eos % (Auto) 0.0, Baso % (Auto) 0.0, Absolute Neuts (auto) 1.1 L, Absolute Lymphs (auto) 0.51 L, Nucleated RBC % 0, Diff Path Review May foll, Anisocytosis 2+ 01/20/21 04:30: Sodium 137, Potassium 3.8, Chloride 106, Carbon Dioxide 21.0, Anion Gap 10, BUN 16, Creatinine 0.62, Estim Creat Clear Calc 46.54, Est GFR (MDRD) Af Amer 120, Est GFR (MDRD) Non-Af 99, BUN/Creatinine Ratio 25.7 H, Glucose 174 H, Calcium 8.5, Total Bilirubin 0.50, AST 29, ALT 18, Alkaline Phosphatase 184 H, Troponin I High Sens 103 H, Total Protein 6.2 L, Albumin 2.2 L, Globulin 4.0, Albumin/Globulin Ratio 0.6 L 01/20/21 08:27: POC Glucose 147 H 01/20/21 11:24: POC Glucose 217 H 01/20/21 16:31: POC Glucose 191 H Micro: Microbiology 01/19/21 19:35 Urine, Random Urine Culture - Preliminary GNR 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 Left ventricular systolic function is normal. The estimated ejection fraction is 55 %. Contrast injection was performed. Ordering Physician: Marito Perez Referring Physician: Delta Carolina Performed By: Micheal Ramires RCS
[2021-01-20] MEDS: Amitriptyline 25 MG Tablet 75 MG PO (20:44)
[2021-01-20] MEDS: Pravastatin 20 MG Tablet 10 MG PO (20:44)
[2021-01-20 20:56] LABS: Bedside Glucose 171 mg/dL (70-110)
[2021-01-21] VITALS (18 sets, daily range): BP systolic 90–113; BP diastolic 54–78; PULSE 95–126; RESP 10–27; TEMP 35.9–36.9; O2SAT 92–99
[2021-01-21 03:33] LABS: Absolute Neutrophil Count 2.3 X10^3/uL (2.0-7.7); Basophil# 0.01 X10^3/uL; Basophil% 0.3 % (0-1); Hematocrit 30.5 % (37-47); Hemoglobin 10.1 g/dL (12.0-15.0); Lymphocyte % 15.2 % (19-41); Mean Corp Hgb Conc 33.1 g/dL (32-36); Mean Corpuscular Hgb 33.7 pg (27.0-32.0); Mean Corpuscular Volume 101.7 fL (81-99); Mean Platelet Vol. 10.9 fl (6.2-12.0); Monocyte# 0.49 X10^3/uL; Monocyte% 14.8 % (0-10); NRBC Flagged by Analyzer 0 % (0-5); Neutrophil # 2.28 X10^3/uL (2.7-7.7); Neutrophil % 69.1 % (47-70); POSITIVE DIFFERENTIAL YES; POSITIVE MORPHOLOGY YES; Platelet Count 148 K/mm3 (150-450); RBC Distribution Width CV 17.7 % (11.6-14.6); RBC Distribution Width SD 66.2 fl (35.1-43.9); White Blood Count 3.3 K/mm3 (4.4-11.0)
[2021-01-21 03:36] LABS: Differential Indicated SCAN CRITERIA MET
[2021-01-21 03:53] LABS: ALB/GLOB Ratio 0.6 RATIO (0.9-2.4); AST(SGOT) 26 U/L (15-37); Alanine Aminotransfer ALT/SGPT 19 U/L (13-56); Alkaline Phosphatase 170 U/L (45-117); Anion Gap 8 (5-15); BUN 23 mg/dL (7-18); BUN/Creat Ratio 32.8 RATIO (10-20); Bilirubin, Direct 0.16 mg/dL (0.00-0.30); Calcium,Total 8.7 mg/dL (8.5-10.1); Chloride 108 mmol/L (98-107); EST Glomerular Filtration Rate 86 mL/min (>60); Est Glom Filt Rate - Afr Amer 104 mL/min (>60); Estimated Creatinine Clearance 46.54 ml/min; Globulin 3.6 g/dL (2.2-4.2); Glucose 161 mg/dL (74-106); Potassium 3.6 mmol/L (3.5-5.1); Protein, Total 5.6 g/dL (6.4-8.2); Sodium Level 141 mmol/L (136-145)
[2021-01-21 04:35] LABS: Anisocytosis 2+
--- NOTE | 2021-01-21 06:56 | PCM.PN.INT ---
Assessment & Plan Assessment/Plan (1) COVID-19: PLAN: RECOMMENDATIONS: 1. Utilize supplemental oxygen to maintain saturations at or above 90%. 2. Continue scheduled midodrine 3 times daily. 3. Antimicrobials as ordered. 4. Continue Decadron to complete 10 days of therapy. 5. Continue Eliquis per home regimen. 6. Encourage incentive spirometer use and mobilize patient as tolerated. IMPRESSIONS: 1. COVID-19 pneumonia with associated hypoxemia The patient presented to the hospital on January 17 with worsening dyspnea and cough after having been exposed to a family member who was Covid positive. She is currently doing well from a respiratory perspective with minimal oxygen requirement. The patient is on baseline Eliquis, so PE is unlikely. The patient has been initiated on Decadron accordingly, which will be continued to complete a 10-day treatment course. 2. Shock Likely septic in etiology with gram-negative rods identified on preliminary urine culture. The patient has been weaned from vasopressor support remains on midodrine 3 times daily as scheduled. 3. Troponin elevation/new onset atrial fibrillation Likely secondary to demand ischemia in the setting of #1 and 2. Echocardiogram was unrevealing. 4. Pancytopenia Counts are stable at this time. Continue to monitor daily. 5. Factor V Leiden/diffuse large B-cell lymphoma Continue Eliquis per home regimen. 6. Obesity/advanced age/recent chemotherapy/hypothyroidism/gout/diabetes mellitus Complicates care, management, recovery and prognosis. Hold home antihypertensives and diuretics. Continue sliding scale insulin coverage. This note was generated with [employer] dictation software. It may contain incorrect words, spelling, and punctuation that were not noted in checking the note before signing. Subjective Subjective The patient was seen and examined at the bedside this morning. Events from the last 24 hours have been reviewed. The patient is currently afebrile, hemodynamically stable and maintaining appropriate oxygen saturations on 2 L/min via nasal cannula. The patient has been off of Levophed since yesterday evening at 5 PM. She is currently documented to be overall net +1.1 L for the hospitalization. The patient remains on empiric antimicrobials, Eliquis, Decadron and scheduled midodrine. The patient remains pancytopenic, which is stable. Renal function remains within normal limits. Objective Data Objective Data The patient's most recent lab work, culture data and imaging studies have all been personally reviewed. Surface echocardiogram dated January 20 demonstrated normal LV size and function with an ejection fraction of 55%. Preliminary urine culture demonstrated a gram-negative eric, lactose crew scheduler (36981- 83669 CFU per mL) Vital Signs: Vital Signs Temp Pulse Resp BP Pulse Ox 96.7 F L 107 H 18 91/54 L 96 01/21/21 04:00 01/21/21 06:00 01/21/21 06:00 01/21/21 06:00 01/21/21 06:00 Oxygen Flow Rate (L/min) 2 Oxygen Delivery Method Nasal Cannula Weight: 103.3 kg Body Mass Index (BMI) 34.7 Intake & Output: Intake and Output for Last 24 Hours 01/19/21 01/20/21 01/21/21 23:59 23:59 23:59 Intake Total 1617.82 / 1617.82 50 / 50 Output Total 550 / 550 Balance 1067.82 / 1067.82 50 / 50 Lab / Micro Data Attestation: I reviewed the patient's lab results. Result Diagrams: 01/21/21 03:15 01/21/21 03:15 Labs: Laboratory Results - last 24 hr 01/20/21 08:27: POC Glucose 147 H 01/20/21 11:24: POC Glucose 217 H 01/20/21 16:31: POC Glucose 191 H 01/20/21 20:28: POC Glucose 171 H 01/21/21 03:15: WBC 3.3 L, RBC 3.00 L, Hgb 10.1 L, Hct 30.5 L, MCV 101.7 H, MCH 33.7 H, MCHC 33.1, RDW Std Deviation 66.2 H, RDW Coeff of Rani 17.7 H, Plt Count 148 L, MPV 10.9, Immature Gran % (Auto) 0.600, Neut % (Auto) 69.1, Lymph % (Auto) 15.2 L, [place] % (Auto) 14.8 H, Eos % (Auto) 0.0, Baso % (Auto) 0.3, Absolute Neuts (auto) 2.3, Absolute Lymphs (auto) 0.50 L, Nucleated RBC % 0, Diff Path Review May foll, Anisocytosis 2+ 01/21/21 03:15: Sodium 141, Potassium 3.6, Chloride 108 H, Carbon Dioxide 25.0, Anion Gap 8, BUN 23 H, Creatinine 0.70, Estim Creat Clear Calc 46.54, Est GFR (MDRD) Af Amer 104, Est GFR (MDRD) Non-Af 86, BUN/Creatinine Ratio 32.8 H, Glucose 161 H, Calcium 8.7, Total Bilirubin 0.40, Direct Bilirubin 0.16, AST 26, ALT 19, Alkaline Phosphatase 170 H, Total Protein 5.6 L, Albumin 2.0 L, Globulin 3.6, Albumin/Globulin Ratio 0.6 L Micro: Microbiology 01/19/21 19:35 Urine, Random Urine Culture - Preliminary GNR lactose crew scheduler 01/20/21 06:32 Mucosa - Nose Respiratory Panel (PCR) - Final 01/19/21 19:35 Urine, Random Streptococcus pneumoniae Antigen (M - Final 01/19/21 19:35 Urine, Random Legionella Antigen - Final Radiography Diagnostic Testing: Radiology Impression Echocardiogram 01/20/21 07:56 Interpretation Summary Normal LV size. Left ventricular systolic function is normal. The estimated ejection fraction is 55 %. Contrast injection was performed. Ordering Physician: Marito Perez Referring Physician: Delta Carolina Performed By: Micheal Ramires RCS Physical Exam Const alert and no apparent distress General Appearance: cooperative Nutritional Appearance: obese HEENT normocephalic and head/scalp atraumatic Eyes PERRL, EOMs intact bilaterally and conjunctivae normal Neck supple General: trachea midline Chest Chest Narrative: Chest port in place Resp Effort and Inspection: tachypneic; Negative for labored Auscultation: diminished lung sounds Cardio Rate: tachycardic Rhythm: abnormal rhythm GI normal to inspection, nondistended, normoactive bowel sounds Extremity no clubbing, cyanosis or edema Skin no rashes or lesions noted Neuro no focal motor deficits Psych cooperative and affect normal Charges/Coding Visit Charges Inpatient E&M: 31363 Subs Hosp L3
--- NOTE | 2021-01-21 08:22 | PN.HOSP_ITS ---
Subjective Subjective Patient seen, blood pressure remains marginally low. She has been weaned off pressors but started on midodrine urine cultures so far positive for E. coli and possible gram-negative rods?Pseudomonas Objective Data Objective Data Vital Signs: Vital Signs Temp Pulse Resp BP Pulse Ox 96.7 F L 108 H 20 H 94/59 L 95 01/21/21 04:00 01/21/21 07:00 01/21/21 07:00 01/21/21 07:00 01/21/21 07:00 Oxygen Flow Rate (L/min) 2 Oxygen Delivery Method Nasal Cannula Weight: 103.3 kg Body Mass Index (BMI) 34.7 Intake & Output: Intake and Output for Last 24 Hours 01/19/21 01/20/21 01/21/21 23:59 23:59 23:59 Intake Total 1617.82 / 1617.82 50 / 50 Output Total 550 / 550 Balance 1067.82 / 1067.82 50 / 50 Lab / Micro Data Result Diagrams: 01/21/21 03:15 01/21/21 03:15 Labs: Laboratory Results - last 24 hr 01/20/21 08:27: POC Glucose 147 H 01/20/21 11:24: POC Glucose 217 H 01/20/21 16:31: POC Glucose 191 H 01/20/21 20:28: POC Glucose 171 H 01/21/21 03:15: WBC 3.3 L, RBC 3.00 L, Hgb 10.1 L, Hct 30.5 L, MCV 101.7 H, MCH 33.7 H, MCHC 33.1, RDW Std Deviation 66.2 H, RDW Coeff of Rani 17.7 H, Plt Count 148 L, MPV 10.9, Immature Gran % (Auto) 0.600, Neut % (Auto) 69.1, Lymph % (Auto) 15.2 L, [place] % (Auto) 14.8 H, Eos % (Auto) 0.0, Baso % (Auto) 0.3, Absolute Neuts (auto) 2.3, Absolute Lymphs (auto) 0.50 L, Nucleated RBC % 0, Diff Path Review May foll, Anisocytosis 2+ 01/21/21 03:15: Sodium 141, Potassium 3.6, Chloride 108 H, Carbon Dioxide 25.0, Anion Gap 8, BUN 23 H, Creatinine 0.70, Estim Creat Clear Calc 46.54, Est GFR (MDRD) Af Amer 104, Est GFR (MDRD) Non-Af 86, BUN/Creatinine Ratio 32.8 H, Glucose 161 H, Calcium 8.7, Total Bilirubin 0.40, Direct Bilirubin 0.16, AST 26, ALT 19, Alkaline Phosphatase 170 H, Total Protein 5.6 L, Albumin 2.0 L, Globulin 3.6, Albumin/Globulin Ratio 0.6 L Micro: Microbiology 01/19/21 19:35 Urine, Random Urine Culture - Preliminary GNR lactose glass toughening operator 01/20/21 06:32 Mucosa - Nose Respiratory Panel (PCR) - Final 01/19/21 19:35 Urine, Random Streptococcus pneumoniae Antigen (M - Final 01/19/21 19:35 Urine, Random Legionella Antigen - Final Radiography Diagnostic Testing: Radiology Impression Echocardiogram 01/20/21 07:56 Interpretation Summary Normal LV size. Left ventricular systolic function is normal. The estimated ejection fraction is 55 %. Contrast injection was performed. Ordering Physician: Marito Perez Referring Physician: Delta [place] Performed By: Micheal Ramires RCS Physical Exam Narrative GENERAL: cooperative HEENT: Atraumatic; EYES; Anicteric, Normal Conjunctiva NECK; supple, normal thyroid, RESPIRATORY: Diminished to auscultation CARDIOVASCULAR: Regular S1 S2, GI: soft, normoactive bowel sounds, : No Renal angle tenderness; EXTREMITIES: No edema, no clubbing, MUSCULOSKELETAL: no muscle waisting NEURO: Awake; no lateralizing signs. SKIN: No Rash PSYCH; Flat affect Assessment & Plan Assessment/Plan (1) COVID-19: (2) Elevated troponin: PLAN: Patient is a 75-year-old lady with history of diffuse brief cell lymphoma recent hospitalization for staph epi septic shock source from skin, who presented with progressive shortness of breath. An assessment of COVID-19 pneumonia made admitted to regular nursing floor later transferred to the ICU due to low blood pressure requiring pressors 1. Acute hypoxic respiratory failure ?Secondary to COVID-19 pneumonia. Patient started on Decadron in addition to supplemental oxygen 2. Hypotension secondary to septic shock from UTI ?Patient had to be transferred from [facility] floor to ICU and subsequently started on norepinephrine with plans to wean it off this a.m. ?01/21/2021 patient seen, blood pressure remains marginally low. She has been weaned off pressors but started on midodrine urine cultures so far positive for E. coli and possible gram-negative rods?Pseudomonas. Patient remains on Zosyn 3. Diffuse large B-cell lymphoma ?Patient is managed by heme-onc as outpatient patient to continue with care following her discharge 4. Diabetes mellitus type 2 ?Patient oral hypoglycemic agent held please on Accu-Cheks before meals and at bedtime with sliding scale coverage 5. Hypothyroidism - Patient is on levothyroxine home dose continued 6. Elevated cardiac enzymes ?[place] to be secondary to demand ischemia Case discussed with cardiology, plan is for medical management at this point 7. Dyslipidemia -Patient is on statin therapy, continued at home dose 8. Hypercoagulable state ?With history of factor V Leyden mutation as well as prothrombin gene mutation with previous pulmonary embolism. Patient is on systemic anticoagulation with apixaban did continue 9. DVT prophylaxis ?On Eliquis Charges/Coding Visit Charges Inpatient E&M: 05973 Subs Hosp L3
[2021-01-21 09:11] LABS: Pathologist Review Reviewed
[2021-01-21 09:22] LABS: Pathologist Review Reviewed
[2021-01-21] MEDS: Allopurinol 100 MG Tablet PO ×2 (09:37→23:05)
[2021-01-21] MEDS: dexAMETHasone 2 MG TABLET 6 MG PO (09:37)
[2021-01-21] MEDS: Midodrine HCl 5 MG Tablet 10 MG PO ×3 (09:37→16:54)
[2021-01-21] MEDS: Omega-3 Acid Ethyl Esters 1 GM Capsule 3 GM PO (09:37)
[2021-01-21] MEDS: Potassium Chloride Oral Tablet 20 MEQ PO (09:37)
[2021-01-21] MEDS: Levothyroxine 88 MCG Tablet PO (09:37)
[2021-01-21] MEDS: APIXABAN 5 MG TABLET PO ×2 (09:37→23:03)
[2021-01-21] MEDS: Menthol/Lanolin/Calamine/Znox 113 GM Tube 1 APPLIC TOPICAL ×3 (09:40→16:55)
[2021-01-21 11:31] LABS: Bedside Glucose 104 mg/dL (70-110)
[2021-01-21] MEDS: guaiFENesin 10 ML UDC (200MG/10ML) PO (12:38)
[2021-01-21 13:01] LABS: Bedside Glucose 137 mg/dL (70-110)
[2021-01-21 13:31] LABS: Pathologist Review Reviewed
[2021-01-21 16:40] LABS: Bedside Glucose 143 mg/dL (70-110)
--- NOTE | 2021-01-21 17:00 | CASEMGMT ---
DAVI STEARNS readmission note: Prior admission: Admitted 12/31/20 from home w/acute encephalopathy. Original discharge plan was for pt to go to TCU, but d/t being exposed to her daughter who had COVID (was unaware of +COVID during visitation), TCU was unable to accept her. Pt was discharged home to granddaughter's home 01/07/21. Pt had declined HHC @ discharge. Current admission: Admtted 01/19/21 w/COVID and NSTEMI. See Angelita VICKERS, note 01/20/21. Marybel MCCAULEYN DAVI CM
[2021-01-21] MEDS: Piperacil/Tazobactam 3.375 GM/50 ML ML IV (22:45)
[2021-01-21] MEDS: Acetaminophen 325 MG Tablet 650 MG PO (23:03)
[2021-01-21] MEDS: Pravastatin 20 MG Tablet 10 MG PO (23:03)
[2021-01-21] MEDS: Amitriptyline 25 MG Tablet 75 MG PO (23:04)
[2021-01-21 23:30] LABS: Bedside Glucose 145 mg/dL (70-110)
[2021-01-22] VITALS (7 sets, daily range): BP systolic 108–120; BP diastolic 72–79; PULSE 94–111; RESP 18–20; TEMP 36.1–36.8; O2SAT 90–97
[2021-01-22] MEDS: Piperacil/Tazobactam 3.375 GM/50 ML ML IV (05:53)
[2021-01-22 06:11] LABS: Absolute Lymphocyte Count 0.43 X10^3/uL (0.83-4.51); Absolute Neutrophil Count 1.8 X10^3/uL (2.0-7.7); Hematocrit 30.1 % (37-47); Hemoglobin 9.8 g/dL (12.0-15.0); Lymphocyte # 0.43 X10^3/ul (0.83-4.51); Lymphocyte % 15.4 % (19-41); Mean Corp Hgb Conc 32.6 g/dL (32-36); Mean Corpuscular Hgb 33.4 pg (27.0-32.0); Mean Corpuscular Volume 102.7 fL (81-99); Mean Platelet Vol. 11.3 fl (6.2-12.0); Monocyte# 0.56 X10^3/uL; Monocyte% 20.1 % (0-10); NRBC Flagged by Analyzer 0 % (0-5); Neutrophil # 1.79 X10^3/uL (2.7-7.7); Neutrophil % 64.1 % (47-70); POSITIVE DIFFERENTIAL YES; POSITIVE MORPHOLOGY YES; Platelet Count 148 K/mm3 (150-450); RBC Distribution Width CV 17.8 % (11.6-14.6); RBC Distribution Width SD 67.5 fl (35.1-43.9); Red Blood Count 2.93 M/mm3 (4.2-5.4); White Blood Count 2.8 K/mm3 (4.4-11.0)
[2021-01-22 06:12] LABS: Differential Indicated SCAN CRITERIA MET
[2021-01-22 06:49] LABS: ALB/GLOB Ratio 0.5 RATIO (0.9-2.4); AST(SGOT) 32 U/L (15-37); Alanine Aminotransfer ALT/SGPT 22 U/L (13-56); Albumin, Serum 1.9 g/dL (3.2-5.0); Alkaline Phosphatase 166 U/L (45-117); Anion Gap 9 (5-15); BUN 21 mg/dL (7-18); BUN/Creat Ratio 37.6 RATIO (10-20); Bilirubin, Direct 0.12 mg/dL (0.00-0.30); Calcium,Total 8.8 mg/dL (8.5-10.1); Chloride 110 mmol/L (98-107); Creatinine, Serum 0.56 mg/dL (0.55-1.02); EST Glomerular Filtration Rate 112 mL/min (>60); Est Glom Filt Rate - Afr Amer 135 mL/min (>60); Estimated Creatinine Clearance 46.54 ml/min; Globulin 3.6 g/dL (2.2-4.2); Glucose 128 mg/dL (74-106); Potassium 3.4 mmol/L (3.5-5.1); Protein, Total 5.5 g/dL (6.4-8.2); Sodium Level 140 mmol/L (136-145)
[2021-01-22 07:06] LABS: Bedside Glucose 127 mg/dL (70-110)
--- NOTE | 2021-01-22 08:37 | PCM.PN.HOSP ---
Subjective Subjective Patient seen had a relatively uneventful night. Final urine cultures positive for E. coli and Pseudomonas. Currently not requiring any supplemental oxygen. Plan is for patient to be discharged home Objective Data Objective Data Vital Signs: Vital Signs Temp Pulse Resp BP Pulse Ox 97.4 F L 97 18 108/79 97 01/22/21 02:49 01/22/21 06:58 01/22/21 05:55 01/22/21 02:49 01/22/21 05:55 Oxygen Flow Rate (L/min) 2 Oxygen Delivery Method Room Air Weight: 103.5 kg Body Mass Index (BMI) 34.7 Intake & Output: Intake and Output for Last 24 Hours 01/20/21 01/21/21 01/22/21 23:59 23:59 23:59 Intake Total 1617.82 / 1617.82 760 / 760 50 / 50 Output Total 550 / 550 150 / 150 Balance 1067.82 / 1067.82 610 / 610 50 / 50 Lab / Micro Data Result Diagrams: 01/22/21 05:36 01/22/21 05:36 Labs: Laboratory Results - last 24 hr 01/19/21 13:05: Diff Path Review Reviewed 01/20/21 01:45: Diff Path Review Reviewed 01/21/21 03:15: Diff Path Review Reviewed 01/21/21 09:36: POC Glucose 104 01/21/21 12:07: POC Glucose 137 H 01/21/21 16:27: POC Glucose 143 H 01/21/21 22:42: POC Glucose 145 H 01/22/21 05:36: WBC 2.8 L, RBC 2.93 L, Hgb 9.8 L, Hct 30.1 L, MCV 102.7 H, MCH 33.4 H, MCHC 32.6, RDW Std Deviation 67.5 H, RDW Coeff of Rani 17.8 H, Plt Count 148 L, MPV 11.3, Immature Gran % (Auto) 0.400, Neut % (Auto) 64.1, Lymph % (Auto) 15.4 L, [place] % (Auto) 20.1 H, Eos % (Auto) 0.0, Baso % (Auto) 0.0, Absolute Neuts (auto) 1.8 L, Absolute Lymphs (auto) 0.43 L, Nucleated RBC % 0, Diff Path Review May 01/22/21 05:36: Sodium 140, Potassium 3.4 L, Chloride 110 H, Carbon Dioxide 21.0, Anion Gap 9, BUN 21 H, Creatinine 0.56, Estim Creat Clear Calc 46.54, Est GFR (MDRD) Af Amer 135, Est GFR (MDRD) Non-Af 112, BUN/Creatinine Ratio 37.6 H, Glucose 128 H, Calcium 8.8, Total Bilirubin 0.30, Direct Bilirubin 0.12, AST 32, ALT 22, Alkaline Phosphatase 166 H, Total Protein 5.5 L, Albumin 1.9 L, Globulin 3.6, Albumin/Globulin Ratio 0.5 L 01/22/21 06:57: POC Glucose 127 H Micro: Microbiology 01/19/21 19:35 Urine, Random Urine Culture - Final Escherichia coli Pseudomonas aeroginosa 01/19/21 13:28 Blood Culture (Wb) - Left Hand Blood Culture - Preliminary No growth in 48 hours. 01/19/21 13:05 Blood Culture (Wb) - Anticubital Left Blood Culture - Preliminary No growth in 48 hours. 01/20/21 06:32 Mucosa - Nose Respiratory Panel (PCR) - Final 01/19/21 19:35 Urine, Random Streptococcus pneumoniae Antigen (M - Final 01/19/21 19:35 Urine, Random Legionella Antigen - Final Physical Exam Narrative GENERAL: cooperative HEENT: Atraumatic; EYES; Anicteric, Normal Conjunctiva NECK; supple, normal thyroid, RESPIRATORY: Diminished to auscultation CARDIOVASCULAR: Regular S1 S2, GI: soft, normoactive bowel sounds, : No Renal angle tenderness; EXTREMITIES: No edema, no clubbing, MUSCULOSKELETAL: no muscle waisting NEURO: Awake; no lateralizing signs. SKIN: No Rash PSYCH; Flat affect Assessment & Plan Assessment/Plan (1) COVID-19: (2) Elevated troponin: PLAN: Patient is a 75-year-old lady with history of diffuse brief cell lymphoma recent hospitalization for staph epi septic shock source from skin, who presented with progressive shortness of breath. An assessment of COVID-19 pneumonia made admitted to regular nursing floor later transferred to the ICU due to low blood pressure requiring pressors 1. Acute hypoxic respiratory failure ?Secondary to COVID-19 pneumonia. Patient started on Decadron in addition to supplemental oxygen 2. Hypotension secondary to septic shock from UTI ?Patient had to be transferred from [facility] floor to ICU and subsequently started on norepinephrine with plans to wean it off this a.m. ?01/21/2021 patient seen, blood pressure remains marginally low. She has been weaned off pressors but started on midodrine urine cultures so far positive for E. coli and possible gram-negative rods?Pseudomonas. Patient remains on Zosyn 3. Diffuse large B-cell lymphoma ?Patient is managed by heme-onc as outpatient patient to continue with care following her discharge 4. Diabetes mellitus type 2 ?Patient oral hypoglycemic agent held please on Accu-Cheks before meals and at bedtime with sliding scale coverage 5. Hypothyroidism - Patient is on levothyroxine home dose continued 6. Elevated cardiac enzymes ?[place] to be secondary to demand ischemia Case discussed with cardiology, plan is for medical management at this point 7. Dyslipidemia -Patient is on statin therapy, continued at home dose 8. Hypercoagulable state ?With history of factor V Leyden mutation as well as prothrombin gene mutation with previous pulmonary embolism. Patient is on systemic anticoagulation with apixaban did continue 9. DVT prophylaxis ?On Eliquis Charges/Coding Visit Charges Inpatient E&M: 71447 Subs Hosp L2
[2021-01-22] MEDS: Midodrine HCl 5 MG Tablet 10 MG PO ×2 (09:08→12:17)
[2021-01-22] MEDS: Menthol/Lanolin/Calamine/Znox 113 GM Tube 1 APPLIC TOPICAL (09:08)
[2021-01-22] MEDS: dexAMETHasone 2 MG TABLET 6 MG PO (09:08)
[2021-01-22] MEDS: APIXABAN 5 MG TABLET PO (09:09)
[2021-01-22] MEDS: Levothyroxine 88 MCG Tablet PO (09:09)
[2021-01-22] MEDS: Allopurinol 100 MG Tablet PO (09:09)
[2021-01-22] MEDS: Omega-3 Acid Ethyl Esters 1 GM Capsule 3 GM PO (09:09)
[2021-01-22] MEDS: Potassium Chloride Oral Tablet 20 MEQ PO (09:10)
--- NOTE | 2021-01-22 12:16 | PCM.DC.SUM ---
Providers Date of Admission: 01/19/21 Primary Care Physician: Dr. Delta Carolina, Consultations 01/19/21 18:32 Consult: Podiatry Routine Consulting Provider: Gilberto Griffith Reason for Consult: Bilateral Bruising of the toes, questionable ischemic toes EMERGENT Consult: No MD Notified: Yes Date Notified: 01/19/21 Time Notified: 09:30 Method of Notification: Verbal 01/19/21 23:20 Consult: Cardiology Routine Consulting Provider: Marito Perez Reason for Consult: Elevated troponins EMERGENT Consult: No MD Notified: Yes Date Notified: 01/19/21 Time Notified: 18:49 Method of Notification: Text 01/20/21 06:06 Consult: Environmental Department Manager / Pulmonary Medicine Routine Consulting Provider: Eliseo Rinaldi Reason for Consult: Hypotension, covid EMERGENT Consult: No MD Notified: Yes Date Notified: 01/20/21 Time Notified: 00:33 Method of Notification: Verbal Reason For Visit: COVID/NSTEIM Diagnosis Discharge Diagnosis (1) COVID-19: Status: Acute Code(s): U07.1 - COVID-19 (2) Elevated troponin: Status: Acute Code(s): R77.8 - Other specified abnormalities of plasma proteins Medications at Discharge Home Medications allopurinol 100 mg PO BID 07/10/20 amitriptyline 75 mg PO QHS 07/10/20 levothyroxine 88 mcg PO DAILY 07/10/20 metformin 500 mg PO BID 07/10/20 potassium chloride 20 meq PO DAILY 07/10/20 pravastatin 10 mg PO QHS 07/10/20 docosahexaenoic acid-epa 3 cap PO DAILY 08/05/20 lidocaine-prilocaine 2.5 %-2.5 % topical cream 1 applic TOPICAL ONCE PRN 30 Days #30 g 08/05/20 ondansetron 8 mg disintegrating tablet 8 mg PO Q8H PRN #30 tab 08/05/20 prochlorperazine maleate [Compazine] 10 mg PO Q6H PRN 08/05/20 oxycodone-acetaminophen [Endocet] 1 tab PO Q6H PRN 2 Days #5 tab 08/14/20 apixaban 5 mg tablet 5 mg PO BID 09/26/20 MAGIC MOUTH WASH (BMX) 180 mL suspension 10 ml PO Q6H PRN #180 ml 10/28/20 prednisone 100 mg PO DAILY 12/31/20 dexamethasone 6 mg PO DAILY #6 tab 01/22/21 guaifenesin [Mucinex] 1,200 mg PO BID #20 tab 01/22/21 levofloxacin 500 mg PO DAILY #7 tab 01/22/21 midodrine 10 mg PO TIDCM #90 tab 01/22/21 Hospital Course Summary of Care Provided Minutes Spent on Discharge: 45 Hospital Course: Patient is a 75-year-old lady with 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 An assessment of COVID-19 pneumonia made admitted to regular nursing floor later transferred to the ICU due to low blood pressure requiring pressors 1. Acute hypoxic respiratory failure ?Secondary to COVID-19 pneumonia. Patient started on Decadron in addition to supplemental oxygen -01/22/2021 prescription was written for Decadron on discharge 2. Hypotension secondary to septic shock from UTI ?[facility] and subsequently started on norepinephrine with plans to wean it off this a.m. ?01/21/2021 patient seen, blood pressure remains marginally low. She has been weaned off pressors but started on midodrine urine cultures so far positive for E. coli and possible gram-negative rods?Pseudomonas. Patient remains on Zosyn ?01/22/2021; patient was discharged on Levaquin 3. Diffuse large B-cell lymphoma ?Patient is managed by heme-onc as outpatient patient to continue with care following her discharge 4. Diabetes mellitus type 2 ?Patient oral hypoglycemic agent held please on Accu-Cheks before meals and at bedtime with sliding scale coverage 5. Hypothyroidism - Patient is on levothyroxine home dose continued 6. Elevated cardiac enzymes ?[place] to be secondary to demand ischemia Case discussed with cardiology, plan is for medical management at this point 7. Dyslipidemia -Patient is on statin therapy, continued at home dose 8. Hypercoagulable state ?With history of factor V Leyden mutation as well as prothrombin gene mutation with previous pulmonary embolism. Patient is on systemic anticoagulation with apixaban did continue 9. DVT prophylaxis ?On Eliquis Physical Exam Narrative GENERAL: cooperative HEENT: Atraumatic; EYES; Anicteric, Normal Conjunctiva NECK; supple, normal thyroid, RESPIRATORY: Diminished to auscultation CARDIOVASCULAR: Regular S1 S2, GI: soft, normoactive bowel sounds, : No Renal angle tenderness; NEURO: Awake; no lateralizing signs. SKIN: No Rash PSYCH; Flat affect Weight / BMI Weight Weight: 103.5 kg Body Mass Index (BMI) 34.7 ABG / Lab / Microbiology Data Result Diagrams: 01/22/21 05:36 01/22/21 05:36 Laboratory: Laboratory Results - last 24 hr 01/21/21 03:15: Diff Path Review Reviewed 01/21/21 12:07: POC Glucose 137 H 01/21/21 16:27: POC Glucose 143 H 01/21/21 22:42: POC Glucose 145 H 01/22/21 05:36: WBC 2.8 L, RBC 2.93 L, Hgb 9.8 L, Hct 30.1 L, MCV 102.7 H, MCH 33.4 H, MCHC 32.6, RDW Std Deviation 67.5 H, RDW Coeff of Rani 17.8 H, Plt Count 148 L, MPV 11.3, Immature Gran % (Auto) 0.400, Neut % (Auto) 64.1, Lymph % (Auto) 15.4 L, [place] % (Auto) 20.1 H, Eos % (Auto) 0.0, Baso % (Auto) 0.0, Absolute Neuts (auto) 1.8 L, Absolute Lymphs (auto) 0.43 L, Nucleated RBC % 0, Diff Path Review May 01/22/21 05:36: Sodium 140, Potassium 3.4 L, Chloride 110 H, Carbon Dioxide 21.0, Anion Gap 9, BUN 21 H, Creatinine 0.56, Estim Creat Clear Calc 46.54, Est GFR (MDRD) Af Amer 135, Est GFR (MDRD) Non-Af 112, BUN/Creatinine Ratio 37.6 H, Glucose 128 H, Calcium 8.8, Total Bilirubin 0.30, Direct Bilirubin 0.12, AST 32, ALT 22, Alkaline Phosphatase 166 H, Total Protein 5.5 L, Albumin 1.9 L, Globulin 3.6, Albumin/Globulin Ratio 0.5 L 01/22/21 06:57: POC Glucose 127 H Microbiology: Microbiology 01/19/21 19:35 Urine, Random Urine Culture - Final Escherichia coli Pseudomonas aeroginosa 01/19/21 13:28 Blood Culture (Wb) - Left Hand Blood Culture - Preliminary No growth in 48 hours. 01/19/21 13:05 Blood Culture (Wb) - Anticubital Left Blood Culture - Preliminary No growth in 48 hours. 01/20/21 06:32 Mucosa - Nose Respiratory Panel (PCR) - Final 01/19/21 19:35 Urine, Random Streptococcus pneumoniae Antigen (M - Final 01/19/21 19:35 Urine, Random Legionella Antigen - Final D/C Instructions Discharge Diet: 1800 Calorie Control Diet Discharge Activity: Return to Normal Activity Call your doctor if you observe: Fever of 101 or Higher, Shortness of breath, Fainting spells and Chest pain Meaningful Use Info Meaningful Use Diagnoses (Choose all that apply): None applicable Discharge Plan Admission Admit Date/Time: 01/19/21 17:31 Attending Provider: Konrad Rodrigues Primary Care Provider: Delta Carolina Consulting Providers: Marito Perez ; Eliseo Rinaldi ; Gilberto Griffith Instructions Additional Instructions / Restrictions: Painful left fifth toe with Betadine every [address] dry gauze interdigital. Wear slippers or sandals to keep pressure off of the left toes. Discharge Orders/Prescriptions Prescriptions: New midodrine 5 mg Tablet 10 mg PO TIDCM Qty: 90 RF: 0 dexamethasone 2 mg Tablet 6 mg PO DAILY Qty: 6 RF: 0 levofloxacin 500 mg tablet 500 mg PO DAILY Qty: 7 RF: 0 Mucinex 1,200 mg tablet extended release 12hr 1,200 mg PO BID Qty: 20 RF: 0 Continued lidocaine-prilocaine 2.5-2.5 % cream 1 applic topical ONCE PRN (Reason: Port access) 30 Days Qty: 30 RF: 2 ondansetron 8 mg tablet,disintegrating 8 mg PO Q8H PRN (Reason: nausea and vomiting) Qty: 30 RF: 2 Eliquis 5 mg tablet 5 mg PO BID RF: 0 amitriptyline 75 mg tablet 75 mg PO QHS RF: 0 allopurinol 100 mg tablet 100 mg PO BID RF: 0 levothyroxine 88 mcg tablet 88 mcg PO DAILY RF: 0 potassium chloride 20 mEq tablet,ER particles/crystals 20 meq PO DAILY RF: 0 pravastatin 10 mg tablet 10 mg PO QHS RF: 0 metformin 500 mg tablet extended release 24 hr 500 mg PO BID RF: 0 prochlorperazine maleate [Compazine] 10 mg tablet 10 mg PO Q6H PRN (Reason: nausea and vomiting) RF: 0 docosahexaenoic acid-epa Capsule 3 cap PO DAILY RF: 0 oxycodone-acetaminophen [Endocet] 5-325 mg tablet 1 tab PO Q6H PRN (Reason: pain) 2 Days Qty: 5 RF: 0 prednisone 20 mg tablet 100 mg PO DAILY RF: 0 MAGIC MOUTH WASH (BMX) 180 mL suspension 10 ml PO Q6H PRN (Reason: mouth pain) Qty: 180 RF: 1 Discontinued metoprolol succinate 100 mg tablet extended release 24 hr 25 mg PO DAILY RF: 0 furosemide 40 mg tablet 20 mg PO DAILY RF: 0 oxycodone-acetaminophen [Endocet] 5-325 mg tablet 1 tab PO Q6H PRN (Reason: pain) 3 Days Qty: 12 RF: 0 cephalexin 500 mg Capsule 500 mg PO TID Qty: 21 RF: 0 Referrals / Follow Up: Delta Carolina DO [Primary Care Provider] - Angela Lagos DPM [STAFF PHYSICIAN] - Within 2 Weeks Disposition Disposition (needs filled in before D/C Order can be placed): Home, Self Care Charges/Coding Visit Charges Inpatient E&M: 16532 Disch Hosp
[2021-01-22 12:20] LABS: Bedside Glucose 149 mg/dL (70-110)
--- NOTE | 2021-01-22 14:06 | CASEMGMT ---
Addendum entered by Marita Rubio 01/22/21 14:51: This RN CM received a call from pt's daughter, Abbie, stating that she was under the assumption that pt was going to a SNF and why aren't we sending her directly there. Advised Abbie that SW was previously coordinating with pt and sister Sara and pt's plan was home with [facility] and that this RN CM spoke with pt and that was still plan with pt at this time. Abbie states she talked to [facility] about pt coming there and that CM needed to speak with them. This RN CM advised daughter that pt is COVID positive and the only facility in area taking COVID positive pt's is [facility] in [place] and this RN CM asked daughter if pt would even be agreeable as her plan is for home with HH. Daughter then asks about HHC being set up and this RN CM advised that HHC referral was made to [facility] again per request. Daughter asks about pt going to SNF from home and this RN CM advised her that HHC/PCP could assist and that [facility] is waiving 3 midnight stay till end of year but that pt already has that as well. Daughter also updated that pt did not qualify for home oxygen but that pt aware to oxygen level greater than 89% on her pulse ox at home. 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 This RN CM spoke with pt again to update on all. Pt states plan is still to go home with [facility] and she states no further concerns with going home at this time. Call from [facility] stating they will accept and do start of care. Quan TOMLINSON CM Original Note: Pt is still agreeable to HHC thru [facility] and is aware that SN cannot be out till after quarantine complete and is fine with therapy for now. Order placed for PT/OT. Call to [facility], they need new referral faxed as SOC was never done. Referral faxed with d/c summary. Per Keya TOMLINSON, pt does not qualify for home oxygen. Pt states does have a pulse ox at home and is aware to keep oxygen greater than 89%. Pt states will be going to stay with daughter and voices no further questions/concerns/needs. Quan TOMLINSON CM
[2021-01-22 14:16] LABS: Pathologist Review Reviewed
== END 2021-01-22 15:12 | disposition home health service (06) | DRG 871 ==
LOC: ED 17:48 → PCU 19:30 → ICU 01-20 07:21 → PCU 01-21 10:27 → ICU 01-21 10:27 → PCU 01-22 08:44
PROVIDERS: Hospitalist; Admitting Provider Internal Medicine; Emergency Provider Student in an Organized Health Care Education/Training Program; PCP Physician Assistant; Visit Provider Internal Medicine
DX: A41.51 Sepsis due to Escherichia coli [E. coli] (principal); U07.1 COVID-19; J12.82 Pneumonia due to coronavirus disease 2019; J96.01 Acute respiratory failure with hypoxia; R65.21 Severe sepsis with septic shock; C83.38 Diffuse large B-cell lymphoma, lymph nodes of multiple sites; D68.51 Activated protein C resistance; D68.52 Prothrombin gene mutation; D61.818 Other pancytopenia; E11.52 Type 2 diabetes mellitus with diabetic peripheral angiopathy with gangrene; I96 Gangrene, not elsewhere classified; N39.0 Urinary tract infection, site not specified; I24.8 Other forms of acute ischemic heart disease; A41.52 Sepsis due to Pseudomonas; I48.91 Unspecified atrial fibrillation; I10 Essential (primary) hypertension; E78.5 Hyperlipidemia, unspecified; E03.9 Hypothyroidism, unspecified; M10.9 Gout, unspecified; R29.6 Repeated falls; E66.9 Obesity, unspecified; Z68.37 Body mass index [BMI] 37.0-37.9, adult; Z79.01 Long term (current) use of anticoagulants; Z79.52 Long term (current) use of systemic steroids; Z79.84 Long term (current) use of oral hypoglycemic drugs; Z79.890 Hormone replacement therapy; Z79.899 Other long term (current) drug therapy; Z86.711 Personal history of pulmonary embolism; Z96.653 Presence of artificial knee joint, bilateral
CPT/HCPCS: 36415; 71045; 80053; 80076; 81001; 82962; 83605; 83880; 84484; 85025; 85379; 85610; 85730; 87040; 87077; 87086; 87088; 87184; 87186; 87449; 87633; 87635; 93005; 93308; 94762; 97162; 97166; 97802; 99251; 99285; J7030; J7050; Q9957; U0005; A4216; C8924; G0463; U0003

== ENCOUNTER 2021-05-26 13:00 | Outpatient (CLI) | payer MEDICARE, MEDICAID, SELFPAY ==
--- NOTE | 2021-05-26 13:05 | CT_ITS ---
STUDY: CT CHEST, ABDOMEN T PELVIS WITH CONTRAST REASON FOR EXAM: Female, 75 years old. F/U LYMPHOMA RADIATION DOSAGE (If Supplied By Facility): CTDIvol = ( 17.13 ) mGy, DLP = ( 2227.84 ) mGycm TECHNIQUE: Transaxial imaging was performed following intravenous administration of IV 100mL Isovue-300. Individualized dose optimization techniques were used for this CT. COMPARISON: 12/31/2020 FINDINGS: CHEST Right internal jugular chest port. The lungs are normal. There is no demonstrated pleural abnormality. Normal heart and pericardium. Normal mediastinum. Normal hilar regions. Normal unenhanced pulmonary arteries. Normal aorta arch and descending thoracic aorta. Normal osseous structures. There is no demonstrated abnormality of the visualized upper abdomen. ABDOMEN The visualized lung bases are unremarkable. The visualized portions of the heart are within normal limits. Normal liver. There are surgical clips in the gallbladder fossa consistent with a prior cholecystectomy. Normal spleen. Normal pancreas. Normal bilateral adrenal glands. Normal right kidney. Normal left kidney. There is a small hiatal hernia. Normal small intestine. Normal colon. The appendix is visualized and appears normal. Normal abdominal aorta. Normal inferior vena cava. Left para-aortic lymphadenopathy measuring 1.8 x 1.8 cm. Normal abdominal wall. Normal osseous structures. PELVIS Normal urinary bladder. Normal visualized small intestine. Normal visualized colon. There is no pelvic fluid. There is no pelvic lymphadenopathy or mass lesion. Normal visualized pelvic arteries. Normal abdominal wall. Normal osseous structures. CT/CT Chest, Abd, Pel w/Contrast IMPRESSION: Left periaortic lymphadenopathy. Electronically Signed: Ted Dietrich MD at 15:45 EDT ,
--- NOTE | 2021-05-26 13:05 | CT_ITS ---
STUDY: CT SOFT TISSUE NECK WITH CONTRAST REASON FOR EXAM: Female, 75 years old. F/U LYMPHOMA RADIATION DOSAGE (If Supplied By Facility): CTDIvol = ( 17.136 ) mGy, DLP = ( 2227.84 ) mGycm TECHNIQUE: The patient was scanned in a multi-detector CT scanner. High resolution transaxial imaging was performed following intravenous administration of IV 100mL Isovue-300. Sagittal and coronal images were reconstructed. Individualized dose optimization techniques were used for this CT. COMPARISON: CTA neck of 01/01/2021. CT report of 12/31/2020. FINDINGS: Normal bilateral parotid glands. Normal bilateral bobtail driver spaces. Normal bilateral parapharyngeal spaces. Calcified plaque at the carotid bifurcations causes less than 50% stenosis. Calcified plaques within the cavernous and supracavernous carotid arteries cause less than 50% stenosis. Normal bilateral sublingual and submandibular glands and spaces. Normal visualized nasopharynx. Normal retropharyngeal space. Normal perivertebral space. The visualized tongue, tongue base and oropharynx are normal. The visualized cervical lymph nodes (levels I-) are within normal size limits, and maintain normal morphology. There is no demonstrated solid or cystic mass lesion. There is no abnormal contrast enhancement. Normal epiglottis, bilateral vallecula and hypopharynx. The pre-epiglottic and paraglottic adipose spaces are normal. Normal visualized bilateral piriform sinuses, aryepiglottic folds, vocal cords, and arytenoid-cricoid articulations. Normal subglottic trachea. No thyroid enlargement. Incidental 6 mm nonenhancing hypodense right thyroid nodule. Normal visualized pulmonary apices. Normal visualized paranasal sinuses. Port-A-Cath remains in place. No filling defects within the visualized internal jugular veins. The visualized dural venous sinuses enhance normally. The visualized brain parenchyma is unremarkable. The visualized ventricles are normal in size and shape. The globes are symmetric in size. There is been previous optic surgery. Multilevel cervical degenerative disc disease again noted, along with extensive cervical facet arthritis. No lytic osseous lesion identified. CT/Soft Tissue Neck WITH Contrast IMPRESSION: No adenopathy or other acute abnormality identified. Electronically Signed: Rom Harris MD at 5:30 EDT ,
[2021-05-26] MEDS: 0.9% Saline Lock 10 ML Syringe IV (13:30)
[2021-05-26 13:40] LABS: CREATININE FINGERSTICK 0.6 mg/dL (0.55-1.02); EGFR FINGERSTICK > 60.0000 mL/min (>60)
== END 2021-05-26 23:59 | disposition home or self-care (01) ==
LOC: CT 13:01
PROVIDERS: PCP Physician Assistant; Referring Provider Internal Medicine Hematology & Oncology; Visit Provider Internal Medicine Hematology & Oncology
DX: I10 Essential (primary) hypertension (principal); C85.90 Non-Hodgkin lymphoma, unspecified, unspecified site; E11.9 Type 2 diabetes mellitus without complications; R59.9 Enlarged lymph nodes, unspecified
CPT/HCPCS: 70491; 71260; 74177; Q9967; A4216

== ENCOUNTER → 2021-11-25 | Outpatient (CLI) | payer MEDICARE, MEDICAID, SELFPAY ==
[2021-11-25 12:17] LABS: Absolute Lymphocyte Count 1.66 X10^3/uL (0.83-4.51); Absolute Neutrophil Count 1.7 X10^3/uL (2.0-7.7); Basophil# 0.03 X10^3/uL; Basophil% 0.8 % (0-1); Eosinophil# 0.06 X10^3/uL; Eosinophils% 1.5 % (0-5); Hematocrit 39.8 % (37-47); Hemoglobin 13.5 g/dL (12.0-15.0); Lymphocyte # 1.66 X10^3/ul (0.83-4.51); Lymphocyte % 41.5 % (19-41); Mean Corp Hgb Conc 33.9 g/dL (32-36); Mean Corpuscular Hgb 35.2 pg (27.0-32.0); Mean Corpuscular Volume 103.6 fL (81-99); Monocyte# 0.51 X10^3/uL; Monocyte% 12.8 % (0-10); NRBC Flagged by Analyzer 0 % (0-5); Neutrophil # 1.73 X10^3/uL (2.7-7.7); Neutrophil % 43.1 % (47-70); Platelet Count 183 K/mm3 (150-450); RBC Distribution Width CV 13.5 % (11.6-14.6); RBC Distribution Width SD 52.2 fl (35.1-43.9); Red Blood Count 3.84 M/mm3 (4.2-5.4)
[2021-11-25 12:35] LABS: AST(SGOT) 19 U/L (15-37); Alanine Aminotransfer ALT/SGPT 26 U/L (13-56); Albumin, Serum 3.7 g/dL (3.2-5.0); Alkaline Phosphatase 210 U/L (45-117); Anion Gap 7 (5-15); BUN 21 mg/dL (7-18); BUN/Creat Ratio 23.1 RATIO (10-20); Calcium,Total 9.6 mg/dL (8.5-10.1); Chloride 108 mmol/L (98-107); Creatinine, Serum 0.91 mg/dL (0.55-1.02); EST Glomerular Filtration Rate 64 mL/min (>60); Est Glom Filt Rate - Afr Amer 77 mL/min (>60); Globulin 3.7 g/dL (2.2-4.2); Glucose 142 mg/dL (74-106); LDH 176 U/L (84-246); Potassium 4.6 mmol/L (3.5-5.1); Protein, Total 7.4 g/dL (6.4-8.2); Sodium Level 140 mmol/L (136-145)
[2021-11-25] MEDS: 0.9 % NaCl (Sterile) Posiflush 10 mL IV (12:55)
--- NOTE | 2021-11-25 13:00 | CT_ITS ---
STUDY: CT CHEST, ABDOMEN T PELVIS WITH CONTRAST REASON FOR EXAM: Female, 76 years old. F/U LYMPHOMA RADIATION DOSAGE (If Supplied By Facility): CTDIvol = ( 20.64 ) mGy, DLP = ( 2676.95 ) mGycm TECHNIQUE: Transaxial imaging was performed following intravenous administration of 100ML OF ISOVUE 370. Multiplanar coronal and sagittal images were reformatted. Individualized dose optimization techniques were used for this CT. COMPARISON: Comparison is made with prior study of 05/26/2021. FINDINGS: CHEST A right-sided Port-A-Cath is seen with the tip in the superior vena cava. The lungs are normal. There is no demonstrated pleural abnormality. There are calcifications of the coronary arteries. Normal mediastinum. Normal hilar regions. Normal unenhanced pulmonary arteries. There is atherosclerotic calcification of the aortic arch. There are multi-level degenerative changes of the thoracic spine. The patient is status post cholecystectomy. ABDOMEN Normal liver. The gallbladder is contracted. Normal spleen. Normal pancreas. Normal bilateral adrenal glands. Normal right kidney. Stable 2.2 cm cyst in the upper medial pole of the left kidney. Normal visualized stomach. Normal small intestine. Normal colon. The appendix is visualized and appears normal. Normal abdominal aorta. Normal inferior vena cava. Stable residual retroperitoneal lymphadenopathy more prominent on the left para-aortic region at the level of the left renal hilus. Normal abdominal wall. There are diffuse degenerative changes of the visualized lumbar spine. PELVIS Normal urinary bladder. Calcified phleboliths are seen. Normal visualized small intestine. Normal visualized colon. There is no pelvic fluid. There is no pelvic lymphadenopathy or mass lesion. CT/CT Chest, Abd, Pel w/Contrast IMPRESSION: Stable mildly enlarged left retroperitoneal lymph nodes. Electronically Signed: Marc Srinivasan MD at 13:49 EDT ,
--- NOTE | 2021-11-25 13:00 | CT_ITS ---
STUDY: CT SOFT TISSUE NECK WITH CONTRAST REASON FOR EXAM: Female, 76 years old. F/U LYMPHOMA RADIATION DOSAGE (If Supplied By Facility): CTDIvol = ( 20.64 ) mGy, DLP = ( 2676.95 ) mGycm TECHNIQUE: The patient was scanned in a multi-detector CT scanner. High resolution transaxial imaging was performed following intravenous administration of 100ML OF ISOVUE 370. Sagittal and coronal images were reconstructed. Individualized dose optimization techniques were used for this CT. COMPARISON: Comparison is made with prior study dated 05/26/2021. FINDINGS: A right-sided reyes catheter seen with the tip in the superior vena cava. Normal bilateral parotid glands. Normal bilateral sharepoint application developer spaces. Normal bilateral parapharyngeal spaces. Normal bilateral carotid spaces. Normal bilateral sublingual and submandibular glands and spaces. Normal visualized nasopharynx. Normal retropharyngeal space. Normal perivertebral space. Normal visualized bilateral faucial tonsils. The visualized tongue, tongue base and oropharynx are normal. The visualized cervical lymph nodes (levels I-) are within normal size limits, and maintain normal morphology. There is no demonstrated solid or cystic mass lesion. There is no abnormal contrast enhancement. Normal epiglottis, bilateral vallecula and hypopharynx. The pre-epiglottic and paraglottic adipose spaces are normal. Normal visualized bilateral piriform sinuses, aryepiglottic folds, vocal cords, and arytenoid-cricoid articulations. Normal subglottic trachea. Normal bilateral lobes of the thyroid gland. Normal visualized pulmonary apices. Normal visualized paranasal sinuses. There is multilevel degenerative changes of the cervical spine. Straightening of the normal cervical lordosis. CT/Soft Tissue Neck WITH Contrast IMPRESSION: No evidence of adenopathy. No mass lesion is seen. Electronically Signed: Marc Srinivasan MD at 13:39 EDT ,
[2021-11-25 13:06] LABS: CREATININE FINGERSTICK < 0.9 mg/dL (0.55-1.02); EGFR FINGERSTICK > 60.0000 mL/min (>60)
[2021-11-25 20:01] LABS: Xtra Tube EP Lab EXTRA TUBE
== END | disposition home or self-care (01) ==
PROVIDERS: PCP Physician Assistant; Referring Provider Internal Medicine Hematology & Oncology; Visit Provider Internal Medicine Hematology & Oncology
DX: C83.38 Diffuse large B-cell lymphoma, lymph nodes of multiple sites (principal)
CPT/HCPCS: 36415; 70491; 71260; 74177; 80053; 83615; 85025; Q9967; A4216

== ENCOUNTER → 2022-04-09 | Outpatient (CLI) | payer MEDICARE, MEDICAID, SELFPAY ==
--- NOTE | 2022-04-09 14:21 | BI_ITS ---
MAMMOGRAPHY - BILATERAL SCREENING REASON FOR EXAM: Female, 76 years old. Routine annual screening examination. PERTINENT HISTORY: Non-contributory. Patient has a history of lymphoma. TECHNIQUE: Digital bilateral breast trent (3D mammographic acquisition) in the CC and MLO projections. 2-D mediolateral oblique (MLO) and craniocaudad (CC) views of both breasts were obtained. CAD: Full Field Digital Mammography with Computer Added Detection was performed. COMPARISON: Comparison is made with prior outside examination dated December 08, 2013. FINDINGS: Breast Composition: The breasts are almost entirely fatty. There is a 3.6 x 1.4 cm heterogeneous density is seen in the mid depth of the left breast in the slightly upper lateral portion. This was not seen on prior study. Calcifications are seen within the. Correlation with ultrasound is recommended. Bilateral diffuse secretory calcifications. No other significant abnormalities are identified. BI/SCRN MAMM (CAD)W/TRENT BILAT IMPRESSION: Heterogeneous asymmetrical density in the mid depth of the left breast and this likely upper lateral portion with calcifications. Correlation with ultrasound is recommended. ASSESSMENT CATEGORY: BIRADS Category 0: Incomplete. Need additional imaging evaluation. A letter regarding these results will be sent to the patient by the facility within 30 days. Approximately 10% of breast cancers are not detected by mammography. A normal mammogram should not delay biopsy of a clinically suspicious abnormality. [id number] Electronically Signed: Marc Srinivasan MD at 15:27 EST ,
--- NOTE | 2022-04-09 14:35 | BD_ITS ---
STUDY: DUAL ENERGY X-RAY ABSORPTIOMETRY / DXA REASON FOR EXAM: Female, 76 years old. [id number] TECHNIQUE: Bone Mineral Density (BMD) measurements of lumbar spine and bilateral hips were obtained. COMPARISON: None. FINDINGS: Lumbar Spine (L1-L4): g/cm2 (1.446) / T-score (3.7) / Z-score (6.3) Findings are suggestive of normal bone density with a low fracture risk. Left Femur Total: g/cm2 (1.001) / T-score (0.5) / Z-score (2.4) Left Femoral Neck: g/cm2 (0.930) / T-score (0.7) / Z-score (2.9) Right Femur Total: g/cm2 (0.965) / T-score (0.2) / Z-score (2.1) Right Femoral Neck: g/cm2 (0.948) / T-score (0.9) / Z-score (3.1) BD/Dexa Bone Density Study IMPRESSION: The patient is considered normal as outlined below according to World Mati Organization (WHO) criteria with a low fracture risk. Reference Information: The T-score is the number of standard deviations above or below the standard which is normal for young adults at their peak bone mineral density. The World Health Organization (WHO) interprets the T-scores as follows: Above -1 Normal bone density Between -1 and -2.5 Osteopenia Equal to / or below -2.5 Osteoporosis As a practical clinical guideline, osteopenia may be graded as follows: Mild -1 through -1.5 Moderate -1.6 through -2.0 Severe -2.1 through -2.4 The Z-score is the number of standard deviations above or below age-matched controls. A Z-score of less than -1.5 would be considered abnormal. References: 1. NIH Osteoporosis and Related Bone Diseases www osteo.org 2. International Society for Clinical Densitometry www iscd.org 3. National Osteoporosis Foundation www nof.org Electronically Signed: Marc Srinivasan MD at 15:23 EST ,
== END | disposition home or self-care (01) ==
PROVIDERS: PCP Physician Assistant; Visit Provider Physician Assistant
DX: Z12.31 Encounter for screening mammogram for malignant neoplasm of breast (principal); Z13.220 Encounter for screening for lipoid disorders; Z78.0 Asymptomatic menopausal state
CPT/HCPCS: 77063; 77067; 77080

== ENCOUNTER → 2022-04-21 | Outpatient (CLI) | payer MEDICARE, MEDICAID, SELFPAY ==
--- NOTE | 2022-04-21 10:38 | US_ITS ---
STUDY: ULTRASOUND BREAST - LEFT REASON FOR EXAM: Female, 76 years old. Abnormal mammogram TECHNIQUE: Axial and longitudinal images of the LEFT breast were performed with a high resolution ultrasound transducer. # OF IMAGES: [id number] COMPARISON: 04/09/2022 FINDINGS: LEFT Breast: Focused upper outer quadrant ultrasound performed. From to 4:00, there are heterogeneous hypoechoic areas with shadowing from associated calcifications. There is no suspicious architectural distortion or clustered calcifications. No suspicious adenopathy. 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 A letter regarding these results will be sent to the patient by the facility within 30 days. Electronically Signed: Josep Harris MD at 11:28 EDT ,
== END | disposition home or self-care (01) ==
LOC: OPUS 10:34
PROVIDERS: PCP Physician Assistant; Visit Provider Internal Medicine Hematology & Oncology
DX: R92.8 Other abnormal and inconclusive findings on diagnostic imaging of breast (principal)
CPT/HCPCS: 76642

== ENCOUNTER → 2022-06-11 | Outpatient (CLI) | payer MEDICARE, MEDICAID, SELFPAY ==
--- NOTE | 2022-06-11 13:36 | CT_ITS ---
STUDY: CT SOFT TISSUE NECK WITH CONTRAST REASON FOR EXAM: Female, 76 years old. F/U LYMPHOMA IV CONTRAST ONLY. History of the large B cell non-Hodgkin''s lymphoma. RADIATION DOSAGE (If Supplied By Facility): CTDIvol = ( 21.49 ) mGy, DLP = ( 2802.80 ) mGycm TECHNIQUE: The patient was scanned in a multi-detector CT scanner. High resolution transaxial imaging was performed following intravenous administration of IV 100mL Isovue-300. Sagittal and coronal images were reconstructed. Individualized dose optimization techniques were used for this CT. COMPARISON: Comparison is made with prior study dated November 25, 2021. FINDINGS: A right-sided portacatheter is seen with the tip in the superior vena cava. Normal bilateral parotid glands. 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 Normal bilateral parapharyngeal spaces. Normal bilateral carotid spaces. Normal bilateral sublingual and submandibular glands and spaces. Normal visualized nasopharynx. Normal retropharyngeal space. Normal perivertebral space. Normal visualized bilateral faucial tonsils. The visualized tongue, tongue base and oropharynx are normal. There are small benign-appearing lymph nodes of the neck, with preservation of normal talisha architecture, consistent with a reactive lymph hyperplasia. There is no demonstrated solid or cystic mass lesion. There is no abnormal contrast enhancement. Normal epiglottis, bilateral vallecula and hypopharynx. The pre-epiglottic and paraglottic adipose spaces are normal. Normal visualized bilateral piriform sinuses, aryepiglottic folds, vocal cords, and arytenoid-cricoid articulations. Normal subglottic trachea. Normal bilateral lobes of the thyroid gland. Normal visualized pulmonary apices. Normal visualized paranasal sinuses. There is multilevel degenerative changes of the cervical spine. CT/Soft Tissue Neck WITH Contrast IMPRESSION: No acute abnormality is seen. Electronically Signed: Marc Srinivasan MD at 14:46 EDT ,
--- NOTE | 2022-06-11 13:36 | CT_ITS ---
STUDY: CT CHEST, ABDOMEN T PELVIS WITH CONTRAST REASON FOR EXAM: Female, 76 years old. F/U LYMPHOMA IV CONTRAST ONLY. History of a large B-cell non-Hodgkin''s type of lymphoma. RADIATION DOSAGE (If Supplied By Facility): CTDIvol = ( 21.49 ) mGy, DLP = ( 2802.80 ) mGycm TECHNIQUE: Transaxial imaging was performed following intravenous administration of IV 100mL Isovue-300. Individualized dose optimization techniques were used for this CT. COMPARISON: Comparison is made with prior study dated November 25, 2021. FINDINGS: CHEST A right-sided portacatheter is seen with the tip in the superior vena cava. The lungs are normal. There is no demonstrated pleural abnormality. There are calcifications of the coronary arteries. Normal mediastinum. Normal hilar regions. Normal unenhanced pulmonary arteries. There is mild atherosclerotic calcification of the aortic arch. There are degenerative changes of the thoracic spine. Small hiatal hernia. ABDOMEN Normal liver. The gallbladder is contracted. Normal spleen. Normal pancreas. Normal bilateral adrenal glands. Normal right kidney. There is a 2.3 cm by 2 cm cyst in the upper pole of the left kidney. There is a small hiatal hernia. Normal small intestine. Normal colon. The appendix is visualized and appears normal. There is scattered atherosclerotic calcification of the abdominal aorta, without a demonstrated aneurysm. Normal inferior vena cava. Stable mild enlarged lymph nodes in the left para-aortic region at the level of the renal hilus. Normal abdominal wall. There are degenerative changes of the visualized lumbar spine. PELVIS Normal urinary bladder. There is no pelvic fluid. There is no pelvic lymphadenopathy or mass lesion. There is diffuse atherosclerotic calcification of the pelvic arteries. CT/CT Chest, Abd, Pel w/Contrast IMPRESSION: Stable examination. Electronically Signed: Marc Srinivasan MD at 14:53 EDT ,
[2022-06-11] MEDS: 0.9% Saline Lock 10 ML Syringe IV (13:53)
[2022-06-11 14:00] LABS: CREATININE FINGERSTICK < 0.9 mg/dL (0.55-1.02); EGFR FINGERSTICK > 60.0000 mL/min (>60)
== END | disposition home or self-care (01) ==
LOC: CT 13:32
PROVIDERS: PCP Physician Assistant; Referring Provider Internal Medicine Hematology & Oncology; Visit Provider Internal Medicine Hematology & Oncology
DX: C85.90 Non-Hodgkin lymphoma, unspecified, unspecified site (principal)
CPT/HCPCS: 70491; 71260; 74177; Q9967; A4216

== ENCOUNTER → 2022-10-21 | Outpatient (CLI) | payer MEDICARE, MEDICAID, SELFPAY ==
--- NOTE | 2022-10-21 13:50 | BI_ITS ---
MAMMOGRAPHY - UNILATERAL DIAGNOSTIC: LEFT BREAST REASON FOR EXAM: Female, 77 years old. Abnormal screening mammogram. PERTINENT HISTORY: Non-contributory. Past history of lymphoma. TECHNIQUE: Digital unilateral breast salud (3D mammographic acquisition) in the CC and MLO projections. 2-D mediolateral oblique (MLO) and craniocaudad (CC) views of both breasts were obtained. CAD: Full Field Digital Mammography with Computer Added Detection was performed. COMPARISON: Comparison is made with prior study dated April 09, 2022. FINDINGS: Breast Composition: The breasts are almost entirely fatty. The previously seen 3.6 cm x 1.4 cm heterogeneous nodule in the central lateral aspect of the left breast has decreased in size. It presently measures 1.7 cm x 1.1 cm. Stable scattered bilateral calcifications. No other significant abnormalities are identified. BI/DIAG MAMM W/CAD, UNILAT IMPRESSION: Interval decrease in size of the previously seen left breast nodule as described. Correlation with ultrasound is recommended. ASSESSMENT CATEGORY: BIRADS Category 0: Incomplete. Need additional imaging evaluation. A letter regarding these results will be sent to the patient by the facility within 30 days. Approximately 10% of breast cancers are not detected by mammography. A normal mammogram should not delay biopsy of a clinically suspicious abnormality. Electronically Signed: Marc Srinivasan MD at 14:58 EDT ,
--- NOTE | 2022-10-21 13:50 | US_ITS ---
STUDY: ULTRASOUND BREAST - LEFT REASON FOR EXAM: Female, 77 years old. Abnormal screening mammogram. TECHNIQUE: Axial and longitudinal images of the LEFT breast were performed with a high resolution ultrasound transducer. # OF IMAGES: 19 COMPARISON: Comparison is made with prior mammogram done earlier in the day as well as prior sonogram dated April 22, 2019. FINDINGS: LEFT Breast: At the 3:00 position breast at 3 to 4 cm from the nipple, there are 3 adjacent hypoechoic nodular densities with calcifications and posterior acoustical shadowing. The largest measures 1.6 x 1.2 cm x 0.5 cm. A biopsy is recommended. US/Breast Limited Unilateral IMPRESSION: 3 adjacent hypoechoic nodular density with calcifications as described. Tissue diagnosis recommended. ASSESSMENT CATEGORY: BIRADS Category 4: Suspicious - Biopsy Should Be Considered. A letter regarding these results will be sent to the patient by the facility within 30 days. Electronically Signed: Marc Srinivasan MD at 15:48 EDT ,
== END | disposition home or self-care (01) ==
LOC: OPBI 13:48
PROVIDERS: PCP Physician Assistant; Referring Provider Internal Medicine Hematology & Oncology; Visit Provider Internal Medicine Hematology & Oncology
DX: R93.89 Abnormal findings on diagnostic imaging of other specified body structures (principal); C83.38 Diffuse large B-cell lymphoma, lymph nodes of multiple sites; R92.8 Other abnormal and inconclusive findings on diagnostic imaging of breast
CPT/HCPCS: 76642; 77061; 77065; G0279

== ENCOUNTER 2022-11-04 07:13 | Outpatient (CLI) | payer MEDICARE, MEDICAID, SELFPAY ==
--- NOTE | 2022-11-04 07:31 | US_ITS ---
ULTRASOUND GUIDED CORE BIOPSY REASON FOR EXAM: Female, 77 years old. Left breast mass PERTINENT HISTORY: Left breast masses. COMPARISON: Comparison is made with prior ultrasound dated October 21, 2022. TECHNIQUE: (All elements of maximal sterile barrier technique followed, including US elements as applicable) Upon arrival to the breast imaging department the patient''s identification was confirmed and the LEFT breast was marked according to time-out protocol. Ultrasound guided core biopsy and clip placement, to include potential risks and complications, was explained in full to the patient. Written and verbal consent were obtained prior to initiation of the procedure. The LEFT breast was prepped and draped in standard sterile fashion and local anesthesia was obtained with 1% buffered lidocaine. A small dermatotomy was then made to introduce the core biopsy needle. Under ultrasound guidance multiple core samples were obtained with a 14 gauge needle and submitted in formalin for pathology. A titanium clip was then deployed into the biopsy cavity under ultrasound guidance. Upon completion of the procedure hemostasis was obtained and sterile dressing was applied. The patient tolerated the entire procedure without immediate complication and was discharged from the breast imaging department in good condition. IMPRESSION: Ultrasound guided core biopsy of a mass in the LEFT breast at 3:00 position of the breast at 8 cm from the nipple without complication. Electronically Signed: Marc Srinivasan MD at 14:10 EDT , ULTRASOUND GUIDED CORE BIOPSY REASON FOR EXAM: Female, 77 years old. Left breast mass PERTINENT HISTORY: Left breast masses. COMPARISON: None. TECHNIQUE: (All elements of maximal sterile barrier technique followed, including US elements as applicable) Upon arrival to the breast imaging department the patient''s identification was confirmed and the LEFT breast was marked according to time-out protocol. Ultrasound guided core biopsy and clip placement, to include potential risks and complications, was explained in full to the patient. Written and verbal consent were obtained prior to initiation of the procedure. The LEFT breast was prepped and draped in standard sterile fashion and local anesthesia was obtained with 1% buffered lidocaine. A small dermatotomy was then made to introduce the core biopsy needle. Under ultrasound guidance multiple core samples were obtained with a 14 gauge needle and submitted in formalin for pathology. A titanium clip was then deployed into the biopsy cavity under ultrasound guidance. Upon completion of the procedure hemostasis was obtained and sterile dressing was applied. The patient tolerated the entire procedure without immediate complication and was discharged from the breast imaging department in good condition. IMPRESSION: Ultrasound guided core biopsy of a mass in the LEFT breast at 3:00 position of the breast at 8 cm from the nipple without complication. Electronically Signed: Marc Srinivasan MD at 14:11 EDT , ULTRASOUND GUIDED CORE BIOPSY REASON FOR EXAM: Female, 77 years old. Left breast mass PERTINENT HISTORY: 3 adjacent hypoechoic solid nodules at the 3:00 position the breast at 8 cm from the nipple. COMPARISON: Comparison is made with prior sonogram dated October 21, 2022. TECHNIQUE: (All elements of maximal sterile barrier technique followed, including US elements as applicable) Upon arrival to the breast imaging department the patient''s identification was confirmed and the LEFT breast was marked according to time-out protocol. Ultrasound guided core biopsy and clip placement, to include potential risks and complications, was explained in full to the patient. Written and verbal consent were obtained prior to initiation of the procedure. The LEFT breast was prepped and draped in standard sterile fashion and local anesthesia was obtained with 1% buffered lidocaine. A small dermatotomy was then made to introduce the core biopsy needle. Under ultrasound guidance multiple core samples were obtained with a 14 gauge needle and submitted in formalin for pathology. A titanium clip was then deployed into the biopsy cavity under ultrasound guidance. Upon completion of the procedure hemostasis was obtained and sterile dressing was applied. The patient tolerated the entire procedure without immediate complication and was discharged from the breast imaging department in good condition. US/US Breast Biopsy 1st Lesion IMPRESSION: Ultrasound guided core biopsy of a mass in the LEFT breast at the 3:00 position in the breast at 8 cm from the nipple. without complication. Electronically Signed: Marc Srinivasan MD at 14:12 EDT ,
--- NOTE | 2022-11-04 08:45 | BRBX_PTH ---
PATIENT: LEANDRO HELMS LOC: [facility] U#:[id number] AGE/SX: 77/F ROOM: RE11/04/[address]: Dr. Marquis Irving MD : [id number] BED: DIS: 11/04/2022 SPEC #: [id number] RECD: 11/04/22 09:47 STATUS: JJ MEGAN #: [id number] OFELIA: 11/04/22 08:[address]: Marquis Irving DEPT: SURGICAL PATHOLOGY RECD BY: Yuliya Wesley ENTERED: 11/04/22 09:53 SP TYPE: BREAST BX OTHR DR: Delta [place] PA-C Tissues: A - Left breast, NOS B - Left breast, NOS C - Left breast, NOS Procedures: Surgery Specimen Level IV HEADER OPERATION: Ultrasond-guided left breast core biopsy PRE-OP DIAGNOSIS: Abnormal mammogram TISSUE SUBMITTED: A - Left breast 3 o'clock, 6 cm from nipple, B - Left breast 3 o'clock, 8 cm from nipple, C - Left breast 2 o'clock, 5 cm from nipple ISCHEMIC TIME: 1 minute FIXATION TIME: 11 hours MICROSCOPIC DIAGNOSIS A. Left breast 3 o'clock, 6 cm from nipple, ultrasound-guided core biopsy: Fragments of benign breast tissue with focal fat necrosis, fibrosis, histiocytic reaction and dystrophic calcifications. Negative for atypia or malignancy. B. Left breast 3 o'clock, 8 cm from nipple, ultrasound-guided core biopsy: Fragments of benign breast tissue with focal fat necrosis, fibrosis and histiocytic reaction. Negative for atypia or malignancy. C. Left breast 2 o'clock, 5 cm from nipple, ultrasound-guided core biopsy: Fragments of benign breast tissue with focal fat necrosis, fibrosis and histiocytic reaction. Negative for atypia or malignancy. SJ:sveta 11/05/2022 COMMENT Correlation with clinical, radiologic findings and appropriate follow up are necessary. MICROSCOPIC DESCRIPTION Slides are reviewed. GROSS DESCRIPTION A - Received in fixative is one container labeled with the patient's name and designated left breast 3 o'clock, 6 cm from nipple. The specimen consists of multiple elongated fragments of sumner-yellow fibroadipose tissue that in aggregate measure 1.0 x 0.7 x 0.1 cm. The entire specimen is submitted in one cassette. B - Received in fixative is one container labeled with the patient's name and designated left breast 3 o'clock, 8 cm from nipple. The specimen consists of multiple elongated fragments of sumner-yellow fibroadipose tissue that in aggregate measure 1.5 x 0.5 x 0.1 cm. The entire specimen is submitted in one cassette. C - Received in fixative is one container labeled with the patient's name and designated left breast 2 o'clock, 5 cm from nipple. The specimen consists of multiple elongated fragments of sumner-yellow fibroadipose tissue that in aggregate measure 1.5 x 0.3 x 0.1 cm. The entire specimen is submitted in one cassette. / SJ:rg 11/04/2022 TC:5 CPT: 99853 x3
--- NOTE | 2022-11-04 09:31 | BI_ITS ---
MAMMOGRAPHY - UNILATERAL DIAGNOSTIC: LEFT BREAST REASON FOR EXAM: Female, 77 years old. Post ultrasound guided breast biopsies. PERTINENT HISTORY: 3 hypoechoic nodules in the left breast. TECHNIQUE: Lateral and craniocaudad views of the left breast were obtained. CAD: Full Field Digital Mammography with Computer Added Detection was performed. COMPARISON: Comparison is made with prior mammogram dated October 21, 2022. FINDINGS: Breast Composition: The breasts are almost entirely fatty. 3 tissue clip markers are seen in the central portion of the left breast. No other significant abnormalities are identified. BI/DIAG MAMM W/CAD, UNILAT IMPRESSION: Tissue clip markers are seen in the central portion of the left breast following ultrasound-guided breast biopsies. ASSESSMENT CATEGORY: BIRADS Category 2: Benign. A letter regarding these results will be sent to the patient by the facility within 30 days. Approximately 10% of breast cancers are not detected by mammography. A normal mammogram should not delay biopsy of a clinically suspicious abnormality. Electronically Signed: Marc Srinivasan MD at 14:19 EDT ,
--- NOTE | 2022-11-04 09:49 | PRO.PCM_ITS ---
Procedure Report Date of Procedure: 11/04/22 Procedure: Core needle biopsy of left breast (x3 separate lesions) Description: After a detailed discussion regarding the risks and benefits of the biopsy procedure, the patient was transferred to the procedure room and positioned supine in the exam chair. Formal, written consents were obtained prior to positioning. Ultrasound was used to localize the lesions in the 3 to 4 o'clock position from the nipple in the left breast. Locally 1% lidocaine was infiltrated about each lesion using ultrasound guidance (a total of 14 mL was used). Once the area was sufficiently anesthetized, a small stab incision was made in the skin and the 14?gauge ACHEIVE core needle device was introduced per cutaneously. Ultrasound was used to guide the tip of the device through the border of the suspicious lesion. The first mass lesion (the most inferomedial lesion) was serially sampled with 2 cores which were placed in solution for pathologic processing. A marking clip was then placed under ultrasound guidance within the mass. This sequence was repeated for the patient's second (the most inferolateral lesion) and third (the most superior/largest) lesions. Three cores were obtained of the second lesion given a question of a quantity of diagnostic material with the second core and 2 cores were obtained of the third lesion. Pressure was applied until hemostasis was obtained. The skin was cleaned and Steri-Strips were applied over the 2 stab incisions for the biopsy procedure. An OpSite dressing was applied as a bandage. Patient tolerated the procedure with no complications and was sent for a formal mammogram. Post procedure wound care instructions were discussed with the patient prior to dismissal. We also discussed resuming her anticoagulation at 36 hours post procedure. EBL: 2 mL Complications: None
== END 2022-11-04 23:59 | disposition home or self-care (01) ==
LOC: OPUS 07:13
PROVIDERS: PCP Physician Assistant; Referring Provider Surgery; Visit Provider Surgery
DX: N60.32 Fibrosclerosis of left breast (principal); N64.1 Fat necrosis of breast; R92.8 Other abnormal and inconclusive findings on diagnostic imaging of breast
CPT/HCPCS: 19083; 19084; 77065; 88305

== ENCOUNTER → 2022-12-09 | Outpatient (CLI) | payer MEDICARE, MEDICAID, SELFPAY ==
--- NOTE | 2022-12-09 12:34 | CT_ITS ---
STUDY: CT CHEST, ABDOMEN T PELVIS WITH CONTRAST REASON FOR EXAM: Female, 77 years old. F/U LYMPHOMA IV CONTRAST ONLY RADIATION DOSAGE (If Supplied By Facility): CTDIvol = ( 20.10 ) mGy, DLP = ( 2822.98 ) mGycm TECHNIQUE: Transaxial imaging was performed following intravenous administration of IV 100mL Isovue-300. Individualized dose optimization techniques were used for this CT. COMPARISON: Comparison is made with prior study dated June 11, 2022. FINDINGS: CHEST A right-sided reyes catheter seen with the tip in the superior vena cava. The lungs are normal. There is no demonstrated pleural abnormality. There are calcifications of the coronary arteries. Normal mediastinum. Normal hilar regions. Normal unenhanced pulmonary arteries. There is atherosclerotic calcification of the aortic arch. There are degenerative changes of the thoracic spine. Small hiatal hernia. ABDOMEN Normal liver. The gallbladder is contracted. Normal spleen. Normal pancreas. Normal bilateral adrenal glands. Normal right kidney. Stable 2.4 cm cyst in the upper pole of the left kidney. Normal visualized stomach. Normal small intestine. Normal colon. The appendix is visualized and appears normal. Normal abdominal aorta. Normal inferior vena cava. Since prior study, there has been further decrease in size of the left retroperitoneal lymph nodes in the para-aortic region. It presently measures 1.87 x 0.6 cm. Normal abdominal wall. There are diffuse degenerative changes of the visualized lumbar spine. PELVIS Normal urinary bladder. There is no pelvic fluid. There is no pelvic lymphadenopathy or mass lesion. There is diffuse atherosclerotic calcification of the pelvic arteries. CT/CT Chest, Abd, Pel w/Contrast IMPRESSION: Interval decrease in size of the left para-aortic lymph nodes as compared to prior examination. Electronically Signed: Marc Srinivasan MD at 14:30 EDT ,
--- NOTE | 2022-12-09 12:34 | CT_ITS ---
STUDY: CT SOFT TISSUE NECK WITH CONTRAST REASON FOR EXAM: Female, 77 years old. F/U LYMPHOMA -- IV CONTRAST ONLY RADIATION DOSAGE (If Supplied By Facility): CTDIvol = ( 20.10 ) mGy, DLP = ( 2822.98 ) mGycm TECHNIQUE: The patient was scanned in a multi-detector CT scanner. High resolution transaxial imaging was performed following intravenous administration of IV 100mL Isovue-300. Sagittal and coronal images were reconstructed. Individualized dose optimization techniques were used for this CT. COMPARISON: Comparison is made with prior study dated June 11, 2022. FINDINGS: A right-sided reyes catheter is seen with the tip in the superior vena cava. Normal bilateral parotid glands. Normal bilateral tube drawing supervisor spaces. Normal bilateral parapharyngeal spaces. Normal bilateral carotid spaces. Normal bilateral sublingual and submandibular glands and spaces. Normal visualized nasopharynx. Normal retropharyngeal space. Normal perivertebral space. Normal visualized bilateral faucial tonsils. The visualized tongue, tongue base and oropharynx are normal. There are small lymph nodes of the neck, with preservation of normal talisha architecture, consistent with a reactive lymph hyperplasia. There is no demonstrated solid or cystic mass lesion. There is no abnormal contrast enhancement. Normal epiglottis, bilateral vallecula and hypopharynx. The pre-epiglottic and paraglottic adipose spaces are normal. Normal visualized bilateral piriform sinuses, aryepiglottic folds, vocal cords, and arytenoid-cricoid articulations. Normal subglottic trachea. Normal bilateral lobes of the thyroid gland. Normal visualized pulmonary apices. Normal visualized paranasal sinuses. There is multilevel degenerative changes of the cervical spine. CT/Soft Tissue Neck WITH Contrast IMPRESSION: Stable examination. No acute abnormality is seen. Electronically Signed: Marc Srinivasan MD at 14:21 EDT ,
[2022-12-09] MEDS: 0.9% Saline Lock 10 ML Syringe IV (13:00)
[2022-12-09 13:04] LABS: CREATININE FINGERSTICK 1.2 mg/dL (0.55-1.02)
== END | disposition home or self-care (01) ==
LOC: CT 12:15
PROVIDERS: PCP Physician Assistant; Referring Provider Internal Medicine Hematology & Oncology; Visit Provider Internal Medicine Hematology & Oncology
DX: C83.30 Diffuse large B-cell lymphoma, unspecified site (principal)
CPT/HCPCS: 70491; 71260; 74177; Q9967; A4216

== ENCOUNTER → 2023-05-05 | Outpatient (CLI) | payer MEDICARE, MEDICAID, SELFPAY ==
--- NOTE | 2023-05-05 14:31 | BI_ITS ---
MAMMOGRAPHY - BILATERAL SCREENING REASON FOR EXAM: Female, 77 years old. Routine annual screening examination. PERTINENT HISTORY: Non-contributory. Personal history of lymphoma. TECHNIQUE: Digital bilateral breast trent (3D mammographic acquisition) in the CC and MLO projections. 2-D mediolateral oblique (MLO) and craniocaudad (CC) views of both breasts were obtained. CAD: Full Field Digital Mammography with Computer Added Detection was performed. COMPARISON: Comparison is made with prior study dated April 09, 2022. FINDINGS: Breast Composition: The breasts are almost entirely fatty. Stable appearance of the 3 adjacent fat containing nodules in the slightly upper lateral aspect of the right breast. Tissue markers are seen within them. No other significant abnormalities are identified. There has been no significant change since the prior study. BI/SCRN MAMM (CAD)W/TRENT BILAT IMPRESSION: Stable bilateral screening mammogram. Yearly follow-up mammogram recommended. (A) ASSESSMENT CATEGORY: BIRADS Category 2: Benign. A letter regarding these results will be sent to the patient by the facility within 30 days. Approximately 10% of breast cancers are not detected by mammography. A normal mammogram should not delay biopsy of a clinically suspicious abnormality. [id number] Electronically Signed: Marc Srinivasan MD at 15:48 EDT ,
== END | disposition home or self-care (01) ==
LOC: OPBI 14:32
PROVIDERS: PCP Physician Assistant; Referring Provider Internal Medicine Hematology & Oncology; Visit Provider Internal Medicine Hematology & Oncology
DX: Z12.31 Encounter for screening mammogram for malignant neoplasm of breast (principal)
CPT/HCPCS: 77063; 77067

== ENCOUNTER → 2023-05-13 | Outpatient (CLI) | payer MEDICARE, MEDICAID, SELFPAY ==
--- NOTE | 2023-05-13 10:38 | US_ITS ---
STUDY: ULTRASOUND BREAST - LEFT REASON FOR EXAM: Female, 77 years old. 6 month follow-up examination. TECHNIQUE: Axial and longitudinal images of the LEFT breast were performed with a high resolution ultrasound transducer. # OF IMAGES: 71 COMPARISON: Comparison is made with prior sonogram of the left breast dated October 21, 2022. FINDINGS: LEFT Breast: The lateral midportion of the left breast was examined with ultrasound. Once again, at the 3:00 position in the breast at 3 to 4 cm from the nipple, there are 3 adjacent hypoechoic nodular densities. The largest measures 1.5 size by 1.5 cm x 0.6 cm. US/Breast Limited Unilateral IMPRESSION: Stable examination. ASSESSMENT CATEGORY: BIRADS Category 2: Benign. A letter regarding these results will be sent to the patient by the facility within 30 days. Electronically Signed: Marc Srinivasan MD at 15:23 EDT ,
== END | disposition home or self-care (01) ==
LOC: OPUS 10:36
PROVIDERS: PCP Physician Assistant; Referring Provider Surgery; Visit Provider Surgery
DX: R92.8 Other abnormal and inconclusive findings on diagnostic imaging of breast (principal); N63.20 Unspecified lump in the left breast, unspecified quadrant
CPT/HCPCS: 76642

== ENCOUNTER 2024-04-02 11:23 | Inpatient (IN) | payer MEDICARE, MEDICAID, SELFPAY ==
[2024-04-02] VITALS (10 sets, daily range): BP systolic 106–138; BP diastolic 63–89; PULSE 84–116; RESP 12–33; TEMP 36.6–37.4; O2SAT 91–99; BMI 43.4; BMI 41.5
--- NOTE | 2024-04-02 11:39 | EKG12_ITS ---
Test Reason : SOB Blood Pressure : */* mmHG Vent. Rate : 105 BPM Atrial Rate : * BPM P-R Int : * ms QRS Dur : 88 ms QT Int : 356 ms P-R-T Axes : * -52 60 degrees QTcB Int : 470 ms Atrial fibrillation with rapid ventricular response with premature ventricular or aberrantly conducted complexes Left anterior fascicular block Abnormal ECG Confirmed by Marquis Paez ([id number]), mapping editor NURIA HUTCHISON ([id number]) on 04/03/2024 10:26:25 AM Referred By: Juan Meeks Confirmed By: Marquis Paez
--- NOTE | 2024-04-02 11:42 | EX.ED.DYSGE1 ---
HPI <WANDER Francisco - Last Filed: 04/02/24 14:54> History of Present Illness Chief Complaint: Shortness of Breath Narrative Narrative: 78-year-old female with PMH of A-fib, factor V Leiden, DVT/PE, lymphoma in remission presents with 3 weeks of a cold and 1 week of increased generalized weakness and shortness of breath. She lives with her daughter who states she is not getting out of her recliner very much. The daughter found out today that she has not been taking her Eliquis or using her breathing treatments for a week. Patient denies fever or chills. She has been eating less but has no vomiting or diarrhea. PFS <WANDER Francisco - Last Filed: 04/02/24 14:54> [facility] Medical History (Updated 04/02/24 @ 14:54 by WANDER Francisco) Encounter for monitoring cardiotoxic drug therapy Total bilirubin, elevated Anemia Macrocytosis without anemia Acute anemia Macrocytic anemia Frequent falls Diarrhea due to drug Diffuse large b-cell lymphoma, lymph nodes of multiple sites Encounter for chemotherapy management Pulmonary embolism Cancer Wears glasses Wears dentures Thyroid disease Walker as ambulation aid Gout Obesity Factor V Leiden, prothrombin gene mutation History of pulmonary embolism Hypothyroidism Non-smoker High cholesterol Hypertension Diabetes Home Medications ?Medication ?Instructions ?Recorded ?Last Taken ?Type allopurinol 100 mg tablet 100 mg PO BID gout 07/10/20 07/10/20 07:00 History levothyroxine 88 mcg tablet 88 mcg PO DAILY thyroid 07/10/20 07/10/20 07:00 History metformin 500 mg tablet,extended 500 mg PO BID diabetes 07/10/20 07/07/20 22:00 History release 24 hr pravastatin 10 mg tablet 10 mg PO QHS cholesterol 07/10/20 07/09/20 22:00 History apixaban 5 mg tablet (Eliquis) 5 mg PO BID blood thinner 09/26/20 Unknown History cholecalciferol (vitamin D3) 50 50 mcg PO DAILY 06/03/21 Unknown History mcg (2,000 unit) capsule losartan 25 mg tablet 12.5 mg PO DAILY 06/03/21 Unknown History metoprolol succinate 25 mg 25 mg PO DAILY 06/03/21 Unknown History tablet,extended release 24 hr [id number]-[id number] acid 240 1 tab PO DAILY 06/03/21 Unknown History mcg-vit K 120 [id number] 293 tablet (Alive Women's 50 Plus (fruit-veg blend)) omega-3 fatty acids 1,000 mg 1,000 mg PO DAILY 06/03/21 Unknown History capsule ipratropium 0.5 mg-albuterol 3 mg 3 ml continuous nebulization Q4H 04/02/24 Unknown History (2.5 mg base)/3 mL nebulization PRN shortness of breath or wheezing soln potassium chloride 20 mEq 20 meq PO DAILY 04/02/24 Unknown History tablet,extended release Allergy/AdvReac Type Severity Reaction Status Date / Time No Known Allergies Allergy Verified 04/02/24 11:25 Family History Mother Diabetes Heart disease Brother Cancer Father Diabetes Heart disease Surgical History History of tubal ligation History of cataract removal with insertion of prosthetic lens History of bilateral knee replacement History of cholecystectomy Social History (Updated 04/02/24 @ 11:54 by Trish Banda) household members: family housing: house Smoking Status: Never smoker second hand exposure: No alcohol intake: never substance use type: does not use rahul/uatsdin: Episcopal seatbelt use: always do you feel safe at home: Yes ROS <WANDER Francisco - Last Filed: 04/02/24 14:54> ROS ED ROS Narrative Constitutional: Positive for chills, malaise. CVS: Negative for palpitations, chest pain, syncope. Respiratory: Positive for shortness of breath, cough. GI: Negative for abdominal pain, nausea, vomiting, diarrhea. EXAM <WANDER Francisco - Last Filed: 04/02/24 14:54> Physical Exam Narrative Exam Narrative: CONST: Patient sitting in no acute distress. EYES: Normal inspection. NECK: Normal inspection. RESP: No respiratory distress, expiratory wheezing and rhonchi throughout. CVS: Regular rate and rhythm, no murmur, no gallop. ABD: Soft and nontender, no guarding or rebound, nondistended. SKIN: Color normal, no rash, warm, dry, intact. EXTREMITIES: Normal appearance, no pedal edema. NEURO: Alert and answering questions appropriately. PSYCH: Normal affect. Const Vital Signs: 04/02/24 11:24 04/02/24 11:54 04/02/24 11:54 Temperature 97.8 F 98.3 F Temperature Source Temporal Oral Pulse Rate 109 H 108 H Respiratory Rate 24 H 18 Respiratory Effort Short of Breath Labored Accessory Muscle Use Respiratory Depth Shallow Respiratory Pattern Tachypnea Blood Pressure 132/82 H 138/89 H Blood Pressure Mean 98 105 Pulse Ox 97 98 Oxygen Delivery Method Room Air Nasal Cannula Room Air Oxygen Flow Rate (L/min) 2 04/02/24 11:55 04/02/24 11:55 04/02/24 12:25 Temperature 98.3 F Temperature Source Oral Pulse Rate 104 H 89 Respiratory Rate 33 H 25 H Respiratory Effort Respiratory Depth Respiratory Pattern Tachypnea Blood Pressure 125/76 H Blood Pressure Mean 92 Pulse Ox 97 98 Oxygen Delivery Method Nasal Cannula Nasal Cannula Oxygen Flow Rate (L/min) 2 2 04/02/24 13:00 04/02/24 14:00 04/02/24 14:59 Temperature 98.2 F 98.3 F 98.3 F Temperature Source Oral Oral Pulse Rate 100 84 84 Respiratory Rate 32 H 25 H 25 H Respiratory Effort Respiratory Depth Respiratory Pattern Blood Pressure 122/63 H 126/88 H 126/88 H Blood Pressure Mean 82 100 100 Pulse Ox 99 97 97 Oxygen Delivery Method Nasal Cannula Nasal Cannula Oxygen Flow Rate (L/min) 2 3 <Dr. Juan Meeks, DO - Last Filed: 04/02/24 16:30> Physical Exam Const Vital Signs: 04/02/24 11:24 04/02/24 11:54 04/02/24 11:54 Temperature 97.8 F 98.3 F Temperature Source Temporal Oral Pulse Rate 109 H 108 H Respiratory Rate 24 H 18 Respiratory Effort Short of Breath Labored Accessory Muscle Use Respiratory Depth Shallow Respiratory Pattern Tachypnea Blood Pressure 132/82 H 138/89 H Blood Pressure Mean 98 105 Pulse Ox 97 98 Oxygen Delivery Method Room Air Nasal Cannula Room Air Oxygen Flow Rate (L/min) 2 04/02/24 11:55 04/02/24 11:55 04/02/24 12:25 Temperature 98.3 F Temperature Source Oral Pulse Rate 104 H 89 Respiratory Rate 33 H 25 H Respiratory Effort Respiratory Depth Respiratory Pattern Tachypnea Blood Pressure 125/76 H Blood Pressure Mean 92 Pulse Ox 97 98 Oxygen Delivery Method Nasal Cannula Nasal Cannula Oxygen Flow Rate (L/min) 2 2 04/02/24 13:00 04/02/24 14:00 04/02/24 14:59 Temperature 98.2 F 98.3 F 98.3 F Temperature Source Oral Oral Pulse Rate 100 84 84 Respiratory Rate 32 H 25 H 25 H Respiratory Effort Respiratory Depth Respiratory Pattern Blood Pressure 122/63 H 126/88 H 126/88 H Blood Pressure Mean 82 100 100 Pulse Ox 99 97 97 Oxygen Delivery Method Nasal Cannula Nasal Cannula Oxygen Flow Rate (L/min) 2 3 MDM <WANDER Francisco - Last Filed: 04/02/24 14:54> [facility] MDM Narrative Medical decision making narrative: History gathered from: Patient and her daughters Differential includes but not limited to viral illness, pneumonia, ACS, PE, pleural effusion 78-year-old female has recent dry cough x 3 weeks and 1 week of increasing shortness of breath. She appears well and nontoxic. BP 132/82, HR 109, RR 24, 97% on room air, afebrile. She never dropped below 92% on room air but was placed on 2 L nasal cannula by the nurse for comfort. She has expiratory wheezing so I ordered a DuoNeb. CBC is unremarkable with normal white count 7.9 hemoglobin of 13.3. There is mild hypokalemia at 3.3, glucose 163, otherwise chemistry unremarkable. EKG is nonischemic and troponin is 22. CXR shows no evidence of pneumonia. It notes pulmonary vascular congestion but she has no JVD or lower extremity edema. D-dimer was elevated so CT was ordered which shows bilateral pneumonia and a right lower lobe subsegmental PE. I ordered IV Rocephin and Zithromax. I discussed the case with the hospitalist for admission and she recommended giving the loading dose of Eliquis 10 mg. Patient was admitted in stable condition. Lab Data Attestation: I reviewed the patient's lab results. Labs: Laboratory Results - last 24 hr 04/02/24 11:44 WBC 7.5 RBC 3.84 L Hgb 13.3 Hct 39.2 MCV 102.1 H MCH 34.6 H MCHC 33.9 RDW Std Deviation 48.9 H RDW Coeff of Rani 13.2 Plt Count 318 MPV 10.3 Immature Gran % (Auto) 0.900 Neut % (Auto) 80.5 H Lymph % (Auto) 10.0 L Wood % (Auto) 7.8 Eos % (Auto) 0.5 Baso % (Auto) 0.3 Absolute Neuts (auto) 6.1 Absolute Lymphs (auto) 0.75 L Nucleated RBC % 0 D-Dimer Quant (PE/DVT) 3.91 H* Sodium 140 Potassium 3.3 L Chloride 105 Carbon Dioxide 26.0 Anion Gap 9 BUN 13 Creatinine 1.01 Est GFR (MDRD) Af Amer 68 Est GFR (MDRD) Non-Af 56 L BUN/Creatinine Ratio 12.9 Glucose 163 H Calcium 10.0 Troponin I High Sens 22 Radiography Diagnostic Testing: Clinical Impression(s) from Imaging Studies Chest X-Ray 04/02/24 12:40 IMPRESSION: Cardiomegaly with pulmonary vascular congestion. Reading Location: [facility] Chest CTA 04/02/24 13:35 IMPRESSION: 1. Nonocclusive subsegmental right lower lobe pulmonary emboli 2. Bilateral lower lobe pneumonia 3. Cardiomegaly 4. Small hiatal hernia Findings communicated to WANDER Francisco on 04/02/24 at 1441 hours One or more dose reduction techniques were used (e.g., Automated exposure control, adjustment of the mA and/or kV according to patient size, use of iterative reconstruction technique). Reading Location: [facility] ED attending interpretation of 2 view chest x-ray shows cardiomegaly, no acute infiltrate. EKG Initial EKG: Attestation: I personally reviewed and interpreted this EKG as follows: Interpretation: No Acute Injury Pattern and Atrial Fibrillation Comments: Atrial fibrillation with RVR at 105 bpm Occasional PVC Left anterior fascicular block She had A-fib on telemetry strip in 2020 Prior EKG tracings: available for review Prior: Unchanged <Dr. Juan Meeks, DO - Last Filed: 04/02/24 16:30> [facility] Lab Data Labs: Laboratory Results - last 24 hr 04/02/24 11:44 WBC 7.5 RBC 3.84 L Hgb 13.3 Hct 39.2 MCV 102.1 H MCH 34.6 H MCHC 33.9 RDW Std Deviation 48.9 H RDW Coeff of Rani 13.2 Plt Count 318 MPV 10.3 Immature Gran % (Auto) 0.900 Neut % (Auto) 80.5 H Lymph % (Auto) 10.0 L Wood % (Auto) 7.8 Eos % (Auto) 0.5 Baso % (Auto) 0.3 Absolute Neuts (auto) 6.1 Absolute Lymphs (auto) 0.75 L Nucleated RBC % 0 D-Dimer Quant (PE/DVT) 3.91 H* Sodium 140 Potassium 3.3 L Chloride 105 Carbon Dioxide 26.0 Anion Gap 9 BUN 13 Creatinine 1.01 Est GFR (MDRD) Af Amer 68 Est GFR (MDRD) Non-Af 56 L BUN/Creatinine Ratio 12.9 Glucose 163 H Calcium 10.0 Troponin I High Sens 22 Radiography Diagnostic Testing: Clinical Impression(s) from Imaging Studies Chest X-Ray 04/02/24 12:40 IMPRESSION: Cardiomegaly with pulmonary vascular congestion. Reading Location: [facility] Chest CTA 04/02/24 13:35 IMPRESSION: 1. Nonocclusive subsegmental right lower lobe pulmonary emboli 2. Bilateral lower lobe pneumonia 3. Cardiomegaly 4. Small hiatal hernia Findings communicated to WANDER Francisco on 04/02/24 at 1441 hours One or more dose reduction techniques were used (e.g., Automated exposure control, adjustment of the mA and/or kV according to patient size, use of iterative reconstruction technique). Reading Location: [facility] Treatment and Re-Evaluation :: I have personally performed a face to face assessment of the patient and have reviewed the GLENNY Note. I performed a substantive portion of the visit including all aspects of the following. My vora findings include: History: Patient presents with shortness of breath that has been getting worse over the past week. Patient states it is gradually getting worse. Patient states her breathing is worse with any exertion. Patient states it is better with rest. Patient admits to a cough but denies any sputum production. Patient states she has occasional twinge of pain in her chest. Patient denies any sore throat or rhinorrhea. Patient denies any fevers or chills. Exam: Vital signs are stable. Patient is afebrile. Patient is in no acute distress. Oral mucosa is pink and slightly dry. Neck is supple. Trachea is midline. There is no JVD. Heart was irregularly irregular. Lungs show diffuse expiratory wheezing and rhonchi. There is good respiratory effort noted. Abdomen is soft. Bowel sounds are normal. There is no tenderness. Cranial nerves II through XII are intact. There are no focal motor or sensory deficits noted. Medical Decision Making: Differential diagnosis includes pneumonia, bronchitis, viral upper respiratory infection, electrolyte abnormality, cardiac dysrhythmia, cardiac ischemia, pulmonary embolism, and bronchitis. EKG will be obtained to assess for cardiac dysrhythmia and cardiac ischemia. Chest x-ray will be obtained to assess for pneumonia and bronchitis. CBC will be obtained to assess for leukocytosis and anemia. Basic metabolic profile will be obtained to assess for electrolyte abnormality and renal function. High-sensitivity troponin will be obtained to assess for cardiac ischemia. D-dimer will be obtained to assess for pulmonary embolism. COVID-19, influenza, and RSV PCR will be obtained to assess for viral illness. Patient was given a DuoNeb aerosol here. EKG was obtained. On my independent interpretation, it shows atrial fibrillation with a rate of 105. There are occasional PVCs noted. QRS interval and QTc intervals are within normal limits. There is left axis deviation at -52. There is a left anterior fascicular block noted. There are no acute ST or T wave changes noted. PA and lateral chest x-ray was obtained. There are 2 views. On my independent interpretation, lung trent show mild congestion. There is cardiomegaly. Bony thorax is normal. Radiologist also interpreted the x-ray and agrees. CBC was reviewed and was essentially within normal limits. Basic metabolic profile was reviewed. Potassium was slightly low at 3.3. Glucose was slightly elevated at 163. The remainder is within normal limits. High-sensitivity troponin was reviewed and was normal at 22. D-dimer was reviewed and was elevated at 3.91. Because of the elevated D-dimer, CTA of the chest was obtained. There is nonocclusive subsegmental pulmonary emboli in the right lower lobe. There is bilateral lower lobe pneumonia. There is cardiomegaly and a small hiatal hernia. This was interpreted by the radiologist and was also dependently reviewed by self. Because of the bilateral infiltrates, I recommended admission to the hospital. Case was discussed with the hospitalist. She will admit the patient to her service. Patient and family understood and was agreeable with plan. All questions were answered. Discharge Plan Triage Chief Complaint: Shortness of Breath ED Midlevel Provider: Nati Mcfadden ED Provider: Juan Meeks Dx/Rx/DC Orders Clinical Impression: Bilateral pneumonia, Pulmonary embolism on right, Acute hypokalemia, Hx of medication noncompliance Prescriptions: No Action Eliquis 5 mg tablet 5 mg PO BID metoprolol succinate 25 mg tablet extended release 24 hr 25 mg PO DAILY Alive Women's 50 Plus (blend) 240-120-300 mcg tablet 1 tab PO DAILY omega-3 fatty acids 1,000 mg capsule 1,000 mg PO DAILY losartan 25 mg tablet 12.5 mg PO DAILY cholecalciferol (vitamin D3) 50 mcg (2,000 unit) capsule 50 mcg PO DAILY allopurinol 100 mg tablet 100 mg PO BID levothyroxine 88 mcg tablet 88 mcg PO DAILY pravastatin 10 mg tablet 10 mg PO QHS metformin 500 mg tablet extended release 24 hr 500 mg PO BID ipratropium-albuterol 0.5 mg-3 mg(2.5 mg base)/3 mL solution for nebulization 3 ml continuous nebulization Q4H PRN (Reason: shortness of breath or wheezing) potassium chloride 20 mEq tablet extended release 20 meq PO DAILY Primary Care Provider: Delta Carolina Referrals: Delta Carolina PA-C [Primary Care Provider] - Print Language: Slovenian
[2024-04-02] MEDS: Ipratropium/Albuterol Sulfate 3 ML AMPUL.NEB INHALATION (11:51)
[2024-04-02] MEDS: 0.9% Normal Saline (1000mL) 1,000 ML 999 ML IV (11:52)
[2024-04-02 12:00] LABS: Absolute Lymphocyte Count 0.75 X10^3/uL (0.83-4.51); Absolute Neutrophil Count 6.1 X10^3/uL (2.0-7.7); Basophil# 0.02 X10^3/uL; Basophil% 0.3 % (0-1); Eosinophil# 0.04 X10^3/uL; Eosinophils% 0.5 % (0-5); Hematocrit 39.2 % (37-47); Hemoglobin 13.3 g/dL (12.0-15.0); Lymphocyte # 0.75 X10^3/ul (0.83-4.51); Mean Corp Hgb Conc 33.9 g/dL (32-36); Mean Corpuscular Hgb 34.6 pg (27.0-32.0); Mean Corpuscular Volume 102.1 fL (81-99); Mean Platelet Vol. 10.3 fl (6.2-12.0); Monocyte# 0.59 X10^3/uL; Monocyte% 7.8 % (0-10); NRBC Flagged by Analyzer 0 % (0-5); Neutrophil # 6.06 X10^3/uL (2.7-7.7); Neutrophil % 80.5 % (47-70); Platelet Count 318 K/mm3 (150-450); RBC Distribution Width CV 13.2 % (11.6-14.6); RBC Distribution Width SD 48.9 fl (35.1-43.9); Red Blood Count 3.84 M/mm3 (4.2-5.4); White Blood Count 7.5 K/mm3 (4.4-11.0)
[2024-04-02 12:17] LABS: Anion Gap 9 (5-15); BUN 13 mg/dL (7-18); BUN/Creat Ratio 12.9 RATIO (10-20); Chloride 105 mmol/L (98-107); Creatinine, Serum 1.01 mg/dL (0.55-1.02); EST Glomerular Filtration Rate 56 mL/min (>60); Est Glom Filt Rate - Afr Amer 68 mL/min (>60); Glucose 163 mg/dL (74-106); Potassium 3.3 mmol/L (3.5-5.1); Sodium Level 140 mmol/L (136-145); Troponin-I HS 22 pg/mL (3.0-54.0)
--- NOTE | 2024-04-02 12:40 | RAD_ITS ---
PROCEDURE: CHEST PA AND LATERAL REASON FOR EXAM: Cough TECHNIQUE: Frontal and lateral views of the chest. COMPARISON: None. FINDINGS: Heart size is mildly enlarged. There are atherosclerotic calcifications of the thoracic aorta. Pulmonary vasculature is congested. Degenerative changes are identified within the thoracic spine. RAD/Chest PA and Lateral IMPRESSION: Cardiomegaly with pulmonary vascular congestion. Reading Location: [facility]
[2024-04-02] MEDS: Potassium Chloride Oral Tablet 20 MEQ 40 MEQ PO (13:00)
[2024-04-02 13:31] LABS: D-Dimer Quantitative (DVT/PE) 3.91 FEU/ug/m (0.27-0.49)
--- NOTE | 2024-04-02 13:35 | CT_ITS ---
PROCEDURE: CTA CHEST W/WO CONTRAST REASON FOR EXAM: Cough, high dimer TECHNIQUE: CTA imaging of the chest with intravenous contrast. 3D reconstructions. COMPARISON: 12/09/2022 FINDINGS: Hardware: None. Hernia: Small hiatal hernia Lymph nodes: No mediastinal hilar or axillary lymphadenopathy. Heart: Cardiomegaly. No pericardial effusion. Coronary artery calcifications. RV/LV Diameter Ratio: N/A Thoracic Aorta: No thoracic aortic aneurysm or dissection. Pulmonary Vessels: Nonocclusive embolus in the right subsegmental lower lobe arteries. Most Proximal Level of Embolus (if embolus present): Subsegmental Lungs and Airways: Consolidations in the bilateral lower lobes, [id number]-thhm-[id number]. Pleura: No pleural effusion. No pneumothorax. Upper Abdomen: Visualized portions of the upper abdominal viscera are unremarkable. Bones: Bone windows are unremarkable. CT/CTA Chest W/WO Contrast IMPRESSION: 1. Nonocclusive subsegmental right lower lobe pulmonary emboli 2. Bilateral lower lobe pneumonia 3. Cardiomegaly 4. Small hiatal hernia Findings communicated to WANDER Francisco on 04/02/24 at 1441 hours One or more dose reduction techniques were used (e.g., Automated exposure contr ol, adjustment of the mA and/or kV according to patient size, use of iterative reconstruction technique). Reading Location: [facility]
[2024-04-02] MEDS: APIXABAN 5 MG TABLET 10 MG PO (14:57)
[2024-04-02] MEDS: Ceftriaxone 1 GM/50 ML BAG IV (15:05)
--- NOTE | 2024-04-02 15:25 | CASEMGMT ---
Care Management Face to Face with patient for initial transition planning/care coordination assessment in the ED.? 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 Patient alert and oriented. Patient willing to participate in assessment and is able to answer all questions appropriately.? Care providers, pharmacy, and demographics verified. Patient?s daughters Abbie and Sara were both present which patient provided consent to. Admitting Diagnosis: Bilateral Pneumonia Other diagnosis history: Including but may not be limited to: A-fib, Factor V Leiden, DVT/PE, Lymphoma in remission, Anemia, Frequent falls, Hypothyroidism, HTN and DM. PCP: Dr. Delta Carolina Specialists: Oncologist, Dr. Hargrove Preferred Pharmacy: [facility] Insurance: Medicare, Part A and B. Prescription Benefit: Yes Living Will/HPOA: No but interested in while here. ? LNOK: Patient?s daughters Sara, Abbie and Rissa. Living Arrangements: Patient has her own home however has been living with her daughter Sara and Sara?s since patient was first diagnosed with cancer 3 years ago. At [facility], patient?s bedroom and bath are all first floor and there are 3 steps leading in/out of the home with a hand-rail that patient stated she is able to navigate without difficulty. Patient denied any environmental barriers at this time. Transportation: Patient drives. DME: Patient currently has a hospital bed, quad cane, shower chair, 2 grab bars in the shower and 1 grab bar by the toilet, RTS, BSC, HHS, rollator, standard walker, and a lift chair. HHC: None previously and none needed. SNF/Rehab: Denied Community Resources: [facility]. Behavioral Health History: Denied. Patient goals: Patient wishes to discharged back to the home of Sara and Sara?s when medically ready, and ?denies need for home health care at this time. Patient denies any further needs or concerns at this time. Disposition Plan: admission to acute; RN CM/SW to follow for discharge planning needs that may arise. Laureen Medrano, BROOM BUNDLER, CIRCUIT BREAKER MECHANIC
--- NOTE | 2024-04-02 15:26 | PCM.HP.STD ---
HPI - General General Date of Admission: 04/02/24 Date of Service: 04/02/24 Chief Complaint: Shortness of breath and generalized weakness HPI Narrative LEANDRO HELMS, is a 78-year-old female history of A-fib, factor V Leiden deficiency, DVT/PE, lymphoma in remission, gout, hypothyroidism, diabetes presented [facility] ED 04/02/2024 with 3 weeks of cold-like symptoms and 1 week of increased generalized weakness and shortness of breath. She lives with her daughter states she has not been getting out of her recliner very much and daughter found out today that she has not been taking her Eliquis or using her breathing treatments for the past 1 week. Poor p.o. intake as well. In the ED initial heart rate 109 with blood pressure 132/82, respiratory rate 24 and patient 97% on room air however she was diffusely wheezy and tachypneic. Lab workup revealed a potassium of 3.3 and D-dimer 3.91. CTA obtained and showed a nonocclusive subsegmental right lower lobe pulmonary emboli with bilateral lower lobe pneumonia. Given her wheezing, tachypnea, generalized weakness, pneumonia and PE hospitalist contacted for admission. Patient evaluated with family members at bedside and reports 3 weeks of cough with 1 week of worsening shortness of breath, has a deep wet sounding cough without ability to produce sputum. Does note she has breathing treatments at home that she got last year after she had an acute illness but does not have any history of asthma or COPD that she knows of and does not routinely use any breathing treatments, also has not been using these breathing treatments at home even though they are available. Has had some headaches as well. Does not note any fever at home, occasionally gets chest twinges but no deep pain. Denies any other focal acute complaints [facility] Medical History (Updated 04/02/24 @ 14:54 by WANDER Francisco) Acute anemia Anemia Cancer Diabetes Diarrhea due to drug Diffuse large b-cell lymphoma, lymph nodes of multiple sites Encounter for chemotherapy management Encounter for monitoring cardiotoxic drug therapy Factor V Leiden, prothrombin gene mutation Frequent falls Gout High cholesterol History of pulmonary embolism Hypertension Hypothyroidism Macrocytic anemia Macrocytosis without anemia Non-smoker Obesity Pulmonary embolism Thyroid disease Total bilirubin, elevated Walker as ambulation aid Wears dentures Wears glasses Home Medications ?Medication ?Instructions ?Recorded ?Last Taken ?Type allopurinol 100 mg tablet 100 mg PO BID gout 07/10/20 07/10/20 07:00 History levothyroxine 88 mcg tablet 88 mcg PO DAILY thyroid 07/10/20 07/10/20 07:00 History metformin 500 mg tablet,extended 500 mg PO BID diabetes 07/10/20 07/07/20 22:00 History release 24 hr pravastatin 10 mg tablet 10 mg PO QHS cholesterol 07/10/20 07/09/20 22:00 History apixaban 5 mg tablet (Eliquis) 5 mg PO BID blood thinner 09/26/20 Unknown History cholecalciferol (vitamin D3) 50 50 mcg PO DAILY 06/03/21 Unknown History mcg (2,000 unit) capsule losartan 25 mg tablet 12.5 mg PO DAILY 06/03/21 Unknown History metoprolol succinate 25 mg 25 mg PO DAILY 06/03/21 Unknown History tablet,extended release 24 hr obtojilv-nozu-mkjhx acid 240 1 tab PO DAILY 06/03/21 Unknown History mcg-vit K 120 lhq-jzkuwc-ulbj 293 tablet (Alive Women's 50 Plus (fruit-veg blend)) omega-3 fatty acids 1,000 mg 1,000 mg PO DAILY 06/03/21 Unknown History capsule ipratropium 0.5 mg-albuterol 3 mg 3 ml continuous nebulization Q4H 04/02/24 Unknown History (2.5 mg base)/3 mL nebulization PRN shortness of breath or wheezing soln potassium chloride 20 mEq 20 meq PO DAILY 04/02/24 Unknown History tablet,extended release Allergy/AdvReac Type Severity Reaction Status Date / Time No Known Allergies Allergy Verified 04/02/24 11:25 Family History Mother Diabetes Heart disease Brother Cancer Father Diabetes Heart disease Surgical History History of bilateral knee replacement History of cataract removal with insertion of prosthetic lens History of cholecystectomy History of tubal ligation Social History (Updated 04/02/24 @ 11:54 by Trish Banda) household members: family housing: house Smoking Status: Never smoker second hand exposure: No alcohol intake: never substance use type: does not use rahul/jehovah's witness: [employer] seatbelt use: always do you feel safe at home: Yes ROS ROS Narrative General: Denies fever/chills HENT: Some headaches, denies stuffy nose, denies sore throat EYES: Denies changes in vision Resp: Increased cough and increased shortness of breath Cardiac: Occasional chest twinges but nothing presently denies any deeper more prolonged chest pain GI: Denies abdominal pain, denies changes in bowel, denies nausea/vomiting : Denies changes in urination Extremity: Denies swelling MSK: Some generalized weakness Neuro: Denies any numbness/tingling Heme: Denies any bleeding or bruising Skin: Denies rashes Psychiatric: No complaints voiced Vital Signs Vital Signs Vital Signs: 04/02/24 11:24 04/02/24 11:54 04/02/24 11:54 Temperature 97.8 F 98.3 F Temperature Source Temporal Oral Pulse Rate 109 H 108 H Respiratory Rate 24 H 18 Respiratory Effort Short of Breath Labored Accessory Muscle Use Respiratory Depth Shallow Respiratory Pattern Tachypnea Blood Pressure 132/82 H 138/89 H Blood Pressure Mean 98 105 Pulse Ox 97 98 Oxygen Delivery Method Room Air Nasal Cannula Room Air Oxygen Flow Rate (L/min) 2 04/02/24 11:55 04/02/24 11:55 04/02/24 12:25 Temperature 98.3 F Temperature Source Oral Pulse Rate 104 H 89 Respiratory Rate 33 H 25 H Respiratory Effort Respiratory Depth Respiratory Pattern Tachypnea Blood Pressure 125/76 H Blood Pressure Mean 92 Pulse Ox 97 98 Oxygen Delivery Method Nasal Cannula Nasal Cannula Oxygen Flow Rate (L/min) 2 2 04/02/24 13:00 04/02/24 14:00 04/02/24 14:59 Temperature 98.2 F 98.3 F 98.3 F Temperature Source Oral Oral Pulse Rate 100 84 84 Respiratory Rate 32 H 25 H 25 H Respiratory Effort Respiratory Depth Respiratory Pattern Blood Pressure 122/63 H 126/88 H 126/88 H Blood Pressure Mean 82 100 100 Pulse Ox 99 97 97 Oxygen Delivery Method Nasal Cannula Nasal Cannula Oxygen Flow Rate (L/min) 2 3 Weight Weight: 125.7 kg Body Mass Index (BMI) 43.4 Physical Exam Narrative General: Alert, answers questions appropriately HEENT: Atraumatic, normocephalic Eyes: Anicteric, normal conjunctiva, extraocular movements grossly intact Neck: Supple Respiratory: Increased respiratory effort, diffuse wheezes and diffusely coarse Cardiovascular: Irregularly irregular GI: Soft, nontender, nondistended Extremities: No edema Musculoskeletal: Moving all extremities Neuro: No overt focal neurological deficits Skin: No rashes appreciated Psych: Cooperative Results Lab / Micro Data 04/02/24 11:44 04/02/24 11:44 Labs: Laboratory Results - last 24 hr 04/02/24 11:44: WBC 7.5, RBC 3.84 L, Hgb 13.3, Hct 39.2, MCV 102.1 H, MCH 34.6 H, MCHC 33.9, RDW Std Deviation 48.9 H, RDW Coeff of Rani 13.2, Plt Count 318, MPV 10.3, Immature Gran % (Auto) 0.900, Neut % (Auto) 80.5 H, Lymph % (Auto) 10.0 L, George % (Auto) 7.8, Eos % (Auto) 0.5, Baso % (Auto) 0.3, Absolute Neuts (auto) 6.1, Absolute Lymphs (auto) 0.75 L, Nucleated RBC % 0, D-Dimer Quant (PE/DVT) 3.91 H*, Sodium 140, Potassium 3.3 L, Chloride 105, Carbon Dioxide 26.0, Anion Gap 9, BUN 13, Creatinine 1.01, Est GFR (MDRD) Af Amer 68, Est GFR (MDRD) Non-Af 56 L, BUN/Creatinine Ratio 12.9, Glucose 163 H, Calcium 10.0, Troponin I High Sens 22 Micro: Microbiology 04/02/24 11:49 Mucosa - Nose SARS-CoV-2, Influenza & RSV (PCR) - Final Imaging Radiology Impression Chest X-Ray 04/02/24 12:40 IMPRESSION: Cardiomegaly with pulmonary vascular congestion. Reading Location: [facility] Chest CTA 04/02/24 13:35 IMPRESSION: 1. Nonocclusive subsegmental right lower lobe pulmonary emboli 2. Bilateral lower lobe pneumonia 3. Cardiomegaly 4. Small hiatal hernia Findings communicated to WANDER Francisco on 04/02/24 at 1441 hours One or more dose reduction techniques were used (e.g., Automated exposure control, adjustment of the mA and/or kV according to patient size, use of iterative reconstruction technique). Reading Location: [facility] Assessment & Plan Assessment/Plan (1) Bilateral pneumonia: (2) Pulmonary embolism on right: PLAN: Plan #Community-acquired pneumonia -Imaging: CTA with bilateral pneumonia -DuoNebs and as needed albuterol -Sputum culture, COVID negative, respiratory panel ordered -Urine antigens -Mucinex, I/S -Rocephin and azithromycin # Acute PE on top of patient's chronic history of factor V Leiden, PE, DVT history -Secondary to noncompliance with home Eliquis -Patient found to have CTA with right nonocclusive subsegmental PE -Will start back with Eliquis 10 mg twice daily given acute PE and ultimately will go back down to her 5 twice daily after initial loading doses # Atrial fibrillation -Resuming patient's home Eliquis but higher dose given acute PE -Continue patient's metoprolol # Generalized weakness -Treat underlying illness -PT/OT -Case management consult #Hypothyroidism -Continue Synthroid #Type 2 diabetes mellitus -Glucose checks and sliding scale insulin -Holding home metformin while in hospital #Hypokalemia -Replace -Repeat in the AM -Continue patient's home potassium -Will check magnesium #Hypertension -Continue patient's losartan and metoprolol #Gout -Continue home allopurinol #Morbid obesity -BMI documented as 43.4 kg/m? at time of admission -Complicates treatment, prognosis, outcomes -Recommend weight loss and lifestyle changes #DVT ppx: Kevin Ortiz MD Charges/Coding Visit Charges Inpatient E&M: 84071 Init Hosp L2
[2024-04-02] MEDS: Azithromycin 500 MG in 0.9% Normal Saline (250mL Bag) 250 ML 255 MG IV (16:00)
[2024-04-02 16:03] LABS: Magnesium 1.4 mg/dL (1.6-2.6)
[2024-04-02] MEDS: Allopurinol 100 MG Tablet PO (17:13)
[2024-04-02 18:43] LABS: Bedside Glucose 131 mg/dL (74-106)
[2024-04-02] MEDS: Magnesium Sulfate 4gm/100mL 4 GM/100 ML IV.SOLN. IV (20:21)
[2024-04-02] MEDS: guaiFENesin 1,200 MG Tablet 1200 MG PO (20:23)
[2024-04-02] MEDS: Pravastatin 20 MG Tablet 10 MG PO (20:23)
[2024-04-03] VITALS (11 sets, daily range): BP systolic 127–139; BP diastolic 78–88; PULSE 60–102; RESP 16–20; TEMP 36.7–37.2; O2SAT 91–97
[2024-04-03] MEDS: Ipratropium/Albuterol Sulfate 3 ML AMPUL.NEB INHALATION ×4 (00:17→19:25)
[2024-04-03] MEDS: Levothyroxine 88 MCG Tablet PO (06:23)
[2024-04-03 06:41] LABS: Bedside Glucose 136 mg/dL (74-106)
[2024-04-03 06:48] LABS: Absolute Lymphocyte Count 0.99 X10^3/uL (0.83-4.51); Absolute Neutrophil Count 5.3 X10^3/uL (2.0-7.7); Basophil# 0.02 X10^3/uL; Basophil% 0.3 % (0-1); Eosinophil# 0.06 X10^3/uL; Eosinophils% 0.8 % (0-5); Hematocrit 32.3 % (37-47); Hemoglobin 10.3 g/dL (12.0-15.0); Lymphocyte # 0.99 X10^3/ul (0.83-4.51); Lymphocyte % 13.9 % (19-41); Mean Corp Hgb Conc 31.9 g/dL (32-36); Mean Corpuscular Hgb 32.7 pg (27.0-32.0); Mean Corpuscular Volume 102.5 fL (81-99); Mean Platelet Vol. 9.7 fl (6.2-12.0); Monocyte# 0.73 X10^3/uL; Monocyte% 10.2 % (0-10); NRBC Flagged by Analyzer 0 % (0-5); Neutrophil # 5.27 X10^3/uL (2.7-7.7); Neutrophil % 73.8 % (47-70); Platelet Count 271 K/mm3 (150-450); RBC Distribution Width CV 13.3 % (11.6-14.6); RBC Distribution Width SD 49.3 fl (35.1-43.9); Red Blood Count 3.15 M/mm3 (4.2-5.4); White Blood Count 7.1 K/mm3 (4.4-11.0)
[2024-04-03 07:14] LABS: Anion Gap 9 (5-15); BUN 12 mg/dL (7-18); BUN/Creat Ratio 15.4 RATIO (10-20); Calcium,Total 8.9 mg/dL (8.5-10.1); Chloride 106 mmol/L (98-107); Creatinine, Serum 0.78 mg/dL (0.55-1.02); EST Glomerular Filtration Rate 76 mL/min (>60); Est Glom Filt Rate - Afr Amer 91 mL/min (>60); Estimated Creatinine Clearance 76.62 ml/min; Glucose 148 mg/dL (74-106); Potassium 3.6 mmol/L (3.5-5.1); Sodium Level 139 mmol/L (136-145)
[2024-04-03] MEDS: Losartan Potassium 25 MG Tablet 12.5 MG PO ×2 (09:34→09:56)
[2024-04-03] MEDS: guaiFENesin 1,200 MG Tablet 1200 MG PO ×2 (09:34→21:45)
[2024-04-03] MEDS: Metoprolol(XL)Succ 25 MG Tablet PO ×2 (09:35→09:55)
[2024-04-03] MEDS: Allopurinol 100 MG Tablet PO ×2 (09:35→16:56)
[2024-04-03] MEDS: Potassium Chloride Oral Tablet 20 MEQ PO ×2 (09:35→09:55)
[2024-04-03] MEDS: APIXABAN 5 MG TABLET 10 MG PO ×2 (09:35→09:55)
[2024-04-03] MEDS: Ceftriaxone 2 GM in 0.9% Normal Saline (50mL MB+) 50 ML IV (09:56)
[2024-04-03] MEDS: Azithromycin 500 MG in 0.9% Normal Saline (250mL Bag) 250 ML 255 MG IV (10:45)
[2024-04-03 12:48] LABS: Bedside Glucose 124 mg/dL (74-106)
--- NOTE | 2024-04-03 13:47 | CASEMGMT ---
SW was informed patient was interested in completing a Healthcare Power of [employer]. SW met with patient. Introduced self and role at [facility]. Patient stated she does not wish to do documents now. She would like to work on them when she gets home. Patient declined anything further. Luna SALAS
[2024-04-03] MEDS: Insulin Lispro 100 UNIT/ML INSULN.PEN SC (16:51)
[2024-04-03 17:45] LABS: Bedside Glucose 154 mg/dL (74-106)
--- NOTE | 2024-04-03 18:23 | PCM.PN.HOSP ---
Reason for Visit Reason for Visit: Diagnoses Other pulmonary embolism without acute cor pulmonale (04/02/24) Pneumonia, unspecified organism (04/02/24) Subjective Subjective Patient reports still feeling little bit weak but overall feeling much better, shortness of breath improving, cough improving Objective Data Objective Data Vital Signs: Vital Signs Temp Pulse Resp BP Pulse Ox O2 Del Method O2 Flow Rate 98.9 F 65 18 137/78 H 97 Room Air 3 04/03/24 17:00 04/03/24 17:00 04/03/24 17:00 04/03/24 17:00 04/03/24 17:00 04/03/24 17:00 04/02/24 14:00 Oxygen Flow Rate (L/min) 3 Oxygen Delivery Method Room Air Weight: 120.4 kg Body Mass Index (BMI) 41.5 Intake & Output: Intake and Output for Last 24 Hours 04/01/24 04/02/24 04/03/24 23:59 23:59 23:59 Intake Total 1805 / 2305 1665 / 1665 Output Total Balance 1805 / 2305 1664 / 1664 Lab / Micro Data 04/03/24 06:19 04/03/24 06:19 Labs: Laboratory Results - last 24 hr 04/02/24 17:11: POC Glucose 131 H 04/03/24 06:13: POC Glucose 136 H 04/03/24 06:19: WBC 7.1, RBC 3.15 L, Hgb 10.3 L, Hct 32.3 L, MCV 102.5 H, MCH 32.7 H, MCHC 31.9 L D, RDW Std Deviation 49.3 H, RDW Coeff of Rani 13.3, Plt Count 271, MPV 9.7, Immature Gran % (Auto) 1.000 H, Neut % (Auto) 73.8 H, Lymph % (Auto) 13.9 L, [place] % (Auto) 10.2 H, Eos % (Auto) 0.8, Baso % (Auto) 0.3, Absolute Neuts (auto) 5.3, Absolute Lymphs (auto) 0.99, Nucleated RBC % 0, Sodium 139, Potassium 3.6, Chloride 106, Carbon Dioxide 24.0, Anion Gap 9, BUN 12, Creatinine 0.78, Estim Creat Clear Calc 76.62, Est GFR (MDRD) Af Amer 91, Est GFR (MDRD) Non-Af 76, BUN/Creatinine Ratio 15.4, Glucose 148 H, Calcium 8.9 04/03/24 12:17: POC Glucose 124 H 04/03/24 16:47: POC Glucose 154 H Micro: Microbiology 04/02/24 21:05 Mucosa - Nasopharyngeal Respiratory Panel (PCR) - Final 04/02/24 11:49 Mucosa - Nose SARS-CoV-2, Influenza & RSV (PCR) - Final Physical Exam Narrative General: Alert, oriented, no apparent distress HEENT: Atraumatic, normocephalic Eyes: Anicteric, normal conjunctiva, extraocular movements grossly intact Neck: Supple Respiratory: Some wheezes at the bases right greater than left with a cough Cardiovascular: Regular rate GI: Soft, nontender, nondistended Extremities: No significant pitting edema Musculoskeletal: Moving all extremities Neuro: No overt focal neurological deficits Skin: No rashes appreciated Psych: Cooperative Assessment & Plan Assessment/Plan (1) Bilateral pneumonia: (2) Pulmonary embolism on right: PLAN: Plan #Community-acquired pneumonia -Imaging: CTA with bilateral pneumonia -DuoNebs and as needed albuterol -Sputum culture, COVID negative, respiratory panel ordered -Urine antigens -Mucinex, I/S -Rocephin and azithromycin -04/03: Patient significantly improving, anticipate DC in 1 to 2 days if she continues to improve at this rate # Acute PE on top of patient's chronic history of factor V Leiden, PE, DVT history -Secondary to noncompliance with home Eliquis -Patient found to have CTA with right nonocclusive subsegmental PE -Will start back with Eliquis 10 mg twice daily given acute PE and ultimately will go back down to her 5 twice daily after initial loading doses -04/03: Patient remains on Eliquis 10 mg twice daily, hemoglobin 10.3 today, was higher yesterday but the hemoglobin before that was 11.6, patient denies any overt bleeding and she was chronically on Eliquis previously, repeat in the a.m. # Atrial fibrillation -Resuming patient's home Eliquis but higher dose given acute PE -Continue patient's metoprolol -04/03: Patient tolerating metoprolol, Eliquis as above # Generalized weakness -Treat underlying illness -PT/OT -Case management consult -04/03: Improving with treatment of pneumonia, patient would likely be able to return home with family on discharge and not need placement Chronical medical problems: #Hypothyroidism -Continue Synthroid #Type 2 diabetes mellitus -Glucose checks and sliding scale insulin -Holding home metformin while in hospital #Hypertension -Continue patient's losartan and metoprolol #Gout -Continue home allopurinol #Morbid obesity -BMI documented as 43.4 kg/m? at time of admission -Complicates treatment, prognosis, outcomes -Recommend weight loss and lifestyle changes #DVT ppx: Kevin Ortiz MD Charges/Coding Visit Charges Inpatient E&M: 27796 Subs Hosp L2
[2024-04-03] MEDS: Pravastatin 20 MG Tablet 10 MG PO (21:44)
[2024-04-04] MEDS: Ipratropium/Albuterol Sulfate 3 ML AMPUL.NEB INHALATION ×2 (01:37→07:14)
[2024-04-04 01:38] VITALS: PULSE 85; RESP 22
[2024-04-04 03:18] VITALS: BP 123/96; PULSE 89; RESP 92; TEMP 36.8; O2SAT 98
[2024-04-04 06:09] LABS: Hematocrit 31.5 % (37-47); Mean Corp Hgb Conc 31.7 g/dL (32-36); Mean Corpuscular Hgb 33.1 pg (27.0-32.0); Mean Corpuscular Volume 104.3 fL (81-99); Mean Platelet Vol. 9.6 fl (6.2-12.0); Platelet Count 269 K/mm3 (150-450); RBC Distribution Width CV 13.3 % (11.6-14.6); RBC Distribution Width SD 50.7 fl (35.1-43.9); Red Blood Count 3.02 M/mm3 (4.2-5.4); White Blood Count 6.2 K/mm3 (4.4-11.0)
[2024-04-04] MEDS: Levothyroxine 88 MCG Tablet PO (06:25)
[2024-04-04 06:43] LABS: Scan Indicated on CBC? Y/N NO
[2024-04-04 06:54] LABS: Anion Gap 8 (5-15); BUN 12 mg/dL (7-18); BUN/Creat Ratio 13.5 RATIO (10-20); Calcium,Total 8.9 mg/dL (8.5-10.1); Chloride 108 mmol/L (98-107); Creatinine, Serum 0.89 mg/dL (0.55-1.02); EST Glomerular Filtration Rate 65 mL/min (>60); Est Glom Filt Rate - Afr Amer 78 mL/min (>60); Estimated Creatinine Clearance 68.87 ml/min; Glucose 141 mg/dL (74-106); Potassium 3.8 mmol/L (3.5-5.1); Sodium Level 140 mmol/L (136-145)
[2024-04-04 07:09] LABS: Bedside Glucose 126 mg/dL (74-106)
[2024-04-04 07:14] VITALS: PULSE 88; RESP 20; O2SAT 93
[2024-04-04 09:20] VITALS: BP 130/78; PULSE 92; RESP 18; TEMP 37.7; O2SAT 92
[2024-04-04] MEDS: guaiFENesin 1,200 MG Tablet 1200 MG PO (09:24)
[2024-04-04] MEDS: Allopurinol 100 MG Tablet PO (09:24)
[2024-04-04] MEDS: APIXABAN 5 MG TABLET 10 MG PO (09:24)
[2024-04-04] MEDS: Ceftriaxone 2 GM in 0.9% Normal Saline (50mL MB+) 50 ML IV (10:25)
[2024-04-04] MEDS: 0.9% Saline Lock 10 ML Syringe IV (10:26)
[2024-04-04] MEDS: Azithromycin 500 MG in 0.9% Normal Saline (250mL Bag) 250 ML 255 MG IV (10:26)
[2024-04-04] MEDS: Insulin Lispro 100 UNIT/ML INSULN.PEN SC (11:21)
[2024-04-04 11:40] LABS: Bedside Glucose 154 mg/dL (74-106)
--- NOTE | 2024-04-04 12:09 | DCINST_ITS ---
Discharge Instructions Diet Discharge Diet: - (Resume home diet) DC O2, CPAP, BIPAP needs Home O2 Discharge instructions: No Dressing / Incision Discharge Activity: - (Increase activity as tolerated) Follow Up Care Test Results: Test results from this visit will be discussed in further detail at your follow- up appointment, if applicable. Discharge Plan Admission Admit Date/Time: 04/02/24 15:26 Primary Reason for Your Visit: Increased shortness of breath Attending Provider: Naty Ortiz Primary Care Provider: Delta Carolina Instructions Patient Instructions: ED Pneumonia (Adult) Additional Instructions / Restrictions: DISCHARGE INSTRUCTIONS PLEASE READ *Please take this with you to your next doctors appointment* -You will be sent on 3 more days of antibiotics for your pneumonia, you will start tomorrow morning and take twice daily for the 3 additional days -Given you had not been taking her Eliquis and had any new blood clot you have been restarted on Eliquis, you will take 10 mg twice daily for 7 days and then will go back down to the 5 mg twice daily -These medications have been sent in to [facility] verified that they were able to be filled and that you can receive them in a timely manner -Please call your primary care provider's office upon discharge to schedule a hospital follow up within 1 week. -For any concerning signs or symptoms please call 911 or proceed to the nearest emergency department Discharge Orders/Prescriptions Prescriptions: New Eliquis 5 mg Tablet 10 mg PO BID Qty: 187 0RF Taper: Apixaban VTE Treatment 10 mg TWICE A DAY for 7 Days and 0 Hour 5 mg TWICE A DAY for 180 Days and 0 Hour amoxicillin-pot clavulanate 875-125 mg tablet 1 tab PO BID 3 Days Qty: 6 0RF Rx Instructions: first dose 04/05 Continued metoprolol succinate 25 mg tablet extended release 24 hr 25 mg PO DAILY Alive Women's 50 Plus (blend) 240-120-300 mcg tablet 1 tab PO DAILY omega-3 fatty acids 1,000 mg capsule 1,000 mg PO DAILY losartan 25 mg tablet 12.5 mg PO DAILY cholecalciferol (vitamin D3) 50 mcg (2,000 unit) capsule 50 mcg PO DAILY allopurinol 100 mg tablet 100 mg PO BID levothyroxine 88 mcg tablet 88 mcg PO DAILY pravastatin 10 mg tablet 10 mg PO QHS metformin 500 mg tablet extended release 24 hr 500 mg PO BID ipratropium-albuterol 0.5 mg-3 mg(2.5 mg base)/3 mL solution for nebulization 3 ml continuous nebulization Q4H PRN (Reason: shortness of breath or wheezing) potassium chloride 20 mEq tablet extended release 20 meq PO DAILY Discontinued Eliquis 5 mg tablet 5 mg PO BID Referrals / Follow Up: Delta Carolina PA-C [Primary Care Provider] - Disposition Disposition (needs filled in before D/C Order can be placed): Home, Self Care
--- NOTE | 2024-04-04 12:22 | DS.PCM_ITS ---
Providers Date of Admission: 04/02/24 Date of Discharge: 04/04/24 Primary Care Physician: Delta Carolina PA-C Reason For Visit: SOB Diagnosis Discharge Diagnosis (1) Bilateral pneumonia: Status: Acute Code(s): J18.9 - Pneumonia, unspecified organism (2) Pulmonary embolism on right: Status: Acute Code(s): I26.99 - Other pulmonary embolism without acute cor pulmonale Plan #Community-acquired pneumonia # Acute PE on top of patient's chronic history of factor V Leiden, PE, DVT history 2/2 medication noncompliance # Atrial fibrillation # Generalized weakness 2/2 CAP #Hypothyroidism #Type 2 diabetes mellitus #Hypertension #Gout #Morbid obesity Medications at Discharge Home Medications allopurinol 100 mg tablet 100 mg PO BID gout 07/10/20 levothyroxine 88 mcg tablet 88 mcg PO DAILY thyroid 07/10/20 metformin 500 mg tablet,extended release 24 hr 500 mg PO BID diabetes 07/10/20 pravastatin 10 mg tablet 10 mg PO QHS cholesterol 07/10/20 cholecalciferol (vitamin D3) 50 mcg (2,000 unit) capsule 50 mcg PO DAILY vitamin 06/03/21 losartan 25 mg tablet 12.5 mg PO DAILY blood pressure 06/03/21 metoprolol succinate 25 mg tablet,extended release 24 hr 25 mg PO DAILY blood pressure 06/03/21 qmfrejph-lank-pvfzu acid 240 mcg-vit K 120 len-jvpeyj-vmuz 293 tablet (Alive Women's 50 Plus (fruit-veg blend)) 1 tab PO DAILY vitamin 06/03/21 omega-3 fatty acids 1,000 mg capsule 1,000 mg PO DAILY supplement 06/03/21 ipratropium 0.5 mg-albuterol 3 mg (2.5 mg base)/3 mL nebulization soln 3 ml continuous nebulization Q4H PRN shortness of breath or wheezing 04/02/24 potassium chloride 20 mEq tablet,extended release 20 meq PO DAILY supplement 04/02/24 amoxicillin 875 mg-potassium clavulanate 125 mg tablet 1 tab PO BID 3 days #6 tabs 04/04/24 apixaban 5 mg tablet (Eliquis) 10 mg PO BID #187 tabs 04/04/24 Hospital Course Summary of Care Provided Minutes Spent on Discharge: 26 Hospital Course: LEANDRO HELMS, is a 78-year-old female history of A-fib, factor V Leiden deficiency, DVT/PE, lymphoma in remission, gout, hypothyroidism, diabetes presented [facility] ED 04/02/2024 with 3 weeks of cold-like symptoms and 1 week of increased generalized weakness and shortness of breath. Patient had not being out of her recliner very much and her daughter found out also that she had not been taking her Eliquis and had been having very poor p.o. intake. In the ED initial heart rate 109 with blood pressure 132/82, respiratory rate 24 and patient 97% on room air however she was diffusely wheezy and tachypneic. Lab workup revealed a potassium of 3.3 and D-dimer 3.91. CTA obtained and showed a nonocclusive subsegmental right lower lobe pulmonary emboli with bilateral lower lobe pneumonia. Given her wheezing, tachypnea, generalized weakness, pneumonia and PE hospitalist contacted for admission. Patient started on CAP coverage and reloaded with Eliquis at the 10 mg twice daily given she has been off of it now has acute PE. Patient did well with consistent improvement and on the day of discharge 04/04/2024 was feeling much better. She was able to ambulate without need for O2 and patient was comfortable being discharged home. Discharge instructions as followed: -You will be sent on 3 more days of antibiotics for your pneumonia, you will start tomorrow morning and take twice daily for the 3 additional days -Given you had not been taking her Eliquis and had any new blood clot you have been restarted on Eliquis, you will take 10 mg twice daily for 7 days and then will go back down to the 5 mg twice daily -These medications have been sent in to [place] [facility] verified that they were able to be filled and that you can receive them in a timely manner -Please call your primary care provider's office upon discharge to schedule a hospital follow up within 1 week. -For any concerning signs or symptoms please call 911 or proceed to the nearest emergency department Physical Exam Narrative General: Alert, oriented, no apparent distress HEENT: Atraumatic, normocephalic Eyes: Anicteric, normal conjunctiva, extraocular movements grossly intact Neck: Supple Respiratory: Still some scattered wheezes with normal respiratory effort Cardiovascular: Regular rate GI: Soft, nontender, nondistended Extremities: No significant pitting edema Musculoskeletal: Moving all extremities Neuro: No overt focal neurological deficits Skin: No rashes appreciated Psych: Cooperative Weight / BMI Weight Weight: 120.4 kg Body Mass Index (BMI) 41.5 ABG / Lab / Microbiology Data 04/04/24 05:52 04/04/24 05:52 Laboratory: Laboratory Results - last 24 hr 04/03/24 16:47: POC Glucose 154 H 04/04/24 05:52: WBC 6.2, RBC 3.02 L, Hgb 10.0 L, Hct 31.5 L, MCV 104.3 H, MCH 33.1 H, MCHC 31.7 L, RDW Std Deviation 50.7 H, RDW Coeff of Rani 13.3, Plt Count 269, MPV 9.6, Sodium 140, Potassium 3.8, Chloride 108 H, Carbon Dioxide 24.0, Anion Gap 8, BUN 12, Creatinine 0.89, Estim Creat Clear Calc 68.87, Est GFR (MDRD) Af Amer 78, Est GFR (MDRD) Non-Af 65, BUN/Creatinine Ratio 13.5, Glucose 141 H, Calcium 8.9 04/04/24 06:26: POC Glucose 126 H 04/04/24 11:18: POC Glucose 154 H Microbiology: Microbiology 04/02/24 21:05 Mucosa - Nasopharyngeal Respiratory Panel (PCR) - Final 04/02/24 11:49 Mucosa - Nose SARS-CoV-2, Influenza & RSV (PCR) - Final D/C Instructions Discharge Diet: - (Resume home diet) DC O2, CPAP, BIPAP Needs Home O2 Discharge instructions: No Meaningful Use Info Meaningful Use Meaningful Use Diagnoses (Choose all that apply): None applicable Ischemic Stroke Statin Dosing Therapy Reference: STATIN DOSE THERAPY REFERENCE: * Patients > 75 years receive moderate or high dose statin therapy. * Patients 75 years or YOUNGER should receive HIGH intensity statin dose unless contraindicated. You will be required to document reason for non-treatment if statin daily dose does not meet guidelines. HIGH DOSE STATIN THERAPY DAILY Atorvastatin > than or = to 40 mg Rosuvastatin > than or = to 20 mg Amlodipine + Atorvastatin > than or = to 2.5/40 mg Ezetimibe + Simvastatin 10/80 mg Simvastatin 80mg Discharge Plan Admission Admit Date/Time: 04/02/24 15:26 Primary Reason for Your Visit: Increased shortness of breath Attending Provider: Naty Ortiz Primary Care Provider: Delta Carolina Instructions Patient Instructions: ED Pneumonia (Adult) Additional Instructions / Restrictions: DISCHARGE INSTRUCTIONS PLEASE READ *Please take this with you to your next doctors appointment* -You will be sent on 3 more days of antibiotics for your pneumonia, you will start tomorrow morning and take twice daily for the 3 additional days -Given you had not been taking her Eliquis and had any new blood clot you have been restarted on Eliquis, you will take 10 mg twice daily for 7 days and then will go back down to the 5 mg twice daily -These medications have been sent in to [place] [facility] verified that they were able to be filled and that you can receive them in a timely manner -Please call your primary care provider's office upon discharge to schedule a hospital follow up within 1 week. -For any concerning signs or symptoms please call 911 or proceed to the nearest emergency department Discharge Orders/Prescriptions Prescriptions: New Eliquis 5 mg Tablet 10 mg PO BID Qty: 187 0RF Taper: Apixaban VTE Treatment 10 mg TWICE A DAY for 7 Days and 0 Hour 5 mg TWICE A DAY for 180 Days and 0 Hour amoxicillin-pot clavulanate 875-125 mg tablet 1 tab PO BID 3 Days Qty: 6 0RF Rx Instructions: first dose 04/05 Continued metoprolol succinate 25 mg tablet extended release 24 hr 25 mg PO DAILY Alive Women's 50 Plus (blend) 240-120-300 mcg tablet 1 tab PO DAILY omega-3 fatty acids 1,000 mg capsule 1,000 mg PO DAILY losartan 25 mg tablet 12.5 mg PO DAILY cholecalciferol (vitamin D3) 50 mcg (2,000 unit) capsule 50 mcg PO DAILY allopurinol 100 mg tablet 100 mg PO BID levothyroxine 88 mcg tablet 88 mcg PO DAILY pravastatin 10 mg tablet 10 mg PO QHS metformin 500 mg tablet extended release 24 hr 500 mg PO BID ipratropium-albuterol 0.5 mg-3 mg(2.5 mg base)/3 mL solution for nebulization 3 ml continuous nebulization Q4H PRN (Reason: shortness of breath or wheezing) potassium chloride 20 mEq tablet extended release 20 meq PO DAILY Discontinued Eliquis 5 mg tablet 5 mg PO BID Referrals / Follow Up: Carolina,Delta, PA-C [Primary Care Provider] - Disposition Disposition (needs filled in before D/C Order can be placed): Home, Self Care Charges/Coding Visit Charges Inpatient E&M: 64715 Disch Hosp
--- NOTE | 2024-04-04 12:52 | PHA.DC_ITS ---
Pharmacy [facility] Pharm[facility] Service has performed discharge medication reconciliation and counseling for this patient. 1. AMOXICILLIN/CLAVULANATE 875/125MG PO BID X 3 DAYS The patient's discharge medication list was reviewed for discrepancies and discrepancies were resolved. The patient was counseled on the following discharge medications and changes in medications for homegoing were reviewed. The Reason for Use, instructions for use, and potential side effects were reviewed for all new medications. The patient's questions regarding all of their medications were answered. The patient was able to verbally demonstrate an understanding of their discharge medications. Medications at Discharge Home Medications allopurinol 100 mg tablet 100 mg PO BID gout 07/10/20 levothyroxine 88 mcg tablet 88 mcg PO DAILY thyroid 07/10/20 metformin 500 mg tablet,extended release 24 hr 500 mg PO BID diabetes 07/10/20 pravastatin 10 mg tablet 10 mg PO QHS cholesterol 07/10/20 cholecalciferol (vitamin D3) 50 mcg (2,000 unit) capsule 50 mcg PO DAILY 06/03/21 losartan 25 mg tablet 12.5 mg PO DAILY 06/03/21 metoprolol succinate 25 mg tablet,extended release 24 hr 25 mg PO DAILY 06/03/21 pretmmod-mzuy-sbxcg acid 240 mcg-vit K 120 hmu-ebqxos-jkjg 293 tablet (Alive Women's 50 Plus (fruit-veg blend)) 1 tab PO DAILY 06/03/21 omega-3 fatty acids 1,000 mg capsule 1,000 mg PO DAILY 06/03/21 ipratropium 0.5 mg-albuterol 3 mg (2.5 mg base)/3 mL nebulization soln 3 ml continuous nebulization Q4H PRN shortness of breath or wheezing 04/02/24 potassium chloride 20 mEq tablet,extended release 20 meq PO DAILY 04/02/24 amoxicillin 875 mg-potassium clavulanate 125 mg tablet 1 tab PO BID 3 days #6 tabs 04/04/24 apixaban 5 mg tablet (Eliquis) 10 mg PO BID #187 tabs 04/04/24
--- NOTE | 2024-04-04 13:12 | CASEMGMT ---
Patient has order for discharge. Patient discharging on Eliquis, copay is $4.80. RN CM in to discuss needs at discharge. Patient denies needs or help at discharge. Patient had no further questions or concerns.
[2024-04-04 13:47] VITALS: O2SAT 93; O2SAT 94
== END 2024-04-04 14:14 | disposition home or self-care (01) | DRG 193 ==
LOC: ED 14:53 → PCU 16:09
PROVIDERS: Physician Assistant; Admitting Provider Internal Medicine; Emergency Provider Emergency Medicine; PCP Physician Assistant; Referring Provider Emergency Medicine; Visit Provider Internal Medicine
DX: J18.9 Pneumonia, unspecified organism (principal); I26.93 Single subsegmental thrombotic pulmonary embolism without acute cor pulmonale; D68.51 Activated protein C resistance; Z68.41 Body mass index [BMI] 40.0-44.9, adult; E11.65 Type 2 diabetes mellitus with hyperglycemia; E03.9 Hypothyroidism, unspecified; E66.01 Morbid (severe) obesity due to excess calories; I10 Essential (primary) hypertension; I48.91 Unspecified atrial fibrillation; E78.00 Pure hypercholesterolemia, unspecified; M10.9 Gout, unspecified; E87.6 Hypokalemia; T45.516A Underdosing of anticoagulants, initial encounter; Z91.148 Patient's other noncompliance with medication regimen for other reason; Z79.01 Long term (current) use of anticoagulants; Z79.84 Long term (current) use of oral hypoglycemic drugs; Z79.890 Hormone replacement therapy; Z79.899 Other long term (current) drug therapy; Z86.718 Personal history of other venous thrombosis and embolism
CPT/HCPCS: 36415; 71046; 71275; 80048; 82962; 83735; 84484; 85025; 85027; 85379; 87631; 87633; 93005; 94640; 94668; 97161; 97802; 99284; Q9967; A4216; J0696

== ENCOUNTER → 2024-06-21 | Outpatient (CLI) | payer MEDICARE, MEDICAID, SELFPAY ==
--- NOTE | 2024-06-21 07:23 | BI_ITS ---
EXAM: SCRN MAMM (CAD)W/TRENT BILAT 06/21/2024 CLINICAL HISTORY: F, Age 78 y/o , ANNUAL SCREENING TECHNIQUE: Bilateral screening digital breast tomosynthesis with 2D and 3D images. Computer aided detection. COMPARISON: Prior exam(s) dated 05/05/2023, 10/21/2022. FINDINGS: TISSUE DENSITY: The breast tissue is almost entirely fatty. Bilateral Breast Mammographic Findings: No significant masses, calcifications or other abnormalities are identified. BI/SCRN MAMM (CAD)W/TRENT BILAT IMPRESSION: Right Breast: BIRADS 1 NEGATIVE. Left Breast: BIRADS 1 NEGATIVE. OVERALL FINAL ASSESSMENT: BIRADS 1 NEGATIVE. RECOMMENDATION: Routine annual follow-up in 1 Year A letter with findings and recommendations will be mailed to the patient. Reading Location: [facility]
== END | disposition home or self-care (01) ==
LOC: OPBI 07:23
PROVIDERS: PCP Physician Assistant; Referring Provider Internal Medicine Hematology & Oncology; Visit Provider Internal Medicine Hematology & Oncology
DX: Z12.31 Encounter for screening mammogram for malignant neoplasm of breast (principal)
CPT/HCPCS: 77063; 77067